=== PATIENT | female | born 1980 | race Caucasian/White ===

== ENCOUNTER 2019-04-04 22:35 | Emergency (ER) | payer OTHER, MEDICAID, SELFPAY ==
[2019-04-04 22:46] VITALS: BP 138/78; PULSE 83; RESP 15; TEMP 36.5; O2SAT 98; BMI 31.1
--- NOTE | 2019-04-04 23:52 | ED_ITS ---
HPI - Abdominal Pain <Ashlyn Escobedo DO - Last Filed: 04/05/19 06:51> General Chief Complaint: Abdominal Pain Stated Complaint: upper stomach issues, hot and cold flashes Time Seen by Provider: 04/04/19 23:39 Source: patient Mode of arrival: ambulatory Limitations: no limitations History of Present Illness HPI narrative: 38-year-old female comes to the emergency department with complaint of abdominal pain. Patient has complaint of epigastric discomfort she states that she has had symptoms on off for a while. It has been worse recently. She was I could feel hospital and states that they do anything and did not find anything. Patient has a history of hiatal hernia repair which then required replaced in of the mesh has not had a reaction patient states that this feels like it might be something similar. She has had hot and cold flashes but no subjective fevers. Some nausea but no vomiting. She little bit of urinary frequency urgency but no dysuria. No vaginal bleeding or discharge. Nose any issues with bowel movements and normal stools with no black or blood or diarrhea constipation. Little bit of flank pain at times. She states that the flank pain and urinary symptoms have just been for the last day. She denies any other medical issues. Related Data Previous Rx's Medication Instructions Recorded ondansetron [Zofran ODT] 4 mg SUBLINGUAL Q6HP PRN #20 odt 07/11/16 oxycodone-acetaminophen [Percocet] 1 tab PO Q4HP PRN #40 07/11/16 hydromorphone [Dilaudid] 2 mg PO Q4HP PRN #20 tab 07/14/16 sucralfate [Carafate] 10 ml PO QID #420 ml 04/05/19 Allergies Allergy/AdvReac Type Severity Reaction Status Date / Time metronidazole [From Flagyl] Allergy Verified 04/04/19 22:53 Review of Systems <Ashlyn Escobedo DO - Last Filed: 04/05/19 06:51> Review of Systems ROS Unobtainable: All systems reviewed & are unremarkable except as noted in HPI and below PFSH <Ashlyn Escobedo DO - Last Filed: 04/05/19 06:51> Social History (Updated 04/04/19 @ 23:56 by Ashlyn Escobedo DO) Smoking Status: Never smoker substance use type: does not use Social History (Updated 04/04/19 @ 23:56 by Ashlyn Escobedo DO) Smoking Status: Never smoker substance use type: does not use Exam <Ashlyn Escobedo DO - Last Filed: 04/05/19 06:51> Narrative Exam Narrative: GENERAL: Alert and oriented x three, well-nourished, well- appearing female who is tearful I walk into the room but is very calm during our discussion and no longer tearful HEENT: Head normocephalic, atraumatic, EOMI, pupils reactive, face symmetric, moist mucous membranes NECK: Supple, full range of motion CARDIOVASCULAR: Regular rate and rhythm without murmurs, rubs or gallops. RESPIRATORY: Breath sounds equal bilaterally, no wheezes rales or rhonchi. ABDOMEN: Soft, moderate epigastric tenderness, mild generalized abdominal t enderness. Normoactive bowel sounds all 4 quadrants. No guarding or rebound, rigidity, no mass : No CVA tenderness EXTREMITIES: Normal range of motion, no clubbing or edema. Neurovascularly intact NEUROLOGICAL: Cranial nerves II through XII grossly intact. Moving all extremities SKIN: Warm, dry, no petechiae, no rashes or lesions. Initial Vital Signs Initial Vital Signs: Vital Signs Temperature 97.7 F 04/04/19 22:46 Pulse Rate 83 04/04/19 22:46 Respiratory Rate 15 04/04/19 22:46 Blood Pressure 138/78 04/04/19 22:46 Pulse Oximetry 98 04/04/19 22:46 <Phoenix Hope DO - Last Filed: 04/05/19 11:51> Initial Vital Signs Initial Vital Signs: Vital Signs Temperature 97.7 F 04/04/19 22:46 Pulse Rate 83 04/04/19 22:46 Respiratory Rate 15 04/04/19 22:46 Blood Pressure 138/78 04/04/19 22:46 Pulse Oximetry 98 04/04/19 22:46 Course <Ashlyn Escobedo DO - Last Filed: 04/05/19 06:51> Orders Ordered: ED Orders 04/05/19 07:07 Consult to Survey Cad Technician Stat Discontinued Medications Sodium Chloride (Normal Saline 0.9%) 1,000 mls @ 1,000 mls/hr IV BOLUS ONE Stop: 04/05/19 00:51 Last Infusion: 04/05/19 02:00 Dose: 0 mls/hr Documented by: Admin: 04/05/19 00:31 Dose: 1,000 mls/hr Documented by: KATLIN Sodium Chloride (Normal Saline 0.9%) 1,000 mls @ 150 mls/hr IV CONT MARIEL Last Admin: 04/05/19 03:10 Dose: Not Given Documented by: KATLIN Lorazepam (Ativan) 1 mg PO NOW ONE Stop: 04/05/19 02:55 Last Admin: 04/05/19 03:03 Dose: 1 mg Documented by: KATLIN Ondansetron HCl (Zofran) 4 mg IV NOW ONE Stop: 04/04/19 23:53 Last Admin: 04/05/19 00:32 Dose: 4 mg Documented by: KATLIN Ondansetron HCl (Zofran Odt) 4 mg SL NOW ONE Stop: 04/05/19 06:14 Last Admin: 04/05/19 06:21 Dose: 4 mg Documented by: BERENICE Ondansetron HCl (Zofran Odt) 4 mg SL NOW ONE Stop: 04/05/19 09:25 Last Admin: 04/05/19 09:31 Dose: 4 mg Documented by: MOOKIE Pantoprazole Sodium (Protonix) 40 mg IV NOW ONE Stop: 04/04/19 23:53 Last Admin: 04/05/19 00:32 Dose: 40 mg Documented by: KATLIN Vital Signs Vital signs: Vital Signs - 8 hr 04/05/19 05:27 04/05/19 07:35 Temperature 98.0 F Pulse Rate 85 73 Respiratory Rate 16 18 Blood Pressure [Right Arm] 112/64 122/80 Pulse Oximetry 98 96 <Phoenix Hope DO - Last Filed: 04/05/19 11:51> Orders Ordered: ED Orders 04/05/19 07:07 Consult to Survey Cad Technician Stat Discontinued Medications Sodium Chloride (Normal Saline 0.9%) 1,000 mls @ 1,000 mls/hr IV BOLUS ONE Stop: 04/05/19 00:51 Last Infusion: 04/05/19 02:00 Dose: 0 mls/hr Documented by: Admin: 04/05/19 00:31 Dose: 1,000 mls/hr Documented by: KATLIN Sodium Chloride (Normal Saline 0.9%) 1,000 mls @ 150 mls/hr IV CONT MARIEL Last Admin: 04/05/19 03:10 Dose: Not Given Documented by: KATLIN Lorazepam (Ativan) 1 mg PO NOW ONE Stop: 04/05/19 02:55 Last Admin: 04/05/19 03:03 Dose: 1 mg Documented by: KATLIN Ondansetron HCl (Zofran) 4 mg IV NOW ONE Stop: 04/04/19 23:53 Last Admin: 04/05/19 00:32 Dose: 4 mg Documented by: KATLIN Ondansetron HCl (Zofran Odt) 4 mg SL NOW ONE Stop: 04/05/19 06:14 Last Admin: 04/05/19 06:21 Dose: 4 mg Documented by: BERENICE Ondansetron HCl (Zofran Odt) 4 mg SL NOW ONE Stop: 04/05/19 09:25 Last Admin: 04/05/19 09:31 Dose: 4 mg Documented by: MOOKIE Pantoprazole Sodium (Protonix) 40 mg IV NOW ONE Stop: 04/04/19 23:53 Last Admin: 04/05/19 00:32 Dose: 40 mg Documented by: KATLIN Vital Signs Vital signs: Vital Signs - 8 hr 04/05/19 05:27 04/05/19 07:35 Temperature 98.0 F Pulse Rate 85 73 Respiratory Rate 16 18 Blood Pressure [Right Arm] 112/64 122/80 Pulse Oximetry 98 96 MDM - Abdominal Pain <Ashlyn Escobedo DO - Last Filed: 04/05/19 06:51> Lab Data Attestation: I reviewed the patient's lab results. Result diagrams: 04/05/19 00:26 04/05/19 00:26 Labs: Lab Results 04/05/19 04/05/19 04/05/19 Range/Units 00:05 00:05 00:26 WBC 8.0 (4.5-11.0) X10^3/uL RBC 4.49 (4.0-5.2) X10^6/uL Hgb 13.5 (12.0-16.0) g/dL Hct 39.3 (36-46) % MCV 87.5 (80-100) fL MCH 30.1 (26-34) PG MCHC 34.4 (30-36) % RDW 13.5 (11.6-14.8) % Plt Count 246 (150-400) X10^3/uL Neut % (Auto) 74.0 (50-75) % Lymph % (Auto) 18.3 L (25-40) % Stoddard % (Auto) 6.3 (3-14) % Eos % (Auto) 0.8 L (2-4) % Baso % (Auto) 0.6 (0-2) % Neut # (Auto) 5900 (4169-5108) /uL Lymph # (Auto) 1500 (2088-6524) /uL Stoddard # (Auto) 500 (0-900) /uL Eos # (Auto) 100 (0-450) /uL Baso # (Auto) 0 (0-100) /uL Sodium (137-145) mmol/L Potassium (3.4-5.1) mmol/L Chloride (98-107) mmol/L Carbon Dioxide (22-32) mmol/L BUN (7-17) mg/dL Creatinine (0.52-1.04) mg/dL Estimated GFR (>60) mL/min BUN/Creatinine Ratio (6-22) Glucose (70-100) mg/dL Calcium (8.4-10.2) mg/dL Total Bilirubin (0.2-1.3) mg/dL AST (14-36) IU/L ALT (9-52) IU/L Alkaline Phosphatase (38-126) U/L Total Protein (6.3-8.2) g/dL Albumin (3.5-5.0) g/dL Globulin (1.7-4.1) g/dL Albumin/Globulin Ratio (1.0-2.8) Lipase (23-300) U/L TSH (0.47-4.68) uIU/mL Urine RBC None seen (0-5/HPF) Urine WBC None seen (0-5/HPF) Ur Squamous Epith Cells 1-5 /hpf (0-5/HPF) Urine Bacteria Few (2-10) H (None) Ur Culture Indicated? Cult not indicated Urine Opiates Screen Negative (Negative) Ur Oxycodone Screen Negative (Negative) Urine Methadone Screen Negative (Negative) Ur Barbiturates Screen Negative (Negative) U Tricyclic Antidepress Negative (Negative) Ur Phencyclidine Scrn Negative (Negative) Ur Amphetamines Screen Negative (Negative) U Methamphetamines Scrn Negative (Negative) Ur MDMA Scrn (Ecstasy) Negative (Negative) U Benzodiazepines Scrn Negative (Negative) Urine Cocaine Screen Negative (Negative) U Marijuana (THC) Screen Positive H (Negative) 04/05/19 04/05/19 Range/Units 00:26 00:26 WBC (4.5-11.0) X10^3/uL RBC (4.0-5.2) X10^6/uL Hgb (12.0-16.0) g/dL Hct (36-46) % MCV (80-100) fL MCH (26-34) PG MCHC (30-36) % RDW (11.6-14.8) % Plt Count (150-400) X10^3/uL Neut % (Auto) (50-75) % Lymph % (Auto) (25-40) % Stoddard % (Auto) (3-14) % Eos % (Auto) (2-4) % Baso % (Auto) (0-2) % Neut # (Auto) (0961-2887) /uL Lymph # (Auto) (1858-3906) /uL Stoddard # (Auto) (0-900) /uL Eos # (Auto) (0-450) /uL Baso # (Auto) (0-100) /uL Sodium 138 (137-145) mmol/L Potassium 3.4 (3.4-5.1) mmol/L Chloride 109 H (98-107) mmol/L Carbon Dioxide 23 (22-32) mmol/L BUN 10 (7-17) mg/dL Creatinine 0.50 L (0.52-1.04) mg/dL Estimated GFR > 60.0 (>60) mL/min BUN/Creatinine Ratio 20.0 (6-22) Glucose 104 H (70-100) mg/dL Calcium 9.1 (8.4-10.2) mg/dL Total Bilirubin 0.4 (0.2-1.3) mg/dL AST 15 (14-36) IU/L ALT 16 (9-52) IU/L Alkaline Phosphatase 73 (38-126) U/L Total Protein 7.0 (6.3-8.2) g/dL Albumin 4.2 (3.5-5.0) g/dL Globulin 2.8 (1.7-4.1) g/dL Albumin/Globulin Ratio 1.5 (1.0-2.8) Lipase 32 (23-300) U/L TSH 1.65 (0.47-4.68) uIU/mL Urine RBC (0-5/HPF) Urine WBC (0-5/HPF) Ur Squamous Epith Cells (0-5/HPF) Urine Bacteria (None) Ur Culture Indicated? Urine Opiates Screen (Negative) Ur Oxycodone Screen (Negative) Urine Methadone Screen (Negative) Ur Barbiturates Screen (Negative) U Tricyclic Antidepress (Negative) Ur Phencyclidine Scrn (Negative) Ur Amphetamines Screen (Negative) U Methamphetamines Scrn (Negative) Ur MDMA Scrn (Ecstasy) (Negative) U Benzodiazepines Scrn (Negative) Urine Cocaine Screen (Negative) U Marijuana (THC) Screen (Negative) Point of care testing: Point of Care Testing Test Results Negative Urine Dip Bedside Urine Glucose Negative Bedside Urine Bilirubin - Negative Bedside Urine Ketone + 15 Urine Specific Wright 1.015 Bedside Urine Occult Blood +/- Bedside Urine pH 5.5 Bedside Urine Protein - Negative Bedside Urine Urobilinogen - Negative Bedside Urine Nitrite - Negative Bedside Urine Leukocytes - Negative Esterase Imaging Data CT scan - abdomen: Radiologist's impression: No significant abnormalities. No free fluid or adenopathy noted in the pelvis. MDM Narrative Medical decision making narrative: Patient's labs do not show any acute abnormalities, urine did not show any signs of infection there is a few bacteria but no symptomatology or changes that would recommend urine culture at this time. Patient's imaging shows no acute changes discussed starting a PPI which patient has not been found very helpful. She has been on Dexilant recently. Discussed potentially adding Carafate and following up with her recreational therapist and primary care. We also discussed having her return to follow-up with Dr. Steven as she had similar symptoms and they did her mesh revision at that time. She states that her primary has not been giving her referral and we discussed trying to set up referral today. Patient's medication this evening was not helpful, she defers anything additional. She is quite tearful and upset that we do not have an exact answer for her. We discussed chest is earlier with out any changes in lab work or CT there is still a couple potential causes of her abdominal pain such as a gastritis, ulcers or other changes that would be best seen on EGD. As well as seeing her general surgeon. Patient patient expressed to nursing and myself that she is feeling quite h opeless and states she does not know what she would do if she goes home. When asked if she has a plan to kill herself she states, doesn't everybody and states she could think of something. She cannot state that she would feel safe at home either, denies firearms in the household. We discussed trying some medication, continuing to monitor her in the department and re-evaluate after she get some sleep. Patient would like to stay here in the department. We discussed various options to keep the patient safe. She has a family friend at bedside who has been here throughout her stay. Offered po ativan to see if this would help which she accepted. Patient had some retching, she states she has is every single morning was offered a dose of p.o. Zofran which she accepted. She states that it is not helpful normally and she has it at home but did take it. She is no longer vomiting or having any retching. Discussed with patient how she is feeling, she states she has not had any improvement. She still feels like she wants to hurt or kill herself. She is interested in voluntary placement at this time we discussed that is a sometimes very prolonged process but will go ahead and start that process. I did add on a TSH in UDS for medical clearance. Patient signed out to Dr. Hope while waiting final disposition. <Phoenix Hope, DO - Last Filed: 04/05/19 11:51> Lab Data Labs: Lab Results 04/05/19 04/05/19 04/05/19 Range/Units 00:05 00:05 00:26 WBC 8.0 (4.5-11.0) X10^3/uL RBC 4.49 (4.0-5.2) X10^6/uL Hgb 13.5 (12.0-16.0) g/dL Hct 39.3 (36-46) % MCV 87.5 (80-100) fL MCH 30.1 (26-34) PG MCHC 34.4 (30-36) % RDW 13.5 (11.6-14.8) % Plt Count 246 (150-400) X10^3/uL Neut % (Auto) 74.0 (50-75) % Lymph % (Auto) 18.3 L (25-40) % Stoddard % (Auto) 6.3 (3-14) % Eos % (Auto) 0.8 L (2-4) % Baso % (Auto) 0.6 (0-2) % Neut # (Auto) 5900 (4737-7700) /uL Lymph # (Auto) 1500 (2703-7566) /uL Stoddard # (Auto) 500 (0-900) /uL Eos # (Auto) 100 (0-450) /uL Baso # (Auto) 0 (0-100) /uL Sodium (137-145) mmol/L Potassium (3.4-5.1) mmol/L Chloride (98-107) mmol/L Carbon Dioxide (22-32) mmol/L BUN (7-17) mg/dL Creatinine (0.52-1.04) mg/dL Estimated GFR (>60) mL/min BUN/Creatinine Ratio (6-22) Glucose (70-100) mg/dL Calcium (8.4-10.2) mg/dL Total Bilirubin (0.2-1.3) mg/dL AST (14-36) IU/L ALT (9-52) IU/L Alkaline Phosphatase (38-126) U/L Total Protein (6.3-8.2) g/dL Albumin (3.5-5.0) g/dL Globulin (1.7-4.1) g/dL Albumin/Globulin Ratio (1.0-2.8) Lipase (23-300) U/L TSH (0.47-4.68) uIU/mL Urine RBC None seen (0-5/HPF) Urine WBC None seen (0-5/HPF) Ur Squamous Epith Cells 1-5 /hpf (0-5/HPF) Urine Bacteria Few (2-10) H (None) Ur Culture Indicated? Cult not indicated Urine Opiates Screen Negative (Negative) Ur Oxycodone Screen Negative (Negative) Urine Methadone Screen Negative (Negative) Ur Barbiturates Screen Negative (Negative) U Tricyclic Antidepress Negative (Negative) Ur Phencyclidine Scrn Negative (Negative) Ur Amphetamines Screen Negative (Negative) U Methamphetamines Scrn Negative (Negative) Ur MDMA Scrn (Ecstasy) Negative (Negative) U Benzodiazepines Scrn Negative (Negative) Urine Cocaine Screen Negative (Negative) U Marijuana (THC) Screen Positive H (Negative) 04/05/19 04/05/19 Range/Units 00:26 00:26 WBC (4.5-11.0) X10^3/uL RBC (4.0-5.2) X10^6/uL Hgb (12.0-16.0) g/dL Hct (36-46) % MCV (80-100) fL MCH (26-34) PG MCHC (30-36) % RDW (11.6-14.8) % Plt Count (150-400) X10^3/uL Neut % (Auto) (50-75) % Lymph % (Auto) (25-40) % Stoddard % (Auto) (3-14) % Eos % (Auto) (2-4) % Baso % (Auto) (0-2) % Neut # (Auto) (2574-2346) /uL Lymph # (Auto) (9262-8388) /uL Stoddard # (Auto) (0-900) /uL Eos # (Auto) (0-450) /uL Baso # (Auto) (0-100) /uL Sodium 138 (137-145) mmol/L Potassium 3.4 (3.4-5.1) mmol/L Chloride 109 H (98-107) mmol/L Carbon Dioxide 23 (22-32) mmol/L BUN 10 (7-17) mg/dL Creatinine 0.50 L (0.52-1.04) mg/dL Estimated GFR > 60.0 (>60) mL/min BUN/Creatinine Ratio 20.0 (6-22) Glucose 104 H (70-100) mg/dL Calcium 9.1 (8.4-10.2) mg/dL Total Bilirubin 0.4 (0.2-1.3) mg/dL AST 15 (14-36) IU/L ALT 16 (9-52) IU/L Alkaline Phosphatase 73 (38-126) U/L Total Protein 7.0 (6.3-8.2) g/dL Albumin 4.2 (3.5-5.0) g/dL Globulin 2.8 (1.7-4.1) g/dL Albumin/Globulin Ratio 1.5 (1.0-2.8) Lipase 32 (23-300) U/L TSH 1.65 (0.47-4.68) uIU/mL Urine RBC (0-5/HPF) Urine WBC (0-5/HPF) Ur Squamous Epith Cells (0-5/HPF) Urine Bacteria (None) Ur Culture Indicated? Urine Opiates Screen (Negative) Ur Oxycodone Screen (Negative) Urine Methadone Screen (Negative) Ur Barbiturates Screen (Negative) U Tricyclic Antidepress (Negative) Ur Phencyclidine Scrn (Negative) Ur Amphetamines Screen (Negative) U Methamphetamines Scrn (Negative) Ur MDMA Scrn (Ecstasy) (Negative) U Benzodiazepines Scrn (Negative) Urine Cocaine Screen (Negative) U Marijuana (THC) Screen (Negative) Point of care testing: Point of Care Testing Test Results Negative Urine Dip Bedside Urine Glucose Negative Bedside Urine Bilirubin - Negative Bedside Urine Ketone + 15 Urine Specific Wright 1.015 Bedside Urine Occult Blood +/- Bedside Urine pH 5.5 Bedside Urine Protein - Negative Bedside Urine Urobilinogen - Negative Bedside Urine Nitrite - Negative Bedside Urine Leukocytes - Negative Esterase MDM Narrative Medical decision making narrative: Dr Hope: Received turned over from Dr escobedo who is the overnight physician. Reviewed patient's history and physical and labs. Perform my own independent exam. There is no emergent condition found for her presenting symptoms which was her abdominal complaints. She does have an EGD scheduled for Saturday of this week. She was asking for referral to go back and see her surgeon however has been a year and a half and she states that she needs referral. Informed the patient that she needs to get this from her primary doctor. Patient was evaluated by social work here in the emergency department. Patient does not meet criteria for involuntary admission. Plan is to provide the patient resources for crisis intervention. She was informed that she can return to the emergency department at any time. She was tolerating oral intake. She did state she felt comfortable going home. Discharge Plan Departure Patient Disposition: Home Clinical Impression: Abdominal pain, Suicidal ideation Instructions: DI for Epigastric Pain Activity Restrictions/Additional Instructions: Follow up with your primary care and recreational therapist's in the next week for your EGD. You also need to received the referral to see the surgeon by your primary doctor Call Dr. Steven's office for follow up. Below is referral, here new office number is [phone] at [address] [facility] [place] Start carafate today, you may take once before meals three times daily and prior to sleep. Return to the emergency department for fevers greater 100.4 F, persistent vomiting, lightheadedness, passing out, black or bloody stools, rapidly worsening symptoms, new weakness numbness or other new or concerning symptoms. Prescriptions: New sucralfate [Carafate] 100 mg/mL suspension 10 ml PO QID Qty: 420 RF: 0 No Action oxycodone-acetaminophen [Percocet] 7.5 MG/325 MG tablet 1 tab PO Q4HP PRNQty: 40 RF: 0 ondansetron [Zofran ODT] 4 MG tablet,disintegrating 4 mg Sublingual Q6HP PRNQty: 20 RF: 0 hydromorphone [Dilaudid] 2 MG tablet 2 mg PO Q4HP PRNQty: 20 RF: 0 Referrals: Berenice Steven MD [Non-Staff] - Ruddy Cutler PA-C [Primary Care Provider] -
--- NOTE | 2019-04-04 23:53 | DI.CT.S_ITS ---
PROCEDURE: CT ABDOMEN PELVIS W CON INDICATIONS: epigatric pain, hx of hernia repair with mesh replaced. TECHNIQUE: After the administration of intravenous contrast, 5 mm thick sections acquired from the diaphragm to the symphysis. 5 mm coronal and sagittal reformats were acquired. For radiation dose reduction, the following was used: automated exposure control, adjustment of mA and/or kV according to patient size. COMPARISON: [facility], CT, ABDOMEN/PELVIS WITH CONTRAST, 11/29/2015, 12:45. [facility], CR, ABDOMEN ACUTE SERIES, 04/20/2016, 11:24. [facility], CR, ABDOMEN ACUTE SERIES, 11/29/2015, 10:44. [facility], US, ABDOMEN COMPLETE, 09/09/2015, 17:15. FINDINGS: Image quality: Excellent. ABDOMEN: Lung bases: Lung bases are clear. Heart size is normal. Solid organs: Liver is normal in size and enhancement. Gallbladder wall is not thickened. Biliary system is non dilated. Pancreas enhances normally. Spleen is normal in size and enhancement. No adrenal nodules. Kidneys demonstrate normal size and enhancement, without hydronephrosis. Peritoneum and bowel: Bowel loops demonstrate normal wall thickness and caliber. No free fluid or air. Incidental note is made of a normal-appearing appendix. Nodes and vessels: No retroperitoneal or mesenteric adenopathy by size criteria. Aorta and inferior vena cava are normal in size. Miscellaneous: There is a trace or umbilical hernia. No recurrent hernias are seen. Anterior abdominal wall mesh is not definitely seen. PELVIS: Genitourinary: Bladder wall thickness is normal. Miscellaneous: No inguinal hernias or adenopathy. Bones: No suspicious bony lesions. No vertebral body compression fractures. IMPRESSION: Trace periumbilical hernia, without additional anterior abdominal wall hernia. Note: No significant discrepancy from the preliminary report. Dictated by: Luis Angel Chow M.D. on 04/05/2019 at 7:14 Approved by: Luis Angel Chow M.D. on 04/05/2019 at 7:15
[2019-04-05] VITALS (7 sets, daily range): BP systolic 110–129; BP diastolic 56–86; PULSE 68–90; RESP 15–19; TEMP 36.7–36.8; O2SAT 95–98
[2019-04-05 00:14] LABS: RBC Urine None Seen (0-5/HPF); WBC Urine None Seen (0-5/HPF)
[2019-04-05 00:25] LABS: Bacteria Urine Few (2-10); Culture Indicated Urine Cult Not Indicated; Squamous Epithelial Cell Urine 1-5 /HPF (0-5/HPF)
[2019-04-05] MEDS: SODIUM CHLORIDE 0.9% 1,000 ML 1000 ML IV (00:31)
[2019-04-05] MEDS: PANTOPRAZOLE 40 MG VIAL IV (00:32)
[2019-04-05] MEDS: ONDANSETRON 4 MG/2 ML INJ IV (00:32)
[2019-04-05 00:43] LABS: Add Manual Diff / Slide Review NO; Basophils Absolute Auto 0 /uL (0-100); Basophils Percent Auto 0.6 % (0-2); Eosinophils Absolute Auto 100 /uL (0-450); Eosinophils Percent Auto 0.8 % (2-4); Hematocrit 39.3 % (36-46); Hemoglobin 13.5 g/dL (12.0-16.0); Lymphocytes Absolute Auto 1500 /uL (1100-4500); Lymphocytes Percent Auto 18.3 % (25-40); Mean Corpuscular HGB Conc 34.4 % (30-36); Mean Corpuscular Hemoglobin 30.1 PG (26-34); Mean Corpuscular Volume 87.5 fL (80-100); Monocytes Absolute Auto 500 /uL (0-900); Monocytes Percent Auto 6.3 % (3-14); Neutrophils Absolute Auto 5900 /uL (1500-7000); Platelet Count 246 X10^3/uL (150-400); Red Blood Cell Count 4.49 X10^6/uL (4.0-5.2); Red Cell Distribution Width 13.5 % (11.6-14.8)
[2019-04-05 00:50] LABS: Alanine Aminotransferase 16 IU/L (9-52); Albumin 4.2 g/dL (3.5-5.0); Albumin Globulin Ratio 1.5 (1.0-2.8); Alkaline Phosphatase 73 U/L (38-126); Aspartate Aminotransferase 15 IU/L (14-36); Bilirubin Total 0.4 mg/dL (0.2-1.3); Blood Urea Nitrogen 10 mg/dL (7-17); Calcium 9.1 mg/dL (8.4-10.2); Carbon Dioxide 23 mmol/L (22-32); Chloride 109 mmol/L (98-107); Estimated Glomerular Filt Rate > 60.0 mL/min (>60); Globulin 2.8 g/dL (1.7-4.1); Glucose 104 mg/dL (70-100); HEMOLYSIS < 15 (0-50); Lipase 32 U/L (23-300); Potassium 3.4 mmol/L (3.4-5.1); Sodium 138 mmol/L (137-145)
[2019-04-05] MEDS: LORazepam 0.5 MG TABLET 1 MG PO (03:03)
--- NOTE | 2019-04-05 04:06 | PC.NURSE ---
Late Entry 214 As pt was walking to the bathroom, she stopped me and asked to speak with me. She told me that she often wakes in the morning feeling hopeless and that she frequently has thoughts that she would be better off . Pt denies specific plan to commit suicide.
--- NOTE | 2019-04-05 04:11 | PC.NURSE ---
When preparing to discharge the patient, she told me how frustrated she was that we found no explaination for her pain. She said, I don't think I'm safe to go home anymore. Pt indicated that she was feeling suicidal and didn't trust herself at home. When asked if she has a plan, she stated, No, but with my mind going like it is I'm sure I could think of something. Dr Diego notified and spoke with pt at the bedside. Pt agreed to try some ativan for her anxiety, stay and sleep for a few hours, and then reevaluate. Pt's friend remains at bedside.
--- NOTE | 2019-04-05 05:25 | PC.NURSE ---
Late Entry 0335 Pt verbally contracted for safety. She agrees not to harm herself while she is in the ED. Family friend at bedside is also agreeable.
[2019-04-05] MEDS: ONDANSETRON 4 MG ODT SL ×2 (06:21→09:31)
[2019-04-05 06:40] LABS: Urine Amphetamines Negative (Negative); Urine Barbiturates Negative (Negative); Urine Benzodiazepines Negative (Negative); Urine Cocaine Negative (Negative); Urine MDMA Negative (Negative); Urine Methadone Negative (Negative); Urine Methamphetamines Negative (Negative); Urine Morphine/Opi cutoff 2000 Negative (Negative); Urine Oxycodone Negative (Negative); Urine Phencyclidine Negative (Negative); Urine Tetrahydrocannabinol Positive (Negative); Urine Tricyclic Antidepressant Negative (Negative)
[2019-04-05 07:42] LABS: Thyroid Stimulating Hormone 1.65 uIU/mL (0.47-4.68)
--- NOTE | 2019-04-05 08:49 | PC.NURSE ---
Addendum entered by Jessica Mcintosh CNA 04/05/19 10:09: Pt now visting with son. Sitting up on stretcher, chatting calmly. DARA Original Note: Pt ambulated independently to restroom. Pt provided urine sample. Pt now resting calmly on stretcher. Pt's father and family friend are in room with pt. DARA
--- NOTE | 2019-04-05 13:10 | CM.SWNOTE ---
Social Work Consult: HPI narrative: 38-year-old female comes to the emergency department with complaint of abdominal pain. Patient has complaint of epigastric discomfort she states that she has had symptoms on off for a while. It has been worse recently. MDM Narrative: Patient was evaluated by social work here in the emergency department. Patient does not meet criteria for involuntary admission. Plan is to provide the patient resources for crisis intervention. She was informed that she can return to the emergency department at any time. She was tolerating oral intake. She did state she felt comfortable going home. This ANALYTICAL LABORATORY TECHNICIAN requested to see Heather after stating she felt overwhelmed and endorsed thoughts of suicide. Met w/ Heather at bedside, explained SW role. Heather lives w/children 20, 14 and 8 yo. She admits to years long of struggling w/abd pain and h/o multiple abd surgeries. She feels exhausted and in pain everyday and states I understand now why people jump off the bridge. Heather denies current thoughts of self harm or harm to others, she denies a plan to harm herself. She denies any h/o SI/SA, denies psychiatric history or treatment. Heather admits to not feeling myself and feeling hopeless about her medical situation and ongoing abd pain. Educated Heather about the connection between depression/anxiety and abd. issues and encouraged her to seek professional input from a counselor and prescriber about managing her symptoms of both anxiety and depression. Offered assist in placement in a voluntary inpt MH unit and Heather said she didn't want to miss her teenager's first day of HS this week and didn't want to miss her EGD this Saturday. Heather does not meet criteria for detainment and she was able to safety plan w/this ANALYTICAL LABORATORY TECHNICIAN. Haether had friends take her home and was planning on seeking as much peace/calm w/her family this evening as possible. This ANALYTICAL LABORATORY TECHNICIAN called [facility] w/Heather's permission and arranged a chk in call for this evening, they can discuss next day counseling appts. available to Heather.Provided the following resources to Heather before her [place] home: [facility], Outpatient: [facility] ([facility])? They are calling this evening to check in with you. Do not wait until they call if you need immediate assistance to discuss thoughts of self harm, and/or feelings of hopelessness , feeling ?not normal? or feeling overwhelmed. Medicaid Providers: [facility], P# [phone] [facility], P# [phone] [facility], P# [phone] PRINCESS Healy
== END 2019-04-05 12:25 | disposition home or self-care (01) ==
PROVIDERS: Emergency Medicine; Emergency Provider Emergency Medicine; PCP Physician Assistant
DX: R10.9 Unspecified abdominal pain (principal); R45.851 Suicidal ideations
CPT/HCPCS: 36591; 74177; 80053; 80305; 81003; 81015; 81025; 83690; 84443; 85025; 96361; 96374; 96375; 99285; C9113; J2405; Q9967

== ENCOUNTER 2020-09-13 10:43 | Emergency (ER) | payer OTHER, MEDICAID, SELFPAY ==
[2020-09-13 10:48] VITALS: BP 127/81; PULSE 94; RESP 16; TEMP 36.8; O2SAT 97; BMI 30.9
--- NOTE | 2020-09-13 11:13 | ED_ITS ---
HPI - URI/Sore Throat <WILMER Espana - Last Filed: 09/13/20 15:13> General Chief Complaint: Upper Respiratory Symptoms Stated Complaint: breathing issues/sent by doctor Time Seen by Provider: 09/13/20 10:51 Source: patient Mode of arrival: Ambulatory Limitations: no limitations History of Present Illness HPI Narrative: 40yo female presents to the ED for a COVID test. She states she was seen and evaluated at [facility] last evening, she presents with her ED papers which states she was evaluated for cardiac issues, infection, blood clots, and electrolyte abnormalities, etc. she was prescribed dexamethasone and albuterol inhaler which she has not filled or taken. She states it was late at night so she went home to sleep. She called her primary care provider to schedule a follow-up appointment and was told to come to the emergency department to get a COVID test. Patient states she is feeling slightly better this morning without taking medication but she did developed a dry cough which she did not have last evening. She denies any fevers, chills, vomiting, abdominal pain, chest pain, shortness of breath, or any other concerns. 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 Related Data Previous Rx's Medication Instructions Recorded ondansetron [Zofran ODT] 4 mg SUBLINGUAL Q6HP PRN #20 odt 07/11/16 oxycodone-acetaminophen [Percocet] 1 tab PO Q4HP PRN #40 07/11/16 hydromorphone [Dilaudid] 2 mg PO Q4HP PRN #20 tab 07/14/16 sucralfate [Carafate] 10 ml PO QID #420 ml 04/05/19 Allergies Allergy/AdvReac Type Severity Reaction Status Date / Time metronidazole [From Flagyl] Allergy Verified 09/13/20 10:52 nitrofurantoin Allergy Verified 09/13/20 10:52 [From Macrobid] Review of Systems <WILMER Espana - Last Filed: 09/13/20 15:13> Review of Systems Narrative: REVIEW OF SYSTEMS: GENERAL: Denies fevers. HENT: No head trauma or hearing loss. EYES: No loss of vision, double vision, eye pain, irritation or discharge. CARDIOVASCULAR: No chest pain or syncope. RESPIRATORY: Reports cough, see HPI. GASTROINTESTINAL: No nausea, vomiting, diarrhea, or constipation. MUSCULOSKELETAL: No weakness or injury. INTEGUMENTARY: No rash, lesions, or pruritus. NEURO: No memory loss, or confusion. Patient History <WILMER Espana - Last Filed: 09/13/20 15:13> Medical History No significant medical problems Social History Smoking Status: Never smoker substance use type: does not use Smoking Status: Never smoker alcohol intake frequency: holidays/special occasions only Substance Use Type: does not use Exam <WILMER Espana - Last Filed: 09/13/20 15:13> Initial Vital Signs Initial Vital Signs: Vital Signs Temperature 98.3 F 09/13/20 10:48 Pulse Rate 94 H 09/13/20 10:48 Respiratory Rate 16 09/13/20 10:48 Blood Pressure 127/81 09/13/20 10:48 Pulse Oximetry 97 09/13/20 10:48 PHYSICAL EXAMINATION: GENERAL: Awake and alert. HENT: Normocephalic, atraumatic. Ear canals patent. EYES: Conjunctiva pink, sclera white, no periorbital swelling. No discharge. CHEST: Normal to inspection and without deformities. CARDIOVASCULAR: S1 and S2 sounds normal. Regular rate and rhythm, no murmurs, clicks, or bruits. RESPIRATORY: Normal respiratory rate, trachea midline, airway patent. No stridor, nasal flaring or accessory muscle use. Able to speak in full sentences. Lungs are clear in all irvin without wheeze, rhonchi, or crackles. Occasional dry cough observed. MUSCULOSKELETAL: Normal gait and coordination. Equal tone and mass bilaterally. EXTREMITIES: Moves all extremities. SKIN: Warm, dry, soft, appropriate color for ethnicity. No lesions, rashes, or wounds to visualized areas. NEURO: Alert and Oriented X 3. Good coordination. No ataxia or cognitive issues. PSYCH: Appropriate affect and mood. <Ashlyn Diego DO - Last Filed: 09/14/20 08:30> Initial Vital Signs Initial Vital Signs: Vital Signs Temperature 98.3 F 09/13/20 10:48 Pulse Rate 94 H 09/13/20 10:48 Respiratory Rate 16 09/13/20 10:48 Blood Pressure 127/81 09/13/20 10:48 Pulse Oximetry 97 09/13/20 10:48 Scores <Shaunna WILMER June - Last Filed: 09/13/20 15:13> Wells' Criteria for PE Clinical signs and symptoms of DVT: No PE is #1 Dx or equally likely: No Heart rate > 100: No Immobilization at least 3 days or surg in previous 4 weeks: No History of PE or DVT: No Hemoptysis: No Malignancy w/Treatment within 6 months or palliative: No Wells' PE Score total: 0 Course <WILEMR Espana - Last Filed: 09/13/20 15:13> Orders Ordered: ED Orders 09/13/20 11:12 COVID19 Stat Vital Signs Vital signs: Vital Signs - 8 hr 09/13/20 10:48 09/13/20 11:55 Temperature 98.3 F Pulse Rate 94 H 84 Respiratory Rate 16 Blood Pressure 127/81 110/58 L Pulse Oximetry 97 100 <Ashlyn Diego DO - Last Filed: 09/14/20 08:30> Orders Ordered: ED Orders 09/13/20 11:12 COVID19 Stat Vital Signs Vital signs: Vital Signs - 8 hr 09/13/20 10:48 09/13/20 11:55 Temperature 98.3 F Pulse Rate 94 H 84 Respiratory Rate 16 Blood Pressure 127/81 110/58 L Pulse Oximetry 97 100 MDM - URI/Sore Throat <ShaunnaWILMER Case - Last Filed: 09/13/20 15:13> Medical Records Attestation: I reviewed the patient's medical records. Lab Data Attestation: I reviewed the patient's lab results. Labs: Lab Results 09/13/20 Range/Units 11:12 SARS-CoV-2 (PCR) Negative (Negative) MDM Narrative Medical decision making narrative: History and examination reveal a healthy appearing, hemodynamically stable, 40-year-old female here for a COVID test. Patient was significantly evaluated note would be for her shortness of breath and cough. It appeared she had laboratory work drawn, chest x-ray, and was prescribed albuterol and dexamethasone which she has not taken this time. She was told to come get COVID tested by her primary care provider as she was schedule an appointment. No distress, oxygen saturation within normal limits, no tachycardia. Return precautions given for new or worsening symptoms. She was encouraged to fill her scripts and follow-up with her PCP. <Ashlyn Diego, - Last Filed: 09/14/20 08:30> Lab Data Labs: Lab Results 09/13/20 Range/Units 11:12 SARS-CoV-2 (PCR) Negative (Negative) Discharge Plan Departure Patient Disposition: Home Clinical Impression: Encounter for laboratory testing for COVID-19 virus Activity Restrictions/Additional Instructions: Thank you for entrusting me with your care today. As discussed, your COVID-19 test is negative today. Please fill the prescriptions that were given to you last night, start taking them as soon as possible. Call your primary care provider to follow up in the next few days. Return emergency department for any new or worsening symptoms. Prescriptions: No Action oxycodone-acetaminophen [Percocet] 7.5 MG/325 MG tablet 1 tab PO Q4HP PRNQty: 40 RF: 0 ondansetron [Zofran ODT] 4 MG tablet,disintegrating 4 mg Sublingual Q6HP PRNQty: 20 RF: 0 hydromorphone [Dilaudid] 2 MG tablet 2 mg PO Q4HP PRNQty: 20 RF: 0 sucralfate [Carafate] 100 mg/mL suspension 10 ml PO QID Qty: 420 RF: 0 Referrals: Klaudia Quick ARNP [Primary Care Provider] - <Ashlyn Diego, - Last Filed: 09/14/20 08:30> Cosign ED Attending Astridature Attestation: I was immediately available in the department for consultation. Documentation has been reviewed.
[2020-09-13 11:35] LABS: COVID19 -Nasal RAPID Negative (Negative)
[2020-09-13 11:55] VITALS: BP 110/58; PULSE 84; O2SAT 100
== END 2020-09-13 11:56 | disposition home or self-care (01) ==
PROVIDERS: Emergency Provider Nurse Practitioner; PCP Nurse Practitioner Family
DX: Z20.822 Contact with and (suspected) exposure to COVID-19 (principal)
CPT/HCPCS: 87635; 99281; 99282; C9803

== ENCOUNTER 2021-03-18 21:26 | Emergency (ER) | payer OTHER, MEDICAID, SELFPAY ==
[2021-03-18 22:05] VITALS: BP 154/78; PULSE 75; RESP 18; TEMP 36.6; O2SAT 97
[2021-03-18 22:38] LABS: COVID19 -Nasal RAPID Negative (Negative)
--- NOTE | 2021-03-18 23:25 | ED.HA ---
HPI - Headache General Chief Complaint: Headache Stated Complaint: wants covid test, headache, diarrhea, congestion Time Seen by Provider: 03/18/21 23:09 Mode of arrival: Ambulatory Limitations: no limitations History of Present Illness HPI Narrative: Patient is a 40-year-old female with history of migraine headaches un vaccinated for COVID presenting with 3 days of headache nasal congestion sore throat. She has mild cough as well no fevers no neck pain. She has taken her Imitrex multiple times her headache is not going away. Mostly concern for COVID. Headache is mild just persistent. No nausea or vomiting Related Data Previous Rx's Medication Instructions Recorded ondansetron 4 mg disintegrating 4 mg SUBLINGUAL Q6HP PRN #20 odt 07/11/16 tablet (Zofran ODT) oxycodone-acetaminophen 7.5 mg-325 1 tab PO Q4HP PRN #40 07/11/16 mg tablet (Percocet) hydromorphone 2 mg tablet 2 mg PO Q4HP PRN #20 tab 07/14/16 (Dilaudid) sucralfate 100 mg/mL oral 10 ml PO QID #420 ml 04/05/19 suspension (Carafate) Allergies Allergy/AdvReac Type Severity Reaction Status Date / Time metronidazole [From Flagyl] Allergy Verified 09/13/20 10:52 nitrofurantoin Allergy Verified 09/13/20 10:52 [From Macrobid] Review of Systems Review of Systems ROS Unobtainable: All systems reviewed & are unremarkable except as noted in HPI and below Constitutional Constitutional: Reports as per HPI, Reports body ache(s), Reports fatigue, Denies fever(s), Denies headache(s) and Denies weakness Eyes Eyes: Denies blurry vision ENT Ears, Nose, Mouth, and Throat: Reports as per HPI, Denies vertigo, Denies dizziness and Denies headache(s) Cardiovascular Cardiovascular: Denies chest pain, Denies lightheadedness and Denies dyspnea Respiratory Respiratory: Denies cough and Denies dyspnea Gastrointestinal Gastrointestinal: Denies abdominal pain, Denies nausea and Denies vomiting Musculoskeletal Musculoskeletal: Denies tingling Neurologic Neurologic: Denies confusion, Denies vertigo, Denies dizziness, Denies headache(s), Denies tingling and Denies weakness Psychiatric Psychiatric: Denies confusion Endocrine Endocrine: Reports fatigue Patient History Medical History No significant medical problems Social History Smoking Status: Never smoker substance use type: does not use Smoking Status: Never smoker alcohol intake frequency: holidays/special occasions only Substance Use Type: does not use Exam Initial Vital Signs Initial Vital Signs: Vital Signs Temperature 97.9 F 03/18/21 22:05 Pulse Rate 75 03/18/21 22:05 Respiratory Rate 18 03/18/21 22:05 Blood Pressure 154/78 H 03/18/21 22:05 Pulse Oximetry 97 03/18/21 22:05 GENERAL: Well-appearing, well-nourished and in no acute distress. HEENT: Head atraumatic,EOMI, pupils reactive, face symmetric, moist mucous membranes NECK: Supple no meningeal signs CARDIOVASCULAR: Regular rate and rhythm without murmurs, rubs or gallops. RESPIRATORY: Breath sounds equal bilaterally, no wheezes rales or rhonchi. EXTREMITIES: Normal range of motion, no clubbing or edema. Neurovascularly intact NEUROLOGICAL: Alert and oriented x4.Normal gait and speech. Cranial nerves II through XII grossly intact. SKIN: Warm, dry, no laceration, no petechiae, no rashes or lesions. Course Orders Ordered: ED Orders 03/18/21 22:15 COVID19 -Nasal swab/Pre-Proc Stat Discontinued Medications Ketorolac Tromethamine (Ketorolac 30 Mg/Ml Vial) 30 mg IM NOW ONE Stop: 03/18/21 23:18 Last Admin: 03/18/21 23:34 Dose: 30 mg Documented by: SUSAN Vital Signs Vital signs: Vital Signs - 8 hr 03/18/21 22:05 03/18/21 23:39 Temperature 97.9 F Pulse Rate 75 65 Respiratory Rate 18 18 Blood Pressure 154/78 H 114/57 L Pulse Oximetry 97 99 MDM - Headache Lab Data Labs: Lab Results 03/18/21 Range/Units 22:15 SARS-CoV-2 (PCR) Negative (Negative) MDM Narrative Medical decision making narrative: Patient initial concern for COVID she works at the [email or web address] and says that there is a lot of people being diagnosed with it. She is interested now in getting the COVID vaccine. I did discuss with her she probably needs to be retested thing is she has only had symptoms for about 3 days. She is overall feeling much better after Toradol. She is afebrile. I do not suspect any meningitis. She has upper respiratory like symptoms. At this time COVID test is negative. Discharge Plan Departure Patient Disposition: Home Clinical Impression: Upper respiratory infection, Migraine Instructions: Migraine -- Adult, DI for Migraine, DI for Viral Upper Respiratory Infection -- Adult Activity Restrictions/Additional Instructions: *You have been diagnosed with headache and upper respiratory infection *What to do: At this time I still strongly encourage you to get vaccinated for COVID when your infection clears. I also recommend that he get a 2nd COVID test at around day 5 of your symptoms to be sure that you do not have COVID. I believe her headache is caused from your current upper respiratory infection *Continue to take medications as directed *Follow up with your primary care provider in 2-3 days *Return to ER if you should have worsening headache, numbness tingling weakness, increased difficulty breathing or any new, worsening or concerning symptoms Prescriptions: No Action oxycodone-acetaminophen [Percocet] 7.5 MG/325 MG tablet 1 tab PO Q4HP PRNQty: 40 RF: 0 ondansetron [Zofran ODT] 4 MG tablet,disintegrating 4 mg Sublingual Q6HP PRNQty: 20 RF: 0 hydromorphone [Dilaudid] 2 MG tablet 2 mg PO Q4HP PRNQty: 20 RF: 0 sucralfate [Carafate] 100 mg/mL suspension 10 ml PO QID Qty: 420 RF: 0 Referrals: Klaudia Quick ARNP [Primary Care Provider] - Stand Alone Forms: Work Release Note
[2021-03-18] MEDS: KETOROLAC 30 MG/ML VIAL IM (23:34)
[2021-03-18 23:39] VITALS: BP 114/57; PULSE 65; RESP 18; O2SAT 99
== END 2021-03-18 23:45 | disposition home or self-care (01) ==
PROVIDERS: Emergency Provider Emergency Medicine; PCP Nurse Practitioner Family
DX: J06.9 Acute upper respiratory infection, unspecified (principal); G43.909 Migraine, unspecified, not intractable, without status migrainosus; Z20.822 Contact with and (suspected) exposure to COVID-19
CPT/HCPCS: 87635; 96372; 99283; C9803; J1885

== ENCOUNTER 2021-10-31 11:55 | Emergency (ER) | payer OTHER, MEDICAID, SELFPAY ==
[2021-10-31 12:13] VITALS: BP 130/67; PULSE 69; RESP 18; TEMP 36.6; O2SAT 99
--- NOTE | 2021-10-31 12:43 | DI.CT.S_ITS ---
PROCEDURE: CT ABDOMEN PELVIS W CON INDICATIONS: Pancreatic tumor; acute abdomen pain TECHNIQUE: After the administration of oral and IV contrast, axial sections were acquired from the lung bases to the pubic symphysis. Coronal and sagittal reformats were performed. For radiation dose reduction, the following was used: automated exposure control, adjustment of mA and/or kV according to patient size. COMPARISON: [facility], CT, CT ABDOMEN PELVIS WITH CONTRAST, 06/21/2017, 13:04. [facility], CT, CT ABDOMEN PELVIS W CON, 04/05/2019, 1:07. FINDINGS: Image quality: Excellent. Lung bases: Unremarkable. Heart: No significant findings. ABDOMEN: Liver: Unremarkable. Gallbladder: Removed. Biliary ducts: Unremarkable. Pancreas: Within the head of the pancreas, there is a focal hyperenhancing nodule seen, as on series 2, image 24 that measures up to 11 mm. Spleen: Unremarkable. Adrenal Glands: Unremarkable. Kidneys and Ureters: Unremarkable. Stomach and Bowel: Nodular thickening is seen of the colonic wall, which is worst proximally. Minimal surrounding inflammatory change is seen. No dilated loops of small bowel are seen. No significant gastric is seen. Peritoneum: No abnormal intraperitoneal fluid. No free air. Ventral Wall: No hernia. Abdominal Nodes: No retroperitoneal or mesenteric adenopathy by size criteria. Vessels: Aorta and inferior vena cava are normal in size. PELVIS: Pelvic Organs: The cervix demonstrates a somewhat bulbous appearance, yet without a addison mass identified. The uterus is otherwise unremarkable. No adnexal masses are seen on either side. Bladder: Unremarkable. Pelvic Nodes: No enlarged lymph nodes. Miscellaneous: No inguinal hernias are seen. Bones: Unremarkable. IMPRESSION: Moderate generalized colonic wall thickening can be seen, which is worst proximally. Please correlate with potential infectious and inflammatory causes of colitis, including C. difficile colitis. No findings of perforation or abscess can be seen. Bulbous appearance of the uterine cervix. Please correlate with known patient history and physical examination findings. 11 mm hyperenhancing nodule seen within the head of the pancreas. Incidental note is made of: Cholecystectomy Dictated by: Luis Angel Chow M.D. on 10/31/2021 at 12:33 Approved by: Luis Angel Chow M.D. on 10/31/2021 at 12:41
[2021-10-31] MEDS: METOCLOPRAMIDE 10 MG/2 ML INJ IV (12:51)
[2021-10-31] MEDS: MORPHINE 4 MG/ML INJ IV (12:51)
[2021-10-31 12:54] LABS: Add Manual Diff / Slide Review NO; Basophils Absolute Auto 0 /uL (0-100); Basophils Percent Auto 0.5 % (0-2); Eosinophils Absolute Auto 0 /uL (0-450); Eosinophils Percent Auto 0.2 % (2-4); Hematocrit 36.4 % (36-46); Hemoglobin 12.5 g/dL (12.0-16.0); Lymphocytes Absolute Auto 900 /uL (1100-4500); Lymphocytes Percent Auto 15.4 % (25-40); Mean Corpuscular HGB Conc 34.4 % (30-36); Mean Corpuscular Hemoglobin 29.7 PG (26-34); Mean Corpuscular Volume 86.1 fL (80-100); Monocytes Absolute Auto 300 /uL (0-900); Monocytes Percent Auto 5.2 % (3-14); Neutrophils Absolute Auto 4800 /uL (1500-7000); Neutrophils Percent Auto 78.7 % (50-75); Platelet Count 241 X10^3/uL (150-400); Red Blood Cell Count 4.22 X10^6/uL (4.0-5.2); Red Cell Distribution Width 13.5 % (11.6-14.8); White Blood Cell Count 6.1 X10^3/uL (4.5-11.0)
[2021-10-31 13:09] LABS: Lactate (Lactic Acid) 0.8 mmol/L (0.7-2.1)
[2021-10-31 13:10] LABS: Alanine Aminotransferase 15 IU/L (<35); Albumin 4.6 g/dL (3.5-5.0); Albumin Globulin Ratio 1.6 (1.0-2.8); Alkaline Phosphatase 81 U/L (38-126); Aspartate Aminotransferase 20 IU/L (14-36); BUN Creatinine Ratio 16.7 (6-22); Bilirubin Total 0.4 mg/dL (0.2-1.3); Blood Urea Nitrogen 10 mg/dL (7-17); Calcium 8.8 mg/dL (8.4-10.2); Carbon Dioxide 23 mmol/L (22-32); Chloride 108 mmol/L (98-107); Estimated Glomerular Filt Rate > 60.0 mL/min (>60); Globulin 2.8 g/dL (1.7-4.1); Glucose 104 mg/dL (70-100); HEMOLYSIS < 15 (0-50); Potassium 3.9 mmol/L (3.4-5.1); Sodium 140 mmol/L (137-145); Total Protein 7.4 g/dL (6.3-8.2)
[2021-10-31] MEDS: SODIUM CHLORIDE 0.9% 1,000 ML 1000 ML IV (14:36)
--- NOTE | 2021-10-31 16:56 | PC.NURSE ---
Pt unable to give stool sample. Pt will follow up with PCP to get sample at a later time.
[2021-10-31 17:11] VITALS: BP 117/64; PULSE 85; RESP 18; O2SAT 98
--- NOTE | 2021-10-31 19:59 | ED.ABDPAIN ---
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 Patient states she was diagnosed with the neuroendocrine tumor 2 weeks ago, is slated to have surgery for it in November. However patient has epigastric pain and nausea since the diagnosis. Patient was seen at with the yesterday and again this morning and discharged with IV fluids for dehydration and pain control for the abdominal pain. No imaging was done at [facility]. Patient denies fever, chills, chest pain, shortness of breath, vomiting, flank pain, dysuria, hematochezia, melena. Patient was discharged on Vicodin but says that her nausea prevents her from being able to take the medication. Related Data Previous Rx's Medication Instructions Recorded ondansetron 4 mg disintegrating 4 mg SUBLINGUAL Q6HP PRN #20 odt 07/11/16 tablet (Zofran ODT) oxycodone-acetaminophen 7.5 mg-325 1 tab PO Q4HP PRN #40 07/11/16 mg tablet (Percocet) hydromorphone 2 mg tablet 2 mg PO Q4HP PRN #20 tab 07/14/16 (Dilaudid) sucralfate 100 mg/mL oral 10 ml PO QID #420 ml 04/05/19 suspension (Carafate) Allergies Allergy/AdvReac Type Severity Reaction Status Date / Time metronidazole [From Flagyl] Allergy Verified 09/13/20 10:52 nitrofurantoin Allergy Verified 09/13/20 10:52 [From Macrobid] Review of Systems <Silva Barragan PA-C - Last Filed: 10/31/21 20:06> Review of Systems ROS Unobtainable: All systems reviewed & are unremarkable except as noted in HPI and below Constitutional Constitutional: Denies chills, Denies fatigue, Denies fever(s), Denies frequent falls, Denies lethargy and Denies weakness Eyes Eyes: Denies change in vision, Denies eye discharge, Denies irritation and Denies loss of vision ENT Ears, Nose, Mouth, and Throat: Denies change in voice, Denies dizziness, Denies neck pain, Denies sore throat and Denies throat swelling Cardiovascular Cardiovascular: Denies chest pain, Denies irregular heart rhythm, Denies lightheadedness, Denies palpitations, Denies dyspnea, Denies dyspnea on exertion and Denies orthopnea Respiratory Respiratory: Denies cough, Denies dyspnea, Denies dyspnea on exertion and Denies wheezing Gastrointestinal Gastrointestinal: Reports abdominal pain, Denies change in bowel habits, Reports diarrhea, Reports nausea and Denies vomiting Genitourinary Genitourinary: Denies hematuria, Denies flank pain, Denies urinary incontinence and Denies urinary urgency Musculoskeletal Musculoskeletal: Denies back pain, Denies muscle weakness, Denies neck pain, Denies numbness and Denies tingling Integumentary/Breasts Skin/Breast: Denies pruritus, Denies erythema, Denies rash and Denies wounds Neurologic Neurologic: Denies behavioral changes, Denies confusion, Denies dizziness, Denies frequent falls, Denies loss of vision, Denies numbness, Denies tingling and Denies weakness Psychiatric Psychiatric: Denies anxiety, Denies behavioral changes, Denies confusion, Denies depression, Denies homicidal ideation and Denies suicidal ideation Endocrine Endocrine: Denies fatigue, Denies flushing and Denies palpitations Hematologic/Lymphatic Hematologic/Lymphatic: Denies easy bruising Allergic/Immunologic Allergic/Immunologic: Denies urticaria, Denies throat swelling and Denies wheezing Patient History <Silva Barragan PA-C - Last Filed: 10/31/21 20:06> Medical History No significant medical problems Social History Smoking Status: Never smoker substance use type: does not use Smoking Status: Never smoker alcohol intake frequency: holidays/special occasions only Substance Use Type: does not use Exam <Silva Barragan PA-C - Last Filed: 10/31/21 20:06> Initial Vital Signs Initial Vital Signs: Vital Signs Temperature 97.8 F 10/31/21 12:13 Pulse Rate 69 10/31/21 12:13 Respiratory Rate 18 10/31/21 12:13 Blood Pressure 130/67 10/31/21 12:13 Pulse Oximetry 99 10/31/21 12:13 Const General: cooperative, healthy appearing and comfortable [facility] Head: normal to inspection Eyes General: appearance normal, both eyes and all related structures Neck Neck: normal visual inspection Chest Chest: normal inspection of the chest Resp Effort & Inspection: normal respiratory effort Auscultation: clear to auscultation bilaterally Cardio Rate: regular rate Rhythm: regular rhythm GI Other: Tenderness to palpation in the epigastric region. Abdomen is soft, nondistended. General: No CVA tenderness Skin General: no rashes or lesions noted Neuro General: patient alert, patient awake and patient oriented x3 Psych Appearance: grossly normal Mental Status: mental status grossly normal <Phoenix Hope DO - Last Filed: 10/31/21 20:10> Initial Vital Signs Initial Vital Signs: Vital Signs Temperature 97.8 F 10/31/21 12:13 Pulse Rate 69 10/31/21 12:13 Respiratory Rate 18 10/31/21 12:13 Blood Pressure 130/67 10/31/21 12:13 Pulse Oximetry 99 10/31/21 12:13 Course <Silva Barragan PA-C - Last Filed: 10/31/21 20:06> Orders Ordered: ED Orders 10/31/21 12:43 CT abdomen pelvis w con Stat 10/31/21 12:45 CBC Auto Diff [Complete Blood Count AUTO DIFF] Stat CMP [Comprehensive Metabolic Panel] Stat Lactate (Lactic Acid) Stat Discontinued Medications Sodium Chloride (Normal Saline 0.9%) 1,000 mls @ 1,000 mls/hr IV BOLUS ONE Stop: 10/31/21 14:51 Last Infusion: 10/31/21 16:48 Dose: 0 mls/hr Documented by: Admin: 10/31/21 14:36 Dose: 1,000 mls/hr Documented by: SUSAN Metoclopramide HCl (Metoclopramide 10 Mg/2 Ml Inj) 10 mg IV NOW ONE Stop: 10/31/21 12:37 Last Admin: 10/31/21 12:51 Dose: 10 mg Documented by: ALYSON Morphine Sulfate (Morphine 4 Mg/Ml Inj) 4 mg IV NOW ONE Stop: 10/31/21 12:37 Last Admin: 10/31/21 12:51 Dose: 4 mg Documented by: ALYSON Vital Signs Vital signs: Vital Signs - 8 hr 10/31/21 12:13 10/31/21 17:11 Temperature 97.8 F Pulse Rate 69 85 Respiratory Rate 18 18 Blood Pressure 130/67 117/64 Pulse Oximetry 99 98 <Phoenix Hope DO - Last Filed: 10/31/21 20:10> Orders Ordered: ED Orders 10/31/21 12:43 CT abdomen pelvis w con Stat 10/31/21 12:45 CBC Auto Diff [Complete Blood Count AUTO DIFF] Stat CMP [Comprehensive Metabolic Panel] Stat Lactate (Lactic Acid) Stat Discontinued Medications Sodium Chloride (Normal Saline 0.9%) 1,000 mls @ 1,000 mls/hr IV BOLUS ONE Stop: 10/31/21 14:51 Last Infusion: 10/31/21 16:48 Dose: 0 mls/hr Documented by: Admin: 10/31/21 14:36 Dose: 1,000 mls/hr Documented by: SUSAN Metoclopramide HCl (Metoclopramide 10 Mg/2 Ml Inj) 10 mg IV NOW ONE Stop: 10/31/21 12:37 Last Admin: 10/31/21 12:51 Dose: 10 mg Documented by: ALYSON Morphine Sulfate (Morphine 4 Mg/Ml Inj) 4 mg IV NOW ONE Stop: 10/31/21 12:37 Last Admin: 10/31/21 12:51 Dose: 4 mg Documented by: ALYSON Vital Signs Vital signs: Vital Signs - 8 hr 10/31/21 12:13 10/31/21 17:11 Temperature 97.8 F Pulse Rate 69 85 Respiratory Rate 18 18 Blood Pressure 130/67 117/64 Pulse Oximetry 99 98 MDM - Abdominal Pain <Silva Barragan PA-C - Last Filed: 10/31/21 20:06> Medical Records Attestation: I reviewed the patient's medical records. Lab Data Attestation: I reviewed the patient's lab results. Lab results narrative: Labs within normal limits Result diagrams: 10/31/21 12:45 10/31/21 12:45 Labs: Lab Results 10/31/21 10/31/21 10/31/21 Range/Units 12:45 12:45 12:45 WBC 6.1 (4.5-11.0) X10^3/uL RBC 4.22 (4.0-5.2) X10^6/uL Hgb 12.5 (12.0-16.0) g/dL Hct 36.4 (36-46) % MCV 86.1 (80-100) fL MCH 29.7 (26-34) PG MCHC 34.4 (30-36) % RDW 13.5 (11.6-14.8) % Plt Count 241 (150-400) X10^3/uL Neut % (Auto) 78.7 H (50-75) % Lymph % (Auto) 15.4 L (25-40) % [place] % (Auto) 5.2 (3-14) % Eos % (Auto) 0.2 L (2-4) % Baso % (Auto) 0.5 (0-2) % Neut # (Auto) 4800 (3628-8853) /uL Lymph # (Auto) 900 L (3142-2481) /uL [place] # (Auto) 300 (0-900) /uL Eos # (Auto) 0 (0-450) /uL Baso # (Auto) 0 (0-100) /uL Sodium 140 (137-145) mmol/L Potassium 3.9 (3.4-5.1) mmol/L Chloride 108 H (98-107) mmol/L Carbon Dioxide 23 (22-32) mmol/L BUN 10 (7-17) mg/dL Creatinine 0.60 (0.52-1.04) mg/dL Estimated GFR > 60.0 (>60) mL/min BUN/Creatinine Ratio 16.7 (6-22) Glucose 104 H (70-100) mg/dL Lactate 0.8 (0.7-2.1) mmol/L Calcium 8.8 (8.4-10.2) mg/dL Total Bilirubin 0.4 (0.2-1.3) mg/dL AST 20 (14-36) IU/L ALT 15 (<35) IU/L Alkaline Phosphatase 81 (38-126) U/L Total Protein 7.4 (6.3-8.2) g/dL Albumin 4.6 (3.5-5.0) g/dL Globulin 2.8 (1.7-4.1) g/dL Albumin/Globulin Ratio 1.6 (1.0-2.8) Point of care testing: Urine Dip Bedside Urine Glucose Negative Bedside Urine Bilirubin - Negative Bedside Urine Ketone + 15 Urine Specific [place] 1.030 Bedside Urine Occult Blood - Negative Bedside Urine pH 5.5 Bedside Urine Protein - Negative Bedside Urine Urobilinogen - Negative Bedside Urine Nitrite - Negative Bedside Urine Leukocytes - Negative Esterase Imaging Data CT scan - abdomen/pelvis: Radiologist's Impression: PROCEDURE:? CT ABDOMEN PELVIS W CON ? INDICATIONS:? Pancreatic tumor; acute abdomen pain ? TECHNIQUE:? After the administration of oral and IV contrast, axial sections were acquired from the lung bases to the pubic symphysis.? Coronal and sagittal reformats were performed.? For radiation dose reduction, the following was used:? automated exposure control, adjustment of mA and/or kV according to patient size. ? COMPARISON:? [facility], CT, CT ABDOMEN PELVIS WITH CONTRAST, 06/21/2017, 13:04.? [facility], CT, CT ABDOMEN PELVIS W CON, 04/05/2019, 1:07. ? FINDINGS:? Image quality:? Excellent.? ? Lung bases:? Unremarkable.? ? Heart:? No significant findings. ? ? ABDOMEN: Liver:? Unremarkable.? ? Gallbladder:? Removed.? ? Biliary ducts:? Unremarkable.? ? Pancreas:? Within the head of the pancreas, there is a focal hyperenhancing nodule seen, as on series 2, image 24 that measures up to 11 mm. Spleen:? Unremarkable.? ? Adrenal Glands:? Unremarkable.? ? Kidneys and Ureters:? Unremarkable.? ? ? Stomach and Bowel:? Nodular thickening is seen of the colonic wall, which is worst proximally.? Minimal surrounding inflammatory change is seen. No dilated loops of small bowel are seen.? No significant gastric is seen. Peritoneum:? No abnormal intraperitoneal fluid.? No free air.? ? Ventral Wall: ? No hernia.? Abdominal Nodes:? No retroperitoneal or mesenteric adenopathy by size criteria.? Vessels:? Aorta and inferior vena cava are normal in size.? ? PELVIS: Pelvic Organs:? The cervix demonstrates a somewhat bulbous appearance, yet without a addison mass identified.? The uterus is otherwise unremarkable.? No adnexal masses are seen on either side.? Bladder:? Unremarkable.? ? Pelvic Nodes: No enlarged lymph nodes.? Miscellaneous: No inguinal hernias are seen. ? ? ? Bones:? Unremarkable.? IMPRESSION:? ? Moderate generalized colonic wall thickening can be seen, which is worst proximally.? Please correlate with potential infectious and inflammatory causes of colitis, including C. difficile colitis. ? No findings of perforation or abscess can be seen. ? Bulbous appearance of the uterine cervix.? Please correlate with known patient history and physical examination findings. ? 11 mm hyperenhancing nodule seen within the head of the pancreas. ? ? Incidental note is made of: Cholecystectomy ? Dictated by: Luis Angel Chow M.D. on 10/31/2021 at 12:33 ? ? Approved by: Luis Angel Chow M.D. on 10/31/2021 at 12:41 ? 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 Concern for pancreatitis versus tumor related complications versus GERD versus gastroenteritis. Will obtain labs, CT abdomen pelvis. Will will control pain and nausea. Will give IV fluids. Will reassess. Labs within normal limits. CT shows possible colitis due to infectious or inflammatory process. Patient was unable to provide a stool sample in the ED. patient's pain and nausea were well controlled in the ED patient agrees to follow-up with her PCP for a stool test if symptoms do not resolve. ED return precautions discussed with patient. Patient verbalized understanding. <Phoenix Hope, - Last Filed: 10/31/21 20:10> Lab Data Labs: Lab Results 10/31/21 10/31/21 10/31/21 Range/Units 12:45 12:45 12:45 WBC 6.1 (4.5-11.0) X10^3/uL RBC 4.22 (4.0-5.2) X10^6/uL Hgb 12.5 (12.0-16.0) g/dL Hct 36.4 (36-46) % MCV 86.1 (80-100) fL MCH 29.7 (26-34) PG MCHC 34.4 (30-36) % RDW 13.5 (11.6-14.8) % Plt Count 241 (150-400) X10^3/uL Neut % (Auto) 78.7 H (50-75) % Lymph % (Auto) 15.4 L (25-40) % [place] % (Auto) 5.2 (3-14) % Eos % (Auto) 0.2 L (2-4) % Baso % (Auto) 0.5 (0-2) % Neut # (Auto) 4800 (3688-7791) /uL Lymph # (Auto) 900 L (6164-9881) /uL [place] # (Auto) 300 (0-900) /uL Eos # (Auto) 0 (0-450) /uL Baso # (Auto) 0 (0-100) /uL Sodium 140 (137-145) mmol/L Potassium 3.9 (3.4-5.1) mmol/L Chloride 108 H (98-107) mmol/L Carbon Dioxide 23 (22-32) mmol/L BUN 10 (7-17) mg/dL Creatinine 0.60 (0.52-1.04) mg/dL Estimated GFR > 60.0 (>60) mL/min BUN/Creatinine Ratio 16.7 (6-22) Glucose 104 H (70-100) mg/dL Lactate 0.8 (0.7-2.1) mmol/L Calcium 8.8 (8.4-10.2) mg/dL Total Bilirubin 0.4 (0.2-1.3) mg/dL AST 20 (14-36) IU/L ALT 15 (<35) IU/L Alkaline Phosphatase 81 (38-126) U/L Total Protein 7.4 (6.3-8.2) g/dL Albumin 4.6 (3.5-5.0) g/dL Globulin 2.8 (1.7-4.1) g/dL Albumin/Globulin Ratio 1.6 (1.0-2.8) Point of care testing: Urine Dip Bedside Urine Glucose Negative Bedside Urine Bilirubin - Negative Bedside Urine Ketone + 15 Urine Specific [place] 1.030 Bedside Urine Occult Blood - Negative Bedside Urine pH 5.5 Bedside Urine Protein - Negative Bedside Urine Urobilinogen - Negative Bedside Urine Nitrite - Negative Bedside Urine Leukocytes - Negative Esterase Discharge Plan Departure Patient Disposition: Home Clinical Impression: Abdominal pain Instructions: DI for Abdominal Pain-Adult Activity Restrictions/Additional Instructions: You were evaluated in the ED today for abdominal pain, nausea. Your symptoms improved with pain and nausea medication. Your labs were normal. CT of the abdomen pelvis showed possible colitis. You are unable to provide a stool sample in the ED, hence we were unable to test the stool for C difficile or other pathogens. If your symptoms still persist, you may contact your primary care doctor to get a stool test. Return to the ED if your symptoms worsen, you are unable to stop vomiting. Prescriptions: No Action oxycodone-acetaminophen [Percocet] 7.5 MG/325 MG tablet 1 tab PO Q4HP PRNQty: 40 0RF ondansetron [Zofran ODT] 4 MG tablet,disintegrating 4 mg Sublingual Q6HP PRNQty: 20 0RF hydromorphone [Dilaudid] 2 MG tablet 2 mg PO Q4HP PRNQty: 20 0RF sucralfate [Carafate] 100 mg/mL suspension 10 ml PO QID Qty: 420 0RF Rx Instructions: swish in mouth and swallow; use after food/drink Referrals: Klaudia Quick ARNP [Primary Care Provider] - <Phoenix Hope DO - Last Filed: 10/31/21 20:10> Cosign ED Attending Cosignature Attestation: Dr Hope Co-Sign Statement: I was available for consultation during this patient's emergency department visit. This chart is signed by myself for administrative purposes only. I did not have direct contact with this patient during this visit. They were seen independently by the APC.
== END 2021-10-31 17:12 | disposition home or self-care (01) ==
PROVIDERS: Emergency Provider Student in an Organized Health Care Education/Training Program; PCP Nurse Practitioner Family
DX: R10.13 Epigastric pain (principal)
CPT/HCPCS: 36415; 74177; 80053; 81003; 83605; 85025; 96361; 96374; 96375; 99284; J2270; J2765

== ENCOUNTER 2021-11-01 19:16 | Emergency (ER) | payer OTHER, MEDICAID, SELFPAY ==
[2021-11-01 19:21] VITALS: BP 139/63; PULSE 74; RESP 18; TEMP 37.1; O2SAT 97; BMI 29.2
[2021-11-01 20:02] VITALS: BP 137/77; PULSE 66; O2SAT 99
--- NOTE | 2021-11-01 20:07 | PC.NURSE ---
Patient has had loose watery/slimy bowel movements since Saturday. Was seen here at ED Saturday, but was unable to give a stool sample. Subsequent to giving her stool sample today, she was notified that she has C-diff. She denies taking any antibiotics and is unsure how she may have developed C-diff. She endorses severe abdominal pain and copious diarrhea and states she would like help getting rehydrated and get treatment for her C-diff.
[2021-11-01 20:59] VITALS: BP 120/71
[2021-11-01] MEDS: SODIUM CHLORIDE 0.9% 1,000 ML 1000 ML IV (21:00)
[2021-11-01 21:18] LABS: Add Manual Diff / Slide Review NO; Basophils Absolute Auto 0 /uL (0-100); Basophils Percent Auto 0.4 % (0-2); Eosinophils Absolute Auto 0 /uL (0-450); Eosinophils Percent Auto 0.7 % (2-4); Hematocrit 36.9 % (36-46); Hemoglobin 12.6 g/dL (12.0-16.0); Lymphocytes Absolute Auto 1400 /uL (1100-4500); Lymphocytes Percent Auto 19.4 % (25-40); Mean Corpuscular Hemoglobin 29.5 PG (26-34); Mean Corpuscular Volume 86.5 fL (80-100); Monocytes Absolute Auto 500 /uL (0-900); Monocytes Percent Auto 6.9 % (3-14); Neutrophils Absolute Auto 5300 /uL (1500-7000); Neutrophils Percent Auto 72.6 % (50-75); Platelet Count 268 X10^3/uL (150-400); Red Blood Cell Count 4.26 X10^6/uL (4.0-5.2); Red Cell Distribution Width 13.8 % (11.6-14.8); White Blood Cell Count 7.3 X10^3/uL (4.5-11.0)
[2021-11-01 21:32] LABS: Alanine Aminotransferase 16 IU/L (<35); Albumin 4.8 g/dL (3.5-5.0); Albumin Globulin Ratio 1.7 (1.0-2.8); Alkaline Phosphatase 77 U/L (38-126); Aspartate Aminotransferase 24 IU/L (14-36); BUN Creatinine Ratio 15.3 (6-22); Bilirubin Total 0.6 mg/dL (0.2-1.3); Blood Urea Nitrogen 9 mg/dL (7-17); Calcium 9.2 mg/dL (8.4-10.2); Carbon Dioxide 24 mmol/L (22-32); Chloride 106 mmol/L (98-107); Estimated Glomerular Filt Rate > 60.0 mL/min (>60); Globulin 2.8 g/dL (1.7-4.1); Glucose 95 mg/dL (70-100); HEMOLYSIS < 15 (0-50); Potassium 3.7 mmol/L (3.4-5.1); Sodium 140 mmol/L (137-145); Total Protein 7.6 g/dL (6.3-8.2)
--- NOTE | 2021-11-01 22:17 | ED.NAVMDI ---
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 She was seen yesterday with CT scan of the abdomen done showing colitis. Stool sample was obtained this morning that came back positive for C diff. She has oral vancomycin that she started and has taken a single dose already. Her doctor suggested she come to the emergency room because she was still having significant pain. She does not report any bloody stool and she reports no fevers. Nausea is moderately controlled with ODT Zofran but she is worried that she is getting dehydrated and simply not able to care for herself. Related Data Previous Rx's Medication Instructions Recorded ondansetron 4 mg disintegrating 4 mg SUBLINGUAL Q6HP PRN #20 odt 07/11/16 tablet (Zofran ODT) oxycodone-acetaminophen 7.5 mg-325 1 tab PO Q4HP PRN #40 07/11/16 mg tablet (Percocet) hydromorphone 2 mg tablet 2 mg PO Q4HP PRN #20 tab 07/14/16 (Dilaudid) sucralfate 100 mg/mL oral 10 ml PO QID #420 ml 04/05/19 suspension (Carafate) ondansetron 4 mg disintegrating 4 mg PO Q8H PRN #14 tab 11/01/21 tablet Allergies Allergy/AdvReac Type Severity Reaction Status Date / Time metronidazole [From Flagyl] Allergy Verified 09/13/20 10:52 nitrofurantoin Allergy Verified 09/13/20 10:52 [From Macrobid] Review of Systems Review of Systems Narrative: Remainder of complete review of systems is otherwise unremarkable except for that included in the HPI. Patient History Medical History (Updated 11/01/21 @ 22:30 by Fely Grant MD) Clostridium difficile diarrhea No significant medical problems Social History Smoking Status: Never smoker substance use type: does not use Smoking Status: Never smoker alcohol intake frequency: holidays/special occasions only Substance Use Type: does not use Exam Initial Vital Signs Initial Vital Signs: Vital Signs Temperature 98.7 F 11/01/21 19:21 Pulse Rate 74 11/01/21 19:21 Respiratory Rate 18 11/01/21 19:21 Blood Pressure 139/63 11/01/21 19:21 Pulse Oximetry 97 11/01/21 19:21 General: Healthy appearing, in no acute distress. Able to give a complete and coherent history. Well-nourished well-developed HEENT: Moist mucous membranes, normal sclera with reactive pupils, Respiratory: Lungs are clear to auscultation, no wheezing no rales no rhonchi. Full and symmetrical air movement Cardiac: Regular rate and rhythm no murmurs no bruits Abdomen: Soft, mild diffuse tenderness without rebound or guarding, hyperactive bowel tones, no flank pain Skin: Warm and dry, no rashes Neurologic: Grossly neurologically intact with no obvious asymmetries or abnormalities Extremities: No trauma, well perfused Psych: Cooperative, appropriate insight and affect Course Orders Ordered: ED Orders 11/01/21 21:05 Complete Blood Count AUTO DIFF Stat Comprehensive Metabolic Panel Stat Discontinued Medications Sodium Chloride (Normal Saline 0.9%) 1,000 mls @ 1,000 mls/hr IV BOLUS ONE Stop: 11/01/21 21:09 Last Infusion: 11/02/21 00:40 Dose: 0 mls/hr Documented by: Admin: 11/01/21 21:00 Dose: 1,000 mls/hr Documented by: BERENICE Ondansetron HCl (Ondansetron 4 Mg/2 Ml Inj) 4 mg IV NOW ONE Stop: 11/01/21 23:51 Last Admin: 11/02/21 00:11 Dose: 4 mg Documented by: LISA Oxycodone/Acetaminophen (Oxycodone/Apap 5/325 Prepack) 1 bottle MISC SEEINSTR ONE Stop: 11/01/21 22:32 Vital Signs Vital signs: Vital Signs - 8 hr 11/01/21 19:21 11/01/21 20:02 11/01/21 20:59 Temperature 98.7 F Pulse Rate 74 66 Respiratory Rate 18 Blood Pressure 139/63 137/77 120/71 Pulse Oximetry 97 99 11/02/21 00:14 Temperature Pulse Rate 83 Respiratory Rate 18 Blood Pressure 153/77 H Pulse Oximetry 98 MDM - Nausea/Vomiting/Diarrhea Lab Data Result diagrams: 11/01/21 21:05 11/01/21 21:05 Labs: Lab Results 11/01/21 11/01/21 Range/Units 21:05 21:05 WBC 7.3 (4.5-11.0) X10^3/uL RBC 4.26 (4.0-5.2) X10^6/uL Hgb 12.6 (12.0-16.0) g/dL Hct 36.9 (36-46) % MCV 86.5 (80-100) fL MCH 29.5 (26-34) PG MCHC 34.0 (30-36) % RDW 13.8 (11.6-14.8) % Plt Count 268 (150-400) X10^3/uL Neut % (Auto) 72.6 (50-75) % Lymph % (Auto) 19.4 L (25-40) % [place] % (Auto) 6.9 (3-14) % Eos % (Auto) 0.7 L (2-4) % Baso % (Auto) 0.4 (0-2) % Neut # (Auto) 5300 (1309-1059) /uL Lymph # (Auto) 1400 (0948-5307) /uL [place] # (Auto) 500 (0-900) /uL Eos # (Auto) 0 (0-450) /uL Baso # (Auto) 0 (0-100) /uL Sodium 140 (137-145) mmol/L Potassium 3.7 (3.4-5.1) mmol/L Chloride 106 (98-107) mmol/L Carbon Dioxide 24 (22-32) mmol/L BUN 9 (7-17) mg/dL Creatinine 0.59 (0.52-1.04) mg/dL Estimated GFR > 60.0 (>60) mL/min BUN/Creatinine Ratio 15.3 (6-22) Glucose 95 (70-100) mg/dL Calcium 9.2 (8.4-10.2) mg/dL Total Bilirubin 0.6 (0.2-1.3) mg/dL AST 24 (14-36) IU/L ALT 16 (<35) IU/L Alkaline Phosphatase 77 (38-126) U/L Total Protein 7.6 (6.3-8.2) g/dL Albumin 4.8 (3.5-5.0) g/dL Globulin 2.8 (1.7-4.1) g/dL Albumin/Globulin Ratio 1.7 (1.0-2.8) MDM Narrative Medical decision making narrative: 41-year-old woman with laboratory confirmed Clostridium difficile and CT confirmed mild colitis. She is currently able to eat and drink but feels that she is not able to completely keep up with the diarrhea. Nausea is moderately controlled with Zofran she does need some more. There is no blood in the diarrhea she is not having palpitations or syncopal episodes this time. Electrolytes and renal function are reassuring today. She is already started her course of oral vancomycin. She is given a L of fluid in the emergency department, Percocet to help with pain, her Zofran is refilled. We had a nice discussion regarding probiotics and food sources that are rich in probiotics to repopulate her got. At this point she is not toxic, is able to eat and drink and is safe for home discharge. Questions are answered. Discharge Plan Departure Patient Disposition: Home Clinical Impression: Clostridioides difficile diarrhea Instructions: DI for Clostridioides difficile Infection Activity Restrictions/Additional Instructions: Thank you for coming in today You do have Clostridium difficile as a cause of your diarrhea with mild colitis(inflammation of the colon wall). Your kidney function and electrolytes are 100% normal today. This means that even though you feel horrible, your body is keeping up with the volume of diarrhea you are having. You need to complete the entire course of oral vancomycin that you have been prescribed I have given you a couple tablets of Percocet to help with the 1st 24 hours of pain I have given you a refill of your ondansetron to help with nausea. Please make sure that you do a bit of research on probiotics and begin including foods rich in probiotics in your diet daily to help repopulate your colon with healthy bacteria. If you find that your having fevers, bloody diarrhea, increasing abdominal pain or new findings it would be very appropriate to return to the ER Prescriptions: New ondansetron 4 mg tablet,disintegrating 4 mg PO Q8H PRN (Reason: nausea and vomiting) Qty: 14 0RF No Action oxycodone-acetaminophen [Percocet] 7.5 MG/325 MG tablet 1 tab PO Q4HP PRNQty: 40 0RF ondansetron [Zofran ODT] 4 MG tablet,disintegrating 4 mg Sublingual Q6HP PRNQty: 20 0RF hydromorphone [Dilaudid] 2 MG tablet 2 mg PO Q4HP PRNQty: 20 0RF sucralfate [Carafate] 100 mg/mL suspension 10 ml PO QID Qty: 420 0RF Rx Instructions: swish in mouth and swallow; use after food/drink Referrals: Klaudia Quick ARNP [Primary Care Provider] -
[2021-11-02] MEDS: ONDANSETRON 4 MG/2 ML INJ IV (00:11)
[2021-11-02 00:14] VITALS: BP 153/77; PULSE 83; RESP 18; O2SAT 98
[2021-11-02] MEDS: OXYCODONE/APAP 5/325 PREPACK 1 BOTTLE MISC (02:00)
== END 2021-11-02 02:01 | disposition home or self-care (01) ==
PROVIDERS: Emergency Provider Emergency Medicine; PCP Nurse Practitioner Family
DX: A04.72 Enterocolitis due to Clostridium difficile, not specified as recurrent (principal)
CPT/HCPCS: 36415; 80053; 85025; 96361; 96374; 99284; J2405

== ENCOUNTER 2021-11-12 07:22 | Emergency (ER) | payer OTHER, MEDICAID, SELFPAY ==
[2021-11-12 07:44] VITALS: BP 136/60; PULSE 90; RESP 16; TEMP 36.1; O2SAT 98; BMI 27.4
--- NOTE | 2021-11-12 08:04 | ED.ABDPAIN ---
HPI - Abdominal Pain General Chief Complaint: Nausea/Vomiting/Diarrhea Stated Complaint: CDIFF Time Seen by Provider: 11/12/21 07:27 Source: patient Mode of arrival: Family Vehicle History of Present Illness HPI narrative: 41-year-old female nonsmoker with history of pancreatic mass, upcoming Whipple procedure (managed at [facility]) presents with ongoing generalized abdominal cramping and chills at night. She was diagnosed with C diff last week and has finished 10 days of oral vancomycin. She had reached out to her primary care provider and told them that she was not feeling any better and was encouraged to come CS. She states that she is, however starting to develop firm stools. She denies any recent antibiotics, obviously bad food or prior C diff. she was last here on November 01 and had extensive evaluation including labs and imaging noted moderate generalized colonic wall thickening without perforation or abscess. Related Data Previous Rx's Medication Instructions Recorded ondansetron 4 mg disintegrating 4 mg SUBLINGUAL Q6HP PRN #20 odt 07/11/16 tablet (Zofran ODT) oxycodone-acetaminophen 7.5 mg-325 1 tab PO Q4HP PRN #40 07/11/16 mg tablet (Percocet) hydromorphone 2 mg tablet 2 mg PO Q4HP PRN #20 tab 07/14/16 (Dilaudid) sucralfate 100 mg/mL oral 10 ml PO QID #420 ml 04/05/19 suspension (Carafate) ondansetron 4 mg disintegrating 4 mg PO Q8H PRN #14 tab 11/01/21 tablet fidaxomicin 200 mg tablet 200 mg PO BID 10 Days #20 tab 11/12/21 hyoscyamine sulfate 0.125 mg tablet 0.125 mg PO BID-QID PRN #20 tab 11/12/21 ondansetron 4 mg disintegrating 4 mg PO TID-QID PRN #10 tab 11/12/21 tablet Allergies Allergy/AdvReac Type Severity Reaction Status Date / Time metronidazole [From Flagyl] Allergy Verified 11/12/21 07:43 nitrofurantoin Allergy Verified 11/12/21 07:43 [From Macrobid] Review of Systems Review of Systems Narrative: GENERAL: see HPI HEENT: Denies sinus pain, ear pain, sore throat, difficulty swallowing, dizziness. RESPIRATORY: Denies dyspnea, cough, wheezing, hemoptysis, sputum. CARDIOVASCULAR: Denies chest pain, palpitations, orthopnea, edema, GASTROINTESTINAL: See HPI : Denies dysuria, frequency, incontinence, hematuria, urinary retention. MUSCULOSKELETAL: denies weakness, joint pain, or bony pain SKIN: Denies rash, skin lesions, or other NEUROLOGIC: Denies weakness, headache, numbness, change in speech, confusion, seizures, incoordination. PSYCHIATRIC: No concerning psychosocial issues. 12 point review of systems is negative except for those stated above Patient History Medical History Clostridium difficile diarrhea No significant medical problems Social History Smoking Status: Never smoker substance use type: does not use Smoking Status: Never smoker alcohol intake frequency: holidays/special occasions only Substance Use Type: does not use Exam Narrative Exam Narrative: GENERAL: [41] year old patient appears stated age. Well-developed patient, in mild distress. HEAD: Atraumatic. Normocephalic. EYES: Pupils equal round and reactive. Extraocular motions intact. No scleral icterus. No injection or drainage. ENT: Nose without bleeding, purulent drainage. Throat without erythema, tonsillar hypertrophy or exudate. Airway patent. NECK: Trachea midline. Non tender CARDIOVASCULAR: Regular rate and rhythm without murmurs, gallops, or rubs. RESPIRATORY: Clear to auscultation. Breath sounds equal bilaterally. No wheezes, rales, or rhonchi. GASTROINTESTINAL: Abdomen soft, non-tender, nondistended. EXTREMITIES: No edema or joint tenderness. BACK: Nontender without deformity or crepitance. No flank tenderness. NEURO: AOx3. SKIN: No rash or erythema of visible areas Initial Vital Signs Initial Vital Signs: Vital Signs Temperature 96.9 F L 11/12/21 07:44 Pulse Rate 90 11/12/21 07:44 Respiratory Rate 16 11/12/21 07:44 Blood Pressure 136/60 11/12/21 07:44 Pulse Oximetry 98 11/12/21 07:44 Course Orders Ordered: ED Orders 11/12/21 08:15 Blood Culture Stat Complete Blood Count AUTO DIFF Stat Comprehensive Metabolic Panel Stat Lactate (Lactic Acid) Stat Lipase Stat 11/12/21 09:10 Urine Microscopic Stat Discontinued Medications Sodium Chloride (Normal Saline 0.9%) 1,000 mls @ 1,000 mls/hr IV BOLUS ONE Stop: 11/12/21 08:35 Last Admin: 11/12/21 08:20 Dose: 1,000 mls/hr Documented by: LAZARO Pantoprazole Sodium (Pantoprazole 40 Mg Vial) 40 mg IV NOW ONE Stop: 11/12/21 08:45 Last Admin: 11/12/21 08:55 Dose: 40 mg Documented by: BARBRA Vital Signs Vital signs: Vital Signs - 8 hr 11/12/21 07:44 Temperature 96.9 F L Pulse Rate 90 Respiratory Rate 16 Blood Pressure 136/60 Pulse Oximetry 98 MDM - Abdominal Pain Lab Data Result diagrams: 11/12/21 08:15 11/12/21 08:15 Labs: Lab Results 11/12/21 11/12/21 11/12/21 Range/Units 08:15 08:15 08:15 WBC 5.6 (4.5-11.0) X10^3/uL RBC 4.38 (4.0-5.2) X10^6/uL Hgb 12.7 (12.0-16.0) g/dL Hct 37.7 (36-46) % MCV 85.9 (80-100) fL MCH 29.0 (26-34) PG MCHC 33.8 (30-36) % RDW 13.7 (11.6-14.8) % Plt Count 242 (150-400) X10^3/uL Neut % (Auto) 68.2 (50-75) % Lymph % (Auto) 20.6 L (25-40) % [place] % (Auto) 7.8 (3-14) % Eos % (Auto) 2.7 (2-4) % Baso % (Auto) 0.7 (0-2) % Neut # (Auto) 3900 (5813-9729) /uL Lymph # (Auto) 1200 (9097-9303) /uL [place] # (Auto) 400 (0-900) /uL Eos # (Auto) 200 (0-450) /uL Baso # (Auto) 0 (0-100) /uL Sodium 139 (137-145) mmol/L Potassium 4.1 (3.4-5.1) mmol/L Chloride 108 H (98-107) mmol/L Carbon Dioxide 25 (22-32) mmol/L BUN 12 (7-17) mg/dL Creatinine 0.59 (0.52-1.04) mg/dL Estimated GFR > 60.0 (>60) mL/min BUN/Creatinine Ratio 20.3 (6-22) Glucose 109 H (70-100) mg/dL Lactate 0.9 (0.7-2.1) mmol/L Calcium 9.2 (8.4-10.2) mg/dL Total Bilirubin 0.2 (0.2-1.3) mg/dL AST 18 (14-36) IU/L ALT 13 (<35) IU/L Alkaline Phosphatase 68 (38-126) U/L Total Protein 7.2 (6.3-8.2) g/dL Albumin 4.5 (3.5-5.0) g/dL Globulin 2.7 (1.7-4.1) g/dL Albumin/Globulin Ratio 1.7 (1.0-2.8) Lipase 167 (23-300) U/L Point of care testing: Urine Dip Bedside Urine Glucose Negative Bedside Urine Bilirubin - Negative Bedside Urine Ketone - Negative Urine Specific [place] 1.015 Bedside Urine Occult Blood - Negative Bedside Urine pH 7.0 Bedside Urine Protein - Negative Bedside Urine Urobilinogen - Negative Bedside Urine Nitrite - Negative Bedside Urine Leukocytes +/- 15 Esterase MDM Narrative Medical decision making narrative: 41-year-old female reports that she just isn't feeling better after a course of antibiotics for C diff. she has a very reassuring history and physical exam as well as labs. We discussed at length at the bedside that repeat imaging likely would not change the course. We also discussed whether or not another course of vanco or switching to fidamoxocin was most appropriate. Her pain is well controlled, vitals are reassuring, she is tolerating orals. Extensive return precautions discussed and questions answered to her apparent satisfaction Discharge Plan Departure Patient Disposition: Home Clinical Impression: Clostridioides difficile diarrhea Instructions: Clostridium difficile Infection Activity Restrictions/Additional Instructions: *You have been diagnosed with [C diff colitis. As we discussed your history, physical exam and labs are very reassuring and currently there is no indication for repeat imaging. *What to do: *Please continue to take your regular medications as directed. [x ] New medication prescriptions sent to your pharmacy: [[facility] ] [ ] New medication written as a paper prescription [ ] No new medications given *Please follow up with your primary care provider in 2-3 days, call for an appointment. Let them know you were seen in the Emergency Department and that we ask that you be seen in follow up. We will electronically transmit a record of today's note if your PCP is in our system *If you do not have a primary care provider please contact the [facility] Resource line at [phone]. They will ask some questions about your medical history and help get you set up with a doctor in the community. *Return to Emergency Department if you should have any new, worsening or concerning symptoms, such as [fever greater than 101 F, shaking chills, worsening pain, persistent vomiting or other bothersome symptoms] Prescriptions: New hyoscyamine sulfate 0.125 mg tablet 0.125 mg PO BID-QID PRN (Reason: dyspepsia) Qty: 20 0RF ondansetron 4 mg tablet,disintegrating 4 mg PO TID-QID PRN (Reason: nausea and vomiting) Qty: 10 0RF fidaxomicin 200 mg tablet 200 mg PO BID 10 Days Qty: 20 0RF No Action oxycodone-acetaminophen [Percocet] 7.5 MG/325 MG tablet 1 tab PO Q4HP PRNQty: 40 0RF ondansetron [Zofran ODT] 4 MG tablet,disintegrating 4 mg Sublingual Q6HP PRNQty: 20 0RF hydromorphone [Dilaudid] 2 MG tablet 2 mg PO Q4HP PRNQty: 20 0RF ondansetron 4 mg tablet,disintegrating 4 mg PO Q8H PRN (Reason: nausea and vomiting) Qty: 14 0RF sucralfate [Carafate] 100 mg/mL suspension 10 ml PO QID Qty: 420 0RF Rx Instructions: swish in mouth and swallow; use after food/drink Referrals: Ameya Gruber MD [Primary Care Provider] -
[2021-11-12] MEDS: SODIUM CHLORIDE 0.9% 1,000 ML 1000 ML IV (08:20)
[2021-11-12 08:38] LABS: Add Manual Diff / Slide Review NO; Basophils Absolute Auto 0 /uL (0-100); Basophils Percent Auto 0.7 % (0-2); Eosinophils Absolute Auto 200 /uL (0-450); Eosinophils Percent Auto 2.7 % (2-4); Hematocrit 37.7 % (36-46); Hemoglobin 12.7 g/dL (12.0-16.0); Lymphocytes Absolute Auto 1200 /uL (1100-4500); Lymphocytes Percent Auto 20.6 % (25-40); Mean Corpuscular HGB Conc 33.8 % (30-36); Mean Corpuscular Volume 85.9 fL (80-100); Monocytes Absolute Auto 400 /uL (0-900); Monocytes Percent Auto 7.8 % (3-14); Neutrophils Absolute Auto 3900 /uL (1500-7000); Neutrophils Percent Auto 68.2 % (50-75); Platelet Count 242 X10^3/uL (150-400); Red Blood Cell Count 4.38 X10^6/uL (4.0-5.2); Red Cell Distribution Width 13.7 % (11.6-14.8); White Blood Cell Count 5.6 X10^3/uL (4.5-11.0)
[2021-11-12 08:42] LABS: Alanine Aminotransferase 13 IU/L (<35); Albumin 4.5 g/dL (3.5-5.0); Albumin Globulin Ratio 1.7 (1.0-2.8); Alkaline Phosphatase 68 U/L (38-126); Aspartate Aminotransferase 18 IU/L (14-36); BUN Creatinine Ratio 20.3 (6-22); Bilirubin Total 0.2 mg/dL (0.2-1.3); Blood Urea Nitrogen 12 mg/dL (7-17); Calcium 9.2 mg/dL (8.4-10.2); Carbon Dioxide 25 mmol/L (22-32); Chloride 108 mmol/L (98-107); Estimated Glomerular Filt Rate > 60.0 mL/min (>60); Globulin 2.7 g/dL (1.7-4.1); Glucose 109 mg/dL (70-100); HEMOLYSIS < 15 (0-50); Lactate (Lactic Acid) 0.9 mmol/L (0.7-2.1); Lipase 167 U/L (23-300); Potassium 4.1 mmol/L (3.4-5.1); Sodium 139 mmol/L (137-145); Total Protein 7.2 g/dL (6.3-8.2)
[2021-11-12] MEDS: PANTOPRAZOLE 40 MG VIAL IV (08:55)
[2021-11-12 09:30] VITALS: BP 132/62; PULSE 83; RESP 20; O2SAT 99
[2021-11-12 09:53] LABS: Bacteria Urine Moderate (10-30); Culture Indicated Urine Specimen Cultured; RBC Urine None Seen (0-5/HPF); Squamous Epithelial Cell Urine 1-5 /HPF (0-5/HPF); WBC Urine 0-1/HPF (0-5/HPF)
== END 2021-11-12 09:32 | disposition home or self-care (01) ==
PROVIDERS: Emergency Provider Emergency Medicine; PCP Internal Medicine
DX: A04.72 Enterocolitis due to Clostridium difficile, not specified as recurrent (principal)
CPT/HCPCS: 36415; 80053; 81003; 81015; 83605; 83690; 85025; 87040; 87086; 96361; 96374; 99284; C9113

== ENCOUNTER 2022-01-14 14:25 | Emergency (ER) | payer OTHER, MEDICAID, SELFPAY ==
[2022-01-14 14:27] VITALS: BP 109/75; PULSE 94; RESP 18; TEMP 36.4; O2SAT 96
[2022-01-14 14:49] VITALS: PULSE 86; O2SAT 96
[2022-01-14 15:00] VITALS: PULSE 92; O2SAT 96
[2022-01-14 15:18] LABS: Add Manual Diff / Slide Review NO; Basophils Absolute Auto 0 /uL (0-100); Basophils Percent Auto 0.8 % (0-2); Eosinophils Absolute Auto 100 /uL (0-450); Eosinophils Percent Auto 1.6 % (2-4); Hematocrit 32.1 % (36-46); Hemoglobin 10.6 g/dL (12.0-16.0); Lymphocytes Absolute Auto 900 /uL (1100-4500); Lymphocytes Percent Auto 16.7 % (25-40); Mean Corpuscular HGB Conc 32.9 % (30-36); Mean Corpuscular Hemoglobin 27.4 PG (26-34); Mean Corpuscular Volume 83.3 fL (80-100); Monocytes Absolute Auto 400 /uL (0-900); Monocytes Percent Auto 7.6 % (3-14); Neutrophils Absolute Auto 3800 /uL (1500-7000); Neutrophils Percent Auto 73.3 % (50-75); Platelet Count 235 X10^3/uL (150-400); Red Blood Cell Count 3.86 X10^6/uL (4.0-5.2); Red Cell Distribution Width 14.5 % (11.6-14.8); White Blood Cell Count 5.2 X10^3/uL (4.5-11.0)
--- NOTE | 2022-01-14 15:25 | ED.ABDPAIN ---
HPI - Abdominal Pain General Chief Complaint: Abdominal Pain Stated Complaint: Post Procedural Pain, Abd Time Seen by Provider: 01/14/22 15:22 Source: patient Mode of arrival: Ambulatory Limitations: no limitations History of Present Illness HPI narrative: This is a 41-year-old female comes emergency department with complaint of abdominal pain that is been slowly increasing over the past 2 days. Patient had a Whipple for neuroendocrine tumor 30 days ago, patient states she was having improving pain until about 2 days ago and is starting to have increasing pain in various areas in her abdomen. It does not seem to be localized to where her initial discomfort was. She has also had some lower back discomfort as well. She denies fevers or chills. She has had persistent nausea. She never actually vomits but gets very nauseated. No dysuria, urgency or frequency. No black or bloody stools. She has been having normal bowel movements no increased pain with bowel movements. No new vaginal bleeding or discharge. Patient states she is taking Tylenol and oxycodone p.o. with minimal improvement. She denies any other daily medications. She denies any other medical issues. No tobacco, occasional alcohol, no illicit. Her procedure was performed at [facility]. Related Data Previous Rx's Medication Instructions Recorded ondansetron 4 mg disintegrating 4 mg sublingual Q6HP PRN ##20 07/11/16 tablet (Zofran ODT) oxycodone-acetaminophen 7.5 mg-325 1 tab PO Q4HP PRN ##40 07/11/16 mg tablet (Percocet) hydromorphone 2 mg tablet 2 mg PO Q4HP PRN #20 tabs 07/14/16 (Dilaudid) sucralfate 100 mg/mL oral 10 ml PO QID #420 mL 04/05/19 suspension (Carafate) ondansetron 4 mg disintegrating 4 mg PO Q8H PRN nausea and 11/01/21 tablet vomiting #14 tabs hyoscyamine sulfate 0.125 mg tablet 0.125 mg PO BID-QID PRN dyspepsia 11/12/21 #20 tabs ondansetron 4 mg disintegrating 4 mg PO TID-QID PRN nausea and 11/12/21 tablet vomiting #10 tabs oxycodone 5 mg tablet 5 mg PO QID PRN pain #10 tabs 01/14/22 Allergies Allergy/AdvReac Type Severity Reaction Status Date / Time ketorolac [From Toradol] Allergy Verified 01/14/22 14:29 metronidazole [From Flagyl] Allergy Verified 11/12/21 07:43 nitrofurantoin Allergy Verified 11/12/21 07:43 [From Macrobid] Review of Systems Review of Systems ROS Unobtainable: All systems reviewed & are unremarkable except as noted in HPI and below Patient History Medical History Clostridium difficile diarrhea No significant medical problems Social History Smoking Status: Never smoker substance use type: does not use Smoking Status: Never smoker alcohol intake frequency: holidays/special occasions only Substance Use Type: does not use Exam Narrative Exam Narrative: GENERAL: Alert and oriented x three, female in mild distress. HEENT: Head normocephalic, atraumatic, EOMI, pupils reactive, face symmetric, moist mucous membranes NECK: Supple, full range of motion CARDIOVASCULAR: Regular rate and rhythm without murmurs, rubs or gallops. RESPIRATORY: Breath sounds equal bilaterally, no wheezes rales or rhonchi. ABDOMEN: Soft, generalized abdominal tenderness. Normoactive bowel sounds all 4 quadrants. No guarding or rebound, rigidity, no mass. Nondistended. Patient's incisions are clean dry and intact with no erythema or surrounding signs of cellulitis and have fully healed. She has 2 sites were her drains were placed which also appear to be have been healed. She does have a small amount of erythema just central chest just underneath the breast which is slightly erythematous and pruritic. : No CVA tenderness EXTREMITIES: Normal range of motion, no clubbing or edema. Neurovascularly intact NEUROLOGICAL: Cranial nerves II through XII grossly intact. Moving all extremities SKIN: Warm, dry, no petechiae, no rashes or lesions. Initial Vital Signs Initial Vital Signs: Vital Signs Temperature 97.5 F L 01/14/22 14:27 Pulse Rate 94 H 01/14/22 14:27 Respiratory Rate 18 01/14/22 14:27 Blood Pressure 109/75 01/14/22 14:27 Pulse Oximetry 96 01/14/22 14:27 Oxygen Delivery Method 01/14/22 14:27 Course Orders Ordered: Discontinued Medications Sodium Chloride (Normal Saline 0.9%) 1,000 mls @ 1,000 mls/hr IV BOLUS ONE Stop: 01/14/22 16:44 Last Infusion: 01/14/22 17:11 Dose: 0 mls/hr Documented By: Admin: 01/14/22 15:54 Dose: 1,000 mls/hr Documented By: BLAIR Morphine Sulfate (Morphine 4 Mg/Ml Inj) 4 mg IV NOW ONE Stop: 01/14/22 15:44 Last Admin: 01/14/22 15:54 Dose: 4 mg Documented By: BLAIR Ondansetron HCl (Ondansetron 4 Mg/2 Ml Inj) 4 mg IV Q6HR PRN PRN Reason: Nausea And Vomiting Last Admin: 01/14/22 15:54 Dose: 4 mg Documented By: BLAIR Vital Signs Vital signs: Vital Signs - 8 hr 01/14/22 14:27 01/14/22 14:49 01/14/22 15:00 Temperature 97.5 F L Pulse Rate 94 H 86 92 H Respiratory Rate 18 Blood Pressure 109/75 Pulse Oximetry 96 96 96 Oxygen Delivery Method Room Air 01/14/22 15:30 01/14/22 17:17 Temperature Pulse Rate 74 80 Respiratory Rate 18 Blood Pressure 109/70 Pulse Oximetry 98 98 Oxygen Delivery Method MDM - Abdominal Pain Lab Data Result diagrams: 01/14/22 14:47 01/14/22 14:47 Labs: Lab Results 01/14/22 01/14/22 Range/Units 14:47 14:47 WBC 5.2 (4.5-11.0) X10^3/uL RBC 3.86 L (4.0-5.2) X10^6/uL Hgb 10.6 L (12.0-16.0) g/dL Hct 32.1 L (36-46) % MCV 83.3 (80-100) fL MCH 27.4 (26-34) PG MCHC 32.9 (30-36) % RDW 14.5 (11.6-14.8) % Plt Count 235 (150-400) X10^3/uL Neut % (Auto) 73.3 (50-75) % Lymph % (Auto) 16.7 L (25-40) % [place] % (Auto) 7.6 (3-14) % Eos % (Auto) 1.6 L (2-4) % Baso % (Auto) 0.8 (0-2) % Neut # (Auto) 3800 (7520-0774) /uL Lymph # (Auto) 900 L (0717-4229) /uL [place] # (Auto) 400 (0-900) /uL Eos # (Auto) 100 (0-450) /uL Baso # (Auto) 0 (0-100) /uL Sodium 139 (137-145) mmol/L Potassium 3.9 (3.4-5.1) mmol/L Chloride 103 (98-107) mmol/L Carbon Dioxide 23 (22-32) mmol/L BUN 14 (7-17) mg/dL Creatinine 0.47 L (0.52-1.04) mg/dL Estimated GFR > 60 (>60) mL/min BUN/Creatinine Ratio 29.8 H (6-22) Glucose 107 H (70-100) mg/dL Calcium 9.0 (8.4-10.2) mg/dL Total Bilirubin 0.4 (0.2-1.3) mg/dL AST 19 (14-36) IU/L ALT 13 (<35) IU/L Alkaline Phosphatase 94 (38-126) U/L Total Protein 7.0 (6.3-8.2) g/dL Albumin 4.1 (3.5-5.0) g/dL Globulin 2.9 (1.7-4.1) g/dL Albumin/Globulin Ratio 1.4 (1.0-2.8) Lipase 65 (23-300) U/L Point of care testing: Point of Care Testing Test Results Negative Urine Dip Bedside Urine Glucose Negative Bedside Urine Bilirubin - Negative Bedside Urine Ketone +++ 80 Urine Specific [place] 1.010 Bedside Urine Occult Blood - Negative Bedside Urine pH 5.5 Bedside Urine Protein - Negative Bedside Urine Urobilinogen 0.2 Bedside Urine Nitrite - Negative Bedside Urine Leukocytes - Negative Esterase Imaging Data CT scan - abdomen/pelvis: Radiologist's Impression: [address] [address] [address] Scan Report Signed Patient: Heather Ventura MR#: [id number] : 1980 Acct:[id number] Age/Sex: 41 / F Date of Service: 01/14/22 Loc: ED Accession Number: [id number] ?? Procedure: CT abdomen pelvis w con Ordering Provider: Ashlyn Diego D.O. PROCEDURE:? CT ABDOMEN PELVIS W CON ? INDICATIONS:? s/p Whipple for neuroendocrine tumor x 30 days ? TECHNIQUE:? After the administration of IV contrast, axial sections were acquired from the lung bases to the pubic symphysis.? Coronal and sagittal reformats were performed.? For radiation dose reduction, the following was used:? automated exposure control, adjustment of mA and/or kV according to patient size. ? COMPARISON:? [facility], CT, CT ABDOMEN PELVIS W CON, 04/05/2019, 1:07.? [facility], CT, CT ABDOMEN PELVIS W CON, 10/31/2021, 13:05.? [facility], CT, CT ABDOMEN PELVIS WITH CONTRAST, 06/21/2017, 13:04. ? FINDINGS:? Image quality:? Excellent.? ? Lung bases:? Unremarkable.? ? Heart:? No significant findings. ? ? ABDOMEN: Liver:? Unremarkable.? ? Gallbladder:? Removed. Biliary ducts:? Mild biliary gas is seen.? There is a distal common bile duct stent. Pancreas:? Partial pancreatectomy can be seen.? Moderate inflammatory change can be seen within the postoperative bed.? No postoperative abscess is seen. Spleen:? Unremarkable.? ? Adrenal Glands:? Unremarkable.? ? Kidneys and Ureters:? Unremarkable.? ? ? Stomach and Bowel:? Moderate wall thickening is seen involving the ascending colon, with minimal colonic wall thickening seen elsewhere.? No dilated loops of small bowel are seen.? No significant gastric abnormality is seen.? A normal appendix is incidentally noted.? Peritoneum:? No abnormal intraperitoneal fluid.? No free air.? ? Ventral Wall: ? No hernia.? Postoperative change of the anterior abdominal wall is seen. Abdominal Nodes:? No retroperitoneal or mesenteric adenopathy by size criteria.? Vessels:? Aorta and inferior vena cava are normal in size.? ? PELVIS: Pelvic Organs:? The uterus appears normal for age.? No adnexal masses are seen.? Bladder:? Unremarkable.? ? Pelvic Nodes: No enlarged lymph nodes.? Miscellaneous: No inguinal hernias are seen. ? ? Pelvic varices are seen on the left. ? Bones:? Unremarkable.? IMPRESSION:? ? Status post Whipple procedure, with mild inflammatory change seen within the postoperative bed. ? No postoperative abscess is seen. ? A common duct stent is seen, with mild biliary gas. ? Mild wall thickening is seen involving the ascending colon.? This is felt most likely to be reactive to the adjacent surgery.? Differential diagnosis includes focal colitis, yet this is considered to be less likely. ? ? ? Incidental note is made of: Left-sided pelvic varices Normal appendix ? Dictated by: Luis Angel Chow M.D. on 01/14/2022 at 15:05 ? ? Approved by: Luis Angel Chow M.D. on 01/14/2022 at 15:09? MDM Narrative Medical decision making narrative: This is a 41-year-old female who comes with increasing abdominal pain for the past 2 days post Whipple procedure about a month ago for neuroendocrine tumor. Patient has been afebrile, she has had nausea but not active vomiting. She has been having bowel movements middle little bit harder but she has been stooling every couple days. She denies urinary symptoms or vaginal bleeding and no black or bloody stools. Patient has been taking Tylenol oxycodone for pain she has not been taking a stool softener. Her labs today are reassuring, hemoglobin does show a level of 10 today she was 12 in November but she is postoperative, her urine shows some ketones but no signs of infection other than bacteria but no nitrates or leukocyte esterase, it is cultured. She was given some fluids. CT shows some mild inflammatory changes possible colitis versus postoperative changes. She has sort of diffuse pain not clearly localized and no obvious signs of abscess or active infection otherwise. Discussed with patient continue with her current pain management regimen she has been taking 1 tablet of oxycodone every 4-6 we discussed she can do 1-2 but this will make her more constipated. We did discuss adding a stool softener and making sure she is hydrating. She feels comfortable with this plan and will follow-up with her surgeon. She did note a small area of erythema between the breasts suspect mild fungal infection and she has a topical antifungal at home that she can use. Discharge Plan Departure Patient Disposition: Home Clinical Impression: Abdominal pain Instructions: DI for Abdominal Pain-Adult Activity Restrictions/Additional Instructions: Follow up with your surgeon at [facility]. Your imaging today shows some mild inflammatory changes but no other major abnormalities. The area on your skin may have a small amount of fungal infection put topical antifungal twice daily for 1-2 weeks until it has resolved. You can continue your Tylenol up to a 1000 mg every 6 hours as needed. You may increase your oxycodone to 1-2 tablets every 4-6 hours. This medication can make you sleepy do not drive, perform hazardous activities or make any major decisions while taking it. This medication will make you constipated please take a stool softener such as MiraLax once to twice daily until stools are soft and regular. [facility] [place] Please return for fevers, worsening abdominal pain, persistent vomiting, black or bloody stools, difficulty with urination or other new or concerning symptoms. Prescriptions: New oxycodone 5 mg tablet 5 mg PO QID PRN (Reason: pain) Qty: 10 0RF No Action oxycodone-acetaminophen [Percocet] 7.5 MG/325 MG tablet 1 tab PO Q4HP PRNQty: 40 0RF ondansetron [Zofran ODT] 4 MG tablet,disintegrating 4 mg Sublingual Q6HP PRNQty: 20 0RF hydromorphone [Dilaudid] 2 MG tablet 2 mg PO Q4HP PRNQty: 20 0RF ondansetron 4 mg tablet,disintegrating 4 mg PO Q8H PRN (Reason: nausea and vomiting) Qty: 14 0RF sucralfate [Carafate] 100 mg/mL suspension 10 ml PO QID Qty: 420 0RF Rx Instructions: swish in mouth and swallow; use after food/drink hyoscyamine sulfate 0.125 mg tablet 0.125 mg PO BID-QID PRN (Reason: dyspepsia) Qty: 20 0RF ondansetron 4 mg tablet,disintegrating 4 mg PO TID-QID PRN (Reason: nausea and vomiting) Qty: 10 0RF Referrals: Ameya Gruber MD [Primary Care Provider] - Visit Report Forms: Patient Portal/API
[2022-01-14 15:26] LABS: Alanine Aminotransferase 13 IU/L (<35); Albumin 4.1 g/dL (3.5-5.0); Albumin Globulin Ratio 1.4 (1.0-2.8); Alkaline Phosphatase 94 U/L (38-126); Aspartate Aminotransferase 19 IU/L (14-36); BUN Creatinine Ratio 29.8 (6-22); Bilirubin Total 0.4 mg/dL (0.2-1.3); Blood Urea Nitrogen 14 mg/dL (7-17); Carbon Dioxide 23 mmol/L (22-32); Chloride 103 mmol/L (98-107); Estimated Glomerular Filt Rate > 60 mL/min (>60); Globulin 2.9 g/dL (1.7-4.1); Glucose 107 mg/dL (70-100); HEMOLYSIS < 15 (0-50); Lipase 65 U/L (23-300); Potassium 3.9 mmol/L (3.4-5.1); Sodium 139 mmol/L (137-145)
[2022-01-14 15:30] VITALS: PULSE 74; O2SAT 98
--- NOTE | 2022-01-14 15:43 | DI.CT.S_ITS ---
PROCEDURE: CT ABDOMEN PELVIS W CON INDICATIONS: s/p Whipple for neuroendocrine tumor x 30 days TECHNIQUE: After the administration of IV contrast, axial sections were acquired from the lung bases to the pubic symphysis. Coronal and sagittal reformats were performed. For radiation dose reduction, the following was used: automated exposure control, adjustment of mA and/or kV according to patient size. COMPARISON: [facility], CT, CT ABDOMEN PELVIS W CON, 04/05/2019, 1:07. [facility], CT, CT ABDOMEN PELVIS W CON, 10/31/2021, 13:05. Merged With [facility], CT, CT ABDOMEN PELVIS WITH CONTRAST, 06/21/2017, 13:04. FINDINGS: Image quality: Excellent. Lung bases: Unremarkable. Heart: No significant findings. ABDOMEN: Liver: Unremarkable. Gallbladder: Removed. Biliary ducts: Mild biliary gas is seen. There is a distal common bile duct stent. Pancreas: Partial pancreatectomy can be seen. Moderate inflammatory change can be seen within the postoperative bed. No postoperative abscess is seen. Spleen: Unremarkable. Adrenal Glands: Unremarkable. Kidneys and Ureters: Unremarkable. Stomach and Bowel: Moderate wall thickening is seen involving the ascending colon, with minimal colonic wall thickening seen elsewhere. No dilated loops of small bowel are seen. No significant gastric abnormality is seen. A normal appendix is incidentally noted. Peritoneum: No abnormal intraperitoneal fluid. No free air. Ventral Wall: No hernia. Postoperative change of the anterior abdominal wall is seen. Abdominal Nodes: No retroperitoneal or mesenteric adenopathy by size criteria. Vessels: Aorta and inferior vena cava are normal in size. PELVIS: Pelvic Organs: The uterus appears normal for age. No adnexal masses are seen. Bladder: Unremarkable. Pelvic Nodes: No enlarged lymph nodes. Miscellaneous: No inguinal hernias are seen. Pelvic varices are seen on the left. Bones: Unremarkable. IMPRESSION: Status post Whipple procedure, with mild inflammatory change seen within the postoperative bed. No postoperative abscess is seen. A common duct stent is seen, with mild biliary gas. Mild wall thickening is seen involving the ascending colon. This is felt most likely to be reactive to the adjacent surgery. Differential diagnosis includes focal colitis, yet this is considered to be less likely. Incidental note is made of: Left-sided pelvic varices Normal appendix Dictated by: Luis Angel Chow M.D. on 01/14/2022 at 15:05 Approved by: Luis Angel Chow M.D. on 01/14/2022 at 15:09
[2022-01-14] MEDS: ONDANSETRON 4 MG/2 ML INJ IV (15:54)
[2022-01-14] MEDS: SODIUM CHLORIDE 0.9% 1,000 ML 1000 ML IV (15:54)
[2022-01-14] MEDS: MORPHINE 4 MG/ML INJ IV (15:54)
[2022-01-14 17:17] VITALS: BP 109/70; PULSE 80; RESP 18; O2SAT 98
== END 2022-01-14 17:30 | disposition home or self-care (01) ==
PROVIDERS: Emergency Provider Emergency Medicine; PCP Internal Medicine
DX: G89.18 Other acute postprocedural pain (principal); R10.9 Unspecified abdominal pain
CPT/HCPCS: 36415; 74177; 80053; 81003; 81025; 83690; 85025; 96361; 96374; 96375; 99284; J2270; J2405; Q9967

== ENCOUNTER 2022-01-21 00:09 | Emergency (ER) | payer OTHER, MEDICAID, SELFPAY ==
[2022-01-21] VITALS (13 sets, daily range): BP systolic 127–155; BP diastolic 62–105; PULSE 81–109; RESP 16–27; TEMP 36.1; O2SAT 95–98; BMI 24.9
--- NOTE | 2022-01-21 00:31 | DI.RAD.S_ITS ---
PROCEDURE: XR CHEST 1V INDICATIONS: chest pain TECHNIQUE: One view of the chest was acquired. COMPARISON: None. FINDINGS: Surgical changes and devices: None. Lungs and pleura: Lungs are clear. No pleural effusions or pneumothorax. Mediastinum: Mediastinal contours appear normal. Heart size is normal. Bones and chest wall: No suspicious bony lesions. Overlying soft tissues appear unremarkable. IMPRESSION: Normal for age, source of current chest pain symptoms is not seen. Dictated by: Xander Gillespie M.D. on 01/21/2022 at 1:07 Approved by: Xander Gillespie M.D. on 01/21/2022 at 1:07
--- NOTE | 2022-01-21 00:55 | ED_ITS ---
HPI - Chest Pain General Chief Complaint: Chest Pain Stated Complaint: nausea/chest pain/dizzy Time Seen by Provider: 01/21/22 00:30 Source: patient Mode of arrival: Ambulatory Limitations: no limitations History of Present Illness HPI narrative: Patient is a 41-year-old female with recent history of Whipple procedure for neuroendocrine tumor 37 days ago at [facility] presenting today with chest discomfort. She says she was having chest discomfort while in the hospital the monitor did with EKGs and she was given Robaxin. However last couple of days and especially tonight she has worsening pain and the center of her chest. It is on radiating she is currently nauseous. She denies any worsening shortness of breath. 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 Related Data Previous Rx's Medication Instructions Recorded ondansetron 4 mg disintegrating 4 mg sublingual Q6HP PRN ##20 07/11/16 tablet (Zofran ODT) oxycodone-acetaminophen 7.5 mg-325 1 tab PO Q4HP PRN ##40 07/11/16 mg tablet (Percocet) hydromorphone 2 mg tablet 2 mg PO Q4HP PRN #20 tabs 07/14/16 (Dilaudid) sucralfate 100 mg/mL oral 10 ml PO QID #420 mL 04/05/19 suspension (Carafate) ondansetron 4 mg disintegrating 4 mg PO Q8H PRN nausea and 11/01/21 tablet vomiting #14 tabs hyoscyamine sulfate 0.125 mg tablet 0.125 mg PO BID-QID PRN dyspepsia 11/12/21 #20 tabs ondansetron 4 mg disintegrating 4 mg PO TID-QID PRN nausea and 11/12/21 tablet vomiting #10 tabs oxycodone 5 mg tablet 5 mg PO QID PRN pain #10 tabs 01/14/22 hydrocodone 5 mg-acetaminophen 325 1 tab PO Q6H PRN pain #10 tabs 01/21/22 mg tablet ondansetron 4 mg disintegrating 4 mg PO Q8H PRN nausea and 01/21/22 tablet vomiting #10 tabs Allergies Allergy/AdvReac Type Severity Reaction Status Date / Time ketorolac [From Toradol] Allergy Verified 01/14/22 14:29 metronidazole [From Flagyl] Allergy Verified 11/12/21 07:43 nitrofurantoin Allergy Verified 11/12/21 07:43 [From Macrobid] Review of Systems Review of Systems Narrative: GENERAL: Denies chills, fatigue, malaise, fever, sweats, travel HEENT: Denies sinus pain, ear pain, sore throat, difficulty swallowing, neck pain RESPIRATORY: Denies dyspnea, cough, wheezing, hemoptysis, sputum. CARDIOVASCULAR: See HPI GASTROINTESTINAL: Denies nausea, vomiting, abdominal pain, diarrhea, constipation, melena. : Denies dysuria, frequency, incontinence, hematuria, urinary retention, flank pain. MUSCULOSKELETAL: Denies weakness, joint pain, or bony pain SKIN: No rash, no erythema, no pruritus NEUROLOGIC: Denies weakness, dizziness, headache, numbness, change in speech, confusion PSYCHIATRIC: No concerning psychosocial issues. 12 point review of systems is negative except for those stated above and HPI Patient History Medical History Clostridium difficile diarrhea No significant medical problems Social History Smoking Status: Never smoker substance use type: does not use Smoking Status: Never smoker alcohol intake frequency: holidays/special occasions only Substance Use Type: does not use Exam Initial Vital Signs Initial Vital Signs: Vital Signs Temperature 97.0 F L 01/21/22 00:15 Pulse Rate 100 H 01/21/22 00:15 Respiratory Rate 17 01/21/22 00:15 Blood Pressure 147/80 H 01/21/22 00:15 Pulse Oximetry 97 01/21/22 00:15 Oxygen Delivery Method 01/21/22 00:15 GENERAL: Alert well-appearing 41-year-old female and in no acute distress. HEENT: Head atraumatic,EOMI, pupils reactive, face symmetric, moist mucous membranes CARDIOVASCULAR: Regular rate and rhythm without murmurs, rubs or gallops. RESPIRATORY: Breath sounds equal bilaterally, no wheezes rales or rhonchi. ABDOMEN: Soft, nontender. Normoactive bowel sounds all 4 quadrants. No guarding or rebound. Multiple incision sites now seem to be healing. EXTREMITIES: Normal range of motion, no clubbing or edema. Neurovascularly intact NEUROLOGICAL: Alert and oriented x4.Normal gait and speech. SKIN: Warm, dry, no laceration, no petechiae, no rashes or lesions. Course Orders Ordered: ED Orders 01/21/22 00:24 EKG-12 Lead Stat 01/21/22 00:31 XR chest 1V Stat 01/21/22 00:42 Complete Blood Count AUTO DIFF Stat Comprehensive Metabolic Panel Stat D Dimer Stat Lipase Stat Troponin & CK Cardiac Panel Stat 01/21/22 00:43 EKG-12 Lead Routine 01/21/22 00:59 CT angio chest PE protocol Stat 01/21/22 03:15 Test Urine Stat Urinalysis and Microscopic Stat 01/21/22 04:25 Trop I [Troponin I] Stat Discontinued Medications Aspirin (Aspirin 81 Mg Chew Tab) 324 mg PO NOW ONE Stop: 01/21/22 00:32 Last Admin: 01/21/22 01:07 Dose: 324 mg Documented By: EDI Morphine Sulfate (Morphine 2 Mg/Ml Inj) 2 mg IV NOW ONE Stop: 01/21/22 04:32 Last Admin: 01/21/22 04:37 Dose: 2 mg Documented By: REENA Nitroglycerin (Nitroglycerin 0.4 Mg Sl Tab) 0.4 mg SL NOW ONE Stop: 01/21/22 01:00 Last Admin: 01/21/22 01:07 Dose: 0.4 mg Documented By: EDI Ondansetron HCl (Ondansetron 4 Mg/2 Ml Inj) 4 mg IV NOW ONE Stop: 01/21/22 04:44 Last Admin: 01/21/22 04:45 Dose: 4 mg Documented By: REENA Pantoprazole Sodium (Pantoprazole 40 Mg Vial) 40 mg IV NOW ONE Stop: 01/21/22 01:00 Last Admin: 01/21/22 01:07 Dose: 40 mg Documented By: EDI Vital Signs Vital signs: Vital Signs - 8 hr 01/21/22 00:15 01/21/22 00:57 01/21/22 00:58 Temperature 97.0 F L Pulse Rate 100 H 81 Respiratory Rate 17 18 Blood Pressure 147/80 H 155/105 H Pulse Oximetry 97 98 Oxygen Delivery Method Room Air 01/21/22 00:58 01/21/22 01:00 01/21/22 01:00 Temperature Pulse Rate 95 H 104 H Respiratory Rate 21 16 Blood Pressure 151/75 H Pulse Oximetry 97 97 Oxygen Delivery Method 01/21/22 01:30 01/21/22 01:30 01/21/22 02:04 Temperature Pulse Rate 95 H 109 H Respiratory Rate 27 H 19 Blood Pressure 132/78 Pulse Oximetry 95 97 Oxygen Delivery Method 01/21/22 02:30 01/21/22 02:55 01/21/22 02:55 Temperature Pulse Rate 88 98 H Respiratory Rate 20 16 Blood Pressure 141/77 H Pulse Oximetry 97 97 Oxygen Delivery Method 01/21/22 03:00 01/21/22 03:00 01/21/22 03:30 Temperature Pulse Rate 90 Respiratory Rate 18 Blood Pressure 127/62 139/83 Pulse Oximetry 96 Oxygen Delivery Method 01/21/22 03:30 01/21/22 04:00 01/21/22 04:00 Temperature Pulse Rate 93 H 99 H Respiratory Rate Blood Pressure 146/88 H Pulse Oximetry 97 96 Oxygen Delivery Method 01/21/22 04:30 01/21/22 04:30 01/21/22 05:00 Temperature Pulse Rate 105 H Respiratory Rate 18 Blood Pressure 148/70 H 140/67 Pulse Oximetry 96 Oxygen Delivery Method 01/21/22 05:00 Temperature Pulse Rate 96 H Respiratory Rate Blood Pressure Pulse Oximetry 97 Oxygen Delivery Method MDM - Chest Pain Lab Data Result diagrams: 01/21/22 00:42 01/21/22 00:42 Labs: Lab Results 01/21/22 01/21/22 01/21/22 Range/Units 00:42 00:42 00:42 WBC 7.6 (4.5-11.0) X10^3/uL RBC 4.17 (4.0-5.2) X10^6/uL Hgb 11.3 L (12.0-16.0) g/dL Hct 34.3 L (36-46) % MCV 82.3 (80-100) fL MCH 27.1 (26-34) PG MCHC 33.0 (30-36) % RDW 14.5 (11.6-14.8) % Plt Count 319 (150-400) X10^3/uL Neut % (Auto) Not Reportable Lymph % (Auto) Not Reportable [place] % (Auto) Not Reportable Eos % (Auto) Not Reportable Baso % (Auto) Not Reportable Lymph # (Auto) Not Reportable [place] # (Auto) Not Reportable Baso # (Auto) Not Reportable Total Counted 100 Seg Neutrophils % 80.0 H (38-70) % Band Neutrophils % 5.0 (3-7) % Lymphocytes % (Manual) 11.0 L (25-45) % Monocytes % (Manual) 1.0 L (2-11) % Eosinophils % (Manual) 3.0 (2-4) % Neutrophils # (Manual) 6460 H (4852-7186) /uL RBC Morphology See below Anisocytosis 1+ H D-Dimer 361 H (<230) ng/mL Sodium 139 (137-145) mmol/L Potassium 3.9 (3.4-5.1) mmol/L Chloride 102 (98-107) mmol/L Carbon Dioxide 21 L (22-32) mmol/L BUN 9 (7-17) mg/dL Creatinine 0.39 L (0.52-1.04) mg/dL Estimated GFR > 60 (>60) mL/min BUN/Creatinine Ratio 23.1 H (6-22) Glucose 140 H (70-100) mg/dL Calcium 9.0 (8.4-10.2) mg/dL Total Bilirubin 0.5 (0.2-1.3) mg/dL AST 18 (14-36) IU/L ALT 12 (<35) IU/L Alkaline Phosphatase 105 (38-126) U/L Total Creatine Kinase 23 L (30-135) U/L CK-MB (CK-2) TNP CK-MB (CK-2) Rel Index TNP Troponin I < 0.012 (0.01-0.034) ng/mL Total Protein 7.3 (6.3-8.2) g/dL Albumin 4.5 (3.5-5.0) g/dL Globulin 2.8 (1.7-4.1) g/dL Albumin/Globulin Ratio 1.6 (1.0-2.8) Lipase 54 (23-300) U/L Urine Color Urine Appearance Urine pH (4.5-8.0) Ur Specific [place] (1.000-1.035) Urine Protein (Negative) Urine Glucose (UA) (Negative) g/dL Urine Ketones (NEGATIVE) Urine Occult Blood (Negative) Urine Nitrate (Negative) Urine Bilirubin (NEGATIVE) Urine Urobilinogen (0.2) E.U./dL Ur Leukocyte Esterase (NEGATIVE) Urine RBC (0-5/HPF) Urine WBC (0-5/HPF) Ur Squamous Epith Cells (0-5/HPF) Urine Bacteria (None) Ur Culture Indicated? Urine Test (Negative) 01/21/22 01/21/22 01/21/22 Range/Units 03:15 03:15 04:25 WBC (4.5-11.0) X10^3/uL RBC (4.0-5.2) X10^6/uL Hgb (12.0-16.0) g/dL Hct (36-46) % MCV (80-100) fL MCH (26-34) PG MCHC (30-36) % RDW (11.6-14.8) % Plt Count (150-400) X10^3/uL Neut % (Auto) Lymph % (Auto) [place] % (Auto) Eos % (Auto) Baso % (Auto) Lymph # (Auto) [place] # (Auto) Baso # (Auto) Total Counted Seg Neutrophils % (38-70) % Band Neutrophils % (3-7) % Lymphocytes % (Manual) (25-45) % Monocytes % (Manual) (2-11) % Eosinophils % (Manual) (2-4) % Neutrophils # (Manual) (7315-0994) /uL RBC Morphology Anisocytosis D-Dimer (<230) ng/mL Sodium (137-145) mmol/L Potassium (3.4-5.1) mmol/L Chloride (98-107) mmol/L Carbon Dioxide (22-32) mmol/L BUN (7-17) mg/dL Creatinine (0.52-1.04) mg/dL Estimated GFR (>60) mL/min BUN/Creatinine Ratio (6-22) Glucose (70-100) mg/dL Calcium (8.4-10.2) mg/dL Total Bilirubin (0.2-1.3) mg/dL AST (14-36) IU/L ALT (<35) IU/L Alkaline Phosphatase (38-126) U/L Total Creatine Kinase (30-135) U/L CK-MB (CK-2) CK-MB (CK-2) Rel Index Troponin I < 0.012 (0.01-0.034) ng/mL Total Protein (6.3-8.2) g/dL Albumin (3.5-5.0) g/dL Globulin (1.7-4.1) g/dL Albumin/Globulin Ratio (1.0-2.8) Lipase (23-300) U/L Urine Color Yellow Urine Appearance Clear Urine pH 5.0 (4.5-8.0) Ur Specific [place] 1.025 (1.000-1.035) Urine Protein 1+ H (Negative) Urine Glucose (UA) Negative (Negative) g/dL Urine Ketones 3+ H (NEGATIVE) Urine Occult Blood Trace-lysed (Negative) Urine Nitrate Negative (Negative) Urine Bilirubin Negative (NEGATIVE) Urine Urobilinogen 0.2 (0.2) E.U./dL Ur Leukocyte Esterase Negative (NEGATIVE) Urine RBC None seen (0-5/HPF) Urine WBC None seen (0-5/HPF) Ur Squamous Epith Cells 0-1 /hpf (0-5/HPF) Urine Bacteria None seen (None) Ur Culture Indicated? Cult not indicated Urine Test Negative (Negative) Imaging Data CT scan - chest: Radiologist's Impression: No CT evidence of PE. Normal caliber thoracic aorta. Clear lungs. ECG Data Interpretation: EKG 1. Normal sinus rhythm rate 82 CO interval 132 QRS 78 QTC 434 T-wave inversions in V1 V2 with ST depression V3 no obvious ST elevations. EKG 2. Persistent T-wave inversions V2 and V3. [facility] Narrative Medical decision making narrative: The patient has complicated history with recent surgery. She has had ongoing chest pain. EKG shows some T-wave inversion and ST depression unclear if this is new or old. She has 2- troponins. Pain is definitely reproducible to palp ation and worse with movement. She has no need for admission to the hospital. Symptoms have been ongoing for some time. Possibly worse today pain is better after morphine. She says nitro did not help much she was also given Protonix and aspirin as well. Unclear what her EKG showed in the hospital. His do recommend outpatient testing. She is actually given a prescription of oxycodone on January 15 she will not be getting any further narcotic prescriptions here in the ER. However she is given a dose of morphine and Zofran here to help make her more comfortable. Discharge Plan Departure Patient Disposition: Home Clinical Impression: Atypical chest pain Instructions: DI for Atypical Chest Pain Activity Restrictions/Additional Instructions: *You have been diagnosed with atypical chest *What to do: At this time there is no evidence of heart attack or complication from surgery. Recommend Tylenol and ibuprofen as needed for pain *Continue to take medications as directed You have oxycodone at home was prescribed January 15. No further narcotic medications will be given from the emergency department. *Follow up with your primary care provider in 2-3 days or call [phone] *Return to ER if you should have severe pain, shortness of breath dizziness palpitations or any new, worsening or concerning symptoms CONTROLLED SUBSTANCE DISCHARGE (Narcotoic/benzodiazepine/Flexeril/Phenergan) 1. You have been prescribed narcotic medications, it does have acetaminophen/Tylenol/paracetamol in it, DO NOT TAKE MORE THAN 4,00mg in 24 hours of Tylenol. TRAMADOL DOES NOT CONTAIN TYLENOL 2. Please understand that we cannot provide further refills of narcotics, benzodiazepines or controlled substances through the ED and her pain management will need to be through your provider. 3. While on these medications you cannot drive or operate heavy machinery. 4. You cannot sign legal documents or perform any duties such as this. 5. As long as you're taking opiate pain medications he should also be taking a stool softener such as Colace, Dulcolax, MiraLAX or prune juice, to help avoid constipation. Prescriptions: New hydrocodone-acetaminophen 5-325 mg tablet 1 tab PO Q6H PRN (Reason: pain) Qty: 10 0RF ondansetron 4 mg tablet,disintegrating 4 mg PO Q8H PRN (Reason: nausea and vomiting) Qty: 10 0RF No Action oxycodone-acetaminophen [Percocet] 7.5 MG/325 MG tablet 1 tab PO Q4HP PRNQty: 40 0RF ondansetron [Zofran ODT] 4 MG tablet,disintegrating 4 mg Sublingual Q6HP PRNQty: 20 0RF hydromorphone [Dilaudid] 2 MG tablet 2 mg PO Q4HP PRNQty: 20 0RF ondansetron 4 mg tablet,disintegrating 4 mg PO Q8H PRN (Reason: nausea and vomiting) Qty: 14 0RF sucralfate [Carafate] 100 mg/mL suspension 10 ml PO QID Qty: 420 0RF Rx Instructions: swish in mouth and swallow; use after food/drink hyoscyamine sulfate 0.125 mg tablet 0.125 mg PO BID-QID PRN (Reason: dyspepsia) Qty: 20 0RF ondansetron 4 mg tablet,disintegrating 4 mg PO TID-QID PRN (Reason: nausea and vomiting) Qty: 10 0RF oxycodone 5 mg tablet 5 mg PO QID PRN (Reason: pain) Qty: 10 0RF Referrals: Ameya Gruber MD [Primary Care Provider] - Visit Report Forms: Patient Portal/API
--- NOTE | 2022-01-21 00:59 | DI.CT.S_ITS ---
PROCEDURE: CT ANGIO CHEST PE PROTOCOL INDICATIONS: chest pain prior upper extremities dvt TECHNIQUE: After the administration of intravenous contrast, 2 mm thick sections acquired from the pulmonary apices to the posterior costophrenic angles. For radiation dose reduction, the following was used: automated exposure control, adjustment of mA and/or kV according to patient size. COMPARISON: None. FINDINGS: Image quality: Excellent. Pulmonary arteries: Pulmonary arteries are normal in size, and demonstrate no intraluminal filling defects to suggest central pulmonary embolism. Lungs and pleura: Lungs are clear. No pleural effusions or pneumothorax. Central and peripheral airways are patent. Mediastinum: Heart size is normal, without pericardial effusion. No mediastinal or hilar adenopathy. Thoracic aorta is normal in caliber and enhancement. Esophagus is normal in caliber, without hiatal hernia. Bones and chest wall: No suspicious bony lesions. Ribs and thoracic spine appear intact throughout. Thyroid gland unremarkable. No axillary or supraclavicular adenopathy. Abdomen: Visualized upper abdominal solid organs appear normal in the early arterial phase of enhancement. IMPRESSION: Normal CT angiogram of the chest without evidence of pulmonary embolism, aortic dissection or aneurysm Note: Final report is concordant with preliminary interpretation by [facility] Approved by: Edgar Flores M.D. on 01/21/2022 at 6:27
[2022-01-21] MEDS: NITROGLYCERIN 0.4 MG SL TAB SL (01:07)
[2022-01-21] MEDS: ASPIRIN 81 MG CHEW TAB 324 MG PO (01:07)
[2022-01-21] MEDS: PANTOPRAZOLE 40 MG VIAL IV (01:07)
[2022-01-21] MEDS: ONDANSETRON 4 MG/2 ML INJ (01:07)
[2022-01-21 01:24] LABS: Hematocrit 34.3 % (36-46); Hemoglobin 11.3 g/dL (12.0-16.0); Mean Corpuscular Hemoglobin 27.1 PG (26-34); Mean Corpuscular Volume 82.3 fL (80-100); Platelet Count 319 X10^3/uL (150-400); Red Blood Cell Count 4.17 X10^6/uL (4.0-5.2); Red Cell Distribution Width 14.5 % (11.6-14.8); White Blood Cell Count 7.6 X10^3/uL (4.5-11.0)
[2022-01-21 01:27] LABS: Add Manual Diff / Slide Review YES
[2022-01-21 01:31] LABS: Alanine Aminotransferase 12 IU/L (<35); Albumin 4.5 g/dL (3.5-5.0); Albumin Globulin Ratio 1.6 (1.0-2.8); Alkaline Phosphatase 105 U/L (38-126); Aspartate Aminotransferase 18 IU/L (14-36); BUN Creatinine Ratio 23.1 (6-22); Bilirubin Total 0.5 mg/dL (0.2-1.3); Blood Urea Nitrogen 9 mg/dL (7-17); Carbon Dioxide 21 mmol/L (22-32); Chloride 102 mmol/L (98-107); Creatine Kinase 23 U/L (30-135); Estimated Glomerular Filt Rate > 60 mL/min (>60); Globulin 2.8 g/dL (1.7-4.1); Glucose 140 mg/dL (70-100); HEMOLYSIS < 15 (0-50); Lipase 54 U/L (23-300); Potassium 3.9 mmol/L (3.4-5.1); Sodium 139 mmol/L (137-145); Total Protein 7.3 g/dL (6.3-8.2)
[2022-01-21 01:43] LABS: Troponin I < 0.012 ng/mL (0.01-0.034)
[2022-01-21 01:54] LABS: D Dimer 361 ng/mL (<230)
[2022-01-21 03:11] LABS: Anisocytosis 1+; Neutrophils Absolute Manual 6460 /uL (3000-5900); Total Cells Counted 100
[2022-01-21 03:21] LABS: Appearance Urine UA CLEAR; Bilirubin Urine UA NEGATIVE (NEGATIVE); Color Urine UA YELLOW; Glucose Urine UA NEGATIVE (Negative); Ketones Urine UA 3+ (NEGATIVE); Leukocyte Esterase Urine UA NEGATIVE (NEGATIVE); Nitrite Urine UA NEGATIVE (Negative); Occult Blood Urine UA TRACE-LYSED (Negative); Protein Urine UA 1+ (Negative); Specific Gravity Urine UA 1.025 (1.000-1.035); Urobilinogen Urine UA 0.2 E.U./dL (0.2)
[2022-01-21 03:58] LABS: Pregnancy Test Urine Negative (Negative)
[2022-01-21 04:08] LABS: Bacteria Urine None Seen; Culture Indicated Urine Cult Not Indicated; RBC Urine None Seen (0-5/HPF); Squamous Epithelial Cell Urine 0-1 /HPF (0-5/HPF); WBC Urine None Seen (0-5/HPF)
[2022-01-21] MEDS: MORPHINE 2 MG/ML INJ IV (04:37)
[2022-01-21] MEDS: ONDANSETRON 4 MG/2 ML INJ IV (04:45)
[2022-01-21 05:06] LABS: Troponin I < 0.012 ng/mL (0.01-0.034)
== END 2022-01-21 05:30 | disposition home or self-care (01) ==
PROVIDERS: Emergency Provider Emergency Medicine; PCP Internal Medicine
DX: R07.89 Other chest pain (principal); R11.0 Nausea; Z79.01 Long term (current) use of anticoagulants
CPT/HCPCS: 36415; 71045; 71275; 80053; 81001; 81025; 82550; 83690; 84484; 85007; 85025; 85379; 93005; 93010; 96374; 96375; 99284; C9113; J2270; J2405; Q9967

== ENCOUNTER 2022-01-23 16:27 | Inpatient (IN) | payer OTHER, MEDICAID, SELFPAY ==
[2022-01-23] VITALS (14 sets, daily range): BP systolic 110–130; BP diastolic 61–76; PULSE 64–80; RESP 14–23; TEMP 36–36.3; O2SAT 94–100; BMI 25.7
--- NOTE | 2022-01-23 16:39 | DI.RAD.S_ITS ---
PROCEDURE: XR CHEST 1V INDICATIONS: chest pain TECHNIQUE: One view of the chest was acquired. COMPARISON: [facility], CR, XR CHEST 1V, 01/21/2022, 0:49. FINDINGS: Surgical changes and devices: None. Lungs and pleura: Lungs are clear. No pleural effusions or pneumothorax. Mediastinum: Mediastinal contours appear normal. Heart size is normal. Bones and chest wall: No suspicious bony lesions. Overlying soft tissues appear unremarkable. IMPRESSION: No acute cardiopulmonary pathology. Dictated by: Rishabh Moreno M.D. on 01/23/2022 at 17:07 Approved by: Rishabh Moreno M.D. on 01/23/2022 at 17:07
--- NOTE | 2022-01-23 16:49 | ED_ITS ---
HPI - Chest Pain <Fely Grant MD - Last Filed: 02/02/22 20:32> General Chief Complaint: Chest Pain Stated Complaint: Chest pain s/p whipple 12/13 Time Seen by Provider: 01/23/22 16:40 History of Present Illness HPI narrative: 41yo woman post whipple procedure at [facility] on 12/22 presents for 2nd time with complaints of epigastric substernal chest pain. She was seen on the with similar complaints, workup at that time did not show significant abnormalities including a CT scan of the chest to rule out pulmonary embolism. Labs were reassuring. She was discharged home with a prescription for tramadol. Since discharge she complains that she has continued to have significant nausea, increasing pain now seems to be slightly lower, more epigastric and centered over her surgical site. She finds that the Zofran has not controlled her nausea she has not been able to eat and has been minimally able to drink liquids due to the nausea and is concerned with the continued persistent pain. She has had no fevers. She notes a small normal bowel movement this morning. No dysuria or flank pain. No palpitations, sweats, headaches. Related Data Previous Rx's Medication Instructions Recorded ondansetron 4 mg disintegrating 4 mg PO Q8H PRN nausea and 11/01/21 tablet vomiting #14 tabs oxycodone 5 mg tablet 5 mg PO QID PRN pain #10 tabs 01/14/22 hydrocodone 5 mg-acetaminophen 325 1 tab PO Q6H PRN pain #10 tabs 01/21/22 mg tablet Allergies Allergy/AdvReac Type Severity Reaction Status Date / Time ketorolac [From Toradol] Allergy Severe Anaphylaxis Verified 01/23/22 21:48 metronidazole [From Flagyl] Allergy Verified 11/12/21 07:43 nitrofurantoin Allergy Verified 11/12/21 07:43 [From Macrobid] Review of Systems <Fely Grant MD - Last Filed: 02/02/22 20:32> Review of Systems Narrative: Remainder of complete review of systems is otherwise unremarkable except for that included in the HPI. Patient History <Fely Grant MD - Last Filed: 02/02/22 20:32> Medical History (Updated 01/29/22 @ 00:01 by ) Clostridium difficile diarrhea Neuroendocrine tumor of pancreas No significant medical problems Surgical History (Updated 01/24/22 @ 02:02 by WILMER Thibodeaux) H/O Whipple procedure History of cholecystectomy Hx of bilateral oophorectomy Hx of umbilical hernia repair Family History (Updated 01/24/22 @ 01:36 by WILMER Thibodeaux) Mother Alcoholism Sister Alive and well Father Medical history unknown Social History household members: children Smoking Status: Never smoker substance use type: does not use Smoking Status: Never smoker alcohol intake frequency: holidays/special occasions only Substance Use Type: does not use Exam <Fely Grant MD - Last Filed: 02/02/22 20:32> Initial Vital Signs Initial Vital Signs: Vital Signs Temperature 96.8 F L 01/23/22 16:33 Respiratory Rate 16 01/23/22 16:33 Blood Pressure 117/69 01/23/22 16:33 Pulse Oximetry 97 01/23/22 16:33 Oxygen Delivery Method 01/23/22 16:33 General: Frail, appears fatigued, deep circles under her eyes but no acute distress. Able to give a complete and coherent history. HEENT: Dry mucous membranes, normal sclera with reactive pupils, Respiratory: Lungs are clear to auscultation, no wheezing no rales no rhonchi. Full and symmetrical air movement Cardiac: Regular rate and rhythm no murmurs no bruits Chest: Palpable tenderness along the xiphoid into the epigastrium. Abdomen: Soft, tender over the upper abdomen. Surgical site appears to have healed nicely. There is no obvious dehiscence, seromas or fluctuance about the site. Good bowel tones, no flank pain Skin: Warm and dry, no rashes Neurologic: Grossly neurologically intact with no obvious asymmetries or abnormalities Extremities: No trauma, well perfused Psych: Cooperative, appropriate insight and affect <Kristen Jackson DO - Last Filed: 01/23/22 23:14> Initial Vital Signs Initial Vital Signs: Vital Signs Temperature 96.8 F L 01/23/22 16:33 Respiratory Rate 16 01/23/22 16:33 Blood Pressure 117/69 01/23/22 16:33 Pulse Oximetry 97 01/23/22 16:33 Oxygen Delivery Method 01/23/22 16:33 Course <Fely Grant MD - Last Filed: 02/02/22 20:32> Orders Ordered: Acetaminophen (Acetaminophen 325 Mg Tablet) 650 mg PO Q6HRWA [facility] Last Admin: 02/02/22 14:52 Dose: Not Given Documented By: Admin: 02/02/22 09:43 Dose: Not Given Documented By: YAFrancine Admin: 02/01/22 20:23 Dose: Not Given Documented By: Admin: 02/01/22 15:05 Dose: Not Given Documented By: Admin: 02/01/22 09:05 Dose: Not Given Documented By: Admin: 01/31/22 20:29 Dose: Not Given Documented By: Admin: 01/31/22 14:52 Dose: Not Given Documented By: Admin: 01/31/22 09:47 Dose: Not Given Documented By: Admin: 01/30/22 20:37 Dose: Not Given Documented By: Admin: 01/30/22 15:00 Dose: Not Given Documented By: Admin: 01/30/22 09:23 Dose: Not Given Documented By: Admin: 01/29/22 21:35 Dose: Not Given Documented By: LARISSA Diphenhydramine HCl (Diphenhydramine 50 Mg/Ml Vial) 25 mg IV Q6HR PRN PRN Reason: Insomnia Heparin Sodium (Porcine) (Heparin 5,000 Unit/Ml Vial) 5,000 unit SUBCUT BID [facility] Last Admin: 02/02/22 09:48 Dose: 5,000 unit Documented By: Admin: 02/01/22 20:20 Dose: 5,000 unit Documented By: Admin: 02/01/22 09:10 Dose: 5,000 unit Documented By: Admin: 01/31/22 20:28 Dose: 5,000 unit Documented By: Admin: 01/31/22 09:47 Dose: 5,000 unit Documented By: Admin: 01/30/22 22:11 Dose: 5,000 unit Documented By: Admin: 01/30/22 08:32 Dose: 5,000 unit Documented By: Admin: 01/29/22 21:39 Dose: 5,000 unit Documented By: Admin: 01/29/22 08:25 Dose: 5,000 unit Documented By: Admin: 01/28/22 20:03 Dose: 5,000 unit Documented By: Admin: 01/28/22 09:46 Dose: 5,000 unit Documented By: Admin: 01/27/22 20:32 Dose: 5,000 unit Documented By: Admin: 01/27/22 08:49 Dose: 5,000 unit Documented By: Admin: 01/26/22 20:46 Dose: 5,000 unit Documented By: Admin: 01/26/22 09:23 Dose: 5,000 unit Documented By: Admin: 01/25/22 21:06 Dose: 5,000 unit Documented By: Admin: 01/25/22 09:07 Dose: 5,000 unit Documented By: Admin: 01/24/22 22:33 Dose: 5,000 unit Documented By: GERDA Dextrose/Sodium Chloride (Dextrose 5%-0.9% Ns) 1,000 mls @ 75 mls/hr IV CONT MARIEL Last Admin: 02/02/22 19:14 Dose: 75 mls/hr Documented By: Infusion: 02/02/22 19:14 Dose: 75 mls/hr Documented By: Infusion: 02/02/22 06:14 Dose: 75 mls/hr Documented By: Admin: 02/02/22 06:14 Dose: 75 mls/hr Documented By: Infusion: 02/02/22 02:21 Dose: 75 mls/hr Documented By: Admin: 02/01/22 13:01 Dose: 75 mls/hr Documented By: Infusion: 02/01/22 13:01 Dose: 75 mls/hr Documented By: Admin: 02/01/22 01:24 Dose: 75 mls/hr Documented By: Infusion: 02/01/22 01:24 Dose: 75 mls/hr Documented By: Admin: 01/31/22 12:46 Dose: 75 mls/hr Documented By: Infusion: 01/31/22 11:32 Dose: 75 mls/hr Documented By: Admin: 01/30/22 22:12 Dose: 75 mls/hr Documented By: Infusion: 01/30/22 21:48 Dose: 75 mls/hr Documented By: Admin: 01/30/22 08:28 Dose: 75 mls/hr Documented By: Infusion: 01/30/22 07:18 Dose: 75 mls/hr Documented By: Admin: 01/29/22 17:58 Dose: 75 mls/hr Documented By: Infusion: 01/29/22 17:58 Dose: 75 mls/hr Documented By: Admin: 01/29/22 06:33 Dose: 75 mls/hr Documented By: Infusion: 01/29/22 06:33 Dose: 75 mls/hr Documented By: Admin: 01/28/22 19:59 Dose: 75 mls/hr Documented By: Infusion: 01/28/22 05:04 Dose: 75 mls/hr Documented By: Admin: 01/27/22 15:44 Dose: 75 mls/hr Documented By: Infusion: 01/27/22 14:18 Dose: 75 mls/hr Documented By: Infusion: 01/27/22 11:07 Dose: 75 mls/hr Documented By: Admin: 01/27/22 05:01 Dose: 125 mls/hr Documented By: Infusion: 01/27/22 04:58 Dose: 125 mls/hr Documented By: Admin: 01/26/22 20:58 Dose: 125 mls/hr Documented By: Infusion: 01/26/22 20:58 Dose: 125 mls/hr Documented By: Admin: 01/26/22 13:16 Dose: 125 mls/hr Documented By: MADAI Morphine Sulfate (Morphine 2 Mg/Ml Inj) 2 mg IV Q4H PRN PRN Reason: Pain, Severe (7-10) Last Admin: 02/02/22 18:16 Dose: 2 mg Documented By: Admin: 02/02/22 10:03 Dose: 2 mg Documented By: Admin: 02/02/22 05:34 Dose: 2 mg Documented By: Admin: 02/02/22 01:34 Dose: 2 mg Documented By: Admin: 02/01/22 21:24 Dose: 2 mg Documented By: Admin: 02/01/22 17:16 Dose: 2 mg Documented By: Admin: 01/30/22 08:19 Dose: 2 mg Documented By: Admin: 01/30/22 02:19 Dose: 2 mg Documented By: Admin: 01/29/22 21:47 Dose: 2 mg Documented By: Admin: 01/28/22 00:27 Dose: 2 mg Documented By: Admin: 01/25/22 12:50 Dose: 2 mg Documented By: Admin: 01/25/22 09:07 Dose: 2 mg Documented By: Admin: 01/25/22 04:30 Dose: 2 mg Documented By: Admin: 01/24/22 20:15 Dose: 2 mg Documented By: GERDA Multivitamins (Multivitamin 1 Tablet) 1 tab PO DAILY MARIEL Last Admin: 02/02/22 09:44 Dose: Not Given Documented By: MADAI Naloxone HCl (Naloxone 0.4 Mg/Ml Vial) 0.2 mg IV Q2MIN PRN PRN Reason: Opiate Reversal Olanzapine (Olanzapine 10 Mg Vial) 5 mg IM DAILY PRN PRN Reason: Nausea And Vomiting Ondansetron HCl (Ondansetron 4 Mg/2 Ml Inj) 4 mg IV Q6HR PRN PRN Reason: Nausea And Vomiting Last Admin: 02/02/22 18:16 Dose: 4 mg Documented By: Admin: 02/01/22 17:07 Dose: 4 mg Documented By: Admin: 01/29/22 21:36 Dose: 4 mg Documented By: Admin: 01/29/22 10:44 Dose: 4 mg Documented By: Admin: 01/28/22 20:00 Dose: 4 mg Documented By: Admin: 01/27/22 23:16 Dose: 4 mg Documented By: Admin: 01/26/22 20:46 Dose: 4 mg Documented By: Admin: 01/24/22 06:59 Dose: 4 mg Documented By: Admin: 01/24/22 00:27 Dose: 4 mg Documented By: LESLIE Oxycodone HCl (Oxycodone Ir 5 Mg Tablet) 5 mg PO Q4HR PRN PRN Reason: Pain, Severe (7-10) Last Admin: 02/01/22 18:50 Dose: 5 mg Documented By: Admin: 02/01/22 12:52 Dose: 5 mg Documented By: Admin: 02/01/22 09:09 Dose: 5 mg Documented By: Admin: 01/31/22 22:07 Dose: 5 mg Documented By: Admin: 01/31/22 16:40 Dose: 5 mg Documented By: Admin: 01/31/22 09:46 Dose: 5 mg Documented By: Admin: 01/31/22 04:04 Dose: 5 mg Documented By: Admin: 01/30/22 22:10 Dose: 5 mg Documented By: Admin: 01/30/22 15:20 Dose: 5 mg Documented By: Admin: 01/30/22 09:18 Dose: 5 mg Documented By: GENIA Pantoprazole Sodium (Pantoprazole Dr 40 Mg Tablet) 40 mg PO 0600 [facility] Last Admin: 02/02/22 05:37 Dose: Not Given Documented By: Admin: 02/01/22 05:49 Dose: 40 mg Documented By: GERDA Promethazine HCl (Promethazine 12.5 Mg Supp) 12.5 mg LA Q6HR PRN PRN Reason: Nausea And Vomiting Last Admin: 02/02/22 01:42 Dose: 12.5 mg Documented By: Admin: 01/24/22 10:23 Dose: 12.5 mg Documented By: CHRISTINE Sennosides (Sennosides 8.6 Mg Tablet) 17.2 mg PO BEDTIME [facility] Last Admin: 02/01/22 20:22 Dose: Not Given Documented By: Admin: 01/31/22 20:28 Dose: Not Given Documented By: Admin: 01/30/22 22:05 Dose: Not Given Documented By: Admin: 01/29/22 21:33 Dose: Not Given Documented By: Admin: 01/28/22 20:14 Dose: Not Given Documented By: Admin: 01/27/22 20:32 Dose: Not Given Documented By: Admin: 01/26/22 20:43 Dose: Not Given Documented By: Admin: 01/25/22 21:29 Dose: Not Given Documented By: Admin: 01/24/22 21:42 Dose: Not Given Documented By: Admin: 01/23/22 22:33 Dose: Not Given Documented By: LCH Sucralfate (Sucralfate 1 Gm Tablet) 1 gm PO Q6HR [facility] Last Admin: 02/02/22 16:51 Dose: Not Given Documented By: Admin: 02/02/22 12:21 Dose: Not Given Documented By: Admin: 02/02/22 05:37 Dose: Not Given Documented By: Admin: 02/01/22 23:59 Dose: Not Given Documented By: Admin: 02/01/22 12:09 Dose: Not Given Documented By: Admin: 02/01/22 12:02 Dose: Not Given Documented By: Admin: 02/01/22 06:07 Dose: Not Given Documented By: Admin: 02/01/22 00:17 Dose: Not Given Documented By: Admin: 01/31/22 18:25 Dose: Not Given Documented By: Admin: 01/31/22 12:39 Dose: Not Given Documented By: Admin: 01/31/22 06:05 Dose: Not Given Documented By: Admin: 01/31/22 00:00 Dose: Not Given Documented By: Admin: 01/30/22 17:09 Dose: Not Given Documented By: Admin: 01/30/22 13:00 Dose: Not Given Documented By: Admin: 01/30/22 05:56 Dose: Not Given Documented By: Admin: 01/30/22 00:00 Dose: Not Given Documented By: Admin: 01/29/22 16:40 Dose: Not Given Documented By: Admin: 01/29/22 12:05 Dose: Not Given Documented By: Admin: 01/29/22 06:14 Dose: Not Given Documented By: Admin: 01/28/22 20:12 Dose: 1 gm Documented By: Admin: 01/28/22 17:04 Dose: Not Given Documented By: Admin: 01/28/22 11:46 Dose: Not Given Documented By: Admin: 01/28/22 06:07 Dose: Not Given Documented By: Admin: 01/27/22 23:17 Dose: Not Given Documented By: Admin: 01/27/22 17:05 Dose: Not Given Documented By: Admin: 01/27/22 11:19 Dose: Not Given Documented By: Admin: 01/26/22 23:06 Dose: Not Given Documented By: Admin: 01/26/22 23:04 Dose: Not Given Documented By: Admin: 01/26/22 17:30 Dose: Not Given Documented By: Admin: 01/26/22 11:11 Dose: Not Given Documented By: Admin: 01/26/22 06:04 Dose: Not Given Documented By: Admin: 01/26/22 05:05 Dose: Not Given Documented By: Admin: 01/25/22 18:26 Dose: Not Given Documented By: Admin: 01/25/22 12:49 Dose: Not Given Documented By: Admin: 01/25/22 05:12 Dose: Not Given Documented By: Admin: 01/25/22 00:00 Dose: Not Given Documented By: Admin: 01/24/22 18:37 Dose: Not Given Documented By: Admin: 01/24/22 13:00 Dose: Not Given Documented By: Admin: 01/24/22 06:59 Dose: 1 gm Documented By: Admin: 01/24/22 00:22 Dose: 1 gm Documented By: LESLIE Thiamine HCl (Thiamine 100 Mg Tablet) 100 mg PO DAILY [facility] Last Admin: 02/02/22 09:44 Dose: Not Given Documented By: MADAI Discontinued Medications Acetaminophen (Acetaminophen 325 Mg Tablet) 650 mg PO Q6HR PRN PRN Reason: Fever/Mild Pain (1-3) Apixaban (Apixaban 5 Mg Tablet) 5 mg PO BID [facility] Last Admin: 01/24/22 21:42 Dose: Not Given Documented By: Admin: 01/24/22 11:24 Dose: Not Given Documented By: HCW Diphenhydramine HCl (Diphenhydramine 50 Mg/Ml Vial) 25 mg IV Q6HR PRN PRN Reason: Itching Docusate Sodium (Docusate 100 Mg Capsule) 100 mg PO BID [facility] Last Admin: 02/02/22 09:44 Dose: Not Given Documented By: Admin: 02/01/22 20:52 Dose: Not Given Documented By: Admin: 02/01/22 09:10 Dose: 100 mg Documented By: Admin: 01/31/22 20:29 Dose: Not Given Documented By: Admin: 01/31/22 09:47 Dose: 100 mg Documented By: Admin: 01/30/22 22:05 Dose: Not Given Documented By: Admin: 01/30/22 09:23 Dose: 100 mg Documented By: Admin: 01/29/22 21:34 Dose: Not Given Documented By: Admin: 01/29/22 07:42 Dose: Not Given Documented By: Admin: 01/28/22 20:14 Dose: Not Given Documented By: Admin: 01/28/22 09:47 Dose: Not Given Documented By: Admin: 01/27/22 20:32 Dose: Not Given Documented By: Admin: 01/27/22 08:46 Dose: Not Given Documented By: Admin: 01/26/22 20:43 Dose: Not Given Documented By: Admin: 01/26/22 09:13 Dose: Not Given Documented By: Admin: 01/25/22 21:29 Dose: Not Given Documented By: Admin: 01/25/22 09:08 Dose: Not Given Documented By: Admin: 01/24/22 21:42 Dose: Not Given Documented By: Admin: 01/24/22 10:07 Dose: Not Given Documented By: Admin: 01/23/22 22:33 Dose: Not Given Documented By: LCH Enoxaparin Sodium (Enoxaparin 40 Mg/0.4 Ml Syringe) 40 mg SUBCUT DAILY [facility]IEL Erythromycin (Erythromycin Base 250 Mg Tablet) 250 mg PO NOW ONE Stop: 01/24/22 15:45 Last Admin: 01/24/22 18:26 Dose: 250 mg Documented By: HCW Hydromorphone HCl (Hydromorphone 1 Mg Inj) 1 mg IV NOW ONE Stop: 01/23/22 17:06 Last Admin: 01/23/22 17:25 Dose: 1 mg Documented By: FLH Hydromorphone HCl (Hydromorphone 0.5 Mg Inj) 0.5 mg IV Q15MIN PRN PRN Reason: Pain, Last Admin: 01/23/22 20:41 Dose: 0.5 mg Documented By: EB Hydromorphone HCl (Hydromorphone 0.5 Mg Inj) 0.5 mg IV Q4H PRN PRN Reason: Breakthrough pain only (8-10) Last Admin: 01/29/22 16:21 Dose: 0.5 mg Documented By: Admin: 01/29/22 10:44 Dose: 0.5 mg Documented By: Admin: 01/29/22 06:27 Dose: 0.5 mg Documented By: Admin: 01/28/22 23:09 Dose: 0.5 mg Documented By: Admin: 01/28/22 18:57 Dose: 0.5 mg Documented By: Admin: 01/28/22 10:04 Dose: 0.5 mg Documented By: Admin: 01/27/22 23:16 Dose: 0.5 mg Documented By: Admin: 01/27/22 17:12 Dose: 0.5 mg Documented By: Admin: 01/27/22 08:50 Dose: 0.5 mg Documented By: Admin: 01/27/22 02:24 Dose: 0.5 mg Documented By: Admin: 01/26/22 20:46 Dose: 0.5 mg Documented By: Admin: 01/26/22 13:46 Dose: 0.5 mg Documented By: Admin: 01/26/22 05:55 Dose: 0.5 mg Documented By: Admin: 01/25/22 21:06 Dose: 0.5 mg Documented By: Admin: 01/25/22 15:23 Dose: 0.5 mg Documented By: Admin: 01/24/22 17:28 Dose: 0.5 mg Documented By: Admin: 01/24/22 12:42 Dose: 0.5 mg Documented By: Admin: 01/24/22 06:59 Dose: 0.5 mg Documented By: Admin: 01/24/22 00:28 Dose: 0.5 mg Documented By: LESLIE Sodium Chloride (Normal Saline 0.9%) 1,000 mls @ 1,000 mls/hr IV BOLUS ONE Stop: 01/23/22 18:04 Last Infusion: 01/23/22 18:39 Dose: 0 mls/hr Documented By: Admin: 01/23/22 17:28 Dose: 1,000 mls/hr Documented By: KALINA Sodium Chloride (Normal Saline 0.9%) 1,000 mls @ 200 mls/hr IV CONT MARIEL Last Admin: 01/26/22 06:05 Dose: 150 mls/hr Documented By: Infusion: 01/26/22 06:05 Dose: 150 mls/hr Documented By: Admin: 01/26/22 00:03 Dose: 150 mls/hr Documented By: Infusion: 01/25/22 22:15 Dose: 150 mls/hr Documented By: Admin: 01/25/22 17:15 Dose: 200 mls/hr Documented By: Infusion: 01/25/22 15:44 Dose: 200 mls/hr Documented By: Admin: 01/25/22 10:44 Dose: 200 mls/hr Documented By: Infusion: 01/25/22 05:53 Dose: 200 mls/hr Documented By: Admin: 01/25/22 00:53 Dose: 200 mls/hr Documented By: Infusion: 01/24/22 18:23 Dose: 100 mls/hr Documented By: Admin: 01/24/22 08:23 Dose: 100 mls/hr Documented By: Infusion: 01/24/22 08:23 Dose: 100 mls/hr Documented By: Admin: 01/23/22 22:32 Dose: 100 mls/hr Documented By: [facility] POTASSIUM CHLORIDE IN WATER (Potassium Cl 10 Meq/100 Ml Meghna) 10 meq in 100 mls @ 100 mls/hr IV Q1H [facility] Stop: 01/24/22 16:29 Last Infusion: 01/25/22 03:34 Dose: 0 mls/hr Documented By: Admin: 01/24/22 22:32 Dose: 50 mls/hr Documented By: Infusion: 01/24/22 22:05 Dose: 50 mls/hr Documented By: Admin: 01/24/22 20:05 Dose: 50 mls/hr Documented By: Infusion: 01/24/22 20:05 Dose: 50 mls/hr Documented By: Admin: 01/24/22 18:34 Dose: 50 mls/hr Documented By: Infusion: 01/24/22 17:47 Dose: 65 mls/hr Documented By: Admin: 01/24/22 16:14 Dose: 65 mls/hr Documented By: Infusion: 01/24/22 15:47 Dose: 65 mls/hr Documented By: Admin: 01/24/22 14:14 Dose: 65 mls/hr Documented By: Infusion: 01/24/22 13:32 Dose: 100 mls/hr Documented By: Admin: 01/24/22 12:32 Dose: 100 mls/hr Documented By: SEFERINO Magnesium Sulfate (Magnesium Sulfate) 2 gm in 50 mls @ 25 mls/hr IV NOW ONE Stop: 01/24/22 13:29 Last Admin: 01/24/22 12:32 Dose: 25 mls/hr Documented By: SEFERINO Co-signed By: CHRISTINE Magnesium Sulfate (Magnesium Sulfate) 2 gm in 50 mls @ 25 mls/hr IV NOW ONE Stop: 01/26/22 07:12 Last Infusion: 01/26/22 13:26 Dose: 0 mls/hr Documented By: MADAI Co-signed By: CLL Admin: 01/26/22 05:34 Dose: 25 mls/hr Documented By: KJ Co-signed By: ASHELY POTASSIUM CHLORIDE IN WATER (Potassium Cl 10 Meq/100 Ml Meghna) 10 meq in 100 mls @ 100 mls/hr IV Q1H [facility] Stop: 01/26/22 15:14 Last Admin: 01/26/22 13:30 Dose: Not Given Documented By: MADAI Magnesium Sulfate (Magnesium Sulfate) 2 gm in 50 mls @ 25 mls/hr IV NOW ONE Stop: 01/29/22 10:59 Last Infusion: 01/29/22 10:50 Dose: 0 mls/hr Documented By: EMMANUEL Co-signed By: MELINDA Admin: 01/29/22 09:01 Dose: 25 mls/hr Documented By: EMMANUEL Co-signed By: MELINDA POTASSIUM CHLORIDE IN WATER (Potassium Cl 10 Meq/100 Ml Meghna) 10 meq in 100 mls @ 100 mls/hr IV Q1H MARIEL Stop: 01/29/22 16:59 Last Infusion: 01/29/22 17:57 Dose: 0 mls/hr Documented By: Admin: 01/29/22 16:21 Dose: 100 mls/hr Documented By: Infusion: 01/29/22 16:21 Dose: 100 mls/hr Documented By: Admin: 01/29/22 15:22 Dose: 100 mls/hr Documented By: Infusion: 01/29/22 15:13 Dose: 100 mls/hr Documented By: Admin: 01/29/22 14:13 Dose: 100 mls/hr Documented By: Infusion: 01/29/22 14:10 Dose: 100 mls/hr Documented By: Admin: 01/29/22 13:10 Dose: 100 mls/hr Documented By: Infusion: 01/29/22 12:59 Dose: 100 mls/hr Documented By: Admin: 01/29/22 11:59 Dose: 100 mls/hr Documented By: Infusion: 01/29/22 11:45 Dose: 100 mls/hr Documented By: Admin: 01/29/22 10:45 Dose: 100 mls/hr Documented By: EMMANUEL Magnesium Sulfate (Magnesium Sulfate) 4 gm in 100 mls @ 150 mls/hr IV NOW ONE Stop: 01/29/22 18:17 Last Admin: 01/29/22 17:57 Dose: Not Given Documented By: EMMANUEL POTASSIUM CHLORIDE IN WATER (Potassium Cl 10 Meq/100 Ml Meghna) 10 meq in 100 mls @ 100 mls/hr IV Q1H MARIEL Stop: 01/30/22 18:14 Last Admin: 01/30/22 19:05 Dose: 100 mls/hr Documented By: Infusion: 01/30/22 19:05 Dose: 100 mls/hr Documented By: Admin: 01/30/22 18:10 Dose: 100 mls/hr Documented By: Infusion: 01/30/22 16:20 Dose: 100 mls/hr Documented By: Admin: 01/30/22 15:20 Dose: 100 mls/hr Documented By: Infusion: 01/30/22 15:15 Dose: 100 mls/hr Documented By: Admin: 01/30/22 14:15 Dose: 100 mls/hr Documented By: GENIA Magnesium Sulfate (Magnesium Sulfate) 2 gm in 50 mls @ 25 mls/hr IV NOW ONE Stop: 02/02/22 11:29 Last Infusion: 02/02/22 12:21 Dose: 0 mls/hr Documented By: MADAI Co-signed By: JOSHUA Admin: 02/02/22 09:48 Dose: 25 mls/hr Documented By: MADAI Co-signed By: JOSHUA Magnesium Sulfate (Magnesium Sulfate) 2 gm in 50 mls @ 25 mls/hr IV NOW ONE Stop: 02/02/22 17:09 Last Admin: 02/02/22 15:32 Dose: Not Given Documented By: MADAI Ketorolac Tromethamine (Ketorolac 30 Mg/Ml Vial) 15 mg IV Q6H PRN PRN Reason: Pain, Mild (1-3) Stop: 01/26/22 21:06 Lorazepam (Lorazepam 2 Mg/Ml Inj) 0.5 mg IV Q6HR PRN PRN Reason: Anxiety Stop: 02/02/22 00:06 Last Admin: 02/01/22 20:17 Dose: 0.5 mg Documented By: Admin: 02/01/22 12:57 Dose: 0.5 mg Documented By: Admin: 02/01/22 01:24 Dose: 0.5 mg Documented By: Admin: 01/31/22 18:24 Dose: 0.5 mg Documented By: Admin: 01/31/22 11:08 Dose: 0.5 mg Documented By: Admin: 01/30/22 15:21 Dose: 0.5 mg Documented By: Admin: 01/30/22 09:17 Dose: 0.5 mg Documented By: Admin: 01/29/22 18:06 Dose: 0.5 mg Documented By: Admin: 01/29/22 11:59 Dose: 0.5 mg Documented By: Admin: 01/28/22 12:23 Dose: 0.5 mg Documented By: Admin: 01/27/22 17:13 Dose: 0.5 mg Documented By: Admin: 01/26/22 23:07 Dose: 0.5 mg Documented By: Admin: 01/26/22 16:25 Dose: 0.5 mg Documented By: Admin: 01/26/22 09:23 Dose: 0.5 mg Documented By: Admin: 01/25/22 21:07 Dose: 0.5 mg Documented By: Admin: 01/25/22 10:44 Dose: 0.5 mg Documented By: Admin: 01/25/22 04:31 Dose: 0.5 mg Documented By: Admin: 01/24/22 20:15 Dose: 0.5 mg Documented By: GERDA Lorazepam (Lorazepam 2 Mg/Ml Inj) 1 mg IV Q4HR PRN PRN Reason: Anxiety Last Admin: 02/02/22 16:20 Dose: 1 mg Documented By: Admin: 02/02/22 06:12 Dose: 1 mg Documented By: KANNAN Magnesium Chloride (Magnesium Chloride 64 Mg Tablet) 128 mg PO NOW ONE Stop: 01/24/22 09:22 Last Admin: 01/24/22 11:24 Dose: Not Given Documented By: CHRISTINE Magnesium Chloride (Magnesium Chloride 64 Mg Tablet) 128 mg PO NOW ONE Stop: 02/01/22 11:00 Last Admin: 02/01/22 11:25 Dose: 128 mg Documented By: MADAI Metoclopramide HCl (Metoclopramide 10 Mg/2 Ml Inj) 10 mg IV NOW ONE Stop: 01/23/22 20:51 Last Admin: 01/23/22 20:54 Dose: 10 mg Documented By: VINEET Metoclopramide HCl (Metoclopramide 10 Mg/2 Ml Inj) 10 mg IV Q6HR PRN PRN Reason: Nausea And Vomiting Last Admin: 02/02/22 10:03 Dose: 10 mg Documented By: Admin: 02/01/22 23:49 Dose: 10 mg Documented By: Admin: 02/01/22 15:09 Dose: 10 mg Documented By: Admin: 02/01/22 09:10 Dose: 10 mg Documented By: Admin: 01/31/22 16:40 Dose: 10 mg Documented By: Admin: 01/31/22 09:47 Dose: 10 mg Documented By: Admin: 01/31/22 04:05 Dose: 10 mg Documented By: Admin: 01/30/22 14:09 Dose: 10 mg Documented By: Admin: 01/30/22 08:28 Dose: 10 mg Documented By: Admin: 01/29/22 17:34 Dose: 10 mg Documented By: Admin: 01/29/22 11:30 Dose: 10 mg Documented By: Admin: 01/29/22 06:31 Dose: 10 mg Documented By: Admin: 01/28/22 23:07 Dose: 10 mg Documented By: Admin: 01/28/22 10:04 Dose: 10 mg Documented By: Admin: 01/28/22 04:04 Dose: 10 mg Documented By: Admin: 01/27/22 09:27 Dose: 10 mg Documented By: Admin: 01/27/22 02:24 Dose: 10 mg Documented By: Admin: 01/24/22 08:21 Dose: 10 mg Documented By: CHRISTINE Pantoprazole Sodium (Pantoprazole 40 Mg Vial) 40 mg IV NOW ONE Stop: 01/23/22 20:31 Last Admin: 01/23/22 20:41 Dose: 40 mg Documented By: CHRISS Pantoprazole Sodium (Pantoprazole 40 Mg Vial) 40 mg IV DAILY [facility] Last Admin: 01/28/22 09:46 Dose: 40 mg Documented By: Admin: 01/27/22 08:50 Dose: 40 mg Documented By: Admin: 01/26/22 09:23 Dose: 40 mg Documented By: Admin: 01/25/22 09:07 Dose: 40 mg Documented By: Admin: 01/24/22 10:21 Dose: 40 mg Documented By: CHRISTINE Pantoprazole Sodium (Pantoprazole Dr 40 Mg Tablet) 40 mg PO 0700 [facility] Last Admin: 01/29/22 08:38 Dose: Not Given Documented By: EMMANUEL Pantoprazole Sodium (Pantoprazole 40 Mg Vial) 40 mg IV DAILY [facility] Last Admin: 01/31/22 09:47 Dose: 40 mg Documented By: Admin: 01/30/22 08:23 Dose: 40 mg Documented By: Admin: 01/29/22 09:00 Dose: 40 mg Documented By: EMMANUEL Potassium Chloride (Potassium Chloride 20 Meq Tab) 40 meq PO Q6H [facility] Stop: 01/24/22 15:31 Last Admin: 01/24/22 11:52 Dose: Not Given Documented By: CHRISTINE Potassium Chloride (Potassium Chloride 20 Meq/15 Ml Udc) 20 meq PO NOW ONE Stop: 01/26/22 13:24 Last Admin: 01/26/22 13:39 Dose: 20 meq Documented By: MADAI Potassium Chloride (Potassium Chloride 20 Meq Tab) 40 meq PO Q6H [facility] Stop: 01/31/22 15:46 Last Admin: 01/31/22 16:39 Dose: 40 meq Documented By: Admin: 01/31/22 10:03 Dose: 40 meq Documented By: JOSHUA Scopolamine (Scopolamine 1 Patch) 1 patch TOP NOW ONE Stop: 02/01/22 18:18 Last Admin: 02/01/22 18:49 Dose: 1 patch Documented By: MADAI Sucralfate (Sucralfate 1 Gm/10 Ml Oral Susp) 1,000 gm PO QID [facility] Last Admin: 01/23/22 23:06 Dose: Not Given Documented By: CN Vital Signs Vital signs: Vital Signs - 8 hr 01/23/22 16:33 01/23/22 16:38 01/23/22 17:00 Temperature 96.8 F L Pulse Rate 80 Respiratory Rate 16 14 Blood Pressure 117/69 126/72 Pulse Oximetry 97 98 Oxygen Delivery Method Room Air 01/23/22 17:00 01/23/22 17:30 01/23/22 18:00 Temperature Pulse Rate 80 75 75 Respiratory Rate 18 19 23 Blood Pressure Pulse Oximetry 97 94 97 Oxygen Delivery Method 01/23/22 18:22 01/23/22 18:22 01/23/22 18:30 Temperature Pulse Rate 77 Respiratory Rate 14 Blood Pressure 130/62 120/61 Pulse Oximetry 99 Oxygen Delivery Method 01/23/22 18:30 01/23/22 19:00 01/23/22 19:00 Temperature Pulse Rate 70 70 Respiratory Rate 21 19 Blood Pressure 111/65 Pulse Oximetry 97 98 Oxygen Delivery Method 01/23/22 19:30 01/23/22 19:30 01/23/22 20:00 Temperature Pulse Rate 75 Respiratory Rate 22 Blood Pressure 118/76 116/68 Pulse Oximetry 99 Oxygen Delivery Method 01/23/22 20:00 01/23/22 20:30 01/23/22 20:30 Temperature Pulse Rate 68 80 Respiratory Rate 21 16 Blood Pressure 110/64 Pulse Oximetry 97 97 Oxygen Delivery Method <Kristen Jackson, DO - Last Filed: 01/23/22 23:14> Orders Ordered: Acetaminophen (Acetaminophen 325 Mg Tablet) 650 mg PO Q6HRWA [facility] Last Admin: 02/02/22 14:52 Dose: Not Given Documented By: Admin: 02/02/22 09:43 Dose: Not Given Documented By: Admin: 02/01/22 20:23 Dose: Not Given Documented By: Admin: 02/01/22 15:05 Dose: Not Given Documented By: Admin: 02/01/22 09:05 Dose: Not Given Documented By: Admin: 01/31/22 20:29 Dose: Not Given Documented By: Admin: 01/31/22 14:52 Dose: Not Given Documented By: Admin: 01/31/22 09:47 Dose: Not Given Documented By: Admin: 01/30/22 20:37 Dose: Not Given Documented By: Admin: 01/30/22 15:00 Dose: Not Given Documented By: Admin: 01/30/22 09:23 Dose: Not Given Documented By: Admin: 01/29/22 21:35 Dose: Not Given Documented By: LARISSA Diphenhydramine HCl (Diphenhydramine 50 Mg/Ml Vial) 25 mg IV Q6HR PRN PRN Reason: Insomnia Heparin Sodium (Porcine) (Heparin 5,000 Unit/Ml Vial) 5,000 unit SUBCUT BID [facility] Last Admin: 02/02/22 09:48 Dose: 5,000 unit Documented By: Admin: 02/01/22 20:20 Dose: 5,000 unit Documented By: Admin: 02/01/22 09:10 Dose: 5,000 unit Documented By: Admin: 01/31/22 20:28 Dose: 5,000 unit Documented By: Admin: 01/31/22 09:47 Dose: 5,000 unit Documented By: Admin: 01/30/22 22:11 Dose: 5,000 unit Documented By: Admin: 01/30/22 08:32 Dose: 5,000 unit Documented By: Admin: 01/29/22 21:39 Dose: 5,000 unit Documented By: Admin: 01/29/22 08:25 Dose: 5,000 unit Documented By: Admin: 01/28/22 20:03 Dose: 5,000 unit Documented By: Admin: 01/28/22 09:46 Dose: 5,000 unit Documented By: Admin: 01/27/22 20:32 Dose: 5,000 unit Documented By: Admin: 01/27/22 08:49 Dose: 5,000 unit Documented By: Admin: 01/26/22 20:46 Dose: 5,000 unit Documented By: Admin: 01/26/22 09:23 Dose: 5,000 unit Documented By: Admin: 01/25/22 21:06 Dose: 5,000 unit Documented By: Admin: 01/25/22 09:07 Dose: 5,000 unit Documented By: Admin: 01/24/22 22:33 Dose: 5,000 unit Documented By: GERDA Dextrose/Sodium Chloride (Dextrose 5%-0.9% Ns) 1,000 mls @ 75 mls/hr IV CONT MARIEL Last Admin: 02/02/22 19:14 Dose: 75 mls/hr Documented By: YAFrancine Infusion: 02/02/22 19:14 Dose: 75 mls/hr Documented By: Infusion: 02/02/22 06:14 Dose: 75 mls/hr Documented By: Admin: 02/02/22 06:14 Dose: 75 mls/hr Documented By: Infusion: 02/02/22 02:21 Dose: 75 mls/hr Documented By: Admin: 02/01/22 13:01 Dose: 75 mls/hr Documented By: YAFrancine Infusion: 02/01/22 13:01 Dose: 75 mls/hr Documented By: Admin: 02/01/22 01:24 Dose: 75 mls/hr Documented By: Infusion: 02/01/22 01:24 Dose: 75 mls/hr Documented By: Admin: 01/31/22 12:46 Dose: 75 mls/hr Documented By: Infusion: 01/31/22 11:32 Dose: 75 mls/hr Documented By: Admin: 01/30/22 22:12 Dose: 75 mls/hr Documented By: Infusion: 01/30/22 21:48 Dose: 75 mls/hr Documented By: Admin: 01/30/22 08:28 Dose: 75 mls/hr Documented By: Infusion: 01/30/22 07:18 Dose: 75 mls/hr Documented By: Admin: 01/29/22 17:58 Dose: 75 mls/hr Documented By: Infusion: 01/29/22 17:58 Dose: 75 mls/hr Documented By: Admin: 01/29/22 06:33 Dose: 75 mls/hr Documented By: Infusion: 01/29/22 06:33 Dose: 75 mls/hr Documented By: Admin: 01/28/22 19:59 Dose: 75 mls/hr Documented By: Infusion: 01/28/22 05:04 Dose: 75 mls/hr Documented By: Admin: 01/27/22 15:44 Dose: 75 mls/hr Documented By: YAFrancine Infusion: 01/27/22 14:18 Dose: 75 mls/hr Documented By: Infusion: 01/27/22 11:07 Dose: 75 mls/hr Documented By: Admin: 01/27/22 05:01 Dose: 125 mls/hr Documented By: Infusion: 01/27/22 04:58 Dose: 125 mls/hr Documented By: Admin: 01/26/22 20:58 Dose: 125 mls/hr Documented By: Infusion: 01/26/22 20:58 Dose: 125 mls/hr Documented By: Admin: 01/26/22 13:16 Dose: 125 mls/hr Documented By: MADAI Morphine Sulfate (Morphine 2 Mg/Ml Inj) 2 mg IV Q4H PRN PRN Reason: Pain, Severe (7-10) Last Admin: 02/02/22 18:16 Dose: 2 mg Documented By: Admin: 02/02/22 10:03 Dose: 2 mg Documented By: Admin: 02/02/22 05:34 Dose: 2 mg Documented By: Admin: 02/02/22 01:34 Dose: 2 mg Documented By: Admin: 02/01/22 21:24 Dose: 2 mg Documented By: Admin: 02/01/22 17:16 Dose: 2 mg Documented By: Admin: 01/30/22 08:19 Dose: 2 mg Documented By: Admin: 01/30/22 02:19 Dose: 2 mg Documented By: Admin: 01/29/22 21:47 Dose: 2 mg Documented By: Admin: 01/28/22 00:27 Dose: 2 mg Documented By: Admin: 01/25/22 12:50 Dose: 2 mg Documented By: Admin: 01/25/22 09:07 Dose: 2 mg Documented By: Admin: 01/25/22 04:30 Dose: 2 mg Documented By: Admin: 01/24/22 20:15 Dose: 2 mg Documented By: GERDA Multivitamins (Multivitamin 1 Tablet) 1 tab PO DAILY [facility] Last Admin: 02/02/22 09:44 Dose: Not Given Documented By: MADAI Naloxone HCl (Naloxone 0.4 Mg/Ml Vial) 0.2 mg IV Q2MIN PRN PRN Reason: Opiate Reversal Olanzapine (Olanzapine 10 Mg Vial) 5 mg IM DAILY PRN PRN Reason: Nausea And Vomiting Ondansetron HCl (Ondansetron 4 Mg/2 Ml Inj) 4 mg IV Q6HR PRN PRN Reason: Nausea And Vomiting Last Admin: 02/02/22 18:16 Dose: 4 mg Documented By: Admin: 02/01/22 17:07 Dose: 4 mg Documented By: Admin: 01/29/22 21:36 Dose: 4 mg Documented By: Admin: 01/29/22 10:44 Dose: 4 mg Documented By: Admin: 01/28/22 20:00 Dose: 4 mg Documented By: Admin: 01/27/22 23:16 Dose: 4 mg Documented By: Admin: 01/26/22 20:46 Dose: 4 mg Documented By: Admin: 01/24/22 06:59 Dose: 4 mg Documented By: Admin: 01/24/22 00:27 Dose: 4 mg Documented By: LESLIE Oxycodone HCl (Oxycodone Ir 5 Mg Tablet) 5 mg PO Q4HR PRN PRN Reason: Pain, Severe (7-10) Last Admin: 02/01/22 18:50 Dose: 5 mg Documented By: Admin: 02/01/22 12:52 Dose: 5 mg Documented By: Admin: 02/01/22 09:09 Dose: 5 mg Documented By: Admin: 01/31/22 22:07 Dose: 5 mg Documented By: Admin: 01/31/22 16:40 Dose: 5 mg Documented By: Admin: 01/31/22 09:46 Dose: 5 mg Documented By: Admin: 01/31/22 04:04 Dose: 5 mg Documented By: Admin: 01/30/22 22:10 Dose: 5 mg Documented By: Admin: 01/30/22 15:20 Dose: 5 mg Documented By: Admin: 01/30/22 09:18 Dose: 5 mg Documented By: GENIA Pantoprazole Sodium (Pantoprazole Dr 40 Mg Tablet) 40 mg PO 0600 [facility] Last Admin: 02/02/22 05:37 Dose: Not Given Documented By: Admin: 02/01/22 05:49 Dose: 40 mg Documented By: GERDA Promethazine HCl (Promethazine 12.5 Mg Supp) 12.5 mg LA Q6HR PRN PRN Reason: Nausea And Vomiting Last Admin: 02/02/22 01:42 Dose: 12.5 mg Documented By: Admin: 01/24/22 10:23 Dose: 12.5 mg Documented By: HCW Sennosides (Sennosides 8.6 Mg Tablet) 17.2 mg PO BEDTIME [facility] Last Admin: 02/01/22 20:22 Dose: Not Given Documented By: Admin: 01/31/22 20:28 Dose: Not Given Documented By: Admin: 01/30/22 22:05 Dose: Not Given Documented By: Admin: 01/29/22 21:33 Dose: Not Given Documented By: Admin: 01/28/22 20:14 Dose: Not Given Documented By: Admin: 01/27/22 20:32 Dose: Not Given Documented By: Admin: 01/26/22 20:43 Dose: Not Given Documented By: Admin: 01/25/22 21:29 Dose: Not Given Documented By: Admin: 01/24/22 21:42 Dose: Not Given Documented By: Admin: 01/23/22 22:33 Dose: Not Given Documented By: LCH Sucralfate (Sucralfate 1 Gm Tablet) 1 gm PO Q6HR [facility] Last Admin: 02/02/22 16:51 Dose: Not Given Documented By: Admin: 02/02/22 12:21 Dose: Not Given Documented By: Admin: 02/02/22 05:37 Dose: Not Given Documented By: Admin: 02/01/22 23:59 Dose: Not Given Documented By: Admin: 02/01/22 12:09 Dose: Not Given Documented By: Admin: 02/01/22 12:02 Dose: Not Given Documented By: Admin: 02/01/22 06:07 Dose: Not Given Documented By: Admin: 02/01/22 00:17 Dose: Not Given Documented By: Admin: 01/31/22 18:25 Dose: Not Given Documented By: Admin: 01/31/22 12:39 Dose: Not Given Documented By: Admin: 01/31/22 06:05 Dose: Not Given Documented By: Admin: 01/31/22 00:00 Dose: Not Given Documented By: Admin: 01/30/22 17:09 Dose: Not Given Documented By: Admin: 01/30/22 13:00 Dose: Not Given Documented By: Admin: 01/30/22 05:56 Dose: Not Given Documented By: Admin: 01/30/22 00:00 Dose: Not Given Documented By: Admin: 01/29/22 16:40 Dose: Not Given Documented By: Admin: 01/29/22 12:05 Dose: Not Given Documented By: Admin: 01/29/22 06:14 Dose: Not Given Documented By: Admin: 01/28/22 20:12 Dose: 1 gm Documented By: Admin: 01/28/22 17:04 Dose: Not Given Documented By: Admin: 01/28/22 11:46 Dose: Not Given Documented By: Admin: 01/28/22 06:07 Dose: Not Given Documented By: Admin: 01/27/22 23:17 Dose: Not Given Documented By: Admin: 01/27/22 17:05 Dose: Not Given Documented By: Admin: 01/27/22 11:19 Dose: Not Given Documented By: Admin: 01/26/22 23:06 Dose: Not Given Documented By: Admin: 01/26/22 23:04 Dose: Not Given Documented By: Admin: 01/26/22 17:30 Dose: Not Given Documented By: Admin: 01/26/22 11:11 Dose: Not Given Documented By: Admin: 01/26/22 06:04 Dose: Not Given Documented By: Admin: 01/26/22 05:05 Dose: Not Given Documented By: Admin: 01/25/22 18:26 Dose: Not Given Documented By: Admin: 01/25/22 12:49 Dose: Not Given Documented By: Admin: 01/25/22 05:12 Dose: Not Given Documented By: Admin: 01/25/22 00:00 Dose: Not Given Documented By: Admin: 01/24/22 18:37 Dose: Not Given Documented By: Admin: 01/24/22 13:00 Dose: Not Given Documented By: Admin: 01/24/22 06:59 Dose: 1 gm Documented By: Admin: 01/24/22 00:22 Dose: 1 gm Documented By: CN Thiamine HCl (Thiamine 100 Mg Tablet) 100 mg PO DAILY [facility] Last Admin: 02/02/22 09:44 Dose: Not Given Documented By: MADAI Discontinued Medications Acetaminophen (Acetaminophen 325 Mg Tablet) 650 mg PO Q6HR PRN PRN Reason: Fever/Mild Pain (1-3) Apixaban (Apixaban 5 Mg Tablet) 5 mg PO BID [facility] Last Admin: 01/24/22 21:42 Dose: Not Given Documented By: Admin: 01/24/22 11:24 Dose: Not Given Documented By: HCW Diphenhydramine HCl (Diphenhydramine 50 Mg/Ml Vial) 25 mg IV Q6HR PRN PRN Reason: Itching Docusate Sodium (Docusate 100 Mg Capsule) 100 mg PO BID [facility] Last Admin: 02/02/22 09:44 Dose: Not Given Documented By: Admin: 02/01/22 20:52 Dose: Not Given Documented By: Admin: 02/01/22 09:10 Dose: 100 mg Documented By: Admin: 01/31/22 20:29 Dose: Not Given Documented By: Admin: 01/31/22 09:47 Dose: 100 mg Documented By: Admin: 01/30/22 22:05 Dose: Not Given Documented By: Admin: 01/30/22 09:23 Dose: 100 mg Documented By: Admin: 01/29/22 21:34 Dose: Not Given Documented By: Admin: 01/29/22 07:42 Dose: Not Given Documented By: Admin: 01/28/22 20:14 Dose: Not Given Documented By: Admin: 01/28/22 09:47 Dose: Not Given Documented By: Admin: 01/27/22 20:32 Dose: Not Given Documented By: Admin: 01/27/22 08:46 Dose: Not Given Documented By: Admin: 01/26/22 20:43 Dose: Not Given Documented By: Admin: 01/26/22 09:13 Dose: Not Given Documented By: Admin: 01/25/22 21:29 Dose: Not Given Documented By: Admin: 01/25/22 09:08 Dose: Not Given Documented By: Admin: 01/24/22 21:42 Dose: Not Given Documented By: Admin: 01/24/22 10:07 Dose: Not Given Documented By: Admin: 01/23/22 22:33 Dose: Not Given Documented By: JENNIFER Enoxaparin Sodium (Enoxaparin 40 Mg/0.4 Ml Syringe) 40 mg SUBCUT DAILY [facility] Erythromycin (Erythromycin Base 250 Mg Tablet) 250 mg PO NOW ONE Stop: 01/24/22 15:45 Last Admin: 01/24/22 18:26 Dose: 250 mg Documented By: HCW Hydromorphone HCl (Hydromorphone 1 Mg Inj) 1 mg IV NOW ONE Stop: 01/23/22 17:06 Last Admin: 01/23/22 17:25 Dose: 1 mg Documented By: FLRustam Hydromorphone HCl (Hydromorphone 0.5 Mg Inj) 0.5 mg IV Q15MIN PRN PRN Reason: Pain, Last Admin: 01/23/22 20:41 Dose: 0.5 mg Documented By: CHRISS Hydromorphone HCl (Hydromorphone 0.5 Mg Inj) 0.5 mg IV Q4H PRN PRN Reason: Breakthrough pain only (8-10) Last Admin: 01/29/22 16:21 Dose: 0.5 mg Documented By: Admin: 01/29/22 10:44 Dose: 0.5 mg Documented By: Admin: 01/29/22 06:27 Dose: 0.5 mg Documented By: Admin: 01/28/22 23:09 Dose: 0.5 mg Documented By: Admin: 01/28/22 18:57 Dose: 0.5 mg Documented By: Admin: 01/28/22 10:04 Dose: 0.5 mg Documented By: Admin: 01/27/22 23:16 Dose: 0.5 mg Documented By: Admin: 01/27/22 17:12 Dose: 0.5 mg Documented By: Admin: 01/27/22 08:50 Dose: 0.5 mg Documented By: Admin: 01/27/22 02:24 Dose: 0.5 mg Documented By: Admin: 01/26/22 20:46 Dose: 0.5 mg Documented By: Admin: 01/26/22 13:46 Dose: 0.5 mg Documented By: Admin: 01/26/22 05:55 Dose: 0.5 mg Documented By: Admin: 01/25/22 21:06 Dose: 0.5 mg Documented By: Admin: 01/25/22 15:23 Dose: 0.5 mg Documented By: Admin: 01/24/22 17:28 Dose: 0.5 mg Documented By: Admin: 01/24/22 12:42 Dose: 0.5 mg Documented By: Admin: 01/24/22 06:59 Dose: 0.5 mg Documented By: Admin: 01/24/22 00:28 Dose: 0.5 mg Documented By: LESLIE Sodium Chloride (Normal Saline 0.9%) 1,000 mls @ 1,000 mls/hr IV BOLUS ONE Stop: 01/23/22 18:04 Last Infusion: 01/23/22 18:39 Dose: 0 mls/hr Documented By: FLRustam Admin: 01/23/22 17:28 Dose: 1,000 mls/hr Documented By: SCRustam Sodium Chloride (Normal Saline 0.9%) 1,000 mls @ 200 mls/hr IV CONT [facility] Last Admin: 01/26/22 06:05 Dose: 150 mls/hr Documented By: Infusion: 01/26/22 06:05 Dose: 150 mls/hr Documented By: Admin: 01/26/22 00:03 Dose: 150 mls/hr Documented By: Infusion: 01/25/22 22:15 Dose: 150 mls/hr Documented By: Admin: 01/25/22 17:15 Dose: 200 mls/hr Documented By: Infusion: 01/25/22 15:44 Dose: 200 mls/hr Documented By: Admin: 01/25/22 10:44 Dose: 200 mls/hr Documented By: Infusion: 01/25/22 05:53 Dose: 200 mls/hr Documented By: Admin: 01/25/22 00:53 Dose: 200 mls/hr Documented By: Infusion: 01/24/22 18:23 Dose: 100 mls/hr Documented By: Admin: 01/24/22 08:23 Dose: 100 mls/hr Documented By: Infusion: 01/24/22 08:23 Dose: 100 mls/hr Documented By: Admin: 01/23/22 22:32 Dose: 100 mls/hr Documented By: JENNIFER POTASSIUM CHLORIDE IN WATER (Potassium Cl 10 Meq/100 Ml Meghna) 10 meq in 100 mls @ 100 mls/hr IV Q1H [facility] Stop: 01/24/22 16:29 Last Infusion: 01/25/22 03:34 Dose: 0 mls/hr Documented By: Admin: 01/24/22 22:32 Dose: 50 mls/hr Documented By: Infusion: 01/24/22 22:05 Dose: 50 mls/hr Documented By: Admin: 01/24/22 20:05 Dose: 50 mls/hr Documented By: Infusion: 01/24/22 20:05 Dose: 50 mls/hr Documented By: Admin: 01/24/22 18:34 Dose: 50 mls/hr Documented By: Infusion: 01/24/22 17:47 Dose: 65 mls/hr Documented By: Admin: 01/24/22 16:14 Dose: 65 mls/hr Documented By: Infusion: 01/24/22 15:47 Dose: 65 mls/hr Documented By: Admin: 01/24/22 14:14 Dose: 65 mls/hr Documented By: Infusion: 01/24/22 13:32 Dose: 100 mls/hr Documented By: Admin: 01/24/22 12:32 Dose: 100 mls/hr Documented By: SEFERINO Magnesium Sulfate (Magnesium Sulfate) 2 gm in 50 mls @ 25 mls/hr IV NOW ONE Stop: 01/24/22 13:29 Last Admin: 01/24/22 12:32 Dose: 25 mls/hr Documented By: SEFERINO Co-signed By: GALEW Magnesium Sulfate (Magnesium Sulfate) 2 gm in 50 mls @ 25 mls/hr IV NOW ONE Stop: 01/26/22 07:12 Last Infusion: 01/26/22 13:26 Dose: 0 mls/hr Documented By: MADAI Co-signed By: BING Admin: 01/26/22 05:34 Dose: 25 mls/hr Documented By: KJ Co-signed By: ASHELY POTASSIUM CHLORIDE IN WATER (Potassium Cl 10 Meq/100 Ml Meghna) 10 meq in 100 mls @ 100 mls/hr IV Q1H [facility] Stop: 01/26/22 15:14 Last Admin: 01/26/22 13:30 Dose: Not Given Documented By: MADAI Magnesium Sulfate (Magnesium Sulfate) 2 gm in 50 mls @ 25 mls/hr IV NOW ONE Stop: 01/29/22 10:59 Last Infusion: 01/29/22 10:50 Dose: 0 mls/hr Documented By: EMMANUEL Co-signed By: MELINDA Admin: 01/29/22 09:01 Dose: 25 mls/hr Documented By: EMMANUEL Co-signed By: MELINDA POTASSIUM CHLORIDE IN WATER (Potassium Cl 10 Meq/100 Ml Meghna) 10 meq in 100 mls @ 100 mls/hr IV Q1H [facility] Stop: 01/29/22 16:59 Last Infusion: 01/29/22 17:57 Dose: 0 mls/hr Documented By: Admin: 01/29/22 16:21 Dose: 100 mls/hr Documented By: Infusion: 01/29/22 16:21 Dose: 100 mls/hr Documented By: Admin: 01/29/22 15:22 Dose: 100 mls/hr Documented By: Infusion: 01/29/22 15:13 Dose: 100 mls/hr Documented By: Admin: 01/29/22 14:13 Dose: 100 mls/hr Documented By: Infusion: 01/29/22 14:10 Dose: 100 mls/hr Documented By: Admin: 01/29/22 13:10 Dose: 100 mls/hr Documented By: Infusion: 01/29/22 12:59 Dose: 100 mls/hr Documented By: Admin: 01/29/22 11:59 Dose: 100 mls/hr Documented By: Infusion: 01/29/22 11:45 Dose: 100 mls/hr Documented By: Admin: 01/29/22 10:45 Dose: 100 mls/hr Documented By: EMMANUEL Magnesium Sulfate (Magnesium Sulfate) 4 gm in 100 mls @ 150 mls/hr IV NOW ONE Stop: 01/29/22 18:17 Last Admin: 01/29/22 17:57 Dose: Not Given Documented By: EMMANUEL POTASSIUM CHLORIDE IN WATER (Potassium Cl 10 Meq/100 Ml Meghna) 10 meq in 100 mls @ 100 mls/hr IV Q1H [facility] Stop: 01/30/22 18:14 Last Admin: 01/30/22 19:05 Dose: 100 mls/hr Documented By: Infusion: 01/30/22 19:05 Dose: 100 mls/hr Documented By: Admin: 01/30/22 18:10 Dose: 100 mls/hr Documented By: Infusion: 01/30/22 16:20 Dose: 100 mls/hr Documented By: Admin: 01/30/22 15:20 Dose: 100 mls/hr Documented By: Infusion: 01/30/22 15:15 Dose: 100 mls/hr Documented By: Admin: 01/30/22 14:15 Dose: 100 mls/hr Documented By: GENIA Magnesium Sulfate (Magnesium Sulfate) 2 gm in 50 mls @ 25 mls/hr IV NOW ONE Stop: 02/02/22 11:29 Last Infusion: 02/02/22 12:21 Dose: 0 mls/hr Documented By: MADAI Co-signed By: JOSHUA Admin: 02/02/22 09:48 Dose: 25 mls/hr Documented By: MADAI Co-signed By: JOSHUA Magnesium Sulfate (Magnesium Sulfate) 2 gm in 50 mls @ 25 mls/hr IV NOW ONE Stop: 02/02/22 17:09 Last Admin: 02/02/22 15:32 Dose: Not Given Documented By: MADAI Ketorolac Tromethamine (Ketorolac 30 Mg/Ml Vial) 15 mg IV Q6H PRN PRN Reason: Pain, Mild (1-3) Stop: 01/26/22 21:06 Lorazepam (Lorazepam 2 Mg/Ml Inj) 0.5 mg IV Q6HR PRN PRN Reason: Anxiety Stop: 02/02/22 00:06 Last Admin: 02/01/22 20:17 Dose: 0.5 mg Documented By: Admin: 02/01/22 12:57 Dose: 0.5 mg Documented By: Admin: 02/01/22 01:24 Dose: 0.5 mg Documented By: Admin: 01/31/22 18:24 Dose: 0.5 mg Documented By: Admin: 01/31/22 11:08 Dose: 0.5 mg Documented By: Admin: 01/30/22 15:21 Dose: 0.5 mg Documented By: Admin: 01/30/22 09:17 Dose: 0.5 mg Documented By: Admin: 01/29/22 18:06 Dose: 0.5 mg Documented By: Admin: 01/29/22 11:59 Dose: 0.5 mg Documented By: Admin: 01/28/22 12:23 Dose: 0.5 mg Documented By: Admin: 01/27/22 17:13 Dose: 0.5 mg Documented By: Admin: 01/26/22 23:07 Dose: 0.5 mg Documented By: Admin: 01/26/22 16:25 Dose: 0.5 mg Documented By: Admin: 01/26/22 09:23 Dose: 0.5 mg Documented By: Admin: 01/25/22 21:07 Dose: 0.5 mg Documented By: Admin: 01/25/22 10:44 Dose: 0.5 mg Documented By: Admin: 01/25/22 04:31 Dose: 0.5 mg Documented By: Admin: 01/24/22 20:15 Dose: 0.5 mg Documented By: GERDA Lorazepam (Lorazepam 2 Mg/Ml Inj) 1 mg IV Q4HR PRN PRN Reason: Anxiety Last Admin: 02/02/22 16:20 Dose: 1 mg Documented By: Admin: 02/02/22 06:12 Dose: 1 mg Documented By: KANNAN Magnesium Chloride (Magnesium Chloride 64 Mg Tablet) 128 mg PO NOW ONE Stop: 01/24/22 09:22 Last Admin: 01/24/22 11:24 Dose: Not Given Documented By: CHRISTINE Magnesium Chloride (Magnesium Chloride 64 Mg Tablet) 128 mg PO NOW ONE Stop: 02/01/22 11:00 Last Admin: 02/01/22 11:25 Dose: 128 mg Documented By: MADAI Metoclopramide HCl (Metoclopramide 10 Mg/2 Ml Inj) 10 mg IV NOW ONE Stop: 01/23/22 20:51 Last Admin: 01/23/22 20:54 Dose: 10 mg Documented By: VINEET Metoclopramide HCl (Metoclopramide 10 Mg/2 Ml Inj) 10 mg IV Q6HR PRN PRN Reason: Nausea And Vomiting Last Admin: 02/02/22 10:03 Dose: 10 mg Documented By: Admin: 02/01/22 23:49 Dose: 10 mg Documented By: Admin: 02/01/22 15:09 Dose: 10 mg Documented By: Admin: 02/01/22 09:10 Dose: 10 mg Documented By: Admin: 01/31/22 16:40 Dose: 10 mg Documented By: Admin: 01/31/22 09:47 Dose: 10 mg Documented By: Admin: 01/31/22 04:05 Dose: 10 mg Documented By: Admin: 01/30/22 14:09 Dose: 10 mg Documented By: Admin: 01/30/22 08:28 Dose: 10 mg Documented By: Admin: 01/29/22 17:34 Dose: 10 mg Documented By: Admin: 01/29/22 11:30 Dose: 10 mg Documented By: Admin: 01/29/22 06:31 Dose: 10 mg Documented By: Admin: 01/28/22 23:07 Dose: 10 mg Documented By: Admin: 01/28/22 10:04 Dose: 10 mg Documented By: Admin: 01/28/22 04:04 Dose: 10 mg Documented By: Admin: 01/27/22 09:27 Dose: 10 mg Documented By: Admin: 01/27/22 02:24 Dose: 10 mg Documented By: Admin: 01/24/22 08:21 Dose: 10 mg Documented By: CHRISTINE Pantoprazole Sodium (Pantoprazole 40 Mg Vial) 40 mg IV NOW ONE Stop: 01/23/22 20:31 Last Admin: 01/23/22 20:41 Dose: 40 mg Documented By: CHRISS Pantoprazole Sodium (Pantoprazole 40 Mg Vial) 40 mg IV DAILY [facility] Last Admin: 01/28/22 09:46 Dose: 40 mg Documented By: Admin: 01/27/22 08:50 Dose: 40 mg Documented By: Admin: 01/26/22 09:23 Dose: 40 mg Documented By: Admin: 01/25/22 09:07 Dose: 40 mg Documented By: Admin: 01/24/22 10:21 Dose: 40 mg Documented By: GALEW Pantoprazole Sodium (Pantoprazole Dr 40 Mg Tablet) 40 mg PO 0700 [facility] Last Admin: 01/29/22 08:38 Dose: Not Given Documented By: EMMANUEL Pantoprazole Sodium (Pantoprazole 40 Mg Vial) 40 mg IV DAILY [facility] Last Admin: 01/31/22 09:47 Dose: 40 mg Documented By: Admin: 01/30/22 08:23 Dose: 40 mg Documented By: Admin: 01/29/22 09:00 Dose: 40 mg Documented By: EMMANUEL Potassium Chloride (Potassium Chloride 20 Meq Tab) 40 meq PO Q6H [facility] Stop: 01/24/22 15:31 Last Admin: 01/24/22 11:52 Dose: Not Given Documented By: CHRISTINE Potassium Chloride (Potassium Chloride 20 Meq/15 Ml Udc) 20 meq PO NOW ONE Stop: 01/26/22 13:24 Last Admin: 01/26/22 13:39 Dose: 20 meq Documented By: MADAI Potassium Chloride (Potassium Chloride 20 Meq Tab) 40 meq PO Q6H [facility] Stop: 01/31/22 15:46 Last Admin: 01/31/22 16:39 Dose: 40 meq Documented By: Admin: 01/31/22 10:03 Dose: 40 meq Documented By: JOSHUA Scopolamine (Scopolamine 1 Patch) 1 patch TOP NOW ONE Stop: 02/01/22 18:18 Last Admin: 02/01/22 18:49 Dose: 1 patch Documented By: MADAI Sucralfate (Sucralfate 1 Gm/10 Ml Oral Susp) 1,000 gm PO QID [facility] Last Admin: 01/23/22 23:06 Dose: Not Given Documented By: LESLIE Vital Signs Vital signs: Vital Signs - 8 hr 01/23/22 16:33 01/23/22 16:38 01/23/22 17:00 Temperature 96.8 F L Pulse Rate 80 Respiratory Rate 16 14 Blood Pressure 117/69 126/72 Pulse Oximetry 97 98 Oxygen Delivery Method Room Air 01/23/22 17:00 01/23/22 17:30 01/23/22 18:00 Temperature Pulse Rate 80 75 75 Respiratory Rate 18 19 23 Blood Pressure Pulse Oximetry 97 94 97 Oxygen Delivery Method 01/23/22 18:22 01/23/22 18:22 01/23/22 18:30 Temperature Pulse Rate 77 Respiratory Rate 14 Blood Pressure 130/62 120/61 Pulse Oximetry 99 Oxygen Delivery Method 01/23/22 18:30 01/23/22 19:00 01/23/22 19:00 Temperature Pulse Rate 70 70 Respiratory Rate 21 19 Blood Pressure 111/65 Pulse Oximetry 97 98 Oxygen Delivery Method 01/23/22 19:30 01/23/22 19:30 01/23/22 20:00 Temperature Pulse Rate 75 Respiratory Rate 22 Blood Pressure 118/76 116/68 Pulse Oximetry 99 Oxygen Delivery Method 01/23/22 20:00 01/23/22 20:30 01/23/22 20:30 Temperature Pulse Rate 68 80 Respiratory Rate 21 16 Blood Pressure 110/64 Pulse Oximetry 97 97 Oxygen Delivery Method MDM - Chest Pain <Fely Grant MD - Last Filed: 02/02/22 20:32> Lab Data Result diagrams: 02/02/22 06:32 02/02/22 06:32 Labs: Lab Results 01/23/22 01/23/22 01/23/22 Range/Units 16:50 17:15 17:15 WBC 6.0 (4.5-11.0) X10^3/uL RBC 4.06 (4.0-5.2) X10^6/uL Hgb 11.1 L (12.0-16.0) g/dL Hct 32.6 L (36-46) % MCV 80.1 (80-100) fL MCH 27.3 (26-34) PG MCHC 34.1 (30-36) % RDW 14.7 (11.6-14.8) % Plt Count 435 H (150-400) X10^3/uL Neut % (Auto) 71.1 (50-75) % Lymph % (Auto) 17.3 L (25-40) % [place] % (Auto) 10.0 (3-14) % Eos % (Auto) 1.0 L (2-4) % Baso % (Auto) 0.6 (0-2) % Neut # (Auto) 4300 (5656-6635) /uL Lymph # (Auto) 1000 L (6191-6630) /uL [place] # (Auto) 600 (0-900) /uL Eos # (Auto) 100 (0-450) /uL Baso # (Auto) 0 (0-100) /uL PT 15.8 H (10.1-12.7) SECONDS INR 1.4 H (0.9-1.3) APTT 32 (26.4-36.2) SECONDS D-Dimer (<230) ng/mL Sodium 135 L (137-145) mmol/L Potassium 3.7 (3.4-5.1) mmol/L Chloride 99 (98-107) mmol/L Carbon Dioxide 22 (22-32) mmol/L BUN 17 (7-17) mg/dL Creatinine 0.41 L (0.52-1.04) mg/dL Estimated GFR > 60 (>60) mL/min BUN/Creatinine Ratio 41.5 H (6-22) Glucose 101 H (70-100) mg/dL Calcium 9.1 (8.4-10.2) mg/dL Magnesium 1.6 (1.6-2.3) mg/dL Total Bilirubin 0.5 (0.2-1.3) mg/dL AST 21 (14-36) IU/L ALT 12 (<35) IU/L Alkaline Phosphatase 82 (38-126) U/L Total Creatine Kinase 21 L (30-135) U/L CK-MB (CK-2) TNP CK-MB (CK-2) Rel Index TNP Troponin I < 0.012 (0.01-0.034) ng/mL Total Protein 6.9 (6.3-8.2) g/dL Albumin 4.4 (3.5-5.0) g/dL Globulin 2.5 (1.7-4.1) g/dL Albumin/Globulin Ratio 1.8 (1.0-2.8) Lipase 62 (23-300) U/L SARS-CoV-2 (PCR) (Negative) 01/23/22 01/23/22 Range/Units 17:15 17:33 WBC (4.5-11.0) X10^3/uL RBC (4.0-5.2) X10^6/uL Hgb (12.0-16.0) g/dL Hct (36-46) % MCV (80-100) fL MCH (26-34) PG MCHC (30-36) % RDW (11.6-14.8) % Plt Count (150-400) X10^3/uL Neut % (Auto) (50-75) % Lymph % (Auto) (25-40) % [place] % (Auto) (3-14) % Eos % (Auto) (2-4) % Baso % (Auto) (0-2) % Neut # (Auto) (6720-7135) /uL Lymph # (Auto) (0912-7702) /uL [place] # (Auto) (0-900) /uL Eos # (Auto) (0-450) /uL Baso # (Auto) (0-100) /uL PT (10.1-12.7) SECONDS INR (0.9-1.3) APTT (26.4-36.2) SECONDS D-Dimer 236 H (<230) ng/mL Sodium (137-145) mmol/L Potassium (3.4-5.1) mmol/L Chloride (98-107) mmol/L Carbon Dioxide (22-32) mmol/L BUN (7-17) mg/dL Creatinine (0.52-1.04) mg/dL Estimated GFR (>60) mL/min BUN/Creatinine Ratio (6-22) Glucose (70-100) mg/dL Calcium (8.4-10.2) mg/dL Magnesium (1.6-2.3) mg/dL Total Bilirubin (0.2-1.3) mg/dL AST (14-36) IU/L ALT (<35) IU/L Alkaline Phosphatase (38-126) U/L Total Creatine Kinase (30-135) U/L CK-MB (CK-2) CK-MB (CK-2) Rel Index Troponin I (0.01-0.034) ng/mL Total Protein (6.3-8.2) g/dL Albumin (3.5-5.0) g/dL Globulin (1.7-4.1) g/dL Albumin/Globulin Ratio (1.0-2.8) Lipase (23-300) U/L SARS-CoV-2 (PCR) Negative (Negative) <Kristen Jackson, DO - Last Filed: 01/23/22 23:14> Lab Data Labs: Lab Results 01/23/22 01/23/22 01/23/22 Range/Units 16:50 17:15 17:15 WBC 6.0 (4.5-11.0) X10^3/uL RBC 4.06 (4.0-5.2) X10^6/uL Hgb 11.1 L (12.0-16.0) g/dL Hct 32.6 L (36-46) % MCV 80.1 (80-100) fL MCH 27.3 (26-34) PG MCHC 34.1 (30-36) % RDW 14.7 (11.6-14.8) % Plt Count 435 H (150-400) X10^3/uL Neut % (Auto) 71.1 (50-75) % Lymph % (Auto) 17.3 L (25-40) % [place] % (Auto) 10.0 (3-14) % Eos % (Auto) 1.0 L (2-4) % Baso % (Auto) 0.6 (0-2) % Neut # (Auto) 4300 (1391-2100) /uL Lymph # (Auto) 1000 L (9910-6889) /uL [place] # (Auto) 600 (0-900) /uL Eos # (Auto) 100 (0-450) /uL Baso # (Auto) 0 (0-100) /uL PT 15.8 H (10.1-12.7) SECONDS INR 1.4 H (0.9-1.3) APTT 32 (26.4-36.2) SECONDS D-Dimer (<230) ng/mL Sodium 135 L (137-145) mmol/L Potassium 3.7 (3.4-5.1) mmol/L Chloride 99 (98-107) mmol/L Carbon Dioxide 22 (22-32) mmol/L BUN 17 (7-17) mg/dL Creatinine 0.41 L (0.52-1.04) mg/dL Estimated GFR > 60 (>60) mL/min BUN/Creatinine Ratio 41.5 H (6-22) Glucose 101 H (70-100) mg/dL Calcium 9.1 (8.4-10.2) mg/dL Magnesium 1.6 (1.6-2.3) mg/dL Total Bilirubin 0.5 (0.2-1.3) mg/dL AST 21 (14-36) IU/L ALT 12 (<35) IU/L Alkaline Phosphatase 82 (38-126) U/L Total Creatine Kinase 21 L (30-135) U/L CK-MB (CK-2) TNP CK-MB (CK-2) Rel Index TNP Troponin I < 0.012 (0.01-0.034) ng/mL Total Protein 6.9 (6.3-8.2) g/dL Albumin 4.4 (3.5-5.0) g/dL Globulin 2.5 (1.7-4.1) g/dL Albumin/Globulin Ratio 1.8 (1.0-2.8) Lipase 62 (23-300) U/L SARS-CoV-2 (PCR) (Negative) 01/23/22 01/23/22 Range/Units 17:15 17:33 WBC (4.5-11.0) X10^3/uL RBC (4.0-5.2) X10^6/uL Hgb (12.0-16.0) g/dL Hct (36-46) % MCV (80-100) fL MCH (26-34) PG MCHC (30-36) % RDW (11.6-14.8) % Plt Count (150-400) X10^3/uL Neut % (Auto) (50-75) % Lymph % (Auto) (25-40) % [place] % (Auto) (3-14) % Eos % (Auto) (2-4) % Baso % (Auto) (0-2) % Neut # (Auto) (6814-6852) /uL Lymph # (Auto) (7088-4289) /uL [place] # (Auto) (0-900) /uL Eos # (Auto) (0-450) /uL Baso # (Auto) (0-100) /uL PT (10.1-12.7) SECONDS INR (0.9-1.3) APTT (26.4-36.2) SECONDS D-Dimer 236 H (<230) ng/mL Sodium (137-145) mmol/L Potassium (3.4-5.1) mmol/L Chloride (98-107) mmol/L Carbon Dioxide (22-32) mmol/L BUN (7-17) mg/dL Creatinine (0.52-1.04) mg/dL Estimated GFR (>60) mL/min BUN/Creatinine Ratio (6-22) Glucose (70-100) mg/dL Calcium (8.4-10.2) mg/dL Magnesium (1.6-2.3) mg/dL Total Bilirubin (0.2-1.3) mg/dL AST (14-36) IU/L ALT (<35) IU/L Alkaline Phosphatase (38-126) U/L Total Creatine Kinase (30-135) U/L CK-MB (CK-2) CK-MB (CK-2) Rel Index Troponin I (0.01-0.034) ng/mL Total Protein (6.3-8.2) g/dL Albumin (3.5-5.0) g/dL Globulin (1.7-4.1) g/dL Albumin/Globulin Ratio (1.0-2.8) Lipase (23-300) U/L SARS-CoV-2 (PCR) Negative (Negative) Imaging Data CT scan - abdomen/pelvis: Radiologist's Impression: CT Scan Report Signed Patient: Heather Ventura MR#: [id number] : 1980 Acct:[id number] Age/Sex: 41 / F Date of Service: 01/23/22 Loc: ED Accession Number: [id number] ?? Procedure: CT abdomen pelvis w con Ordering Provider: Fely Grant MD PROCEDURE:? CT ABDOMEN PELVIS W CON ? INDICATIONS:? 41-year-old female with left-sided abdominal pain status post Whipple surgery 12/13/2021 ? TECHNIQUE:? After the administration of intravenous contrast, axial sections acquired from the lung bases to the pubic symphysis.? Coronal and sagittal reformats were performed.? For radiation dose reduction, the following was used:? automated exposure control, adjustment of mA and/or kV according to patient size.? ? COMPARISON:? [facility], CT, CT ABDOMEN PELVIS W CON, 01/14/2022, 15:56. ? FINDINGS: ? Lower thorax: The lung bases are clear.? Heart size normal.? No hiatal hernia. ? Liver: The liver is diffusely decreased in attenuation without focal mass lesion.? Pneumobilia has resolved in the interval. ? Biliary system:? Cholecystectomy ? Pancreas:? Partial pancreatectomy with anastomosis consistent with Whipple procedure.? Stent noted in the duodenum.? Mild peripancreatic phlegmon noted, similar prior exam ? Spleen:? Normal in size and density. ? Adrenals:? Normal morphology and density. ? Reproductive system:? Prominent periuterine venous vasculature noted. ? Urinary system:? Normal renal size and attenuation. No renal calculi, hydronephrosis, or solid mass present.? Urinary bladder unremarkable. ? Gastrointestinal system:? Partial gastrectomy consistent with Whipple procedure.? Mild right-sided colonic diverticulosis.? There is wall thickening particularly i nvolving the transverse colon and mild right-sided Alyssa colonic edema. ? Appendix:? No findings to suggest acute appendicitis. ? Peritoneal spaces:? No mesenteric or retroperitoneal adenopathy.? No free air.? No free fluid.? ? Vasculature:? The IVC, aorta and iliac vasculature are unremarkable. ? Abdominal wall:? Abdominal wall intact without evidence of ventral or inguinal hernias. ? Musculoskeletal:? Normal bone mineralization.? No acute fractures.? ? IMPRESSION: ? 1. Persistent peripancreatic edema could reflect mild pancreatitis in the proper clinical setting. ? 2. Colonic wall thickening and vazquez of pericolonic inflammatory change of also could reflect colitis, nevertheless improved from the prior.? ? 3. Prominent periuterine venous vasculature.? Pelvic congestion syndrome also considered. ? ? ? Approved by: Edgar Flores M.D. on 01/23/2022 at 17:53? MDM Narrative Medical decision making narrative: Patient signed out to me by Dr. Grant. I have seen evaluated patient myself. I saw her a couple days ago she received [place] prescription and Zofran. She is failing outpatient treatment of pain control nausea control and fluid intake. She overall does not look significantly dehydrated but is not able to tolerate oral fluids. She is requiring multiple pain medications and multiple IV anti nausea medications. CT shows some peripancreatic fluid it was there on January 14 as well. Before admitting to the hospitalist service request to talk to [facility]. 2030 Dr Alvardao, general surgery at [facility] has been updated on patient's symptoms chest results. He says this can be from 1 of for thinks: 1. GERD, ulcers treat with Protonix and Carafate may need an EGD. 2. Delayed gastric emptying syndr ome may need Reglan or erythromycin. 3. Infection and bile leak which is not noted on CT unlikely 4. Pancreatitis, but has normal lipase and also unlikely. No need for transfer at this time At this time this is likely delayed gastric emptying or GERD all. Patient is given Protonix pain medication Heena Mancini accepts. Discharge Plan Departure Patient Disposition: Admitted as Observation Clinical Impression: Intractable abdominal pain Admit Date/Time: 01/23/22 20:40 Admit Provider: Una Mancini
[2022-01-23 16:59] LABS: Add Manual Diff / Slide Review NO; Basophils Absolute Auto 0 /uL (0-100); Basophils Percent Auto 0.6 % (0-2); Eosinophils Absolute Auto 100 /uL (0-450); Hematocrit 32.6 % (36-46); Hemoglobin 11.1 g/dL (12.0-16.0); Lymphocytes Absolute Auto 1000 /uL (1100-4500); Lymphocytes Percent Auto 17.3 % (25-40); Mean Corpuscular HGB Conc 34.1 % (30-36); Mean Corpuscular Hemoglobin 27.3 PG (26-34); Mean Corpuscular Volume 80.1 fL (80-100); Monocytes Absolute Auto 600 /uL (0-900); Neutrophils Absolute Auto 4300 /uL (1500-7000); Neutrophils Percent Auto 71.1 % (50-75); Platelet Count 435 X10^3/uL (150-400); Red Blood Cell Count 4.06 X10^6/uL (4.0-5.2); Red Cell Distribution Width 14.7 % (11.6-14.8)
--- NOTE | 2022-01-23 17:06 | DI.CT.S_ITS ---
PROCEDURE: CT ABDOMEN PELVIS W CON INDICATIONS: 41-year-old female with left-sided abdominal pain status post Whipple surgery 12/13/2021 TECHNIQUE: After the administration of intravenous contrast, axial sections acquired from the lung bases to the pubic symphysis. Coronal and sagittal reformats were performed. For radiation dose reduction, the following was used: automated exposure control, adjustment of mA and/or kV according to patient size. COMPARISON: [facility], CT, CT ABDOMEN PELVIS W CON, 01/14/2022, 15:56. FINDINGS: Lower thorax: The lung bases are clear. Heart size normal. No hiatal hernia. Liver: The liver is diffusely decreased in attenuation without focal mass lesion. Pneumobilia has resolved in the interval. Biliary system: Cholecystectomy Pancreas: Partial pancreatectomy with anastomosis consistent with Whipple procedure. Stent noted in the duodenum. Mild peripancreatic phlegmon noted, similar prior exam Spleen: Normal in size and density. Adrenals: Normal morphology and density. Reproductive system: Prominent periuterine venous vasculature noted. Urinary system: Normal renal size and attenuation. No renal calculi, hydronephrosis, or solid mass present. Urinary bladder unremarkable. Gastrointestinal system: Partial gastrectomy consistent with Whipple procedure. Mild right-sided colonic diverticulosis. There is wall thickening particularly involving the transverse colon and mild right-sided Alyssa colonic edema. Appendix: No findings to suggest acute appendicitis. Peritoneal spaces: No mesenteric or retroperitoneal adenopathy. No free air. No free fluid. Vasculature: The IVC, aorta and iliac vasculature are unremarkable. Abdominal wall: Abdominal wall intact without evidence of ventral or inguinal hernias. Musculoskeletal: Normal bone mineralization. No acute fractures. IMPRESSION: 1. Persistent peripancreatic edema could reflect mild pancreatitis in the proper clinical setting. 2. Colonic wall thickening and vazquez of pericolonic inflammatory change of also could reflect colitis, nevertheless improved from the prior. 3. Prominent periuterine venous vasculature. Pelvic congestion syndrome also considered. Approved by: Edgar Flores M.D. on 01/23/2022 at 17:53
[2022-01-23] MEDS: HYDROMORPHONE 1 MG INJ IV (17:25)
[2022-01-23] MEDS: SODIUM CHLORIDE 0.9% 1,000 ML 1000 ML IV (17:28)
[2022-01-23 17:41] LABS: INR 1.4 (0.9-1.3); Prothrombin Time 15.8 SECONDS (10.1-12.7)
[2022-01-23 17:42] LABS: Alanine Aminotransferase 12 IU/L (<35); Albumin 4.4 g/dL (3.5-5.0); Albumin Globulin Ratio 1.8 (1.0-2.8); Alkaline Phosphatase 82 U/L (38-126); Aspartate Aminotransferase 21 IU/L (14-36); BUN Creatinine Ratio 41.5 (6-22); Bilirubin Total 0.5 mg/dL (0.2-1.3); Blood Urea Nitrogen 17 mg/dL (7-17); Calcium 9.1 mg/dL (8.4-10.2); Carbon Dioxide 22 mmol/L (22-32); Chloride 99 mmol/L (98-107); Creatine Kinase 21 U/L (30-135); Estimated Glomerular Filt Rate > 60 mL/min (>60); Globulin 2.5 g/dL (1.7-4.1); Glucose 101 mg/dL (70-100); HEMOLYSIS 20 (0-50); Lipase 62 U/L (23-300); Magnesium 1.6 mg/dL (1.6-2.3); Potassium 3.7 mmol/L (3.4-5.1); Sodium 135 mmol/L (137-145); Total Protein 6.9 g/dL (6.3-8.2)
[2022-01-23 17:44] LABS: PTT Partial Thromboplastin Tim 32 SECONDS (26.4-36.2)
[2022-01-23 17:53] LABS: Troponin I < 0.012 ng/mL (0.01-0.034)
[2022-01-23 17:54] LABS: D Dimer 236 ng/mL (<230)
[2022-01-23 18:01] LABS: COVID19 -Nasal RAPID Negative (Negative)
[2022-01-23] MEDS: HYDROMORPHONE 0.5 MG INJ IV (20:41)
[2022-01-23] MEDS: PANTOPRAZOLE 40 MG VIAL IV (20:41)
[2022-01-23] MEDS: METOCLOPRAMIDE 10 MG/2 ML INJ IV (20:54)
[2022-01-23] MEDS: SODIUM CHLORIDE 0.9% 1,000 ML 100 ML IV (22:32)
--- NOTE | 2022-01-23 22:33 | P.HP_ITS ---
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 She has been seen in this emergency department 3 times since the surgery and twice at [facility] for similar symptoms of abdominal pain. She describes the pain is intense and is present in the upper bilateral quadrants of her abdomen. Described as pain in her upper abdomen and chest, with nausea and vomiting. She has not eaten in 3 days. Denies dysurea, diarrhea or constipation. Denies numbing or tingling of her upper or lower extremities, or lower extremity swelling. She has a small normal bowel movement this am. There is notation in the ED note that she takes Eliquis w/a history of a DVT. Patient is being followed by an oncologist at [facility] who she sees every [address] of the abdomen/pelvis indicated peripancreatic edema, possible mild pancreatitis colonic wall thickening improved over prior and prominent periuterine venous vasculature, consider pelvic congestion. She is afebrile, blood pressure 100/57, heart rate 74, respiratory rate 18, oxygen saturation 97% on room air she weighs 68 kg with a BMI of 25.7. She is mildly anemic with a hemoglobin and hematocrit of 11.1 and 32.6 respectively, mildly elevated platelet count of 435, sodium 135, creatinine 0.41, glucose 101, lipase is within normal limits and COVID-19 PCR is negative. Patient History Medical History (Updated 01/23/22 @ 23:04 by Kristen Jackson DO) Clostridium difficile diarrhea Neuroendocrine tumor of pancreas No significant medical problems Surgical History (Updated 01/24/22 @ 02:02 by WILMER Thibodeaux) H/O Whipple procedure History of cholecystectomy Hx of bilateral oophorectomy Hx of umbilical hernia repair Family & Social History Family History (Updated 01/24/22 @ 01:36 by WILMER Thibodeaux) Mother Alcoholism Sister Alive and well Father Medical history unknown Social History: household members children Prior Living Arrangements Apartment/Condo Safety & Behavioral: Feels Safe in Current Yes Environment Been Physically Hurt or No Threatened By a Person Tobacco & Substance use: Smoking Status Never smoker alcohol intake frequency holiday/special occasion Substance Use Type does not use Meds Home Medications and Allergies Home Medications Medication Instructions Recorded Confirmed Type ondansetron 4 mg disintegrating 4 mg sublingual Q6HP PRN ##20 07/11/16 Rx tablet (Zofran ODT) oxycodone-acetaminophen 7.5 mg-325 1 tab PO Q4HP PRN ##40 07/11/16 Rx mg tablet (Percocet) hydromorphone 2 mg tablet 2 mg PO Q4HP PRN #20 tabs 07/14/16 Rx (Dilaudid) sucralfate 100 mg/mL oral 10 ml PO QID #420 mL 04/05/19 Rx suspension (Carafate) ondansetron 4 mg disintegrating 4 mg PO Q8H PRN nausea and 11/01/21 Rx tablet vomiting #14 tabs hyoscyamine sulfate 0.125 mg tablet 0.125 mg PO BID-QID PRN dyspepsia 11/12/21 Rx #20 tabs ondansetron 4 mg disintegrating 4 mg PO TID-QID PRN nausea and 11/12/21 Rx tablet vomiting #10 tabs oxycodone 5 mg tablet 5 mg PO QID PRN pain #10 tabs 01/14/22 Rx hydrocodone 5 mg-acetaminophen 325 1 tab PO Q6H PRN pain #10 tabs 01/21/22 Rx mg tablet ondansetron 4 mg disintegrating 4 mg PO Q8H PRN nausea and 01/21/22 Rx tablet vomiting #10 tabs Allergies Allergy/AdvReac Type Severity Reaction Status Date / Time ketorolac [From Toradol] Allergy Severe Anaphylaxis Verified 01/23/22 21:48 metronidazole [From Flagyl] Allergy Verified 11/12/21 07:43 nitrofurantoin Allergy Verified 11/12/21 07:43 [From Macrobid] Review of Systems Review of Systems ROS: Yes All systems reviewed with the patient and are negative except as otherwise documented Exam Vital Signs (past 8 hours): - 01/23/22 16:33 01/23/22 16:38 01/23/22 17:00 Temperature 96.8 F L Pulse Rate 80 Respiratory Rate 16 14 Blood Pressure 117/69 126/72 Pulse Oximetry 97 98 Oxygen Delivery Method Room Air Oxygen Flow Rate 01/23/22 17:00 01/23/22 17:30 01/23/22 18:00 Temperature Pulse Rate 80 75 75 Respiratory Rate 18 19 23 Blood Pressure Pulse Oximetry 97 94 97 Oxygen Delivery Method Oxygen Flow Rate 01/23/22 18:22 01/23/22 18:22 01/23/22 18:30 Temperature Pulse Rate 77 Respiratory Rate 14 Blood Pressure 130/62 120/61 Pulse Oximetry 99 Oxygen Delivery Method Oxygen Flow Rate 01/23/22 18:30 01/23/22 19:00 01/23/22 19:00 Temperature Pulse Rate 70 70 Respiratory Rate 21 19 Blood Pressure 111/65 Pulse Oximetry 97 98 Oxygen Delivery Method Oxygen Flow Rate 01/23/22 19:30 01/23/22 19:30 01/23/22 20:00 Temperature Pulse Rate 75 Respiratory Rate 22 Blood Pressure 118/76 116/68 Pulse Oximetry 99 Oxygen Delivery Method Oxygen Flow Rate 01/23/22 20:00 01/23/22 20:30 01/23/22 20:30 Temperature Pulse Rate 68 80 Respiratory Rate 21 16 Blood Pressure 110/64 Pulse Oximetry 97 97 Oxygen Delivery Method Oxygen Flow Rate 01/23/22 20:45 01/23/22 20:45 01/23/22 21:00 Temperature Pulse Rate 74 Respiratory Rate Blood Pressure 114/66 121/70 Pulse Oximetry 96 Oxygen Delivery Method Oxygen Flow Rate 01/23/22 21:00 01/23/22 22:00 Temperature 97.4 F L Pulse Rate 73 64 Respiratory Rate 18 18 Blood Pressure 112/67 Pulse Oximetry 98 100 Oxygen Delivery Method Oxygen Flow Rate 0 Oxygen Delivery Method Room Air Oxygen Flow Rate 0 Narrative Exam Narrative: Gen: Alert, oriented, well-developed 41 y.o. female, appears uncomfortable HEENT: normocephalic, atraumatic, conjunctiva clear, sclera non-icteric, oral mucosa pink and moist Neck: supple, full ROM, no JVD, trachea is midline Resp: Lungs CTA, non-labored breathing CV: RRR, no murmur or rubs Abd: transverse surgical scar appears to be well healing, soft, diffusely tender, hyperactive BTs Skin: no lesions or rashes, dry and intact Neuro: Alert and oriented X 4 w/no focal deficits. Speech clear and coherent. Extremities: moves all 4 extremities, is ambulatory, negative Elroy?s sign Psyche: normal mood and affect. Objective Labs Result Diagrams: 01/23/22 16:50 01/23/22 17:15 Labs: Laboratory Results - last 24 hr 01/23/22 01/23/22 01/23/22 16:50 17:15 17:15 WBC 6.0 RBC 4.06 Hgb 11.1 L Hct 32.6 L MCV 80.1 MCH 27.3 MCHC 34.1 RDW 14.7 Plt Count 435 H Neut % (Auto) 71.1 Lymph % (Auto) 17.3 L [place] % (Auto) 10.0 Eos % (Auto) 1.0 L Baso % (Auto) 0.6 Neut # (Auto) 4300 Lymph # (Auto) 1000 L [place] # (Auto) 600 Eos # (Auto) 100 Baso # (Auto) 0 PT 15.8 H INR 1.4 H APTT 32 D-Dimer Sodium 135 L Potassium 3.7 Chloride 99 Carbon Dioxide 22 BUN 17 Creatinine 0.41 L Estimated GFR > 60 BUN/Creatinine Ratio 41.5 H Glucose 101 H Calcium 9.1 Magnesium 1.6 Total Bilirubin 0.5 AST 21 ALT 12 Alkaline Phosphatase 82 Total Creatine Kinase 21 L CK-MB (CK-2) TNP CK-MB (CK-2) Rel Index TNP Troponin I < 0.012 Total Protein 6.9 Albumin 4.4 Globulin 2.5 Albumin/Globulin Ratio 1.8 Lipase 62 SARS-CoV-2 (PCR) 01/23/22 01/23/22 17:15 17:33 WBC RBC Hgb Hct MCV MCH MCHC RDW Plt Count Neut % (Auto) Lymph % (Auto) [place] % (Auto) Eos % (Auto) Baso % (Auto) Neut # (Auto) Lymph # (Auto) [place] # (Auto) Eos # (Auto) Baso # (Auto) PT INR APTT D-Dimer 236 H Sodium Potassium Chloride Carbon Dioxide BUN Creatinine Estimated GFR BUN/Creatinine Ratio Glucose Calcium Magnesium Total Bilirubin AST ALT Alkaline Phosphatase Total Creatine Kinase CK-MB (CK-2) CK-MB (CK-2) Rel Index Troponin I Total Protein Albumin Globulin Albumin/Globulin Ratio Lipase SARS-CoV-2 (PCR) Negative Assessment & Plan Assessment & Plan narrative: Heather Ventura is admitted for symptomatic control of persistent abdominal pain, nausea and vomiting likely secondary to post-Whipple pancreatitis 1. Persistent abdominal pain, nausea and vomiting likely secondary to post- Whipple pancreatitis, acute and present on admission * Symptom control with IV ondansatron and metoclopramide * Clears * Pain control w/IV morphine and dilaudid * She is written for Carafate 1 gram q6 hours 2. Post Whipple procedure, December 2021 * ED discussed w/Dr. Ching at [facility] who will review her films * Dr. Mendez was the general surgeon on her case * They recommended symptomatic treatment 3. History of a DVT * She was written for Apixaban 5 mg po bid in December 2021 by Jayy Lazo VTE Prophylaxis: Wells risk score 1.5 Patient is currently anticoagulated on apixaban. Patient is admitted to the inpatient service due to the severity of disease, risks of further disease progression and this stay is expected to exceed 2 midnights. FEN: IV fluids: NS at 100 ml/hour, diet: clears, labs: CBC, C/BMP, liver enzymes, Mag, PT/INR Consultants None care and involvement in the patient?s care is appreciated. Dispo: Unknown at this time Code status: Full Code as discussed with the patient who identifies a friend as her surrogate and POA. X I have utilized all available immediate resources to obtain, update, or review of the patient's current medications COVID-19 COVID-19 status: Negative Result date/Date tested (Pos, Neg/Pending): 01/24/22 Scores Wells' Criteria for PE Clinical signs and symptoms of DVT: No PE is #1 Dx or equally likely: No Heart rate > 100: No Immobilization at least 3 days or surg in previous 4 weeks: No History of PE or DVT: Yes Hemoptysis: No Malignancy w/Treatment within 6 months or palliative: No Wells' PE Score total: 1.5 Quality VTE Deep Vein Thrombosis/Pulmonary Embolism Present on Admission: No MIPS - Admit I confirm the patient?s Advance Care Plan is present, Code status is documented, Surrogate decision maker is in patient?s record [If Yes, STOP here]: Yes MIPS - DC The patient has current or prior documentation of left ventricular ejection fraction (LVEF) less than 40%, or moderate or severely depressed left vent ricular systolic function.: No
[2022-01-24] VITALS (10 sets, daily range): BP systolic 97–128; BP diastolic 56–77; PULSE 62–82; RESP 15–18; TEMP 36.2–36.8; O2SAT 96–99
[2022-01-24] MEDS: SUCRALFATE 1 GM TABLET PO ×2 (00:22→06:59)
[2022-01-24] MEDS: ONDANSETRON 4 MG/2 ML INJ IV ×2 (00:27→06:59)
[2022-01-24] MEDS: HYDROMORPHONE 0.5 MG INJ IV ×4 (00:28→17:28)
[2022-01-24 06:02] LABS: Add Manual Diff / Slide Review NO; Basophils Absolute Auto 0 /uL (0-100); Basophils Percent Auto 0.7 % (0-2); Eosinophils Absolute Auto 100 /uL (0-450); Eosinophils Percent Auto 2.2 % (2-4); Hematocrit 27.6 % (36-46); Hemoglobin 9.3 g/dL (12.0-16.0); Lymphocytes Absolute Auto 1500 /uL (1100-4500); Lymphocytes Percent Auto 33.1 % (25-40); Mean Corpuscular HGB Conc 33.6 % (30-36); Mean Corpuscular Hemoglobin 27.1 PG (26-34); Mean Corpuscular Volume 80.6 fL (80-100); Monocytes Absolute Auto 400 /uL (0-900); Monocytes Percent Auto 9.5 % (3-14); Neutrophils Absolute Auto 2500 /uL (1500-7000); Neutrophils Percent Auto 54.5 % (50-75); Platelet Count 204 X10^3/uL (150-400); Red Blood Cell Count 3.42 X10^6/uL (4.0-5.2); Red Cell Distribution Width 14.5 % (11.6-14.8); White Blood Cell Count 4.6 X10^3/uL (4.5-11.0)
[2022-01-24 06:09] LABS: Alanine Aminotransferase 9 IU/L (<35); Albumin 3.1 g/dL (3.5-5.0); Albumin Globulin Ratio 1.4 (1.0-2.8); Alkaline Phosphatase 60 U/L (38-126); Aspartate Aminotransferase 16 IU/L (14-36); BUN Creatinine Ratio 38.5 (6-22); Bilirubin Total 0.4 mg/dL (0.2-1.3); Bilirubin Unconjugated 0.2 mg/dL (0.0-1.1); Blood Urea Nitrogen 15 mg/dL (7-17); Calcium 8.1 mg/dL (8.4-10.2); Carbon Dioxide 22 mmol/L (22-32); Chloride 104 mmol/L (98-107); Estimated Glomerular Filt Rate > 60 mL/min (>60); Globulin 2.2 g/dL (1.7-4.1); Glucose 88 mg/dL (70-100); HEMOLYSIS < 15 (0-50); Magnesium 1.7 mg/dL (1.6-2.3); Sodium 134 mmol/L (137-145); Total Protein 5.3 g/dL (6.3-8.2)
[2022-01-24] MEDS: METOCLOPRAMIDE 10 MG/2 ML INJ IV (08:21)
[2022-01-24] MEDS: SODIUM CHLORIDE 0.9% 1,000 ML 100 ML IV (08:23)
[2022-01-24] MEDS: PANTOPRAZOLE 40 MG VIAL IV (10:21)
[2022-01-24] MEDS: PROMETHAZINE 12.5 MG SUPP PR (10:23)
[2022-01-24] MEDS: MAGNESIUM SULFATE 2 GM/50 ML PIGGYBACK IV (12:32)
[2022-01-24] MEDS: POTASSIUM CHLORIDE IN WATER 10 MEQ/100 ML PIGGYBACK 100 MEQ IV (12:32)
[2022-01-24 13:52] LABS: C-Reactive Protein Quant 0.6 mg/dL (<1.0)
[2022-01-24 13:56] LABS: Prealbumin 12.3 mg/dL (17.6-36.0)
[2022-01-24] MEDS: POTASSIUM CHLORIDE IN WATER 10 MEQ/100 ML PIGGYBACK 65 MEQ IV ×2 (14:14→16:14)
--- NOTE | 2022-01-24 16:08 | PM.PN.1 ---
Subjective Subjective Date Patient Seen: 01/24/22 Time Patient Seen: 08:00 Interval history: Today she states her symptoms are largely unchanged. She has generalized abdominal pain, burning pain in her chest worse when breathing. She also has persistent nausea and vomiting. Exam Vital Signs (past 8 hours): - 01/24/22 09:00 01/24/22 10:07 01/24/22 12:00 Temperature 97.8 F Pulse Rate 82 Respiratory Rate 15 Blood Pressure 128/77 Pulse Oximetry 97 97 98 Oxygen Delivery Method Room Air Room Air Oxygen Flow Rate 0 Oxygen Delivery Method Room Air Oxygen Flow Rate 0 Narrative Exam Narrative: GEN: appears uncomfortable, dry heaving CV: regular rate and rhythm, no murmurs PULM: clear bilaterally ABD: soft, nontender, decreased bowel sounds Objective Labs Result Diagrams: 01/24/22 05:20 01/24/22 05:20 Labs: Laboratory Results - last 24 hr 01/23/22 01/23/22 01/23/22 16:50 17:15 17:15 WBC 6.0 RBC 4.06 Hgb 11.1 L Hct 32.6 L MCV 80.1 MCH 27.3 MCHC 34.1 RDW 14.7 Plt Count 435 H Neut % (Auto) 71.1 Lymph % (Auto) 17.3 L Billings % (Auto) 10.0 Eos % (Auto) 1.0 L Baso % (Auto) 0.6 Neut # (Auto) 4300 Lymph # (Auto) 1000 L Billings # (Auto) 600 Eos # (Auto) 100 Baso # (Auto) 0 PT 15.8 H INR 1.4 H APTT 32 D-Dimer Sodium 135 L Potassium 3.7 Chloride 99 Carbon Dioxide 22 BUN 17 Creatinine 0.41 L Estimated GFR > 60 BUN/Creatinine Ratio 41.5 H Glucose 101 H Calcium 9.1 Magnesium 1.6 Total Bilirubin 0.5 Conjugated Bilirubin Unconjugated Bilirubin AST 21 ALT 12 Alkaline Phosphatase 82 Total Creatine Kinase 21 L CK-MB (CK-2) TNP CK-MB (CK-2) Rel Index TNP Troponin I < 0.012 C-Reactive Protein Total Protein 6.9 Albumin 4.4 Globulin 2.5 Albumin/Globulin Ratio 1.8 Prealbumin Lipase 62 SARS-CoV-2 (PCR) 01/23/22 01/23/22 01/24/22 17:15 17:33 05:20 WBC 4.6 RBC 3.42 L Hgb 9.3 L Hct 27.6 L MCV 80.6 MCH 27.1 MCHC 33.6 RDW 14.5 Plt Count 204 Neut % (Auto) 54.5 Lymph % (Auto) 33.1 Billings % (Auto) 9.5 Eos % (Auto) 2.2 Baso % (Auto) 0.7 Neut # (Auto) 2500 Lymph # (Auto) 1500 Billings # (Auto) 400 Eos # (Auto) 100 Baso # (Auto) 0 PT INR APTT D-Dimer 236 H Sodium Potassium Chloride Carbon Dioxide BUN Creatinine Estimated GFR BUN/Creatinine Ratio Glucose Calcium Magnesium Total Bilirubin Conjugated Bilirubin Unconjugated Bilirubin AST ALT Alkaline Phosphatase Total Creatine Kinase CK-MB (CK-2) CK-MB (CK-2) Rel Index Troponin I C-Reactive Protein Total Protein Albumin Globulin Albumin/Globulin Ratio Prealbumin Lipase SARS-CoV-2 (PCR) Negative 01/24/22 01/24/22 05:20 05:20 WBC RBC Hgb Hct MCV MCH MCHC RDW Plt Count Neut % (Auto) Lymph % (Auto) Billings % (Auto) Eos % (Auto) Baso % (Auto) Neut # (Auto) Lymph # (Auto) Billings # (Auto) Eos # (Auto) Baso # (Auto) PT INR APTT D-Dimer Sodium 134 L Potassium 3.0 L Chloride 104 Carbon Dioxide 22 BUN 15 Creatinine 0.39 L Estimated GFR > 60 BUN/Creatinine Ratio 38.5 H Glucose 88 Calcium 8.1 L Magnesium 1.7 Total Bilirubin 0.4 Conjugated Bilirubin 0.0 Unconjugated Bilirubin 0.2 AST 16 ALT 9 Alkaline Phosphatase 60 Total Creatine Kinase CK-MB (CK-2) CK-MB (CK-2) Rel Index Troponin I C-Reactive Protein 0.6 Total Protein 5.3 L Albumin 3.1 L Globulin 2.2 Albumin/Globulin Ratio 1.4 Prealbumin 12.3 L Lipase SARS-CoV-2 (PCR) [facility] Medical History (Updated 01/23/22 @ 23:04 by Kristen Jackson DO) Clostridium difficile diarrhea Neuroendocrine tumor of pancreas No significant medical problems Surgical History (Updated 01/24/22 @ 02:02 by WILMER Thibodeaux) H/O Whipple procedure History of cholecystectomy Hx of bilateral oophorectomy Hx of umbilical hernia repair Family History (Updated 01/24/22 @ 01:36 by WILMER Thibodeaux) Mother Alcoholism Sister Alive and well Father Medical history unknown Social History household members: children Smoking Status: Never smoker substance use type: does not use Assessment & Plan Assessment & Plan narrative: 1. Intractable abdominal pain, vomiting -etiology possibly secondary to gastroparesis vs gastritis -lipase normal, unlikely pancreatitis -no leak noted on CT scan -continue with IV pain meds, reglan, protonix -will also try erythromycin -ED consulted with surgical team and [facility] who found no reason to transfer and treat symptomatically 2. History of DVT -continue apixaban 3. History of Whipples -for neuroendocrine tumor -follow up outpatient with surgery team 4. Hypokalemia -secondary to GI losses -continue with IV repletion for now COVID-19 COVID-19 status: Negative Result date/Date tested (Pos, Neg/Pending): 01/24/22 Time Spent With Patient Critical Care time: I spent a total of [] minutes of critical care time on this patient's care today; this time is exclusive of procedural time. Quality VTE Deep Vein Thrombosis/Pulmonary Embolism Present on Admission: No
--- NOTE | 2022-01-24 16:46 | CM.DANOTE ---
DCP/Assessment: Reviewed chart. Patient is a 41yr old female admitted [place] [facility] with [place]. PCP is Ameya Gruber. Primary payor is 1)[facility] 2)Medicaid. Met with patient explained CM/SW role. Patient reports that she resides with her adolescent children [place] Patient under went whipple procedure in December of this year at [facility]. Patient reports since that time having difficulty with abdominal pain. Patient plans to d/c home when stable and reports being completely I in all ADL's. Patient currently NPO and surgery is not expected. Treatment plan unclear at this time, however there was discussion about an EGD if symptoms continue and she is not able to tolerate any food/liquids. P: Home when stable. KJS Discharge Planning/Care Management CM Discharge Assessment Start: 01/24/22 16:44 Freq: Status: Active Protocol: Document 01/24/22 16:44 KJS (Rec: 01/24/22 16:46 KJS [id number]) Discharge Planning Assessment Assigned Optometry Professor PRINCESS Monterroso Contact Information Annamanda Langis (friend) # Advance Directives? No History Provided By Patient,Medical Record Prior Living Arrangements Apartment/Condo Household Members children Type of transporation used prior to Drives own vehicle admit Independent with ADL's Yes Is patient alert and oriented? Yes Caregiver for Another Yes: Patient has children at home. Barriers to Discharge No Discharge Plan Home Transportation Arrangement Patient's friend can provide transport. Referrals Initiated Other Additional Comment None needed at time of inital visit. Whiteboard Updated in Patient Room with Yes name and ext. # of Optometry Professor Review Status In Process Next Review Type Continued Stay Review
[2022-01-24] MEDS: ERYTHROMYCIN BASE 250 MG TABLET PO (18:26)
[2022-01-24] MEDS: POTASSIUM CHLORIDE IN WATER 10 MEQ/100 ML PIGGYBACK 50 MEQ IV ×3 (18:34→22:32)
[2022-01-24] MEDS: LORazepam 2 MG/ML INJ 0.5 MG IV (20:15)
[2022-01-24] MEDS: MORPHINE 2 MG/ML INJ IV (20:15)
[2022-01-24] MEDS: HEPARIN 5,000 UNIT/ML VIAL 5000 UNIT SUBCUT (22:33)
[2022-01-25] VITALS (13 sets, daily range): BP systolic 104–118; BP diastolic 55–70; PULSE 64–82; RESP 14–18; TEMP 36.2–37.1; O2SAT 95–100
[2022-01-25] MEDS: SODIUM CHLORIDE 0.9% 1,000 ML 200 ML IV ×3 (00:53→17:15)
[2022-01-25] MEDS: MORPHINE 2 MG/ML INJ IV ×3 (04:30→12:50)
[2022-01-25] MEDS: LORazepam 2 MG/ML INJ 0.5 MG IV ×3 (04:31→21:07)
[2022-01-25 05:22] LABS: Calcium 8.1 mg/dL (8.4-10.2); Carbon Dioxide 22 mmol/L (22-32); Chloride 103 mmol/L (98-107); Estimated Glomerular Filt Rate > 60 mL/min (>60); Glucose 81 mg/dL (70-100); HEMOLYSIS < 15 (0-50); Hematocrit 28.8 % (36-46); Hemoglobin 9.7 g/dL (12.0-16.0); Magnesium 1.7 mg/dL (1.6-2.3); Mean Corpuscular HGB Conc 33.6 % (30-36); Mean Corpuscular Hemoglobin 27.1 PG (26-34); Mean Corpuscular Volume 80.7 fL (80-100); Platelet Count 192 X10^3/uL (150-400); Potassium 3.5 mmol/L (3.4-5.1); Red Blood Cell Count 3.57 X10^6/uL (4.0-5.2); Red Cell Distribution Width 14.7 % (11.6-14.8); Sodium 136 mmol/L (137-145); White Blood Cell Count 3.8 X10^3/uL (4.5-11.0)
[2022-01-25 05:31] LABS: BUN Creatinine Ratio 5.6 (6-22); Blood Urea Nitrogen 2 mg/dL (7-17)
[2022-01-25] MEDS: PANTOPRAZOLE 40 MG VIAL IV (09:07)
[2022-01-25] MEDS: HEPARIN 5,000 UNIT/ML VIAL 5000 UNIT SUBCUT ×2 (09:07→21:06)
--- NOTE | 2022-01-25 11:39 | DIET.CONS ---
Dietary Consultation Note Admission Date: 01/23/2022 20:40 Assessment: 41y F admitted for nausea and chest pain referred to nutrition for MNA 7. Pt underwent whipple procedure 3mo ago for neuroendocrine tumor where head of pancreas removed. Pt reports weight loss since that time. It is expected for patients to lose 10% body weight following this procedure (pt -12%). Pt currently NPO. When RD visited pt, pt states i'm eithe sleeping or on pain meds when people come in to visit me, I can't really remember things. Pt states she had part of her stomach removed in whipple. CT imaging shows partial pancreatectomy but no significant gastric abnormalities. 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 She eats namibian yogurt for breakfast and no red meat. Ht: 162.56 cm Wt: 68.039 kg (-12% in 3mo, severe) BMI: 25.7 UBW: 77kg Last BM: 01/24/22 (01/24/22 17:20) MNA: 7 Juni Score: 19 Diet: 01/24/22 10:57 NPO Diet Diet Modifications: Ok to have meds and ice chips NPO Type: NPO except for Ice Chips Labs: RBC 3.57 X10^6/uL (4.0-5.2) L 01/25/22 04:55 Hgb 9.7 g/dL (12.0-16.0) L 01/25/22 04:55 Hct 28.8 % (36-46) L 01/25/22 04:55 Creatinine 0.36 mg/dL (0.52-1.04) L 01/25/22 04:55 Nutrition Diagnosis: Severe Acute Protein Calorie Malnutrition r/t recent whipple procedure and post-op nausea aeb -12% unintentional weight loss in 3mo (severe), pt 3mo out from whipple for neuroendocrine tumor on head of pancreas, pt currently NPO secondary to N/V, pt working with RD to help with weight loss however has not stopped losing yet. Interventions: 1. Recc trial dry toast, crackers to assess tolerance to PO. 2. Recc seperating liquids and solids in diet to reduce nausea. 3. Recc pancreatic digestive enzymes with all PO intake besides calorie free beverages. 4. Recc pt f/u c RD regarding hospitalization. EER: 1700kcals (25kcal/kg per overweight PCM), 88-92g PRO (1.3-1.5g/kg per PCM) Monitoring/Evaluations: GI sx, diet advancement, diet tolerance, POs if POs <75% recc Ensure Max daily and namibian yogurt c meals. Electronically Signed by: Lucia Cole 01/25/22 11:39 Clinical Dietitian [address] [id number]
--- NOTE | 2022-01-25 15:05 | P.PN_ITS ---
Subjective Subjective Date Patient Seen: 01/25/22 Time Patient Seen: 08:00 Interval history: Her nausea is improved. She continues to have abdominal pain. She still lacks appetite. Exam Vital Signs (past 8 hours): - 01/25/22 08:59 01/25/22 09:41 01/25/22 11:00 Temperature 98.2 F Pulse Rate 76 Respiratory Rate 16 Blood Pressure 104/65 Pulse Oximetry 97 97 97 Oxygen Delivery Method Room Air Room Air Oxygen Flow Rate 0 0 01/25/22 14:54 Temperature Pulse Rate Respiratory Rate Blood Pressure Pulse Oximetry 97 Oxygen Delivery Method Room Air Oxygen Flow Rate Oxygen Delivery Method Room Air Oxygen Flow Rate 0 Narrative Exam Narrative: GEN: appears in no acute distress CV: regular rate and rhythm, no murmurs PULM: clear bilaterally ABD: soft, nontender, decreased bowel sounds Objective Labs Result Diagrams: 01/25/22 04:55 01/25/22 04:55 Labs: Laboratory Results - last 24 hr 01/25/22 01/25/22 04:55 04:55 WBC 3.8 L RBC 3.57 L Hgb 9.7 L Hct 28.8 L MCV 80.7 MCH 27.1 MCHC 33.6 RDW 14.7 Plt Count 192 Sodium 136 L Potassium 3.5 Chloride 103 Carbon Dioxide 22 BUN 2 L Creatinine 0.36 L Estimated GFR > 60 BUN/Creatinine Ratio 5.6 L Glucose 81 Calcium 8.1 L Magnesium 1.7 PFSH Medical History (Updated 01/23/22 @ 23:04 by Kristen Jackson DO) Clostridium difficile diarrhea Neuroendocrine tumor of pancreas No significant medical problems Surgical History (Updated 01/24/22 @ 02:02 by WILMER Thibodeaux) H/O Whipple procedure History of cholecystectomy Hx of bilateral oophorectomy Hx of umbilical hernia repair Family History (Updated 01/24/22 @ 01:36 by WILMER Thibodeaux) Mother Alcoholism Sister Alive and well Father Medical history unknown Social History household members: children Smoking Status: Never smoker substance use type: does not use Assessment & Plan Assessment & Plan narrative: 1. Intractable abdominal pain, vomiting -etiology possibly secondary to gastroparesis and/or gastritis -CT did note peripancreatic edema but suspect with normal lipase and previous findings on CT that this is postoperative in nature -CT also noted colon wall thickening which was improving from prior, and she is having no diarrhea, doubt infection -no leak noted on CT scan from recent surgery -ED consulted with surgical team at [facility] who found no reason to transfer and rec treat symptomatically -continue with IV pain meds, reglan, protonix -tried erythromycin per surgery recs, did receive one dose on 01/24, minimal symptom change 2. Dilated pelvic vasculature -noted on CT scan -symptoms are more proximal and not consistent with pelvic congestion syndrome 2. History of DVT -continue apixaban 3. History of Whipples -for neuroendocrine tumor -follow up outpatient with surgery team 4. Hypokalemia, improved -secondary to GI losses -continue with IV repletion for now COVID-19 COVID-19 status: Negative Result date/Date tested (Pos, Neg/Pending): 01/24/22 Time Spent With Patient Critical Care time: I spent a total of [] minutes of critical care time on this patient's care today; this time is exclusive of procedural time. Quality VTE Deep Vein Thrombosis/Pulmonary Embolism Present on Admission: No
[2022-01-25] MEDS: HYDROMORPHONE 0.5 MG INJ IV ×2 (15:23→21:06)
[2022-01-26] VITALS (10 sets, daily range): BP systolic 94–110; BP diastolic 55–66; PULSE 68–82; RESP 14–16; TEMP 36.2–37.2; O2SAT 97–100
[2022-01-26] MEDS: SODIUM CHLORIDE 0.9% 1,000 ML 150 ML IV ×2 (00:03→06:05)
[2022-01-26 04:40] LABS: Hematocrit 27.8 % (36-46); Hemoglobin 9.2 g/dL (12.0-16.0); Mean Corpuscular HGB Conc 33.2 % (30-36); Mean Corpuscular Hemoglobin 26.8 PG (26-34); Mean Corpuscular Volume 80.8 fL (80-100); Platelet Count 150 X10^3/uL (150-400); Red Blood Cell Count 3.44 X10^6/uL (4.0-5.2); Red Cell Distribution Width 14.3 % (11.6-14.8); White Blood Cell Count 3.5 X10^3/uL (4.5-11.0)
[2022-01-26 04:50] LABS: Carbon Dioxide 21 mmol/L (22-32); Chloride 104 mmol/L (98-107); Estimated Glomerular Filt Rate > 60 mL/min (>60); Glucose 63 mg/dL (70-100); HEMOLYSIS < 15 (0-50); Magnesium 1.5 mg/dL (1.6-2.3); Potassium 3.3 mmol/L (3.4-5.1); Sodium 135 mmol/L (137-145)
[2022-01-26 04:57] LABS: BUN Creatinine Ratio 5.7 (6-22); Blood Urea Nitrogen < 2 mg/dL (7-17)
[2022-01-26] MEDS: MAGNESIUM SULFATE 2 GM/50 ML PIGGYBACK IV (05:34)
[2022-01-26] MEDS: HYDROMORPHONE 0.5 MG INJ IV ×3 (05:55→20:46)
[2022-01-26] MEDS: LORazepam 2 MG/ML INJ 0.5 MG IV ×3 (09:23→23:07)
[2022-01-26] MEDS: HEPARIN 5,000 UNIT/ML VIAL 5000 UNIT SUBCUT ×2 (09:23→20:46)
[2022-01-26] MEDS: PANTOPRAZOLE 40 MG VIAL IV (09:23)
[2022-01-26] MEDS: DEXTROSE 5%-0.9% NS 1,000 ML 125 ML IV ×2 (13:16→20:58)
--- NOTE | 2022-01-26 13:35 | CM.DPC ---
DCP Cont: Per MD, pt continues with post op nausea and being treated for gastroparesis and anticipate slow progress and eventual slow advancing of her diet. Not medically stable to d/c yet today. Plan: SW to follow for plan of d/c home when stable and any further identified discharge planning needs. PRINCESS Gotti
[2022-01-26] MEDS: POTASSIUM CHLORIDE 20 MEQ/15 ML UDC PO (13:39)
[2022-01-26 15:32] LABS: Carbon Dioxide 21 mmol/L (22-32); Chloride 104 mmol/L (98-107); Estimated Glomerular Filt Rate > 60 mL/min (>60); Glucose 153 mg/dL (70-100); HEMOLYSIS < 15 (0-50); Magnesium 1.7 mg/dL (1.6-2.3); Potassium 3.4 mmol/L (3.4-5.1); Sodium 136 mmol/L (137-145)
[2022-01-26 15:33] LABS: BUN Creatinine Ratio 6.1 (6-22); Blood Urea Nitrogen < 2 mg/dL (7-17)
--- NOTE | 2022-01-26 15:57 | P.PN_ITS ---
Subjective Subjective Date Patient Seen: 01/26/22 Interval history: 41-year-old female with neuroendocrine tumor status post Whipple procedure in December 04 is presently hospital day 3. Admitted with nausea, vomiting, and abdominal pain. Patient has been drinking some Ensure clears and tolerating that fairly well. She states she has not had any vomiting today. She does have some persistent nausea. She also notes that she has not had a regular menstrual cycle since surgery. She has had bilateral fallopian tubes removed and is infertile. She has not had any intercourse in the last month. She would like to trial some clear liquids today. She was noted to have a low magnesium patricia ier this morning which was repleted. Exam Vital Signs (past 8 hours): - 01/26/22 09:30 01/26/22 12:00 01/26/22 15:14 Temperature 98.9 F Pulse Rate 68 Respiratory Rate 14 Blood Pressure 94/60 Pulse Oximetry 98 100 98 Oxygen Delivery Method Room Air Room Air Oxygen Flow Rate 0 Oxygen Delivery Method Room Air Oxygen Flow Rate 0 Narrative Exam Narrative: GEN: Mildly uncomfortable appearing adult female,Alert and oriented x 3 HEENT:NC, Face symmetric CHEST: Respiratory excursions symmetric, CTAB CV: RRR, no M/R/G ABD: Soft, moderately diffusely tender, nondistended, surgical incisions are healing well, BT present in all 4 quadrants, no organomegaly or masses EXTR: warm, well perfused, no C/C/E SKIN: warm and dry, no rash NEURO: Alert and oriented x 3, nonfocal Objective Labs Result Diagrams: 01/26/22 04:20 01/26/22 14:30 Labs: Laboratory Results - last 24 hr 01/26/22 01/26/22 01/26/22 04:20 04:20 14:30 WBC 3.5 L RBC 3.44 L Hgb 9.2 L Hct 27.8 L MCV 80.8 MCH 26.8 MCHC 33.2 RDW 14.3 Plt Count 150 Sodium 135 L 136 L Potassium 3.3 L 3.4 Chloride 104 104 Carbon Dioxide 21 L 21 L BUN < 2 L < 2 L Creatinine 0.35 L 0.33 L Estimated GFR > 60 > 60 BUN/Creatinine Ratio 5.7 L 6.1 Glucose 63 L 153 H Calcium 8.0 L 8.0 L Magnesium 1.5 L 1.7 PFSH Medical History (Updated 01/23/22 @ 23:04 by Kristen Jackson DO) Clostridium difficile diarrhea Neuroendocrine tumor of pancreas No significant medical problems Surgical History (Updated 01/24/22 @ 02:02 by WILMER Thibodeaux) H/O Whipple procedure History of cholecystectomy Hx of bilateral oophorectomy Hx of umbilical hernia repair Family History (Updated 01/24/22 @ 01:36 by WILMER Thibodeaux) Mother Alcoholism Sister Alive and well Father Medical history unknown Social History household members: children Smoking Status: Never smoker substance use type: does not use Assessment & Plan Assessment & Plan narrative: 1. Postoperative nausea/ vomiting /abdominal pain Patient had neuroendocrine tumor which resulted in Whipple procedure which was done December 13, 2021. There has been no evidence of leak or other complications. Previous hospitalist discussed the case with her surgeons at [facility]. At this point in time the concern is for potential gastritis or gastroparesis. She remains on at PPI. Continue Reglan. No vomiting today. Will advance to clear liquids today. 2. Hypomagnesemia This was repleted earlier this morning. Recheck tomorrow 3. Hypokalemia potassium was mildly low at 3.3 this morning. Will replete with oral potassium liquid, as she has previously had difficulty with burning with IV potassium re placement. She does not want to try potassium tablets but feels she may be able to drink the liquid. If this is unsuccessful, will resume IV repletion. 4. Hypoglycemia Will start D5 in her IV fluids. This may help some her nausea. 5. Neuroendocrine tumor status post Whipple procedure Incision is healing well. Will follow-up with her surgeon. 6. Dilated pelvic vasculature Presently asymptomatic. As noted, she has not had return of regular menses since surgery. This is likely a stress-induced phenomenon. No symptoms of pelvic congestion. 7. History of DVT was on apixaban. This is not an active medication at this time. code status full prophylaxis On heparin. disposition Pending Ability to take adequate oral intake of food, fluids, and better pain control. Time Spent With Patient Critical Care time: I spent a total of [] minutes of critical care time on this patient's care today ; this time is exclusive of procedural time. Quality VTE Deep Vein Thrombosis/Pulmonary Embolism Present on Admission: No
[2022-01-26] MEDS: ONDANSETRON 4 MG/2 ML INJ IV (20:46)
[2022-01-27] VITALS (9 sets, daily range): BP systolic 90–116; BP diastolic 42–63; PULSE 67–95; RESP 16–19; TEMP 36.5–37.2; O2SAT 96–98; BMI 25.7
[2022-01-27] MEDS: METOCLOPRAMIDE 10 MG/2 ML INJ IV ×2 (02:24→09:27)
[2022-01-27] MEDS: HYDROMORPHONE 0.5 MG INJ IV ×4 (02:24→23:16)
[2022-01-27] MEDS: DEXTROSE 5%-0.9% NS 1,000 ML 125 ML IV (05:01)
[2022-01-27] MEDS: HEPARIN 5,000 UNIT/ML VIAL 5000 UNIT SUBCUT ×2 (08:49→20:32)
[2022-01-27] MEDS: PANTOPRAZOLE 40 MG VIAL IV (08:50)
[2022-01-27] MEDS: DEXTROSE 5%-0.9% NS 1,000 ML 75 ML IV (15:44)
--- NOTE | 2022-01-27 16:04 | P.PN_ITS ---
Subjective Subjective Date Patient Seen: 01/27/22 Interval history: 41-year-old female with neuroendocrine tumor status post Whipple procedure in December who is presently hospital day 3. Admitted with nausea, vomiting, and abdominal pain.? She has continued to have some persistent nausea but has not had any emesis. She has been tolerating clear liquids. She is passing gas and notes she did have a bowel movement 2 days ago. She expressed that her blood pressure was a bit low but she has not been symptomatic. She was just up to the bathroom and notes she is now feeling slightly nauseated. She is requesting some nausea medication. Exam Vital Signs (past 8 hours): - 01/27/22 08:06 01/27/22 09:12 01/27/22 12:00 Temperature 97.9 F 97.7 F Pulse Rate 67 70 Respiratory Rate 18 18 Blood Pressure 101/49 L 96/51 L Pulse Oximetry 97 98 96 Oxygen Delivery Method Room Air Oxygen Flow Rate 0 0 01/27/22 15:23 Temperature Pulse Rate Respiratory Rate Blood Pressure Pulse Oximetry 98 Oxygen Delivery Method Room Air Oxygen Flow Rate Oxygen Delivery Method Room Air Oxygen Flow Rate 0 Narrative Exam Narrative: GEN: ? Mildly uncomfortable appearing adult female,Alert and oriented x 3, brighter affect today HEENT:NC, Face symmetric CHEST: Respiratory excursions symmetric, CTAB CV: RRR, no M/R/G ABD: Soft, moderately diffusely tender, nondistended, surgical incisions are healing well, BT present in all 4 quadrants, no organomegaly or masses EXTR: warm, well perfused, no C/C/E SKIN: warm and dry, no rash NEURO: Alert and oriented x 3, nonfocal Objective Labs Result Diagrams: 01/26/22 04:20 01/26/22 14:30 [facility] Medical History (Updated 01/23/22 @ 23:04 by Kristen Jackson DO) Clostridium difficile diarrhea Neuroendocrine tumor of pancreas No significant medical problems Surgical History (Updated 01/24/22 @ 02:02 by WILMER Thibodeaux) H/O Whipple procedure History of cholecystectomy Hx of bilateral oophorectomy Hx of umbilical hernia repair Family History (Updated 01/24/22 @ 01:36 by WILMER Thibodeaux) Mother Alcoholism Sister Alive and well Father Medical history unknown Social History household members: children Smoking Status: Never smoker substance use type: does not use Assessment & Plan Assessment & Plan narrative: ?1.? Postoperative nausea/ vomiting /abdominal pain Patient had neuroendocrine tumor which resulted in Whipple procedure which was done December 13, 2021.? There has been no evidence of leak or other complications.? Previous hospitalist discussed the case with her surgeons at [facility].? At this point in time the concern is for potential gastritis or gastroparesis.? She remains on at PPI.? Continue Reglan.? Will continue clear liquids today. If she tolerates that well, will trial full liquids tomorrow. She is quite well hydrated at this time, IV fluid rate will be decreased from 125 cc/hour 75 cc/hour. She is not yet ready to have fluid saline locked. ? 2.? Hypomagnesemia Repleted and resolved on yesterday's labs. ? 3.? Hypokalemia Repleted and resolved after yesterday's labs. ? 4. Hypoglycemia Improved after initiating D5 in her IV fluids. ? 5.? Neuroendocrine tumor status post Whipple procedure Incision is healing well.? Will follow-up with her surgeon. ? 6.? Dilated pelvic vasculature Presently asymptomatic.? As noted, she has not had return of regular menses since surgery.? This is likely a stress-induced phenomenon.? No symptoms of pelvic congestion. ? 7. History of DVT ?was on apixaban.? This is not an active medication at this time. ?code status ?full ?prophylaxis ? On heparin. ?disposition Pending? ability to take adequate oral intake of food, fluids, and better pain control. Time Spent With Patient Critical Care time: I spent a total of [] minutes of critical care time on this patient's care today; this time is exclusive of procedural time. Quality VTE Deep Vein Thrombosis/Pulmonary Embolism Present on Admission: No
[2022-01-27] MEDS: LORazepam 2 MG/ML INJ 0.5 MG IV (17:13)
[2022-01-27] MEDS: ONDANSETRON 4 MG/2 ML INJ IV (23:16)
[2022-01-28] VITALS (7 sets, daily range): BP systolic 101–122; BP diastolic 46–75; PULSE 64–80; RESP 16–18; TEMP 36.6–37.4; O2SAT 95–100
[2022-01-28] MEDS: MORPHINE 2 MG/ML INJ IV (00:27)
[2022-01-28] MEDS: METOCLOPRAMIDE 10 MG/2 ML INJ IV ×3 (04:04→23:07)
[2022-01-28] MEDS: PANTOPRAZOLE 40 MG VIAL IV (09:46)
[2022-01-28] MEDS: HEPARIN 5,000 UNIT/ML VIAL 5000 UNIT SUBCUT ×2 (09:46→20:03)
[2022-01-28] MEDS: HYDROMORPHONE 0.5 MG INJ IV ×3 (10:04→23:09)
[2022-01-28] MEDS: LORazepam 2 MG/ML INJ 0.5 MG IV (12:23)
--- NOTE | 2022-01-28 16:34 | P.PN_ITS ---
Subjective Subjective Interval history: 41-year-old female with neuroendocrine tumor status post Whipple procedure in December who is presently hospital day 3. Admitted with nausea, vomiting, and abdominal pain.? She has continued to have some persistent nausea but has not had any emesis.? She notes she had a difficult night last night with regard to nausea and pain. She was sleeping this morning and did not get up for breakfast. She is willing to trial some cream of wheat today.. Exam Vital Signs (past 8 hours): - 01/28/22 09:57 01/28/22 10:49 01/28/22 12:00 Temperature 97.9 F 99.3 F Pulse Rate 80 Respiratory Rate 18 Blood Pressure 122/47 L Pulse Oximetry 96 97 Oxygen Delivery Method Room Air Oxygen Flow Rate 0 01/28/22 16:10 Temperature Pulse Rate Respiratory Rate Blood Pressure Pulse Oximetry 96 Oxygen Delivery Method Room Air Oxygen Flow Rate Oxygen Delivery Method Room Air Oxygen Flow Rate 0 Narrative Exam Narrative: GEN: ? Mildly uncomfortable appearing adult female,Alert and oriented x 3, although affect is not as bright as yesterday it is improved compared to 2 days ago HEENT:NC, Face symmetric CHEST: Respiratory excursions symmetric, CTAB CV: RRR, no M/R/G ABD: Soft, moderately diffusely tender, nondistended, surgical incisions are healing well, BT present in all 4 quadrants, no organomegaly or masses EXTR: warm, well perfused, no C/C/E SKIN: warm and dry, no rash NEURO: Alert and oriented x 3, nonfocal Objective Labs Result Diagrams: 01/26/22 04:20 01/26/22 14:30 PFS Medical History (Updated 01/23/22 @ 23:04 by Kristen Jackson DO) Clostridium difficile diarrhea Neuroendocrine tumor of pancreas No significant medical problems Surgical History (Updated 01/24/22 @ 02:02 by WILMER Thibodeaux) H/O Whipple procedure History of cholecystectomy Hx of bilateral oophorectomy Hx of umbilical hernia repair Family History (Updated 01/24/22 @ 01:36 by WILMER Thibodeaux) Mother Alcoholism Sister Alive and well Father Medical history unknown Social History household members: children Smoking Status: Never smoker substance use type: does not use Assessment & Plan Assessment & Plan narrative: ?1.? Postoperative nausea/ vomiting /abdominal pain Patient had neuroendocrine tumor which resulted in Whipple procedure which was done December 13, 2021.? There has been no evidence of leak or other complications.? Previous hospitalist discussed the case with her surgeons at [facility].? At this point in time the concern is for potential gastritis or gastroparesis.? She remains on at PPI.? Continue Reglan.? Will transition to full liquids today. IV fluid rate was decreased from 125 mL/hour yesterday to 75 mL/hour. At this time, she is still not taking in enough orally to saline lock her IV. IV access has been challenging. A midline IV placement has been requested. ? 2.? Hypomagnesemia Magnesium was low on January 26. Received repletion. Will follow-up labs tomorrow. ? 3.? Hypokalemia Potassium was low on January 26. Received repletion. Follow-up labs tomorrow. ? 4. Hypoglycemia Improved after initiating D5 in her IV fluids. ? 5.? Neuroendocrine tumor status post Whipple procedure Incision is healing well.? Will follow-up with her surgeon after discharge. ? 6.? Dilated pelvic vasculature Presently asymptomatic.? As noted, she has not had return of regular menses since surgery.? This is likely a stress-induced phenomenon.? No symptoms of pelvic congestion. ? 7. History of DVT ?was on apixaban.? This is not an active medication at this time. ?code status ?full ?prophylaxis ? On heparin. ?Disposition Once patient is able to adequately me her hydration needs and tolerate some caloric intake, she will be able to discharge home. Updated betzaida Juarez today. Time Spent With Patient Critical Care time: I spent a total of [] minutes of critical care time on this patient's care today; this time is exclusive of procedural time. Quality VTE Deep Vein Thrombosis/Pulmonary Embolism Present on Admission: No
[2022-01-28] MEDS: DEXTROSE 5%-0.9% NS 1,000 ML 75 ML IV (19:59)
[2022-01-28] MEDS: ONDANSETRON 4 MG/2 ML INJ IV (20:00)
[2022-01-28] MEDS: SUCRALFATE 1 GM TABLET PO (20:12)
[2022-01-29] VITALS (7 sets, daily range): BP systolic 92–106; BP diastolic 41–60; PULSE 73–77; RESP 16–18; TEMP 36.4–37; O2SAT 95–99
--- NOTE | 2022-01-29 06:17 | PC.NURSE ---
End of shift note. Care of patient from [id number]. AAOX4, slept well during the night. Educated on the purpose of Carafate, pre medicated with zofran, patient took one dose, complained of nausea at 2300 and this am refused to take a dose because she said it makes her feel nauseated. While awake patient complains of upper bilateral abd pain 8/10, relieved with dilaudid 0.5mg IV. Up to BR independent. Refused stool softners, vague about when her last BM was.
[2022-01-29 06:23] LABS: Add Manual Diff / Slide Review NO; Basophils Absolute Auto 0 /uL (0-100); Basophils Percent Auto 0.8 % (0-2); Eosinophils Absolute Auto 200 /uL (0-450); Eosinophils Percent Auto 5.8 % (2-4); Hematocrit 27.5 % (36-46); Hemoglobin 9.3 g/dL (12.0-16.0); Lymphocytes Absolute Auto 1200 /uL (1100-4500); Lymphocytes Percent Auto 33.5 % (25-40); Mean Corpuscular HGB Conc 33.7 % (30-36); Mean Corpuscular Volume 80.1 fL (80-100); Monocytes Absolute Auto 500 /uL (0-900); Monocytes Percent Auto 13.4 % (3-14); Neutrophils Absolute Auto 1600 /uL (1500-7000); Neutrophils Percent Auto 46.5 % (50-75); Platelet Count 159 X10^3/uL (150-400); Red Blood Cell Count 3.43 X10^6/uL (4.0-5.2); Red Cell Distribution Width 14.6 % (11.6-14.8); White Blood Cell Count 3.5 X10^3/uL (4.5-11.0)
[2022-01-29] MEDS: HYDROMORPHONE 0.5 MG INJ IV ×3 (06:27→16:21)
[2022-01-29] MEDS: METOCLOPRAMIDE 10 MG/2 ML INJ IV ×3 (06:31→17:34)
[2022-01-29] MEDS: DEXTROSE 5%-0.9% NS 1,000 ML 75 ML IV ×2 (06:33→17:58)
[2022-01-29 06:45] LABS: Calcium 7.8 mg/dL (8.4-10.2); Carbon Dioxide 33 mmol/L (22-32); Chloride 102 mmol/L (98-107); Estimated Glomerular Filt Rate > 60 mL/min (>60); Glucose 110 mg/dL (70-100); HEMOLYSIS 30 (0-50); Magnesium 1.4 mg/dL (1.6-2.3); Potassium 2.8 mmol/L (3.4-5.1); Sodium 137 mmol/L (137-145)
[2022-01-29 06:48] LABS: BUN Creatinine Ratio 4.7 (6-22); Blood Urea Nitrogen < 2 mg/dL (7-17)
[2022-01-29] MEDS: HEPARIN 5,000 UNIT/ML VIAL 5000 UNIT SUBCUT ×2 (08:25→21:39)
[2022-01-29] MEDS: PANTOPRAZOLE 40 MG VIAL IV (09:00)
[2022-01-29] MEDS: MAGNESIUM SULFATE 2 GM/50 ML PIGGYBACK IV (09:01)
[2022-01-29] MEDS: ONDANSETRON 4 MG/2 ML INJ IV ×2 (10:44→21:36)
[2022-01-29] MEDS: POTASSIUM CHLORIDE IN WATER 10 MEQ/100 ML PIGGYBACK 100 MEQ IV ×6 (10:45→16:21)
[2022-01-29] MEDS: LORazepam 2 MG/ML INJ 0.5 MG IV ×2 (11:59→18:06)
--- NOTE | 2022-01-29 14:22 | CM.DPC ---
DCP Cont: Per MD, pt continues to have ongoing nausea and still needs to advance diet and will likely d/c IV dilaudid and switch to an oral that she would be able to d/c on. Per RN, pt's electrolytes have continued to be off and will likely try a scheduled Reglan to assist with pt's nausea and labs. Per RN, pt has been ambulating in the room and independent. Plan: SW to continue to follow for advancing pt's diet and reduction of nausea towards plan of d/c home when medically stable. Margo Nicholas MSW
--- NOTE | 2022-01-29 17:29 | P.PN_ITS ---
Subjective Subjective Interval history: Hospitalist follow-up visit. 41-year-old female with neuroendocrine tumor status post Whipple procedure in December who is presented to hospital 6 days ago. Admitted with nausea, vomiting, and abdominal pain.? She has continued to have some persistent nausea but has not had any emesis. Difficult night because was nauseous all night. Like smoothies and has a strawberry smoothie on her tray for dinner and would like to try this. Exam Vital Signs (past 8 hours): - 01/29/22 14:10 Temperature 97.6 F Pulse Rate 73 Respiratory Rate 16 Blood Pressure 92/41 L Pulse Oximetry 96 Oxygen Flow Rate 0 Oxygen Delivery Method Room Air Oxygen Flow Rate 0 Objective Labs Result Diagrams: 01/29/22 06:11 01/29/22 06:11 Labs: Laboratory Results - last 24 hr 01/29/22 01/29/22 06:11 06:11 WBC 3.5 L RBC 3.43 L Hgb 9.3 L Hct 27.5 L MCV 80.1 MCH 27.0 MCHC 33.7 RDW 14.6 Plt Count 159 Neut % (Auto) 46.5 L Lymph % (Auto) 33.5 Falls % (Auto) 13.4 Eos % (Auto) 5.8 H Baso % (Auto) 0.8 Neut # (Auto) 1600 Lymph # (Auto) 1200 Falls # (Auto) 500 Eos # (Auto) 200 Baso # (Auto) 0 Sodium 137 Potassium 2.8 L Chloride 102 Carbon Dioxide 33 H BUN < 2 L Creatinine 0.43 L Estimated GFR > 60 BUN/Creatinine Ratio 4.7 L Glucose 110 H Calcium 7.8 L Magnesium 1.4 L PFSH Medical History (Updated 01/29/22 @ 00:01 by ) Clostridium difficile diarrhea Neuroendocrine tumor of pancreas No significant medical problems Surgical History (Updated 01/24/22 @ 02:02 by WILMER Thibodeaux) H/O Whipple procedure History of cholecystectomy Hx of bilateral oophorectomy Hx of umbilical hernia repair Family History (Updated 01/24/22 @ 01:36 by WILMER Thibodeaux) Mother Alcoholism Sister Alive and well Father Medical history unknown Social History household members: children Smoking Status: Never smoker substance use type: does not use Assessment & Plan Assessment & Plan narrative: ?1.? Postoperative nausea/ vomiting /abdominal pain Patient had neuroendocrine tumor which resulted in Whipple procedure which was done December 13, 2021.? No complications. There is concern is for potential ga stritis or gastroparesis.? She remains on at PPI.? Continue Reglan.? On full liquid. IV fluid rate was decreased from 125 mL/hour yesterday to 75 mL/hour.? At this time, she is still not taking in enough orally to saline lock her IV.? IV access has been challenging.? Continue to follow as patient tolerates increase in diet. ? 2.? Hypomagnesemia Magnesium was low on January 26.? Received repletion.? Remains low again today at 1.4. Will do further repletion as needed. Follow magnesium level in the morning after repletion already completed today. ? 3.? Hypokalemia Potassium was low on January 26.? Received repletion.? Follow-up labs tomorrow. Potassium remains low at 2.8 and needs further repletion. Follow potassium in the morning after repletion earlier today. ? 4. Hypoglycemia Improved after initiating D5 in her IV fluids. ? 5.? Neuroendocrine tumor status post Whipple procedure Incision is healing well.? Will follow-up with her surgeon after discharge. ? 6.? Dilated pelvic vasculature Presently asymptomatic.? As noted, she has not had return of regular menses since surgery.? This is likely a stress-induced phenomenon.? No symptoms of pelvic congestion. ? 7. History of DVT ?was on apixaban.? This is not an active medication at this time. ?code status ?full ?prophylaxis ? On heparin. For prophylaxis and history of DVT. ?Disposition Once patient is able to adequately me her hydration needs and tolerate some caloric intake, she will be able to discharge home.? Time Spent With Patient Critical Care time: I spent a total of [] minutes of critical care time on this patient's care today; this time is exclusive of procedural time. Quality VTE Deep Vein Thrombosis/Pulmonary Embolism Present on Admission: No
[2022-01-29] MEDS: MORPHINE 2 MG/ML INJ IV (21:47)
[2022-01-30 02:10] VITALS: BP 101/44; PULSE 80; RESP 18; TEMP 36.9; O2SAT 96
[2022-01-30] MEDS: MORPHINE 2 MG/ML INJ IV ×2 (02:19→08:19)
[2022-01-30 05:48] LABS: Alanine Aminotransferase 34 IU/L (<35); Albumin 2.6 g/dL (3.5-5.0); Albumin Globulin Ratio 1.2 (1.0-2.8); Alkaline Phosphatase 56 U/L (38-126); Aspartate Aminotransferase 37 IU/L (14-36); Bilirubin Total 0.3 mg/dL (0.2-1.3); Calcium 7.6 mg/dL (8.4-10.2); Carbon Dioxide 30 mmol/L (22-32); Chloride 106 mmol/L (98-107); Estimated Glomerular Filt Rate > 60 mL/min (>60); Globulin 2.2 g/dL (1.7-4.1); Glucose 111 mg/dL (70-100); HEMOLYSIS < 15 (0-50); Potassium 3.1 mmol/L (3.4-5.1); Sodium 137 mmol/L (137-145); Total Protein 4.8 g/dL (6.3-8.2)
[2022-01-30 05:49] LABS: Magnesium 1.9 mg/dL (1.6-2.3)
[2022-01-30 05:51] LABS: BUN Creatinine Ratio 4.5 (6-22); Blood Urea Nitrogen < 2 mg/dL (7-17)
--- NOTE | 2022-01-30 06:34 | PC.NURSE ---
End of shift. Care of patient from . AAOX4, good pain control with Morphine 2mg IV X2. Patient refused to take oral medications because they cause her to have nausea. Slept well during the night.
[2022-01-30 08:03] VITALS: RESP 16; O2SAT 96
[2022-01-30] MEDS: PANTOPRAZOLE 40 MG VIAL IV (08:23)
[2022-01-30] MEDS: DEXTROSE 5%-0.9% NS 1,000 ML 75 ML IV ×2 (08:28→22:12)
[2022-01-30] MEDS: METOCLOPRAMIDE 10 MG/2 ML INJ IV ×2 (08:28→14:09)
[2022-01-30] MEDS: HEPARIN 5,000 UNIT/ML VIAL 5000 UNIT SUBCUT ×2 (08:32→22:11)
[2022-01-30] MEDS: LORazepam 2 MG/ML INJ 0.5 MG IV ×2 (09:17→15:21)
[2022-01-30] MEDS: OXYCODONE IR 5 MG TABLET PO ×3 (09:18→22:10)
[2022-01-30] MEDS: DOCUSATE 100 MG CAPSULE PO (09:23)
[2022-01-30 12:00] VITALS: BP 103/60; PULSE 75; RESP 18; TEMP 37; O2SAT 99
--- NOTE | 2022-01-30 12:20 | DIET.CONS2 ---
Addendum entered by Lucia Cole 01/30/22 17:29: Pt had 1/2 oatmeal, liberalizing to general low fat diet for increased flexibility for meal ordering based on what pt tolerates. Pt continuing to lose weight, weight today 62.5kg (-5.5% in 1w, severe). Original Note: Dietary Inpatient Consultation Note Admission Date: 01/23/2022 20:40 Pt not tolerating meaningful PO diet. Had emesis after smoothie yesterday, emesis after PO pills this am and did not eat breakfast. Pt fears she will get home and feel the same without improvement. Pt does have f/u in 4w with [place] Dietitian who is following her. Encouraged pt to call RD for quicker f/u. Changed pts weight, measure to am so she gets weighed daily. Consideration for temporary home TPN secondary to motility disturbance and severe weight loss s/p whipple. Pt trying non-fat milk and oatmeal for lunch today. RD standing by whether pt tolerating lunch. Diet: 01/28/22 Lunch Full Liquid Diet Diet Modifications: Nutrition Percent Meal Consumed 0% 01/29/22 09:00 Percent Meal Consumed 0% 01/28/22 18:00 Percent Meal Consumed 25% 01/28/22 14:06 Electronically Signed by: Lucia Cole 01/30/22 12:20 Clinical Dietitian [address] [address]
[2022-01-30] MEDS: POTASSIUM CHLORIDE IN WATER 10 MEQ/100 ML PIGGYBACK 100 MEQ IV ×4 (14:15→19:05)
--- NOTE | 2022-01-30 14:19 | CM.DPC ---
Discharge planning note: Met with patient briefly. She was admitted to on 01/23/22 for pain and nausea. She is s/p whipple procedure at [facility] on December 13, 2021 per notes. Her voice is soft and she speaks slowly. She is on a full liquid diet and able to eat 1/2 of her oatmeal today. She remains on IV fluids and nausea medications. Ambulating and I in room. She lives in [place] with her adolescent children. P: DCP to follow daily with plan to return home when medically stable. Identify support people in her life. Beatriz Philippe RN/DCP
--- NOTE | 2022-01-30 16:49 | PM.PN.1 ---
Subjective Subjective Interval history: Hospitalist follow-up visit. 41-year-old female with neuroendocrine tumor status post Whipple procedure in December who is presented to hospital 6 days ago. Admitted with nausea, vomiting, and abdominal pain.? She has continued to have some persistent nausea and did have some vomiting last evening. Has progressed to being able to order anything from the menu that she wants. Has tried oatmeal and that has been fine. Discussing with nursing at how to order more things that she thinks she would like. Exam Vital Signs (past 8 hours): - 01/30/22 12:00 Temperature 98.6 F Pulse Rate 75 Respiratory Rate 18 Blood Pressure 103/60 Pulse Oximetry 99 Oxygen Flow Rate 0 Oxygen Delivery Method Room Air Oxygen Flow Rate 0 Narrative Exam Narrative: GEN: ?Resting comfortably in bed in no apparent distress. You to join in conversation. HEENT: Pupils equal reactive to light extraocular movements is normal. Neck is supple. Trachea is midline. CHEST: Clear to auscultation. No wheezes or crackles. CV: Heart sounds S1 and S2 with no extra sounds or murmurs. ABD: Soft, moderately diffusely tender, nondistended, surgical incisions are healing well. Bowel sounds present. EXTR: Warm. Able to move all extremities volitionally. Peripheral pulses equal bilaterally. SKIN: warm and dry, no rash NEURO: Alert and oriented x 3, no localizing signs. Objective Labs Result Diagrams: 01/29/22 06:11 01/30/22 05:30 Labs: Laboratory Results - last 24 hr 01/30/22 01/30/22 05:30 05:30 Sodium 137 Potassium 3.1 L Chloride 106 Carbon Dioxide 30 BUN < 2 L Creatinine 0.44 L Estimated GFR > 60 BUN/Creatinine Ratio 4.5 L Glucose 111 H Calcium 7.6 L Magnesium 1.9 Total Bilirubin 0.3 AST 37 H ALT 34 Alkaline Phosphatase 56 Total Protein 4.8 L Albumin 2.6 L Globulin 2.2 Albumin/Globulin Ratio 1.2 PFSH Medical History (Updated 01/29/22 @ 00:01 by ) Clostridium difficile diarrhea Neuroendocrine tumor of pancreas No significant medical problems Surgical History (Updated 01/24/22 @ 02:02 by WILMER Thibodeaux) H/O Whipple procedure History of cholecystectomy Hx of bilateral oophorectomy Hx of umbilical hernia repair Family History (Updated 01/24/22 @ 01:36 by WILMER Thibodeaux) Mother Alcoholism Sister Alive and well Father Medical history unknown Social History household members: children Smoking Status: Never smoker substance use type: does not use Assessment & Plan Assessment & Plan narrative: ?1.? Postoperative nausea/ vomiting /abdominal pain Patient had neuroendocrine tumor which resulted in Whipple procedure which was done December 13, 2021.? No complications.? There is concern is for potential gastritis or gastroparesis.? She remains on at PPI.? Continue Reglan.? Beginning to walk more food choices. Will monitor nausea vomiting. ? 2.? Hypomagnesemia Magnesium was low on January 26.? Received repletion.? Has improved to normal level of 1.9 measured today. And continued follow-up to ensure stability. ? 3.? Hypokalemia Potassium was low on January 26.? Received repletion.? Follow-up labs today. Potassium still remains low at 3.1. Continue to replace. Continue to follow. ? 4. Hypoglycemia Improved after initiating D5 in her IV fluids. ? 5.? Neuroendocrine tumor status post Whipple procedure Incision is healing well.? Will follow-up with her surgeon after discharge. ? 6.? Dilated pelvic vasculature Presently asymptomatic.? As noted, she has not had return of regular menses since surgery.? This is likely a stress-induced phenomenon.? No symptoms of pelvic congestion. ? 7. History of DVT ?was on apixaban.? This is not an active medication at this time. ?code status ?full ?prophylaxis ? On heparin.? For prophylaxis and history of DVT. ?Disposition Once patient is able to adequately meet her hydration needs and tolerate some caloric intake, she will be able to discharge home Time Spent With Patient Critical Care time: I spent a total of [] minutes of critical care time on this patient's care today; this time is exclusive of procedural time. Quality VTE Deep Vein Thrombosis/Pulmonary Embolism Present on Admission: No
[2022-01-30 18:00] VITALS: BP 127/66; PULSE 75; RESP 17; TEMP 36.9; O2SAT 99
[2022-01-30 19:40] VITALS: BP 101/53; PULSE 74; RESP 18; TEMP 36.6; O2SAT 97
[2022-01-31] MEDS: OXYCODONE IR 5 MG TABLET PO ×4 (04:04→22:07)
[2022-01-31] MEDS: METOCLOPRAMIDE 10 MG/2 ML INJ IV ×3 (04:05→16:40)
[2022-01-31 05:44] LABS: Add Manual Diff / Slide Review NO; Basophils Absolute Auto 0 /uL (0-100); Basophils Percent Auto 0.6 % (0-2); Eosinophils Absolute Auto 200 /uL (0-450); Eosinophils Percent Auto 5.3 % (2-4); Hematocrit 27.2 % (36-46); Lymphocytes Absolute Auto 900 /uL (1100-4500); Mean Corpuscular Hemoglobin 26.8 PG (26-34); Mean Corpuscular Volume 81.3 fL (80-100); Monocytes Absolute Auto 500 /uL (0-900); Monocytes Percent Auto 11.8 % (3-14); Neutrophils Absolute Auto 2300 /uL (1500-7000); Neutrophils Percent Auto 60.3 % (50-75); Platelet Count 121 X10^3/uL (150-400); Red Blood Cell Count 3.34 X10^6/uL (4.0-5.2); Red Cell Distribution Width 14.7 % (11.6-14.8); White Blood Cell Count 3.9 X10^3/uL (4.5-11.0)
[2022-01-31 05:52] LABS: Alanine Aminotransferase 38 IU/L (<35); Albumin 2.7 g/dL (3.5-5.0); Albumin Globulin Ratio 1.2 (1.0-2.8); Alkaline Phosphatase 61 U/L (38-126); Aspartate Aminotransferase 33 IU/L (14-36); Bilirubin Total 0.3 mg/dL (0.2-1.3); Calcium 7.7 mg/dL (8.4-10.2); Carbon Dioxide 28 mmol/L (22-32); Chloride 104 mmol/L (98-107); Estimated Glomerular Filt Rate > 60 mL/min (>60); Globulin 2.3 g/dL (1.7-4.1); Glucose 117 mg/dL (70-100); HEMOLYSIS < 15 (0-50); Magnesium 1.7 mg/dL (1.6-2.3); Phosphorous 3.4 mg/dL (2.5-4.5); Potassium 3.3 mmol/L (3.4-5.1); Sodium 137 mmol/L (137-145)
[2022-01-31 05:53] LABS: BUN Creatinine Ratio 4.5 (6-22); Blood Urea Nitrogen < 2 mg/dL (7-17)
[2022-01-31 06:00] VITALS: BP 95/59; PULSE 71; RESP 18; TEMP 36.4; O2SAT 96
--- NOTE | 2022-01-31 06:29 | PC.NURSE ---
End of shift care. Care of patient 1900-to 0730. AAOX3, Good pain control with oxycodone 5mg po X2, c/o of nausea once, relieved with Reglan. Up to BR independently. Slept will during the night.
[2022-01-31] MEDS: PANTOPRAZOLE 40 MG VIAL IV (09:47)
[2022-01-31] MEDS: DOCUSATE 100 MG CAPSULE PO (09:47)
[2022-01-31] MEDS: HEPARIN 5,000 UNIT/ML VIAL 5000 UNIT SUBCUT ×2 (09:47→20:28)
[2022-01-31] MEDS: POTASSIUM CHLORIDE 20 MEQ TAB 40 MEQ PO ×2 (10:03→16:39)
[2022-01-31] MEDS: LORazepam 2 MG/ML INJ 0.5 MG IV ×2 (11:08→18:24)
[2022-01-31 12:00] VITALS: BP 99/60; PULSE 77; RESP 20; TEMP 36.8; O2SAT 99
[2022-01-31] MEDS: DEXTROSE 5%-0.9% NS 1,000 ML 75 ML IV (12:46)
--- NOTE | 2022-01-31 16:20 | DIET.CONS2 ---
Dietary Inpatient Consultation Note Admission Date: 01/23/2022 20:40 Pt slept through breakfast and lunch, secondary to being given ativan. Pt ordered turkey, mashed potatoes, and carrots for dinner and eggs c hashed browns for breakfast tomorrow. Diet: 01/30/22 Dinner General (Regular) Diet Diet Modifications: low fat Nutrition Percent Meal Consumed 20 01/31/22 12:58 Percent Meal Consumed 0% 01/31/22 10:10 Percent Meal Consumed 75% 01/30/22 18:00 Percent Meal Consumed 25% 01/30/22 12:00 Percent Meal Consumed 50% 01/30/22 10:20 Electronically Signed by: Lucia Cole 01/31/22 16:20 Clinical Dietitian [address] [id number]
[2022-01-31 18:00] VITALS: BP 112/48; PULSE 90; RESP 17; TEMP 36.7; O2SAT 96
--- NOTE | 2022-01-31 18:25 | P.PN_ITS ---
Subjective Subjective Date Patient Seen: 01/31/22 Interval history: Hospitalist follow-up visit. Patient is improving but is very frustrating for based on the length of time that it is taking. Patient is in a very teary removed today just realizing how long this is taking. Has been able to eat a meal last evening with turkey potatoes and vegetables and similar tonight. Has not vomited only been nauseous. Still very frustrated for the patient. Exam Vital Signs (past 8 hours): - 01/31/22 12:00 Temperature 98.2 F Pulse Rate 77 Respiratory Rate 20 Blood Pressure 99/60 Pulse Oximetry 99 Oxygen Flow Rate 0 Oxygen Delivery Method Room Air Oxygen Flow Rate 0 Narrative Exam Narrative: Patient teary but alert and oriented. HEENT: Head normocephalic. Pupils equal reactive to light. Extraocular m ovements normal. Neck is supple. Trachea is midline. Cardiovascular: Heart sounds S1 and S2 with no extra sounds or murmurs. Respiratory: Chest is clear to auscultation. No wheezes or crackles. Gastrointestinal: Mild general tenderness. Noted scars. Musculoskeletal: Able to move all extremities volitionally. No localized drink deficits. Neuro: Normal sensation of all extremities. No localized neurological signs. Objective Labs Result Diagrams: 01/31/22 05:35 01/31/22 05:35 Labs: Laboratory Results - last 24 hr 01/31/22 01/31/22 05:35 05:35 WBC 3.9 L RBC 3.34 L Hgb 9.0 L Hct 27.2 L MCV 81.3 MCH 26.8 MCHC 33.0 RDW 14.7 Plt Count 121 L Neut % (Auto) 60.3 Lymph % (Auto) 22.0 L Esmeralda % (Auto) 11.8 Eos % (Auto) 5.3 H Baso % (Auto) 0.6 Neut # (Auto) 2300 Lymph # (Auto) 900 L Esmeralda # (Auto) 500 Eos # (Auto) 200 Baso # (Auto) 0 Sodium 137 Potassium 3.3 L Chloride 104 Carbon Dioxide 28 BUN < 2 L Creatinine 0.44 L Estimated GFR > 60 BUN/Creatinine Ratio 4.5 L Glucose 117 H Calcium 7.7 L Phosphorus 3.4 Magnesium 1.7 Total Bilirubin 0.3 AST 33 ALT 38 H Alkaline Phosphatase 61 Total Protein 5.0 L Albumin 2.7 L Globulin 2.3 Albumin/Globulin Ratio 1.2 [facility] Medical History (Updated 01/29/22 @ 00:01 by ) Clostridium difficile diarrhea Neuroendocrine tumor of pancreas No significant medical problems Surgical History (Updated 01/24/22 @ 02:02 by WILMER Thibodeaux) H/O Whipple procedure History of cholecystectomy Hx of bilateral oophorectomy Hx of umbilical hernia repair Family History (Updated 01/24/22 @ 01:36 by WILMER Thibodeaux) Mother Alcoholism Sister Alive and well Father Medical history unknown Social History household members: children Smoking Status: Never smoker substance use type: does not use Assessment & Plan Assessment & Plan narrative: ?1.? Postoperative nausea/ vomiting /abdominal pain Patient had neuroendocrine tumor which resulted in Whipple procedure which was done December 13, 2021.? No complications.? There is concern is for potential gastritis or gastroparesis that appears to be improving..? She remains on at PPI.? Continue Reglan.? Beginning to eat more food choices.? Will monitor nausea /vomiting. ? 2.? Hypomagnesemia Magnesium was low on January 26.? Received repletion.? Has improved to normal level of 1.7 measured today.? And continued follow-up to ensure stability. ? 3.? Hypokalemia Potassium was low on January 26.? Received repletion.? Follow-up labs today.? Potassium still remains low at 3.3.? Continue to replace.? Continue to follow. ? 4. Hypoglycemia Improved after initiating D5 in her IV fluids. ? 5.? Neuroendocrine tumor status post Whipple procedure Incision is healing well.? Will follow-up with her surgeon after discharge. ? 6.? Dilated pelvic vasculature Presently asymptomatic.? As noted, she has not had return of regular menses since surgery.? This is likely a stress-induced phenomenon.? No symptoms of pelvic congestion. ? 7. History of DVT ?was on apixaban.? This is not an active medication at this time because anticoagulation is with heparin. ?code status ?full ?prophylaxis ? On heparin.? For prophylaxis and history of DVT. ?Disposition Once patient is able to adequately meet her hydration needs and tolerate some caloric intake, she will be able to discharge home Time Spent With Patient Critical Care time: I spent a total of [] minutes of critical care time on this patient's care to day; this time is exclusive of procedural time. Quality VTE Deep Vein Thrombosis/Pulmonary Embolism Present on Admission: No
[2022-01-31 22:14] VITALS: BP 102/47; PULSE 86; RESP 18; TEMP 36.9; O2SAT 98
[2022-02-01] MEDS: LORazepam 2 MG/ML INJ 0.5 MG IV ×3 (01:24→20:17)
[2022-02-01] MEDS: DEXTROSE 5%-0.9% NS 1,000 ML 75 ML IV ×2 (01:24→13:01)
[2022-02-01] MEDS: PANTOPRAZOLE DR 40 MG TABLET PO (05:49)
[2022-02-01 06:04] LABS: Add Manual Diff / Slide Review NO; Basophils Absolute Auto 0 /uL (0-100); Basophils Percent Auto 1.1 % (0-2); Eosinophils Absolute Auto 200 /uL (0-450); Eosinophils Percent Auto 5.8 % (2-4); Hematocrit 27.2 % (36-46); Lymphocytes Absolute Auto 1000 /uL (1100-4500); Lymphocytes Percent Auto 32.9 % (25-40); Mean Corpuscular Hemoglobin 26.6 PG (26-34); Mean Corpuscular Volume 80.8 fL (80-100); Monocytes Absolute Auto 500 /uL (0-900); Monocytes Percent Auto 15.2 % (3-14); Neutrophils Absolute Auto 1400 /uL (1500-7000); Platelet Count 117 X10^3/uL (150-400); Red Blood Cell Count 3.37 X10^6/uL (4.0-5.2); Red Cell Distribution Width 14.9 % (11.6-14.8); White Blood Cell Count 3.1 X10^3/uL (4.5-11.0)
[2022-02-01 06:19] LABS: Alanine Aminotransferase 32 IU/L (<35); Albumin 2.7 g/dL (3.5-5.0); Albumin Globulin Ratio 1.2 (1.0-2.8); Alkaline Phosphatase 57 U/L (38-126); Aspartate Aminotransferase 27 IU/L (14-36); Bilirubin Total 0.2 mg/dL (0.2-1.3); Calcium 7.9 mg/dL (8.4-10.2); Carbon Dioxide 27 mmol/L (22-32); Chloride 105 mmol/L (98-107); Estimated Glomerular Filt Rate > 60 mL/min (>60); Globulin 2.2 g/dL (1.7-4.1); Glucose 114 mg/dL (70-100); HEMOLYSIS < 15 (0-50); Magnesium 1.6 mg/dL (1.6-2.3); Potassium 3.8 mmol/L (3.4-5.1); Sodium 136 mmol/L (137-145); Total Protein 4.9 g/dL (6.3-8.2)
[2022-02-01 06:30] VITALS: BP 92/38; PULSE 71; RESP 12; TEMP 36.3; O2SAT 96
[2022-02-01 06:52] LABS: Blood Urea Nitrogen < 2 mg/dL (7-17)
[2022-02-01] MEDS: OXYCODONE IR 5 MG TABLET PO ×3 (09:09→18:50)
[2022-02-01] MEDS: HEPARIN 5,000 UNIT/ML VIAL 5000 UNIT SUBCUT ×2 (09:10→20:20)
[2022-02-01] MEDS: METOCLOPRAMIDE 10 MG/2 ML INJ IV ×3 (09:10→23:49)
[2022-02-01] MEDS: DOCUSATE 100 MG CAPSULE PO (09:10)
[2022-02-01] MEDS: MAGNESIUM CHLORIDE 64 MG TABLET 128 MG PO (11:25)
[2022-02-01 12:00] VITALS: BP 103/62; PULSE 73; RESP 18; TEMP 36.7; O2SAT 97
--- NOTE | 2022-02-01 15:13 | PC.NURSE ---
Day shift: Pt states I just threw up my lunch in the bathroom garbage. Given Reglan per MAR at this time.
[2022-02-01] MEDS: ONDANSETRON 4 MG/2 ML INJ IV (17:07)
[2022-02-01] MEDS: MORPHINE 2 MG/ML INJ IV ×2 (17:16→21:24)
[2022-02-01 18:00] VITALS: BP 112/68; PULSE 72; RESP 17; TEMP 36.7; O2SAT 98
--- NOTE | 2022-02-01 18:20 | PM.PN.1 ---
Subjective Subjective Interval history: Hospitalist follow-up visit. Patient has been vomiting multiple times today. Having difficulty keeping down breakfast lunch and dinner. I am in agreement with the nutrition diagnosis of severe acute protein calorie malnutrition. This impacts acute care of this patient in that it is necessary to find ways to limit the patient's nausea and vomiting in order to provide her with baseline nutrition at this time. So far the patient has not had consistent days of management of nausea and vomiting so that adequate nutrition can be achieved. Patient remains frustrated in her lack of progress with controlling nausea and vomiting. Discussed with her today that a trial of a scopolamine patch in conjunction with her current medication will be tried. Patient is in agreement to this. Not complaining of any fever chills diaphoresis. No chest pain or palpitations. Has abdominal discomfort especially prior to vomiting. No problems with movement of any extremities. No neurological symptoms and extremities. No new skin lesions or rashes. Exam Vital Signs (past 8 hours): - 02/01/22 12:00 Temperature 98.1 F Pulse Rate 73 Respiratory Rate 18 Blood Pressure 103/62 Pulse Oximetry 97 Oxygen Flow Rate 0 Oxygen Delivery Method Room Air Oxygen Flow Rate 0 Objective Labs Result Diagrams: 02/01/22 06:00 02/01/22 06:00 Labs: Laboratory Results - last 24 hr 02/01/22 02/01/22 06:00 06:00 WBC 3.1 L RBC 3.37 L Hgb 9.0 L Hct 27.2 L MCV 80.8 MCH 26.6 MCHC 33.0 RDW 14.9 H Plt Count 117 L Neut % (Auto) 45.0 L Lymph % (Auto) 32.9 [place] % (Auto) 15.2 H Eos % (Auto) 5.8 H Baso % (Auto) 1.1 Neut # (Auto) 1400 L Lymph # (Auto) 1000 L [place] # (Auto) 500 Eos # (Auto) 200 Baso # (Auto) 0 Sodium 136 L Potassium 3.8 Chloride 105 Carbon Dioxide 27 BUN < 2 L Creatinine 0.40 L Estimated GFR > 60 BUN/Creatinine Ratio 5.0 L Glucose 114 H Calcium 7.9 L Magnesium 1.6 Total Bilirubin 0.2 AST 27 ALT 32 Alkaline Phosphatase 57 Total Protein 4.9 L Albumin 2.7 L Globulin 2.2 Albumin/Globulin Ratio 1.2 [facility] Medical History (Updated 01/29/22 @ 00:01 by ) Clostridium difficile diarrhea Neuroendocrine tumor of pancreas No significant medical problems Surgical History (Updated 01/24/22 @ 02:02 by WILMER Thibodeaux) H/O Whipple procedure History of cholecystectomy Hx of bilateral oophorectomy Hx of umbilical hernia repair Family History (Updated 01/24/22 @ 01:36 by WILMER Thibodeaux) Mother Alcoholism Sister Alive and well Father Medical history unknown Social History household members: children Smoking Status: Never smoker substance use type: does not use Assessment & Plan Assessment & Plan narrative: ?1.? Postoperative nausea/ vomiting /abdominal pain Patient had neuroendocrine tumor which resulted in Whipple procedure which was done December 13, 2021.? No complications.? There is concern is for potential gastritis or gastroparesis that appears to be improving. Having a setback today with persistent nausea vomiting. She remains on at PPI.? Continue Reglan.? Beginning to eat more food choices.? Will monitor nausea /vomiting. Initiated scopolamine patch and will determine over the next 72 hours if this is effective. ? 2.? Hypomagnesemia Magnesium was low on January 26.? Received repletion.? Has improved to normal level of 1.6 measured today.? And continued follow-up to ensure stability. ? 3.? Hypokalemia Potassium was low on January 26.? Received repletion.? Potassium today normal with 3.8. Continue to replace.? Continue to follow. ? 4. Hypoglycemia Improved after initiating D5 in her IV fluids. ? 5.? Neuroendocrine tumor status post Whipple procedure Incision is healing well.? Will follow-up with her surgeon after discharge. ? 6.? Dilated pelvic vasculature Presently asymptomatic.? As noted, she has not had return of regular menses since surgery.? This is likely a stress-induced phenomenon.? No symptoms of pelvic congestion. ? 7. History of DVT ?was on apixaban.? This is not an active medication at this time because anticoagulation is with heparin. ?code status ?full ?prophylaxis ? On heparin.? For prophylaxis and history of DVT. Patient remains having it when adequate improvement and requires active, continue tenuous management. Is inpatient appropriate. ?Disposition Once patient is able to adequately meet her hydration needs and tolerate some caloric intake, she will be able to discharge home Time Spent With Patient Critical Care time: I spent a total of [] minutes of critical care time on this patient's care today; this time is exclusive of procedural time. Quality VTE Deep Vein Thrombosis/Pulmonary Embolism Present on Admission: No
[2022-02-01] MEDS: SCOPOLAMINE 1 PATCH TOP (18:49)
[2022-02-01 19:39] VITALS: BP 119/78; PULSE 97; RESP 16; TEMP 36.6; O2SAT 98
--- NOTE | 2022-02-02 00:17 | PC.NURSE ---
Patient continue to C/O nausea & abdominal pain. WILMER Santos notified. Lorazepam order changed to 1 mg. every 4 hours. Medicated with Reglan 10 mg. IVP @ 8466. Will monitor.
[2022-02-02] MEDS: MORPHINE 2 MG/ML INJ IV ×5 (01:34→22:13)
[2022-02-02] MEDS: PROMETHAZINE 12.5 MG SUPP PR (01:42)
[2022-02-02 01:45] VITALS: BP 139/88; PULSE 87; RESP 16; TEMP 37.1; O2SAT 96
[2022-02-02] MEDS: LORazepam 2 MG/ML INJ 1 MG IV ×2 (06:12→16:20)
[2022-02-02] MEDS: DEXTROSE 5%-0.9% NS 1,000 ML 75 ML IV ×2 (06:14→19:14)
[2022-02-02 07:07] LABS: Add Manual Diff / Slide Review NO; Basophils Absolute Auto 0 /uL (0-100); Basophils Percent Auto 0.5 % (0-2); Eosinophils Absolute Auto 0 /uL (0-450); Eosinophils Percent Auto 0.7 % (2-4); Hematocrit 32.4 % (36-46); Hemoglobin 10.8 g/dL (12.0-16.0); Lymphocytes Absolute Auto 800 /uL (1100-4500); Lymphocytes Percent Auto 20.6 % (25-40); Mean Corpuscular HGB Conc 33.4 % (30-36); Mean Corpuscular Hemoglobin 26.8 PG (26-34); Mean Corpuscular Volume 80.3 fL (80-100); Monocytes Absolute Auto 600 /uL (0-900); Monocytes Percent Auto 14.9 % (3-14); Neutrophils Absolute Auto 2500 /uL (1500-7000); Neutrophils Percent Auto 63.3 % (50-75); Platelet Count 148 X10^3/uL (150-400); Red Blood Cell Count 4.03 X10^6/uL (4.0-5.2); Red Cell Distribution Width 14.9 % (11.6-14.8); White Blood Cell Count 3.9 X10^3/uL (4.5-11.0)
[2022-02-02 07:19] LABS: Alanine Aminotransferase 33 IU/L (<35); Albumin 3.5 g/dL (3.5-5.0); Albumin Globulin Ratio 1.5 (1.0-2.8); Alkaline Phosphatase 76 U/L (38-126); Aspartate Aminotransferase 22 IU/L (14-36); Bilirubin Total 0.4 mg/dL (0.2-1.3); Calcium 8.6 mg/dL (8.4-10.2); Carbon Dioxide 27 mmol/L (22-32); Chloride 102 mmol/L (98-107); Estimated Glomerular Filt Rate > 60 mL/min (>60); Globulin 2.4 g/dL (1.7-4.1); Glucose 132 mg/dL (70-100); HEMOLYSIS < 15 (0-50); Sodium 136 mmol/L (137-145); Total Protein 5.9 g/dL (6.3-8.2)
[2022-02-02 07:20] LABS: Magnesium 1.7 mg/dL (1.6-2.3)
[2022-02-02 07:23] LABS: BUN Creatinine Ratio 4.9 (6-22); Blood Urea Nitrogen < 2 mg/dL (7-17)
[2022-02-02 07:34] LABS: C-Reactive Protein Quant < 0.5 mg/dL (<1.0)
[2022-02-02] MEDS: HEPARIN 5,000 UNIT/ML VIAL 5000 UNIT SUBCUT ×2 (09:48→21:00)
[2022-02-02] MEDS: MAGNESIUM SULFATE 2 GM/50 ML PIGGYBACK IV (09:48)
[2022-02-02] MEDS: METOCLOPRAMIDE 10 MG/2 ML INJ IV (10:03)
--- NOTE | 2022-02-02 11:22 | DIET.CONS2 ---
Dietary Inpatient Consultation Note Admission Date: 01/23/2022 20:40 Pt continues to have poor POs and poorly controlled N/V despite [address] and kitchen have worked closely c pt to optimize her diet, however sx remain. Recc gastric emptying study, medical management of gastroparesis if found with supportive nutrition therapy or even temporary [place] or TPN nutrition support in this patient with severe acute weight loss and ongoing N/V since whipple procedure 6w ago. Diet: 01/30/22 Dinner General (Regular) Diet Diet Modifications: low fat Nutrition Percent Meal Consumed refused breakfast 02/02/22 10:18 Percent Meal Consumed refused meal 02/01/22 18:00 Percent Meal Consumed 50% 02/01/22 14:00 Percent Meal Consumed 50% 02/01/22 09:02 Percent Meal Consumed 50% 01/31/22 18:00 Percent Meal Consumed 20 01/31/22 12:58 Electronically Signed by: Lucia Cole 02/02/22 11:22 Clinical Dietitian [address] [address]
--- NOTE | 2022-02-02 15:06 | PM.PN.1 ---
Subjective Subjective Interval history: Hospitalist follow-up visit. Patient notes ongoing nausea, but was able to tolerate slight po intake today. Exam Vital Signs (past 8 hours): Oxygen Delivery Method Room Air Oxygen Flow Rate 0 Narrative Exam Narrative: Patient alert and oriented. HEENT: Head normocephalic. Pupils equal reactive to light. Extraocular movements normal. Neck is supple. Trachea is midline. Cardiovascular: Heart sounds S1 and S2 with no extra sounds or murmurs. Respiratory: Chest is clear to auscultation. No wheezes or crackles. Gastrointestinal: Mild general tenderness. Noted scars. Musculoskeletal: Able to move all extremities volitionally. Neuro: Normal sensation of all extremities. No localized neurological signs. Objective Labs Result Diagrams: 02/02/22 06:32 02/02/22 06:32 Labs: Laboratory Results - last 24 hr 02/02/22 02/02/22 02/02/22 06:32 06:32 06:32 WBC 3.9 L RBC 4.03 Hgb 10.8 L Hct 32.4 L MCV 80.3 MCH 26.8 MCHC 33.4 RDW 14.9 H Plt Count 148 L Neut % (Auto) 63.3 Lymph % (Auto) 20.6 L [place] % (Auto) 14.9 H Eos % (Auto) 0.7 L Baso % (Auto) 0.5 Neut # (Auto) 2500 Lymph # (Auto) 800 L [place] # (Auto) 600 Eos # (Auto) 0 Baso # (Auto) 0 Sodium 136 L Potassium 4.0 Chloride 102 Carbon Dioxide 27 BUN < 2 L Creatinine 0.41 L Estimated GFR > 60 BUN/Creatinine Ratio 4.9 L Glucose 132 H Calcium 8.6 Magnesium 1.7 Total Bilirubin 0.4 AST 22 ALT 33 Alkaline Phosphatase 76 C-Reactive Protein < 0.5 Total Protein 5.9 L Albumin 3.5 Globulin 2.4 Albumin/Globulin Ratio 1.5 PFSH Medical History Clostridium difficile diarrhea Neuroendocrine tumor of pancreas No significant medical problems Surgical History H/O Whipple procedure History of cholecystectomy Hx of bilateral oophorectomy Hx of umbilical hernia repair Family History Mother Alcoholism Sister Alive and well Father Medical history unknown Social History household members: children Smoking Status: Never smoker substance use type: does not use Assessment & Plan Assessment & Plan narrative: ?1.? Postoperative nausea/ vomiting /abdominal pain Patient had neuroendocrine tumor s/p Whipple procedure which was done December 13, 2021.? No complications.? There is concern is for potential gastritis or gastroparesis that appears to be improving. Continues to have persistent NV. She remains on at PPI.? Zofran inffective, reglan modestly effective. Will trial zyprexa for ongoing nausea. If still with NV, may consider barium swallow with small bowel follow through vs EGD to assess for obstruction. ? 2.? Hypomagnesemia -Mag low at 1.7, replete and monitor ? 3.? Hypokalemia -Replete and monitor ? 4. Hypoglycemia Improved after initiating D5 in her IV fluids. ? 5.? Neuroendocrine tumor status post Whipple procedure Incision is healing well.? Will follow-up with her surgeon after discharge. ? 6.? Dilated pelvic vasculature Presently asymptomatic.? As noted, she has not had return of regular menses since surgery.? This is likely a stress-induced phenomenon.? No symptoms of pelvic congestion. ? 7. History of DVT ?was on apixaban.? This is not an active medication at this time because anticoagulation is with heparin. ?code status ?full ?prophylaxis ? On heparin.? For prophylaxis and history of DVT. Patient remains having it when adequate improvement and requires active, continue tenuous management. Is inpatient appropriate. ?Disposition Once patient is able to adequately meet her hydration needs and tolerate some caloric intake, she will be able to discharge home with f/u at surgery. Time Spent With Patient Critical Care time: I spent a total of [] minutes of critical care time on this patient's care today; this time is exclusive of procedural time. Quality VTE Deep Vein Thrombosis/Pulmonary Embolism Present on Admission: No
[2022-02-02 18:00] VITALS: BP 102/63; PULSE 72; RESP 18; TEMP 36.7; O2SAT 98
[2022-02-02] MEDS: ONDANSETRON 4 MG/2 ML INJ IV (18:16)
[2022-02-02] MEDS: diphenhydrAMINE 50 MG/ML VIAL 25 MG IV (21:02)
[2022-02-03] VITALS: BP 109/63; PULSE 92; RESP 19; TEMP 37.3; O2SAT 96
[2022-02-03] MEDS: MORPHINE 2 MG/ML INJ IV ×3 (03:56→13:40)
[2022-02-03] MEDS: ONDANSETRON 4 MG/2 ML INJ IV ×3 (04:04→22:01)
[2022-02-03 06:00] VITALS: BP 114/65; PULSE 81; RESP 18; TEMP 36.8; O2SAT 96
--- NOTE | 2022-02-03 08:01 | PM.PN.1 ---
Subjective Subjective Interval history: Hospitalist follow-up visit. Patient having increased pain and persistent nausea. She is frustrated with lack of progress which is understandable. Exam Vital Signs (past 8 hours): - 02/03/22 06:00 Temperature 98.2 F Pulse Rate 81 Respiratory Rate 18 Blood Pressure 114/65 Pulse Oximetry 96 Oxygen Delivery Method Room Air Oxygen Flow Rate 0 Narrative Exam Narrative: Patient alert and oriented. Tearful today. HEENT: Head normocephalic. Pupils equal reactive to light. Extraocular movements normal. Neck is supple. Trachea is midline. Cardiovascular: Heart sounds S1 and S2 with no extra sounds or murmurs. Respiratory: Chest is clear to auscultation. No wheezes or crackles. Gastrointestinal: Epigastric pain to palpation as well as right upper quadrant pain. Noted incisions of upper abdomen which are intact without dehiscence. Musculoskeletal: Able to move all extremities volitionally. Neuro: Normal sensation of all extremities. No localized neurological signs. Objective Labs Result Diagrams: 02/02/22 06:32 02/03/22 15:14 [facility] Medical History Clostridium difficile diarrhea Neuroendocrine tumor of pancreas No significant medical problems Surgical History H/O Whipple procedure History of cholecystectomy Hx of bilateral oophorectomy Hx of umbilical hernia repair Family History Mother Alcoholism Sister Alive and well Father Medical history unknown Social History household members: children Smoking Status: Never smoker substance use type: does not use Assessment & Plan Assessment & Plan narrative: ?1.? Postoperative nausea/ vomiting /abdominal pain Patient had neuroendocrine tumor s/p Whipple procedure which was done December 13, 2021.? No complications immediately postop the patient was doing well for some time but then developed epigastric abdominal pain with persistent nausea and vomiting. -trial of PPI and multiple antiemetics not helping nausea and vomiting, patient throwing up at least 1 meal per day and otherwise not eating -call made to [facility] general surgery and spoke with Dr. Mancia colleague of Dr. Mendez who performed her Whipple -[facility] general surgery recommended starting TPN, PPI IV b.i.d., CMP, albumin and pre-albumin and performing EGD to look for anastomotic ulcer versus stricture -PICC ordered -NPO at midnight for EGD tomorrow -Switch morphine to dilaudid for better pain control ? 2.? Hypomagnesemia -Mag low at 1.7, replete and monitor ? 3.? Hypokalemia -Replete and monitor ? 4. Hypoglycemia Improved after initiating D5 in her IV fluids. ? 5.? Neuroendocrine tumor status post Whipple procedure Incision is healing well.? Will follow-up with her surgeon after discharge. ? 6.? Dilated pelvic vasculature Presently asymptomatic.? As noted, she has not had return of regular menses since surgery.? This is likely a stress-induced phenomenon.? No symptoms of pelvic congestion. ? 7. History of DVT ?was on apixaban.? This is not an active medication at this time because anticoagulation is with heparin. ?code status ?full ?prophylaxis ? On heparin.? For prophylaxis and history of DVT. Patient remains having it when adequate improvement and requires active, continue tenuous management. Is inpatient appropriate. ?Disposition Once patient is able to adequately meet her hydration needs and tolerate some caloric intake, she will be able to discharge home with f/u at surgery. Time Spent With Patient Critical Care time: I spent a total of [] minutes of critical care time on this patient's care today; this time is exclusive of procedural time. Quality VTE Deep Vein Thrombosis/Pulmonary Embolism Present on Admission: No
[2022-02-03] MEDS: PROMETHAZINE 12.5 MG SUPP PR (08:56)
[2022-02-03] MEDS: HEPARIN 5,000 UNIT/ML VIAL 5000 UNIT SUBCUT ×2 (08:56→20:36)
[2022-02-03] MEDS: DEXTROSE 5%-0.9% NS 1,000 ML 75 ML IV ×2 (09:05→22:56)
[2022-02-03 11:06] VITALS: BP 104/62; PULSE 65; RESP 16; TEMP 36.7; O2SAT 97
--- NOTE | 2022-02-03 12:10 | CM.DPC ---
DCP Cont: Per MD, pt continues to have n/v and not tolerating PO and therefore not stable for d/c to home yet. MD plans to consult with pt's initial Surgeon who completed the Whipple Procedure at [facility] as pt has not stabilized since her admission on 01/23/22. MD may also consider further imaging to determine any other source of n/v. Plan: SW to follow closely to determine etiology of pt's ongoing n/v and if pt stabilizes can likely return home with family. PRINCESS Gotti
[2022-02-03] MEDS: OLANZapine 10 MG VIAL 5 MG IM (13:56)
[2022-02-03] MEDS: PANTOPRAZOLE 40 MG VIAL IV ×2 (15:21→20:36)
[2022-02-03 15:33] LABS: Alanine Aminotransferase 33 IU/L (<35); Albumin 3.5 g/dL (3.5-5.0); Albumin Globulin Ratio 1.4 (1.0-2.8); Alkaline Phosphatase 82 U/L (38-126); Aspartate Aminotransferase 33 IU/L (14-36); Bilirubin Total 0.3 mg/dL (0.2-1.3); Calcium 8.5 mg/dL (8.4-10.2); Carbon Dioxide 29 mmol/L (22-32); Chloride 103 mmol/L (98-107); Estimated Glomerular Filt Rate > 60 mL/min (>60); Globulin 2.5 g/dL (1.7-4.1); Glucose 125 mg/dL (70-100); HEMOLYSIS < 15 (0-50); Potassium 3.7 mmol/L (3.4-5.1); Sodium 137 mmol/L (137-145)
[2022-02-03 15:40] LABS: BUN Creatinine Ratio 3.9 (6-22); Blood Urea Nitrogen 2 mg/dL (7-17); Prealbumin 17.4 mg/dL (17.6-36.0)
--- NOTE | 2022-02-03 16:51 | PC.NURSE ---
Day Shift Note Patient reports pain to abdomen continues as well as nausea, near constant. Reports morphine minimally effective as well as promethazine suppository and zofran. Reports nothing really works. Zyprexa given IM with no effect per pt. No PO intake. Plan for TPN tonight for nutrition after PICC line placement per MD orders. Up independently to bathroom, steady on feet. Call light within reach, using appropriately to make needs known.
[2022-02-03] MEDS: HYDROMORPHONE 2 MG INJ 1 MG IV ×2 (17:24→22:01)
[2022-02-03 17:55] VITALS: BP 138/81; PULSE 82; RESP 17; TEMP 36.7; O2SAT 97
--- NOTE | 2022-02-03 18:55 | DI.RAD.S_ITS ---
PROCEDURE: XR CHEST FOR PICC 1V INDICATIONS: picc verify please COMPARISON: [facility], , XR CHEST 1V, 01/23/2022, 16:39. FINDINGS: PICC was placed by the intravenous therapy team from the right side. Fluoroscopic spot film demonstrates the tip of PICC projecting to the area of SVC. IMPRESSION: Tip of PICC projects to the area of SVC. Dictated by: Rishabh Moreno M.D. on 02/03/2022 at 19:24 Approved by: Rishabh Moreno M.D. on 02/03/2022 at 19:24
[2022-02-03 20:00] VITALS: BP 138/91; PULSE 87; RESP 16; TEMP 36.2; O2SAT 97
[2022-02-03] MEDS: AA 5 %/CALCIUM/LYTES/DEXT 20 % 1,000 ML with MULTIVITAMIN 10 ML, TRACE ELEMENTS 1 ML 21 ML IV (20:37)
[2022-02-03 23:11] VITALS: BP 115/77; PULSE 85; RESP 16; TEMP 36.9; O2SAT 97
[2022-02-04] MEDS: HYDROMORPHONE 2 MG INJ 1 MG IV ×5 (04:55→22:21)
[2022-02-04 05:02] VITALS: BP 92/55; PULSE 57; RESP 16; TEMP 37.1; O2SAT 98
[2022-02-04 05:08] LABS: Alanine Aminotransferase 27 IU/L (<35); Albumin 2.8 g/dL (3.5-5.0); Albumin Globulin Ratio 1.3 (1.0-2.8); Alkaline Phosphatase 56 U/L (38-126); Aspartate Aminotransferase 29 IU/L (14-36); BUN Creatinine Ratio 8.3 (6-22); Bilirubin Total 0.3 mg/dL (0.2-1.3); Blood Urea Nitrogen 4 mg/dL (7-17); Calcium 7.9 mg/dL (8.4-10.2); Carbon Dioxide 30 mmol/L (22-32); Chloride 103 mmol/L (98-107); Estimated Glomerular Filt Rate > 60 mL/min (>60); Globulin 2.2 g/dL (1.7-4.1); Glucose 126 mg/dL (70-100); HEMOLYSIS < 15 (0-50); Magnesium 1.9 mg/dL (1.6-2.3); Phosphorous 4.2 mg/dL (2.5-4.5); Potassium 3.6 mmol/L (3.4-5.1); Sodium 137 mmol/L (137-145); Triglycerides 131 mg/dL (35-150)
[2022-02-04] MEDS: PANTOPRAZOLE 40 MG VIAL IV ×2 (09:28→20:15)
--- NOTE | 2022-02-04 09:29 | PM.PN.1 ---
Subjective Subjective Interval history: Hospitalist follow-up visit. Feeling better today, able to tolerate some of her lunch. Otherwise no complaints. Exam Vital Signs (past 8 hours): - 02/04/22 05:02 Temperature 98.7 F Pulse Rate 57 L Respiratory Rate 16 Blood Pressure 92/55 L Pulse Oximetry 98 Oxygen Flow Rate 0 Oxygen Delivery Method Room Air Oxygen Flow Rate 0 Narrative Exam Narrative: Patient alert and oriented. Tearful today. HEENT: Head normocephalic. Pupils equal reactive to light. Extraocular movements normal. Neck is supple. Trachea is midline. Cardiovascular: Heart sounds S1 and S2 with no extra sounds or murmurs. Respiratory: Chest is clear to auscultation. No wheezes or crackles. Gastrointestinal: Epigastric pain to palpation as well as right upper quadrant pain. Noted incisions of upper abdomen which are intact without dehiscence. Musculoskeletal: Able to move all extremities volitionally. Neuro: Normal sensation of all extremities. No localized neurological signs. Objective Labs Result Diagrams: 02/02/22 06:32 02/04/22 16:00 Labs: Laboratory Results - last 24 hr 02/03/22 02/04/22 15:14 04:40 Sodium 137 137 Potassium 3.7 3.6 Chloride 103 103 Carbon Dioxide 29 30 BUN 2 L 4 L Creatinine 0.51 L 0.48 L Estimated GFR > 60 > 60 BUN/Creatinine Ratio 3.9 L 8.3 Glucose 125 H 126 H Calcium 8.5 7.9 L Phosphorus 4.2 Magnesium 1.9 Total Bilirubin 0.3 0.3 AST 33 29 ALT 33 27 Alkaline Phosphatase 82 56 Total Protein 6.0 L 5.0 L Albumin 3.5 2.8 L Globulin 2.5 2.2 Albumin/Globulin Ratio 1.4 1.3 Prealbumin 17.4 L Triglycerides 131 PFSH Medical History Clostridium difficile diarrhea Neuroendocrine tumor of pancreas No significant medical problems Surgical History H/O Whipple procedure History of cholecystectomy Hx of bilateral oophorectomy Hx of umbilical hernia repair Family History Mother Alcoholism Sister Alive and well Father Medical history unknown Social History household members: children Smoking Status: Never smoker substance use type: does not use Assessment & Plan Assessment & Plan narrative: ?1.? Postoperative nausea/ vomiting /abdominal pain Patient had neuroendocrine tumor s/p Whipple procedure which was done December 13, 2021.? No complications immediately postop the patient was doing well for some time but then developed epigastric abdominal pain with persistent nausea and vomiting. -trial of PPI and multiple antiemetics not helping nausea and vomiting, patient throwing up at least 1 meal per day and otherwise not eating -call made to [facility] surgery and spoke with Dr. Mancia colleague of Dr. Mendez who performed her Whipple -[facility] surgery recommended starting TPN, PPI IV b.i.d., CMP, albumin and pre-albumin and performing EGD to look for anastomotic ulcer versus stricture -NPO at midnight for EGD 02/05 -Switch morphine to dilaudid for better pain control ? 2.? Malnutrition with risk of refeeding syndrome -[facility] suggested starting TPN -PICC placed and TPN started -Monitor for refeeding syndrome ? 3.? Hypokalemia and hypomagnesemia -Replete and monitor ? 4. Hypoglycemia Improved after initiating D5 in her IV fluids. ? 5.? Neuroendocrine tumor status post Whipple procedure Incision is healing well.? Will follow-up with her surgeon after discharge. ? 6.? Dilated pelvic vasculature Presently asymptomatic.? As noted, she has not had return of regular menses since surgery.? This is likely a stress-induced phenomenon.? No symptoms of pelvic congestion. ? 7. History of DVT ?was on apixaban.? This is not an active medication at this time because anticoagulation is with heparin. ?code status ?full ?prophylaxis ? On heparin.? For prophylaxis and history of DVT. Patient remains having it when adequate improvement and requires active, continue tenuous management. Is inpatient appropriate. ?Disposition Once patient is able to adequately meet her hydration needs and tolerate some caloric intake, she will be able to discharge home with f/u at surgery. Time Spent With Patient Critical Care time: I spent a total of [] minutes of critical care time on this patient's care today; this time is exclusive of procedural time. Quality VTE Deep Vein Thrombosis/Pulmonary Embolism Present on Admission: No
[2022-02-04] MEDS: ONDANSETRON 4 MG/2 ML INJ IV ×2 (09:30→14:16)
[2022-02-04] MEDS: DEXTROSE 5%-0.9% NS 1,000 ML 75 ML IV (10:59)
[2022-02-04] MEDS: HEPARIN 5,000 UNIT/ML VIAL 5000 UNIT SUBCUT ×2 (11:00→20:15)
--- NOTE | 2022-02-04 12:25 | DIET.CONS2 ---
Dietary Inpatient Consultation Note Admission Date: 01/23/2022 20:40 Pt started on TPN via PICC last evening per request of pts surgeon at [facility], pt may transfer. Pt currently tolerating TPN running at 21mL/h with IVFE as pt high risk for refeeding due to 10d poor PO intake, and Severe Acute PCM after whipple procedure. Pts morning labs WNL, however, TPN only started 1999 last night because of issues c PICC line. Recc afternoon refeeding labs (K+, Mg, Phos) and if stable, recc increasing rate to 42mL/h when new bag is hung at 1800. Continue to monitor for refeeding. Pt is on general diet, getting some nourishment via PO secondary to N/V but unable to meet >25% of needs. Pts TPN goal is 1.5L Clinimix E c 250mL IVFE three times per week (M, W, F) providing 1534kcals (82% EER) and 75g PRO (88%). Nutrition Diagnosis: Severe Acute Protein Calorie Malnutrition r/t recent whipple procedure and post-op nausea aeb -12% unintentional weight loss in 3mo (severe), pt 3mo out from whipple for neuroendocrine tumor on head of pancreas, TPN initiated. Interventions: 1. Recc refeeding labs prior to increasing TPN rate each day. Do not advance rate if pt showing signs of refeeding. 2. If refeeding labs WNL, recc TPN progression as follows: Day 2: 1L Clinimix E running at 42mL/h no lipids Day 3: Goal 1.5 L Clinimix E running at 62mL/h c lipids EER: 1875 kcals (30kcal/kg per PCM), 80-90g PRO (1.3-1.5g/kg per PCM) Monitoring/Evaluation: RD following daily Electronically Signed by: Lucia Cole 02/04/22 12:[address] [address]
[2022-02-04] MEDS: METOCLOPRAMIDE 10 MG/2 ML INJ IV ×2 (13:05→22:08)
--- NOTE | 2022-02-04 13:20 | PC.NURSE ---
AM shift Pt is NPO this AM, EGD cancelled, normal diet until midnight tonight, plan for EGD in am. Nausea, improved, but remains, ZOfran and Reglan given. TPN infusing @ 21 mls/hr. PICC x1 Midline x1. BT hypoactive, dilaudid effective for pain.
[2022-02-04 14:00] VITALS: BP 110/63; PULSE 58; RESP 18; TEMP 36.6; O2SAT 98
--- NOTE | 2022-02-04 14:04 | PC.NURSE ---
Addendum entered by Sissy Alarcon R.N. 02/04/22 17:56: 1750 - Pt continues to c/o nausea. RX per order. TPN infusing. Original Note: 1400 - Pt reports nausea improved following Rx. Offered shower. Pt reports maybe later this evening.
[2022-02-04 16:45] LABS: BUN Creatinine Ratio 13.7 (6-22); Blood Urea Nitrogen 7 mg/dL (7-17); Calcium 7.6 mg/dL (8.4-10.2); Carbon Dioxide 30 mmol/L (22-32); Chloride 106 mmol/L (98-107); Estimated Glomerular Filt Rate > 60 mL/min (>60); Glucose 141 mg/dL (70-100); HEMOLYSIS < 15 (0-50); Magnesium 1.8 mg/dL (1.6-2.3); Phosphorous 3.7 mg/dL (2.5-4.5); Potassium 3.5 mmol/L (3.4-5.1); Sodium 138 mmol/L (137-145)
[2022-02-04] MEDS: AA 5 %/CALCIUM/LYTES/DEXT 20 % 1,000 ML with MULTIVITAMIN 10 ML, TRACE ELEMENTS 1 ML 42.125 ML IV (17:42)
[2022-02-04] MEDS: PROMETHAZINE 12.5 MG SUPP PR (17:50)
[2022-02-04] MEDS: diphenhydrAMINE 50 MG/ML VIAL 25 MG IV (20:26)
[2022-02-05] VITALS (14 sets, daily range): BP systolic 100–128; BP diastolic 58–83; PULSE 67–92; RESP 15–20; TEMP 36.3–37.4; O2SAT 93–98
--- NOTE | 2022-02-05 | PATH_ITS ---
[facility] Accession Number: [id number] . 01 Material submitted: . gastrointestinal site - GASTRIC MUCOSA . 01 Clinical history: . CHEST PAIN S/P WHIPPLE 5-11 . 01 Diagnosis: Stomach, Biopsy: Antral and body-type mucosa with no significant diagnostic abnormality. No evidence of Helicobacter on H/E stain. Negative for intestinal metaplasia. Negative for dysplasia and malignancy. MRV 02/08/2022 1410 Local . 01 Electronically signed: . Cristiana Rothman MD, Pathologist NPI- [id number] . 01 Gross description: . GASTRIC MUCOSA: Received in formalin are 4 fragment(s) of borjas, soft tissue measuring 0.1 x 0.1 x 0.1 cm to 0.3 x 0.2 x 0.2 cm submitted entirely in 1 cassette(s) /LIS 02/06/2022 2231 Local . 01 Pathologist provided ICD-10: R10.9 . 01 CPT . 744998 Specimen Comment: A courtesy copy of this report has been sent to [phone] Performed at: 01 [facility] [address] [place] [address], [place], [place] [id number] MD Arik Parks MD Phone: [phone]
[2022-02-05] MEDS: DEXTROSE 5%-0.9% NS 1,000 ML 75 ML IV (00:41)
[2022-02-05] MEDS: HYDROMORPHONE 2 MG INJ 1 MG IV ×4 (04:32→18:23)
[2022-02-05 06:11] LABS: Alanine Aminotransferase 46 IU/L (<35); Albumin 2.6 g/dL (3.5-5.0); Albumin Globulin Ratio 1.2 (1.0-2.8); Alkaline Phosphatase 66 U/L (38-126); Aspartate Aminotransferase 62 IU/L (14-36); BUN Creatinine Ratio 21.6 (6-22); Bilirubin Total 0.3 mg/dL (0.2-1.3); Blood Urea Nitrogen 8 mg/dL (7-17); Calcium 7.4 mg/dL (8.4-10.2); Carbon Dioxide 29 mmol/L (22-32); Chloride 105 mmol/L (98-107); Estimated Glomerular Filt Rate > 60 mL/min (>60); Globulin 2.2 g/dL (1.7-4.1); Glucose 115 mg/dL (70-100); HEMOLYSIS < 15 (0-50); Magnesium 1.7 mg/dL (1.6-2.3); Phosphorous 3.9 mg/dL (2.5-4.5); Potassium 3.6 mmol/L (3.4-5.1); Sodium 136 mmol/L (137-145); Total Protein 4.8 g/dL (6.3-8.2)
--- NOTE | 2022-02-05 08:35 | PM.PN.1 ---
Subjective Subjective Date Patient Seen: 02/05/22 Time Patient Seen: 14:50 Interval history: Patient tolerated lunch and dinner yesterday without vomiting. Having some abd pain and nausea this morning but has an appetite. Exam Vital Signs (past 8 hours): - 02/05/22 06:00 Temperature 98.3 F Pulse Rate 67 Respiratory Rate 19 Blood Pressure 106/67 Pulse Oximetry 96 Oxygen Delivery Method Room Air Oxygen Flow Rate 0 Narrative Exam Narrative: Patient alert and oriented. No distress. HEENT: Head normocephalic. Pupils equal reactive to light. Extraocular movements normal. Neck is supple. Trachea is midline. Cardiovascular: Heart sounds S1 and S2 with no extra sounds or murmurs. Respiratory: Chest is clear to auscultation. No wheezes or crackles. Gastrointestinal: Epigastric pain to palpation as well as right upper quadrant pain. Noted incisions of upper abdomen which are intact without dehiscence. Musculoskeletal: Able to move all extremities volitionally. Neuro: Normal sensation of all extremities. No localized neurological signs. Objective Labs Result Diagrams: 02/02/22 06:32 02/05/22 05:45 Labs: Laboratory Results - last 24 hr 02/04/22 02/05/22 16:00 05:45 Sodium 138 136 L Potassium 3.5 3.6 Chloride 106 105 Carbon Dioxide 30 29 BUN 7 8 Creatinine 0.51 L 0.37 L Estimated GFR > 60 > 60 BUN/Creatinine Ratio 13.7 21.6 Glucose 141 H 115 H Calcium 7.6 L 7.4 L Phosphorus 3.7 3.9 Magnesium 1.8 1.7 Total Bilirubin 0.3 AST 62 H ALT 46 H Alkaline Phosphatase 66 Total Protein 4.8 L Albumin 2.6 L Globulin 2.2 Albumin/Globulin Ratio 1.2 PFSH Medical History Clostridium difficile diarrhea Neuroendocrine tumor of pancreas No significant medical problems Surgical History H/O Whipple procedure History of cholecystectomy Hx of bilateral oophorectomy Hx of umbilical hernia repair Family History Mother Alcoholism Sister Alive and well Father Medical history unknown Social History household members: children Smoking Status: Never smoker substance use type: does not use Assessment & Plan Assessment & Plan narrative: ?1.? Postoperative nausea/ vomiting /abdominal pain Patient had neuroendocrine tumor s/p Whipple procedure which was done December 13, 2021.? No complications immediately postop the patient was doing well for some time but then developed epigastric abdominal pain with persistent nausea and vomiting. -trial of PPI and multiple antiemetics not helping nausea and vomiting, patient throwing up at least 1 meal per day and otherwise not eating -call made to [facility] general surgery and spoke with Dr. Mancia colleague of Dr. Mendez who performed her Whipple -[facility] surgery recommended starting TPN, PPI IV b.i.d., CMP, albumin and pre-albumin and performing EGD -EGD on 02/05 was normal, will pass on to [facility] surgeons for next steps -Switched morphine to dilaudid for better pain control ? 2.? Malnutrition with risk of refeeding syndrome -[facility] surgery suggested starting TPN -PICC placed and TPN started -Monitor for refeeding syndrome ? 3.? Hypokalemia and hypomagnesemia -Replete and monitor ? 4. Hypoglycemia Improved after initiating D5 in her IV fluids. ? 5.? Neuroendocrine tumor status post Whipple procedure Incision is healing well.? Will follow-up with her surgeon after discharge. ? 6.? Dilated pelvic vasculature Presently asymptomatic.? As noted, she has not had return of regular menses since surgery.? This is likely a stress-induced phenomenon.? No symptoms of pelvic congestion. ? 7. History of DVT ?was on apixaban.? This is not an active medication at this time because anticoagulation is with heparin. ?code status ?full ?prophylaxis ? On heparin.? For prophylaxis and history of DVT. Patient remains having it when adequate improvement and requires active, continue tenuous management. Is inpatient appropriate. ?Disposition Once patient is able to adequately meet her hydration needs and tolerate some caloric intake, she will be able to discharge home with f/u at surgery. Time Spent With Patient Critical Care time: I spent a total of [] minutes of critical care time on this patient's care today; this time is exclusive of procedural time. Quality VTE Deep Vein Thrombosis/Pulmonary Embolism Present on Admission: No
--- NOTE | 2022-02-05 08:40 | DIET.CONS2 ---
Dietary Inpatient Consultation Note Admission Date: 01/23/2022 20:40 Discussed TPN tolerance c pharmacy. Pt refeeding labs WNL last evening, bumped TPN to 42mL/h, pt tolerating well. Morning refeeding labs WNL, plan to increase TPN to goal at 1800 today. If pt on TPN >5d recc adjusting to HS cyclic feed. Pts LFTs elevated yesterday, pt reports feeling itchy and asking nursing for Benedryl. Pt currently NPO for EGD this morning, resuming general diet for as tolerated POs this afternoon. Electronically Signed by: Lucia Cole 02/05/22 08:40 Clinical Dietitian [address] [address]
--- NOTE | 2022-02-05 09:08 | PC.NURSE ---
Patient asleep this morning upon my arrival, awakened, pleasant, denies complaint. Up to void in bathroom. Picked up for procedure.
[2022-02-05] MEDS: LACTATED RINGERS 1,000 ML 42 ML IV (09:11)
--- NOTE | 2022-02-05 09:11 | P.CONS_ITS ---
History of Present Illness Consult details Date Patient Seen: 02/05/22 Time Patient Seen: 09:11 Chief complaint: Chest pain s/p whipple 12/13 Narrative: Heather is a 41-year-old woman who had a Whipple procedure in December at [facility] for a benign neuroendocrine tumor. She was feeling fine for the first few weeks and even had her postop visit. Subsequently she developed abdominal pain and intractable nausea and vomiting of unclear etiology. She has been adm itted to the hospital here for 2 weeks and has been started on parental nutrition. Dr. Barillas has been in contact with her surgeons at [facility] who recommended an EGD to rule out an anastomotic ulcer or stricture. Meds Home Medications and Allergies Home Medications Medication Instructions Recorded Confirmed Type ondansetron 4 mg disintegrating 4 mg PO Q8H PRN nausea and 11/01/21 01/26/22 Rx tablet vomiting #14 tabs oxycodone 5 mg tablet 5 mg PO QID PRN pain #10 tabs 01/14/22 01/24/22 Rx hydrocodone 5 mg-acetaminophen 325 1 tab PO Q6H PRN pain #10 tabs 01/21/22 01/26/22 Rx mg tablet Allergies Allergy/AdvReac Type Severity Reaction Status Date / Time ketorolac [From Toradol] Allergy Severe Anaphylaxis Verified 02/05/22 08:52 metronidazole [From Flagyl] Allergy Verified 02/05/22 08:52 nitrofurantoin Allergy Verified 02/05/22 08:52 [From Macrobid] Exam Vital Signs (past 8 hours): - 02/05/22 06:00 02/05/22 08:59 Temperature 98.3 F 98.2 F Pulse Rate 67 73 Respiratory Rate 19 16 Blood Pressure 106/67 116/69 Pulse Oximetry 96 97 Oxygen Delivery Method Room Air Oxygen Delivery Method Room Air Oxygen Flow Rate 0 Const General: No acute distress Resp Effort & Inspection: normal respiratory effort Objective Labs Result Diagrams: 02/02/22 06:32 02/05/22 05:45 Labs: Laboratory Results - last 24 hr 02/04/22 02/05/22 16:00 05:45 Sodium 138 136 L Potassium 3.5 3.6 Chloride 106 105 Carbon Dioxide 30 29 BUN 7 8 Creatinine 0.51 L 0.37 L Estimated GFR > 60 > 60 BUN/Creatinine Ratio 13.7 21.6 Glucose 141 H 115 H Calcium 7.6 L 7.4 L Phosphorus 3.7 3.9 Magnesium 1.8 1.7 Total Bilirubin 0.3 AST 62 H ALT 46 H Alkaline Phosphatase 66 Total Protein 4.8 L Albumin 2.6 L Globulin 2.2 Albumin/Globulin Ratio 1.2 PFSH Medical History Clostridium difficile diarrhea Neuroendocrine tumor of pancreas No significant medical problems Surgical History H/O Whipple procedure History of cholecystectomy Hx of bilateral oophorectomy Hx of umbilical hernia repair Family History Mother Alcoholism Sister Alive and well Father Medical history unknown Social History household members: children Tobacco & Substance Use Smoking Status: Never smoker substance use type: does not use Assessment & Plan Assessment and plan (1) Intractable abdominal pain: Status: Acute (2) H/O Whipple procedure: Problem details: 12/24 Status: Acute Plan We reviewed the risks and benefits of EGD to rule out anastomotic stricture or ulcer. If none are found I would recommend she transfer to [facility] for further workup. Time Spent With Patient Critical Care time: I spent a total of [] minutes of critical care time on this patient's care today; this time is exclusive of procedural time.
--- NOTE | 2022-02-05 09:42 | PM.OP.EGD ---
Operative Date/Time/Diagnoses Date of procedure: 02/05/22 Time of procedure: 09:42 Pre-op diagnosis: Intractable nausea and vomiting post Whipple Post-op diagnosis: same Procedure & Clinicians Study performed: Esophagogastroduodenoscopy Same procedure as scheduled: Yes Surgeon: Nav Rivas Procedure Notes Procedure in detail: Surgeon: Nav Rivas MD A timeout was performed. Topical lidocaine was administered to the posterior oropharynx. A bite blocked was placed. The patient was positioned in the supine position. Anesthesia was administered by Dr. Wills. The endoscope was inserted through the bite block and passed through the esophagus and stomach. The anastomosis was visualized and there was no obvious stricture or ulceration. There was some mild erythema of the gastric mucosa near the anastomosis which is felt to be the expected findings after a recent Whipple procedure. The 2 limbs of small bowel or explored beyond the anastomosis and were normal. The scope was withdrawn into the stomach and some random biopsies were taken from the gastric mucosa proximal to the anastomosis. The scope was retroflexed and no hiatal hernia was noted and no other abnormalities were visualized stomach. The scope was withdrawn into the esophagus and no abnormalities were noted. The remainder of the esophagus was normal. The scope was withdrawn. The patient was awakened and brought to recovery. Findings: No ulcers or stricture of the anastomosis. Post-procedure Recommendations: Other recommendation(s) (Follow-up with surgeons at [facility].) Disposition: PACU
--- NOTE | 2022-02-05 09:56 | SUR.PHASEI ---
Addendum entered by Estella Hallman R.N. 02/05/22 09:58: All outcomes met for transition to acute care floor. Unable to document as not on worklist. Original Note: 0955: Report given to MARJORIE Vale using SBAR with time allowed for questions. Pt belongings remain in room, transferred to room.
[2022-02-05] MEDS: METOCLOPRAMIDE 10 MG/2 ML INJ IV ×2 (10:36→18:16)
[2022-02-05] MEDS: HEPARIN 5,000 UNIT/ML VIAL 5000 UNIT SUBCUT ×2 (10:52→21:02)
[2022-02-05] MEDS: PANTOPRAZOLE 40 MG VIAL IV ×2 (10:53→21:02)
[2022-02-05] MEDS: ONDANSETRON 4 MG/2 ML INJ IV ×2 (15:12→21:15)
[2022-02-05] MEDS: FAT EMULSIONS 50 GM/250 ML EMULSION IV (18:02)
[2022-02-05] MEDS: AA 5 %/CALCIUM/LYTES/DEXT 20 % 1,500 ML with MULTIVITAMIN 10 ML, TRACE ELEMENTS 1 ML 62.958 ML IV (18:02)
[2022-02-05] MEDS: diphenhydrAMINE 50 MG/ML VIAL 25 MG IV (21:06)
[2022-02-06] MEDS: HYDROMORPHONE 2 MG INJ 1 MG IV ×5 (00:27→18:57)
[2022-02-06 02:32] VITALS: BP 100/63; PULSE 74; RESP 18; TEMP 36.8; O2SAT 96
[2022-02-06] MEDS: METOCLOPRAMIDE 10 MG/2 ML INJ IV ×2 (02:40→08:38)
[2022-02-06 05:52] LABS: Alanine Aminotransferase 48 IU/L (<35); Albumin 2.7 g/dL (3.5-5.0); Albumin Globulin Ratio 1.2 (1.0-2.8); Alkaline Phosphatase 67 U/L (38-126); Aspartate Aminotransferase 38 IU/L (14-36); BUN Creatinine Ratio 25.6 (6-22); Bilirubin Total 0.2 mg/dL (0.2-1.3); Blood Urea Nitrogen 10 mg/dL (7-17); Calcium 7.6 mg/dL (8.4-10.2); Carbon Dioxide 30 mmol/L (22-32); Chloride 101 mmol/L (98-107); Estimated Glomerular Filt Rate > 60 mL/min (>60); Globulin 2.2 g/dL (1.7-4.1); Glucose 166 mg/dL (70-100); HEMOLYSIS < 15 (0-50); Magnesium 1.9 mg/dL (1.6-2.3); Phosphorous 3.9 mg/dL (2.5-4.5); Potassium 3.8 mmol/L (3.4-5.1); Sodium 134 mmol/L (137-145); Total Protein 4.9 g/dL (6.3-8.2)
--- NOTE | 2022-02-06 07:19 | PM.PN.1 ---
Subjective Subjective Date Patient Seen: 02/06/22 Time Patient Seen: 16:45 Interval history: Patient notes ongoing epigastric abd pain. Able to tolerate some lunch but having intermittent nausea. Exam Vital Signs (past 8 hours): - 02/06/22 02:32 Temperature 98.3 F Pulse Rate 74 Respiratory Rate 18 Blood Pressure 100/63 Pulse Oximetry 96 Oxygen Flow Rate 0 Oxygen Delivery Method Room Air Oxygen Flow Rate 0 Narrative Exam Narrative: Patient alert and oriented. Appears uncomfortable. HEENT: Head normocephalic. Pupils equal reactive to light. Extraocular movements normal. Neck is supple. Trachea is midline. Cardiovascular: Heart sounds S1 and S2 with no extra sounds or murmurs. Respiratory: Chest is clear to auscultation. No wheezes or crackles. Gastrointestinal: Epigastric pain to palpation as well as right upper quadrant pain. Noted incisions of upper abdomen which are intact without dehiscence. Musculoskeletal: Able to move all extremities volitionally. Neuro: Normal sensation of all extremities. No localized neurological signs. Objective Labs Result Diagrams: 02/02/22 06:32 02/06/22 05:30 Labs: Laboratory Results - last 24 hr 02/06/22 05:30 Sodium 134 L Potassium 3.8 Chloride 101 Carbon Dioxide 30 BUN 10 Creatinine 0.39 L Estimated GFR > 60 BUN/Creatinine Ratio 25.6 H Glucose 166 H Calcium 7.6 L Phosphorus 3.9 Magnesium 1.9 Total Bilirubin 0.2 AST 38 H ALT 48 H Alkaline Phosphatase 67 Total Protein 4.9 L Albumin 2.7 L Globulin 2.2 Albumin/Globulin Ratio 1.2 PFSH Medical History Clostridium difficile diarrhea Neuroendocrine tumor of pancreas No significant medical problems Surgical History H/O Whipple procedure History of cholecystectomy Hx of bilateral oophorectomy Hx of umbilical hernia repair Family History Mother Alcoholism Sister Alive and well Father Medical history unknown Social History household members: children Smoking Status: Never smoker substance use type: does not use Assessment & Plan Assessment & Plan narrative: ?1.? Postoperative nausea/ vomiting /abdominal pain Patient had neuroendocrine tumor s/p Whipple procedure which was done December 13, 2021.? No complications immediately postop the patient was doing well for some time but then developed epigastric abdominal pain with persistent nausea and vomiting. -trial of PPI and multiple antiemetics only modestly effective -call made to [facility] surgery and spoke with Dr. Mancia, colleague of Dr. Mendez who performed her Whipple -[facility] surgery recommended starting TPN, PPI IV b.i.d., and EGD -EGD 02/05 normal, Dr. Mancia recommended ativan for anxiety related to eating causing nausea. Then following up with outpatient [facility] surgery. -Now on TPN with plans for up to 2mo of at home TPN -Plan to send home with HH, TPN and meds for nausea/pain hopefully on 02/07 ? 2.? Malnutrition with risk of refeeding syndrome -[facility] suggested starting TPN -Now on TPN and home infusions ordered for home TPN for up to 2mo ? 3.? Hypokalemia and hypomagnesemia -Replete and monitor ? 4. Hypoglycemia, resolved ? 5.? Neuroendocrine tumor status post Whipple procedure Incision is healing well.? Will follow-up with her surgeon after discharge. ? 6.? Dilated pelvic vasculature Presently asymptomatic.? As noted, she has not had return of regular menses since surgery.? This is likely a stress-induced phenomenon.? No symptoms of pelvic congestion. ? 7. History of DVT ?was on apixaban.? This is not an active medication at this time because anticoagulation is with heparin. ?code status ?full ?prophylaxis ? On heparin.? For prophylaxis and history of DVT. Patient remains having it when adequate improvement and requires active, continue tenuous management. Is inpatient appropriate. ?Disposition Discharge home with f/u at surgery. Time Spent With Patient Critical Care time: I spent a total of [] minutes of critical care time on this patient's care today; this time is exclusive of procedural time. Quality VTE Deep Vein Thrombosis/Pulmonary Embolism Present on Admission: No
[2022-02-06 08:00] VITALS: BP 109/59; PULSE 82; RESP 16; TEMP 36.1; O2SAT 95
--- NOTE | 2022-02-06 08:45 | PC.NURSE ---
08:[address] Barillas in person notified that pt blood pressure 109/59, pain 8/10 and nausea, pt requesting Dilaudid for pain. Per Dr. Barillas ok to give Dilaudid.
[2022-02-06] MEDS: HEPARIN 5,000 UNIT/ML VIAL 5000 UNIT SUBCUT ×2 (10:21→21:27)
[2022-02-06] MEDS: PANTOPRAZOLE 40 MG VIAL IV ×2 (10:21→21:25)
[2022-02-06 11:57] VITALS: BP 105/64; PULSE 69; RESP 18; TEMP 36.1; O2SAT 97
[2022-02-06] MEDS: PROMETHAZINE 12.5 MG SUPP PR (11:59)
--- NOTE | 2022-02-06 14:27 | DIET.CONS2 ---
Dietary Inpatient Consultation Note Admission Date: 01/23/2022 20:40 Pt tolerating goal rate TPN, this note is to prepare pt to transition to cyclic home TPN. Pt to be followed by [facility] which can provide compounding of TPN to meet pts specific nutrient needs. Pts TPN goal is 1.5L Clinimix E c 250mL IVFE three times per week (M, W, F) providing 1534kcals (82% EER) and 75g PRO (88%). Recommend 16h cyclic TPN overnight running at 93mL/h. Nutrition Diagnosis: Severe Acute Protein Calorie Malnutrition r/t recent whipple procedure and post-op nausea aeb -12% unintentional weight loss in 3mo (severe), pt 3mo out from whipple for neuroendocrine tumor on head of pancreas, TPN initiated. Interventions: 1. Once d/c'd recc cyclic TPN running for 16h HS to reduce stress on liver. 1.5L Clinimix E 5/20 running at 93mL/h c 250mL IVFE three times per week. 2. [facility] to adjust TPN for home use. 3. Recc pt have f/u c her [place] [address] next week. EER: 1875 kcals (30kcal/kg per PCM), 80-90g PRO (1.3-1.5g/kg per PCM) Diet: 02/04/22 Lunch General (Regular) Diet Diet Modifications: Nutrition Percent Meal Consumed 50% 02/04/22 18:00 Electronically Signed by: Lucia Cole 02/06/22 14:27 Clinical Dietitian [address] [id number]
[2022-02-06] MEDS: LORazepam 0.5 MG TABLET PO (15:36)
[2022-02-06] MEDS: AA 5 %/CALCIUM/LYTES/DEXT 20 % 1,500 ML with MULTIVITAMIN 10 ML, TRACE ELEMENTS 1 ML 62.958 ML IV (17:51)
[2022-02-06 20:35] VITALS: BP 105/66; RESP 18; TEMP 36.4; O2SAT 97
[2022-02-06] MEDS: diphenhydrAMINE 50 MG/ML VIAL 25 MG IV (21:21)
[2022-02-07] MEDS: HYDROMORPHONE 2 MG INJ 1 MG IV ×2 (02:15→06:34)
[2022-02-07 02:16] VITALS: BP 116/66; PULSE 85; RESP 18; TEMP 37.4; O2SAT 98
[2022-02-07 06:44] LABS: Add Manual Diff / Slide Review NO; Basophils Absolute Auto 0 /uL (0-100); Basophils Percent Auto 0.5 % (0-2); Eosinophils Absolute Auto 200 /uL (0-450); Eosinophils Percent Auto 3.4 % (2-4); Hematocrit 26.6 % (36-46); Hemoglobin 8.9 g/dL (12.0-16.0); Lymphocytes Absolute Auto 1100 /uL (1100-4500); Lymphocytes Percent Auto 22.2 % (25-40); Mean Corpuscular HGB Conc 33.4 % (30-36); Mean Corpuscular Hemoglobin 26.9 PG (26-34); Mean Corpuscular Volume 80.6 fL (80-100); Monocytes Absolute Auto 500 /uL (0-900); Monocytes Percent Auto 10.9 % (3-14); Neutrophils Absolute Auto 3000 /uL (1500-7000); Platelet Count 102 X10^3/uL (150-400); Red Cell Distribution Width 15.1 % (11.6-14.8); White Blood Cell Count 4.8 X10^3/uL (4.5-11.0)
[2022-02-07 06:52] LABS: Alanine Aminotransferase 36 IU/L (<35); Albumin 2.8 g/dL (3.5-5.0); Albumin Globulin Ratio 1.2 (1.0-2.8); Alkaline Phosphatase 73 U/L (38-126); Aspartate Aminotransferase 23 IU/L (14-36); BUN Creatinine Ratio 37.1 (6-22); Bilirubin Total 0.2 mg/dL (0.2-1.3); Blood Urea Nitrogen 13 mg/dL (7-17); Calcium 7.8 mg/dL (8.4-10.2); Carbon Dioxide 30 mmol/L (22-32); Chloride 102 mmol/L (98-107); Estimated Glomerular Filt Rate > 60 mL/min (>60); Globulin 2.3 g/dL (1.7-4.1); Glucose 173 mg/dL (70-100); HEMOLYSIS < 15 (0-50); Potassium 3.9 mmol/L (3.4-5.1); Sodium 134 mmol/L (137-145); Total Protein 5.1 g/dL (6.3-8.2)
[2022-02-07] MEDS: HEPARIN 5,000 UNIT/ML VIAL 5000 UNIT SUBCUT ×2 (09:10→21:33)
[2022-02-07] MEDS: PANTOPRAZOLE 40 MG VIAL IV ×2 (09:10→21:33)
[2022-02-07] MEDS: ONDANSETRON 4 MG/2 ML INJ IV (09:34)
[2022-02-07 10:00] VITALS: BP 110/68; PULSE 74; RESP 18; TEMP 36.2; O2SAT 97
[2022-02-07 10:28] LABS: Magnesium 1.9 mg/dL (1.6-2.3); Phosphorous 3.7 mg/dL (2.5-4.5)
[2022-02-07] MEDS: fentaNYL 25 MCG/PATCH TOP (10:56)
--- NOTE | 2022-02-07 12:54 | P.PN_ITS ---
Subjective Subjective Date Patient Seen: 02/07/22 Interval history: Continues to have significant abdominal pain and nausea, started on TPN. Working on home infusion, but will need improved pain and nausea control prior to discharge home. Started fentanyl patch today and converted many medications to orals to make sure she Exam Vital Signs (past 8 hours): - 02/07/22 10:00 Temperature 97.2 F L Pulse Rate 74 Respiratory Rate 18 Blood Pressure 110/68 Pulse Oximetry 97 Oxygen Flow Rate 0 Oxygen Delivery Method Room Air Oxygen Flow Rate 0 Narrative Exam Narrative: Patient alert and oriented. Appears uncomfortable. HEENT: Head normocephalic. Pupils equal reactive to light. Extraocular movements normal. Neck is supple. Trachea is midline. Cardiovascular: Heart sounds S1 and S2 with no extra sounds or murmurs. Respiratory: Chest is clear to auscultation. No wheezes or crackles. Gastrointestinal: Epigastric pain to palpation as well as right upper quadrant pain. Noted incisions of upper abdomen which are intact without dehiscence. Musculoskeletal: Able to move all extremities volitionally. Neuro: Normal sensation of all extremities. No localized neurological signs. Objective Labs Result Diagrams: 02/07/22 06:24 02/07/22 06:24 Labs: Laboratory Results - last 24 hr 02/07/22 02/07/22 02/07/22 06:24 06:24 06:24 WBC 4.8 RBC 3.30 L Hgb 8.9 L Hct 26.6 L MCV 80.6 MCH 26.9 MCHC 33.4 RDW 15.1 H Plt Count 102 L Neut % (Auto) 63.0 Lymph % (Auto) 22.2 L [place] % (Auto) 10.9 Eos % (Auto) 3.4 Baso % (Auto) 0.5 Neut # (Auto) 3000 Lymph # (Auto) 1100 [place] # (Auto) 500 Eos # (Auto) 200 Baso # (Auto) 0 Sodium 134 L Potassium 3.9 Chloride 102 Carbon Dioxide 30 BUN 13 Creatinine 0.35 L Estimated GFR > 60 BUN/Creatinine Ratio 37.1 H Glucose 173 H Calcium 7.8 L Phosphorus 3.7 Magnesium 1.9 Total Bilirubin 0.2 AST 23 ALT 36 H Alkaline Phosphatase 73 Total Protein 5.1 L Albumin 2.8 L Globulin 2.3 Albumin/Globulin Ratio 1.2 [facility] Medical History Clostridium difficile diarrhea Neuroendocrine tumor of pancreas No significant medical problems Surgical History H/O Whipple procedure History of cholecystectomy Hx of bilateral oophorectomy Hx of umbilical hernia repair Family History Mother Alcoholism Sister Alive and well Father Medical history unknown Social History household members: children Smoking Status: Never smoker substance use type: does not use Assessment & Plan Assessment & Plan narrative: ?1.? Postoperative nausea/ vomiting /abdominal pain Patient had neuroendocrine tumor s/p Whipple procedure which was done December 13, 2021.? No complications immediately postop the patient was doing well for some time but then developed epigastric abdominal pain with persistent nausea and vomiting. -trial of PPI and multiple antiemetics only modestly effective -call made to [facility] general surgery and spoke with Dr. Mancia, colleague of Dr. Mendez who performed her Whipple -[facility] general surgery recommended starting TPN, PPI IV b.i.d., and EGD -EGD 02/05 normal, Dr. Mancia recommended ativan for anxiety related to eating causing nausea. Then following up with outpatient [facility] surgery. -Now on TPN with plans for up to 2mo of at home TPN -Plan to send home with HH, TPN and meds for nausea/pain hopefully in the next few days. -increased ativan today to 1 mg prn, added fentanyl patch today, continue prn relief. IV ordered for breakthrough only. Try to withold all IV medications as a home trial today. ? 2.? Malnutrition with risk of refeeding syndrome -[facility] surgery suggested starting TPN -Now on TPN and home infusions ordered for home TPN for up to 2mo ? 3.? Hypokalemia and hypomagnesemia -Replete and monitor ? 4. Hypoglycemia, resolved ? 5.? Neuroendocrine tumor status post Whipple procedure Incision is healing well.? Will follow-up with her surgeon after discharge. ? 6.? Dilated pelvic vasculature Presently asymptomatic.? As noted, she has not had return of regular menses since surgery.? This is likely a stress-induced phenomenon.? No symptoms of pelvic congestion. ? 7. History of DVT ?was on apixaban.? This is not an active medication at this time because anticoagulation is with heparin. ?code status ?full ?prophylaxis ? On heparin.? For prophylaxis and history of DVT. Patient remains having it when adequate improvement and requires active, continue tenuous management. Is inpatient appropriate. ?Disposition Discharge home with f/u at surgery. Time Spent With Patient Critical Care time: I spent a total of [] minutes of critical care time on this patient's care today; this time is exclusive of procedural time. Quality VTE Deep Vein Thrombosis/Pulmonary Embolism Present on Admission: No
[2022-02-07] MEDS: METOCLOPRAMIDE HCL 10 MG TABLET PO ×2 (13:32→21:33)
[2022-02-07] MEDS: OXYCODONE IR 5 MG TABLET 10 MG PO ×3 (13:33→21:33)
[2022-02-07 14:00] VITALS: BP 112/64; PULSE 86; RESP 20; TEMP 36.1; O2SAT 97
--- NOTE | 2022-02-07 15:08 | CM.DPNOTE ---
Addendum entered by PRINCESS Healy 02/08/22 15:53: ADD: Outpatient/home TPN confirmed by [facility] today. One week supply has now been mixed for patient and can be stored for 10 days. Patient expected to DC home w/this TPN over the next 24 hrs, home w/family. RN from [facility] available to provide teaching at vs patient's home. Will plan to keep [facility] updated re DC date [facility] Original Note: DCP Note Patient requiring 2 mo TPN; met w/patient to discuss. Patient aware of the need and agreeable to plan. Patient with blunted, flat affect. Provided MCR choice list and patient states she thinks [facility] will work okay Discussed referral w/[facility] and [facility]. Faxed referral. [facility] anticipates referral will be reviewed today and TPN can be mixed . RN teaching (?) According to Dr Oliveira, patient is not medically ready for DC today, suspect tomorrow Following closely for coordination of DCP, home w/family and home TPN, close outpatient f/u [facility]
[2022-02-07] MEDS: LORazepam 0.5 MG TABLET 1 MG PO ×2 (16:58→21:34)
[2022-02-07] MEDS: FAT EMULSIONS 50 GM/250 ML EMULSION IV (18:11)
[2022-02-07] MEDS: AA 5 %/CALCIUM/LYTES/DEXT 20 % 1,500 ML with MULTIVITAMIN 10 ML, TRACE ELEMENTS 1 ML 62.958 ML IV (18:11)
[2022-02-07 20:16] VITALS: BP 111/67; PULSE 85; RESP 16; TEMP 37.1; O2SAT 95
[2022-02-08 05:12] VITALS: BP 96/56; PULSE 82; RESP 16; TEMP 36.2; O2SAT 95
[2022-02-08 08:40] VITALS: BP 95/60; PULSE 94; RESP 16; TEMP 36.7; O2SAT 97
[2022-02-08] MEDS: PANTOPRAZOLE 40 MG VIAL IV ×2 (08:49→20:17)
[2022-02-08] MEDS: HEPARIN 5,000 UNIT/ML VIAL 5000 UNIT SUBCUT ×2 (08:49→20:17)
[2022-02-08] MEDS: OXYCODONE IR 5 MG TABLET 10 MG PO ×3 (09:24→20:23)
[2022-02-08] MEDS: METOCLOPRAMIDE HCL 10 MG TABLET PO (09:24)
[2022-02-08] MEDS: PROMETHAZINE 25 MG TABLET 12.5 MG PO (10:42)
[2022-02-08 13:35] VITALS: BP 110/72; PULSE 79; RESP 16; TEMP 35.9; O2SAT 97
--- NOTE | 2022-02-08 15:46 | PM.PN.1 ---
Subjective Subjective Date Patient Seen: 02/08/22 Interval history: Pain improved today but continues to have significant nausea. Tolerated half a sandwich over the past day. Working on home infusion for TPN, but will need improved pain and nausea control prior to discharge home. Started fentanyl patch and converted many medications to orals but nausea is not controlled enough to discharge home yet. Exam Vital Signs (past 8 hours): - 02/08/22 08:40 02/08/22 13:35 Temperature 98.1 F 96.6 F L Pulse Rate 94 H 79 Respiratory Rate 16 16 Blood Pressure 95/60 110/72 Pulse Oximetry 97 97 Oxygen Flow Rate 0 0 Oxygen Delivery Method Room Air Oxygen Flow Rate 0 Narrative Exam Narrative: Patient alert and oriented. Appears uncomfortable. HEENT: Head normocephalic. Pupils equal reactive to light. Extraocular movements normal. Neck is supple. Trachea is midline. Cardiovascular: Heart sounds S1 and S2 with no extra sounds or murmurs. Respiratory: Chest is clear to auscultation. No wheezes or crackles. Gastrointestinal: Epigastric pain to palpation as well as right upper quadrant pain. Noted incisions of upper abdomen which are intact without dehiscence. Musculoskeletal: Able to move all extremities volitionally. Neuro: Normal sensation of all extremities. No localized neurological signs. Objective Labs Result Diagrams: 02/07/22 06:24 02/07/22 06:24 [facility] Medical History Clostridium difficile diarrhea Neuroendocrine tumor of pancreas No significant medical problems Surgical History H/O Whipple procedure History of cholecystectomy Hx of bilateral oophorectomy Hx of umbilical hernia repair Family History Mother Alcoholism Sister Alive and well Father Medical history unknown Social History household members: children Smoking Status: Never smoker substance use type: does not use Assessment & Plan Assessment & Plan narrative: ?1.? Postoperative nausea/ vomiting /abdominal pain Patient had neuroendocrine tumor s/p Whipple procedure which was done December 13, 2021.? No complications immediately postop the patient was doing well for some time but then developed epigastric abdominal pain with persistent nausea and vomiting. -trial of PPI and multiple antiemetics only modestly effective -call made to [facility] general surgery and spoke with Dr. Mancia, colleague of Dr. Mendez who performed her Whipple -[facility] general surgery recommended starting TPN, PPI IV b.i.d., and EGD -EGD 02/05 normal, Dr. Mancia recommended ativan for anxiety related to eating causing nausea. Then following up with outpatient [facility] surgery. -Now on TPN with plans for up to 2mo of at home TPN -Plan to send home with HH, TPN and meds for nausea/pain hopefully in the next few days. -increased ativan to 1 mg prn, added fentanyl patch, continue prn relief. IV ordered for breakthrough only. Try to withold all IV medications. Phenergan increased to 25 mg. zofran with minimal relief. ? 2.? Malnutrition with risk of refeeding syndrome -[facility] surgery suggested starting TPN -Now on TPN and home infusions ordered for home TPN for up to 2mo ? 3.? Hypokalemia and hypomagnesemia -Replete and monitor ? 4. Hypoglycemia, resolved ? 5.? Neuroendocrine tumor status post Whipple procedure Incision is healing well.? Will follow-up with her surgeon after discharge. ? 6.? Dilated pelvic vasculature Presently asymptomatic.? As noted, she has not had return of regular menses since surgery.? This is likely a stress-induced phenomenon.? No symptoms of pelvic congestion. ? 7. History of DVT ?was on apixaban.? This is not an active medication at this time because anticoagulation is with heparin. ?code status ?full ?prophylaxis ? On heparin.? For prophylaxis and history of DVT. Patient remains having it when adequate improvement and requires active, continue tenuous management. Is inpatient appropriate. ?Disposition Discharge home with f/u at surgery. Time Spent With Patient Critical Care time: I spent a total of [] minutes of critical care time on this patient's care today; this time is exclusive of procedural time. Quality VTE Deep Vein Thrombosis/Pulmonary Embolism Present on Admission: No
[2022-02-08] MEDS: PROMETHAZINE 25 MG TABLET PO ×2 (16:04→20:23)
[2022-02-08 18:00] VITALS: BP 119/72; PULSE 88; RESP 16; TEMP 36.7; O2SAT 98
[2022-02-08] MEDS: AA 5 %/CALCIUM/LYTES/DEXT 20 % 1,500 ML with MULTIVITAMIN 10 ML, TRACE ELEMENTS 1 ML, I... 62.963 ML IV (18:18)
[2022-02-09] VITALS: BP 104/67; PULSE 88; RESP 17; TEMP 36; O2SAT 97
[2022-02-09] MEDS: OXYCODONE IR 5 MG TABLET 10 MG PO ×4 (00:07→13:45)
[2022-02-09] MEDS: PROMETHAZINE 25 MG TABLET PO ×4 (00:34→13:45)
[2022-02-09 05:41] VITALS: BP 120/66; PULSE 85; RESP 18; TEMP 36.3; O2SAT 97
[2022-02-09] MEDS: HEPARIN 5,000 UNIT/ML VIAL 5000 UNIT SUBCUT (08:24)
[2022-02-09] MEDS: PANTOPRAZOLE 40 MG VIAL IV (08:24)
[2022-02-09] MEDS: LORazepam 1 MG TABLET PO (09:13)
[2022-02-09 09:20] VITALS: BP 121/69; PULSE 85; RESP 16; TEMP 36; O2SAT 98
--- NOTE | 2022-02-09 11:40 | P.DS_ITS ---
History of Present Illness History of Present Illness Date Patient Seen: 02/09/22 Chief complaint: Chest pain s/p whipple 12/13 Narrative: [place]: Heather Ventura is a 41-year-old female recovering from a benign neuroendocrine tumor of the pancreas status post Whipple procedure on December 22, 2021 at [facility] presented to the emergency department with abdominal pain. She has been seen in this emergency department 3 times since the surgery and twice at [facility] for similar symptoms of abdominal pain. She describes the pain is intense and is present in the upper bilateral quadrants of her abdomen. Described as pain in her upper abdomen and chest, with nausea and vomiting. She has not eaten in 3 days. Denies dysurea, diarrhea or constipation. Denies numbing or tingling of her upper or lower extremities, or lower extremity swelling. She has a small normal bowel movement this am. There is notation in the ED note that she takes Eliquis w/a history of a DVT. Patient is being followed by an oncologist at [facility] who she sees every [address] of the abdomen/pelvis indicated peripancreatic edema, possible mild p ancreatitis colonic wall thickening improved over prior and prominent periuterine venous vasculature, consider pelvic congestion. She is afebrile, blood pressure 100/57, heart rate 74, respiratory rate 18, oxygen saturation 97% on room air she weighs 68 kg with a BMI of 25.7. She is mildly anemic with a hemoglobin and hematocrit of 11.1 and 32.6 respectively, mildly elevated platelet count of 435, sodium 135, creatinine 0.41, glucose 101, lipase is within normal limits and COVID-19 PCR is negative. Discharge Providers Provider Date of admission: 01/23/22 20:40 Discharge Date: 02/09/22 Primary care physician: Ameya Gruber MD Consults: 01/23/22 22:22 Consult to Dietitian, Adult Routine Comment: Reason For Exam: Recent GI surgery, weight loss 30lbs 3 months Consult to Pastoral Services Routine Comment: Pt requested 02/03/22 15:03 Consult to General Surgery Routine Comment: Consulting Provider: Nav Rivas Reason for consultation: EGD Has provider been notified: No Discharge provider: Vince Oliveira DO Summary Hospital Course Hospital Course: 1.? Postoperative nausea/ vomiting /abdominal pain Patient had neuroendocrine tumor s/p Whipple procedure which was done December 13, 2021.? No complications immediately postop the patient was doing well for some time but then developed epigastric abdominal pain with persistent nausea and vomiting. -trial of PPI and multiple antiemetics only modestly effective -call was made to [facility] general surgery and spoke with Dr. Mancia, colleague of Dr. Mendez who performed her Whipple. -[facility] general surgery recommended starting TPN, PPI IV b.i.d., and EGD -EGD 02/05? normal, Dr. Mancia recommended ativan for anxiety related to eating causing nausea. Then following up with outpatient [facility] surgery. -Now on TPN with plans for up to 2mo of at home TPN. Thought was this may be due to a post operative pancreatitis. -It took quite some time to get sufficient pain relief and nausea relief prior to the ability to discharge home. -was discharged home with fentanyl patch, oxycodone, and reglan and ativan for nausea. Ativan seemed to work the best. ? 2.? Malnutrition with risk of refeeding syndrome -[facility] surgery suggested starting TPN. Home infusions ordered for home TPN for up to 2mo ? 3.? Hypokalemia and hypomagnesemia -Repleted here and has been stable on current diet and supplemental TPN. ? 4. Hypoglycemia, resolved ? 5.? Neuroendocrine tumor status post Whipple procedure Incision is healing well.? Will follow-up with her surgeon after discharge. ? 6.? Dilated pelvic vasculature Presently asymptomatic.? As noted, she has not had return of regular menses since surgery.? This is likely a stress-induced phenomenon.? No symptoms of pelvic congestion. ? 7. History of DVT ?was on apixaban.? This is not an active medication at this time because anticoagulation is with heparin. Time Spent with Patient Time spent: Greater than 30 minutes Exam Vital Signs (past 8 hours): - 02/09/22 05:41 02/09/22 09:20 Temperature 97.3 F L 96.8 F L Pulse Rate 85 85 Respiratory Rate 18 16 Blood Pressure 120/66 121/69 Pulse Oximetry 97 98 Oxygen Flow Rate 0 0 Oxygen Delivery Method Room Air Oxygen Flow Rate 0 Narrative Exam Narrative: Patient alert and oriented. Appears uncomfortable. HEENT: Head normocephalic. Pupils equal reactive to light. Extraocular movements normal. Neck is supple. Trachea is midline. Cardiovascular: Heart sounds S1 and S2 with no extra sounds or murmurs. Respiratory: Chest is clear to auscultation. No wheezes or crackles. Gastrointestinal: Epigastric pain to palpation as well as right upper quadrant pain. Noted incisions of upper abdomen which are intact without dehiscence. Musculoskeletal: Able to move all extremities volitionally. Neuro: Normal sensation of all extremities. No localized neurological signs. Objective Labs Result Diagrams: 02/07/22 06:24 02/07/22 06:24 [facility] Medical History Clostridium difficile diarrhea Neuroendocrine tumor of pancreas No significant medical problems Surgical History H/O Whipple procedure History of cholecystectomy Hx of bilateral oophorectomy Hx of umbilical hernia repair Family History Mother Alcoholism Sister Alive and well Father Medical history unknown Social History household members: children Smoking Status: Never smoker substance use type: does not use Discharge Plan Discharge Plan Patient Disposition: Home Provider Discharge Comment: You were admitted to the hospital with abdominal pain and nausea. This is possibly due to pancreatitis after your surgery. You are being discharged home with TPN per recommendations from your surgeon's office. You also have pain control and nausea medications. Please follow up with your PCP as soon as possible and keep in touch with your surgeons about the next phases of care. Due to prescription limits, oxycodone was sent to [facility] and fentanyl patch was sent to [facility]. Discharge orders & Medications Prescriptions: New Clinolipid 20 % Emulsion 50 gm IV [id number] Qty: 1500 0RF lorazepam 1 mg tablet 1 mg PO Q4HR PRN (Reason: Anxiety) 7 Days Qty: 40 0RF promethazine 25 mg Tablet 25 mg PO Q4HR PRN (Reason: Nausea) 30 Days Qty: 90 0RF metoclopramide HCl 10 mg Tablet 10 mg PO Q6HR PRN (Reason: Nausea And Vomiting) 30 Days Qty: 90 0RF oxycodone 5 mg tablet 5 - 10 mg PO Q6H PRN (Reason: pain) 7 Days Qty: 40 0RF fentanyl 25 mcg/hr patch 72 hour 1 patch transdermal Q72H 15 Days Qty: 5 0RF Discontinued ondansetron 4 mg tablet,disintegrating 4 mg PO Q8H PRN (Reason: nausea and vomiting) Qty: 14 0RF hydrocodone-acetaminophen 5-325 mg tablet 1 tab PO Q6H PRN (Reason: pain) Qty: 10 0RF oxycodone 5 mg tablet 5 mg PO QID PRN (Reason: pain) Qty: 10 0RF Follow up/Referrals: Ameya Gruber MD [Primary Care Provider] - Diet/Activity/Treatments Diet: Diet as Tolerated and Low-fat Diet comment: Continue low fat diet as home as tolerated Activity: No restrictions other than those after your surgery Visit Report/Discharge Packet Instructions: DI for Pancreatitis, DI for Abdominal Pain-Adult, DI for Nausea -- Adult, DI for Prescription Opioid Use Discharge Data Primary Care Provider: Ameya Gruber Quality VTE Deep Vein Thrombosis/Pulmonary Embolism Present on Admission: No
--- NOTE | 2022-02-09 14:50 | CM.DPC ---
DCP Cont: P: Pt to discharge home this afternoon. [facility] to meet pt at her house around 1530 today for a teach session. Pt and RN aware. Pt to discharge home via personal POV. Leah Betancourt RN/BRENTP
--- NOTE | 2022-02-09 14:54 | PC.NURSE ---
Day shift: Paperwork signed and all questions answered. PICC line remains patent. VS WNL. RA 99%. Steady on feet. Has been voiding well and reports a BM recently also. Disconnected from TPN per Dr Oliveira for car ride home and was given the TPN bag from here. [facility] is going to Pt's house today at 1530. PT stated I'm really excited to see my kids today. Left AC unit via WC at approx 1500. Pt's Dad is driving her home. Also explained to Pt where to sisal picker new MD scripts.
== END 2022-02-09 14:57 | disposition home or self-care (01) | DRG 254 ==
LOC: ED 18:26 → AC 20:43
PROVIDERS: Emergency Medicine; Family Medicine; Internal Medicine; Neuromusculoskeletal Medicine, Sports Medicine; Student in an Organized Health Care Education/Training Program; Surgery; Admitting Provider Nurse Practitioner Family; Emergency Provider Emergency Medicine; PCP Internal Medicine; Visit Provider Nurse Practitioner Family
PROC: 0DJ08ZZ Inspection of Upper Intestinal Tract, Via Natural or Artificial Opening Endoscopic (ICD-10-PCS; CPT 43235; principal; 2022-02-05 09:00)
DX: K31.84 Gastroparesis (principal); E87.6 Hypokalemia; K29.70 Gastritis, unspecified, without bleeding; E83.42 Hypomagnesemia; Z68.23 Body mass index [BMI] 23.0-23.9, adult; E43 Unspecified severe protein-calorie malnutrition; E16.2 Hypoglycemia, unspecified; K85.90 Acute pancreatitis without necrosis or infection, unspecified; Z79.01 Long term (current) use of anticoagulants; Z20.822 Contact with and (suspected) exposure to COVID-19; Z98.890 Other specified postprocedural states; Z86.718 Personal history of other venous thrombosis and embolism
CPT/HCPCS: 36415; 36569; 36592; 43235; 71045; 74177; 80048; 80053; 80076; 82550; 82962; 83690; 83735; 84100; 84134; 84478; 84484; 85025; 85027; 85379; 85610; 85730; 86140; 87635; 94760; 96361; 96374; 96375; 96376; 99232; 99284; C9803; A9270; B4185; B4189; C9113; J1170; J1200; J1642; J1644; J2060; J2250; J2270; J2405; J2704; J2765; J3010; J3475; S0166

== ENCOUNTER → 2022-04-10 14:24 | Outpatient (ROUT) | payer OTHER, MEDICAID, SELFPAY ==
[2022-01-27 12:18] VITALS: BMI 25.7
[2022-04-10 14:46] LABS: Add Manual Diff / Slide Review NO; Basophils Absolute Auto 0 /uL (0-100); Basophils Percent Auto 0.2 % (0-2); Eosinophils Absolute Auto 100 /uL (0-450); Eosinophils Percent Auto 1.4 % (2-4); Hematocrit 35.1 % (36-46); Hemoglobin 11.5 g/dL (12.0-16.0); Lymphocytes Absolute Auto 1100 /uL (1100-4500); Lymphocytes Percent Auto 22.2 % (25-40); Mean Corpuscular HGB Conc 32.8 % (30-36); Mean Corpuscular Hemoglobin 27.5 PG (26-34); Mean Corpuscular Volume 83.9 fL (80-100); Monocytes Absolute Auto 300 /uL (0-900); Monocytes Percent Auto 5.4 % (3-14); Neutrophils Absolute Auto 3500 /uL (1500-7000); Neutrophils Percent Auto 70.8 % (50-75); Platelet Count 88 X10^3/uL (150-400); Red Blood Cell Count 4.19 X10^6/uL (4.0-5.2); White Blood Cell Count 4.9 X10^3/uL (4.5-11.0)
[2022-04-10 14:59] LABS: Alanine Aminotransferase 16 IU/L (<35); Albumin 3.7 g/dL (3.5-5.0); Albumin Globulin Ratio 1.5 (1.0-2.8); Alkaline Phosphatase 64 U/L (38-126); Aspartate Aminotransferase 20 IU/L (14-36); Bilirubin Total 0.3 mg/dL (0.2-1.3); Blood Urea Nitrogen 18 mg/dL (7-17); C-Reactive Protein Quant 0.8 mg/dL (<1.0); Calcium 8.4 mg/dL (8.4-10.2); Carbon Dioxide 25 mmol/L (22-32); Chloride 108 mmol/L (98-107); Estimated Glomerular Filt Rate > 60 mL/min (>60); Globulin 2.5 g/dL (1.7-4.1); Glucose 127 mg/dL (70-100); HEMOLYSIS 31 (0-50); Phosphorous 3.6 mg/dL (2.5-4.5); Potassium 4.5 mmol/L (3.4-5.1); Sodium 136 mmol/L (137-145); Total Protein 6.2 g/dL (6.3-8.2); Triglycerides 112 mg/dL (35-150)
[2022-04-10 15:04] LABS: Prealbumin 25.6 mg/dL (17.6-36.0)
[2022-04-10 15:07] LABS: Anisocytosis 2+
== END ==
PROVIDERS: PCP Internal Medicine; Visit Provider Surgery Surgical Oncology
DX: K91.0 Vomiting following gastrointestinal surgery (principal); E46 Unspecified protein-calorie malnutrition; Z79.899 Other long term (current) drug therapy
CPT/HCPCS: 80053; 83735; 84100; 84134; 84478; 85025; 86140

== ENCOUNTER → 2022-04-23 14:20 | Outpatient (ROUT) | payer OTHER, MEDICAID, SELFPAY ==
[2022-01-27 12:18] VITALS: BMI 25.7
[2022-04-23 14:28] LABS: Basophils Absolute Auto 0 /uL (0-100); Basophils Percent Auto 0.8 % (0-2); Eosinophils Absolute Auto 100 /uL (0-450); Hematocrit 34.2 % (36-46); Hemoglobin 11.4 g/dL (12.0-16.0); Lymphocytes Absolute Auto 1000 /uL (1100-4500); Lymphocytes Percent Auto 26.4 % (25-40); Mean Corpuscular HGB Conc 33.4 % (30-36); Mean Corpuscular Hemoglobin 27.8 PG (26-34); Mean Corpuscular Volume 83.3 fL (80-100); Monocytes Absolute Auto 200 /uL (0-900); Monocytes Percent Auto 6.3 % (3-14); Neutrophils Absolute Auto 2500 /uL (1500-7000); Neutrophils Percent Auto 64.5 % (50-75); Platelet Count 177 X10^3/uL (150-400); Red Blood Cell Count 4.11 X10^6/uL (4.0-5.2); Red Cell Distribution Width 20.4 % (11.6-14.8); White Blood Cell Count 3.9 X10^3/uL (4.5-11.0)
[2022-04-23 14:29] LABS: Add Manual Diff / Slide Review SLIDE REVIEW
[2022-04-23 14:36] LABS: Alanine Aminotransferase 17 IU/L (<35); Albumin 3.7 g/dL (3.5-5.0); Albumin Globulin Ratio 1.5 (1.0-2.8); Alkaline Phosphatase 74 U/L (38-126); Aspartate Aminotransferase 19 IU/L (14-36); BUN Creatinine Ratio 35.8 (6-22); Bilirubin Total 0.2 mg/dL (0.2-1.3); Blood Urea Nitrogen 19 mg/dL (7-17); Calcium 8.4 mg/dL (8.4-10.2); Carbon Dioxide 23 mmol/L (22-32); Chloride 106 mmol/L (98-107); Estimated Glomerular Filt Rate > 60 mL/min (>60); Globulin 2.4 g/dL (1.7-4.1); Glucose 107 mg/dL (70-100); HEMOLYSIS < 15 (0-50); Magnesium 1.8 mg/dL (1.6-2.3); Phosphorous 3.3 mg/dL (2.5-4.5); Potassium 4.3 mmol/L (3.4-5.1); Sodium 139 mmol/L (137-145); Total Protein 6.1 g/dL (6.3-8.2)
[2022-04-23 15:30] LABS: Microcytosis 1+
== END ==
PROVIDERS: PCP Internal Medicine; Visit Provider Surgery Surgical Oncology
DX: K91.0 Vomiting following gastrointestinal surgery (principal); E46 Unspecified protein-calorie malnutrition; Z79.899 Other long term (current) drug therapy
CPT/HCPCS: 80053; 83735; 84100; 85025

== ENCOUNTER 2022-06-18 17:25 | Emergency (ER) | payer OTHER, MEDICAID, SELFPAY ==
[2022-01-27 12:18] VITALS: BMI 25.7
[2022-06-18] VITALS (15 sets, daily range): BP systolic 118–171; BP diastolic 60–89; PULSE 57–105; RESP 12–35; TEMP 36.7; O2SAT 97–99
[2022-06-18 18:23] LABS: Add Manual Diff / Slide Review NO; Basophils Absolute Auto 0 /uL (0-100); Basophils Percent Auto 0.2 % (0-2); Eosinophils Absolute Auto 0 /uL (0-450); Hematocrit 37.4 % (36-46); Hemoglobin 12.6 g/dL (12.0-16.0); Lymphocytes Absolute Auto 600 /uL (1100-4500); Lymphocytes Percent Auto 4.4 % (25-40); Mean Corpuscular HGB Conc 33.7 % (30-36); Mean Corpuscular Hemoglobin 28.9 PG (26-34); Mean Corpuscular Volume 85.7 fL (80-100); Monocytes Absolute Auto 300 /uL (0-900); Monocytes Percent Auto 2.3 % (3-14); Neutrophils Absolute Auto 11900 /uL (1500-7000); Neutrophils Percent Auto 93.1 % (50-75); Platelet Count 258 X10^3/uL (150-400); Red Blood Cell Count 4.37 X10^6/uL (4.0-5.2); Red Cell Distribution Width 14.7 % (11.6-14.8); White Blood Cell Count 12.8 X10^3/uL (4.5-11.0)
[2022-06-18 18:24] LABS: Alanine Aminotransferase 17 IU/L (<35); Albumin 4.8 g/dL (3.5-5.0); Albumin Globulin Ratio 1.7 (1.0-2.8); Alkaline Phosphatase 86 U/L (38-126); Aspartate Aminotransferase 16 IU/L (14-36); BUN Creatinine Ratio 15.4 (6-22); Bilirubin Total 0.4 mg/dL (0.2-1.3); Blood Urea Nitrogen 8 mg/dL (7-17); Calcium 8.8 mg/dL (8.4-10.2); Carbon Dioxide 16 mmol/L (22-32); Chloride 105 mmol/L (98-107); Estimated Glomerular Filt Rate > 60 mL/min (>60); Globulin 2.8 g/dL (1.7-4.1); Glucose 158 mg/dL (70-100); HEMOLYSIS < 15 (0-50); Lipase 14 U/L (23-300); Potassium 3.9 mmol/L (3.4-5.1); Sodium 140 mmol/L (137-145); Total Protein 7.6 g/dL (6.3-8.2)
[2022-06-18] MEDS: SODIUM CHLORIDE 0.9% 1,000 ML 1000 ML IV ×2 (19:38→22:10)
[2022-06-18] MEDS: ONDANSETRON 4 MG/2 ML INJ IV (19:38)
--- NOTE | 2022-06-18 19:43 | ED_ITS ---
HPI - General Adult General Chief complaint: Abdominal Pain Stated complaint: ABD. PAIN/POST COLONOSCOPY 06/18 Time Seen by Provider: 06/18/22 19:22 Source: patient Mode of arrival: Wheelchair Limitations: no limitations History of Present Illness HPI narrative: Patient is a 42-year-old female. 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 Earlier in the day had a colonoscopy and also an upper endoscopy for evaluation of continued abdominal pain. Was discharged home after the procedure. She comes emergency department today with complaints of abdominal pain and vomiting and nausea and chest discomfort. She has multiple nausea medications at home that she is tried without any improvement. She was in another facility earlier today prior to this visit for evaluation of the same symptoms but left Against Medical Advice. She states she did call the provider who performed the procedure and was told to come to the emergency department. Related Data Previous Rx's Medication Instructions Recorded hydrocodone 5 mg-acetaminophen 325 1 tab PO Q6H PRN pain #10 tabs 01/21/22 mg tablet fat emulsion-olive oil-soybean 50 gm IV MoWeFr@1800 #1,500 mL 02/09/22 oil-egg phospholipid 20 % intravenous (Clinolipid) Allergies Allergy/AdvReac Type Severity Reaction Status Date / Time ketorolac [From Toradol] Allergy Severe Anaphylaxis Verified 02/05/22 08:52 metronidazole [From Flagyl] Allergy Verified 02/05/22 08:52 nitrofurantoin Allergy Verified 02/05/22 08:52 [From Macrobid] Review of Systems Constitutional Constitutional: Reports system reviewed and no additional complaints, except as documented Respiratory Respiratory: Reports system reviewed and no additional complaints, except as documented Gastrointestinal Gastrointestinal: Reports system reviewed and no additional complaints, except as documented Genitourinary Genitourinary: Reports system reviewed and no additional complaints, except as documented Musculoskeletal Musculoskeletal: Reports system reviewed and no additional complaints, except as documented Integumentary/Breasts Skin/Breast: Reports system reviewed and no additional complaints, except as documented Patient History Medical History Clostridium difficile diarrhea Neuroendocrine tumor of pancreas No significant medical problems Surgical History H/O Whipple procedure History of cholecystectomy Hx of bilateral oophorectomy Hx of umbilical hernia repair Family History Mother Alcoholism Sister Alive and well Father Medical history unknown Social History household members: children Smoking Status: Never smoker substance use type: does not use Smoking Status: Never smoker alcohol intake frequency: holidays/special occasions only Substance Use Type: does not use Exam Initial Vital Signs Initial Vital Signs: Vital Signs Temperature 98.1 F 06/18/22 17:46 Pulse Rate 72 06/18/22 17:46 Respiratory Rate 22 06/18/22 17:46 Blood Pressure 165/75 H 06/18/22 17:46 Pulse Oximetry 97 06/18/22 17:46 Oxygen Delivery Method 06/18/22 17:46 Const General: cooperative, anxious and No ill appearing HENMT Head: normal to inspection and normocephalic Resp Effort & Inspection: normal respiratory effort Auscultation: clear to auscultation bilaterally Cardio Rate: regular rate Rhythm: regular rhythm GI Inspection: normal to inspection and non-distended Palpation: tender Skin General: no rashes or lesions noted Neuro General: patient alert, patient awake and moves all extremities Extrem General: normal to inspection and capillary refill normal Course Orders Ordered: ED Orders 06/18/22 17:50 EKG-12 Lead Stat 06/18/22 17:56 Complete Blood Count AUTO DIFF Stat Comprehensive Metabolic Panel Stat Lipase Stat Test Serum,Qual Stat 06/18/22 19:44 CT abdomen pelvis w con Stat XR chest 1V Stat 06/18/22 21:40 Urine Culture Stat Urine Microscopic Stat Discontinued Medications Acetaminophen (Acetaminophen 325 Mg Tablet) 975 mg PO NOW ONE Stop: 06/18/22 21:47 Last Admin: 06/18/22 21:50 Dose: 975 mg Documented By: RB Hydromorphone HCl (Hydromorphone 1 Mg Inj) 1 mg IV NOW ONE Stop: 06/18/22 19:44 Last Admin: 06/18/22 20:01 Dose: 1 mg Documented By: SB Sodium Chloride (Normal Saline 0.9%) 1,000 mls @ 1,000 mls/hr IV BOLUS ONE Stop: 06/18/22 20:21 Last Infusion: 06/18/22 22:10 Dose: 0 mls/hr Documented By: Admin: 06/18/22 19:38 Dose: 1,000 mls/hr Documented By: MAURICIO Sodium Chloride (Normal Saline 0.9%) 1,000 mls @ 1,000 mls/hr IV BOLUS ONE Stop: 06/18/22 22:05 Last Infusion: 06/18/22 23:30 Dose: 0 mls/hr Documented By: Admin: 06/18/22 22:10 Dose: 1,000 mls/hr Documented By: EVELINE Metoclopramide HCl (Metoclopramide 10 Mg/2 Ml Inj) 10 mg IV NOW ONE Stop: 06/18/22 22:37 Last Admin: 06/18/22 22:45 Dose: 10 mg Documented By: RB Ondansetron HCl (Ondansetron 4 Mg/2 Ml Inj) 4 mg IV NOW ONE Stop: 06/18/22 19:23 Last Admin: 06/18/22 19:38 Dose: 4 mg Documented By: MAURICIO Vital Signs Vital signs: Vital Signs - 8 hr 06/18/22 20:27 06/18/22 18:58 06/18/22 20:25 Temperature 98.1 F Pulse Rate 65 65 Respiratory Rate 16 18 Blood Pressure 155/89 H 154/81 H 155/89 H Pulse Oximetry 98 97 Oxygen Delivery Method Room Air Room Air 06/18/22 20:30 06/18/22 20:33 06/18/22 20:35 Temperature Pulse Rate 57 L Respiratory Rate Blood Pressure 171/70 H 132/62 Pulse Oximetry 98 Oxygen Delivery Method 06/18/22 20:35 06/18/22 21:00 06/18/22 21:00 Temperature Pulse Rate 65 74 Respiratory Rate 19 35 H Blood Pressure 146/68 H Pulse Oximetry 98 98 Oxygen Delivery Method 06/18/22 21:58 06/18/22 22:00 06/18/22 22:08 Temperature Pulse Rate 97 H 68 Respiratory Rate 30 H 12 Blood Pressure 162/79 H Pulse Oximetry 99 Oxygen Delivery Method 06/18/22 22:30 06/18/22 23:00 06/18/22 23:30 Temperature Pulse Rate 105 H 99 H 89 Respiratory Rate 18 35 H 28 H Blood Pressure Pulse Oximetry 98 98 98 Oxygen Delivery Method 06/18/22 23:31 06/18/22 23:31 06/19/22 00:07 Temperature Pulse Rate 94 H 81 Respiratory Rate 23 16 Blood Pressure 118/60 126/63 Pulse Oximetry 98 98 Oxygen Delivery Method Room Air Medical Decision Making Lab Data Lab results reviewed: Yes I reviewed the patient's lab results. Result diagrams: 06/18/22 17:56 06/18/22 17:56 Labs: Lab Results 06/18/22 06/18/22 06/18/22 Range/Units 17:56 17:56 17:56 WBC 12.8 H (4.5-11.0) X10^3/uL RBC 4.37 (4.0-5.2) X10^6/uL Hgb 12.6 (12.0-16.0) g/dL Hct 37.4 (36-46) % MCV 85.7 (80-100) fL MCH 28.9 (26-34) PG MCHC 33.7 (30-36) % RDW 14.7 (11.6-14.8) % Plt Count 258 (150-400) X10^3/uL Neut % (Auto) 93.1 H (50-75) % Lymph % (Auto) 4.4 L (25-40) % [place] % (Auto) 2.3 L (3-14) % Eos % (Auto) 0.0 L (2-4) % Baso % (Auto) 0.2 (0-2) % Neut # (Auto) 61348 H (8013-0239) /uL Lymph # (Auto) 600 L (7047-2577) /uL [place] # (Auto) 300 (0-900) /uL Eos # (Auto) 0 (0-450) /uL Baso # (Auto) 0 (0-100) /uL Sodium 140 (137-145) mmol/L Potassium 3.9 (3.4-5.1) mmol/L Chloride 105 (98-107) mmol/L Carbon Dioxide 16 L (22-32) mmol/L BUN 8 (7-17) mg/dL Creatinine 0.52 (0.52-1.04) mg/dL Estimated GFR > 60 (>60) mL/min BUN/Creatinine Ratio 15.4 (6-22) Glucose 158 H (70-100) mg/dL Calcium 8.8 (8.4-10.2) mg/dL Total Bilirubin 0.4 (0.2-1.3) mg/dL AST 16 (14-36) IU/L ALT 17 (<35) IU/L Alkaline Phosphatase 86 (38-126) U/L Total Protein 7.6 (6.3-8.2) g/dL Albumin 4.8 (3.5-5.0) g/dL Globulin 2.8 (1.7-4.1) g/dL Albumin/Globulin Ratio 1.7 (1.0-2.8) Lipase 14 L (23-300) U/L Serum , Qual Negative (Negative) Urine RBC (0-5/HPF) Urine WBC (0-5/HPF) Ur Squamous Epith Cells (0-5/HPF) Urine Bacteria (None) 06/18/22 Range/Units 21:40 WBC (4.5-11.0) X10^3/uL RBC (4.0-5.2) X10^6/uL Hgb (12.0-16.0) g/dL Hct (36-46) % MCV (80-100) fL MCH (26-34) PG MCHC (30-36) % RDW (11.6-14.8) % Plt Count (150-400) X10^3/uL Neut % (Auto) (50-75) % Lymph % (Auto) (25-40) % [place] % (Auto) (3-14) % Eos % (Auto) (2-4) % Baso % (Auto) (0-2) % Neut # (Auto) (3792-4025) /uL Lymph # (Auto) (4534-8305) /uL [place] # (Auto) (0-900) /uL Eos # (Auto) (0-450) /uL Baso # (Auto) (0-100) /uL Sodium (137-145) mmol/L Potassium (3.4-5.1) mmol/L Chloride (98-107) mmol/L Carbon Dioxide (22-32) mmol/L BUN (7-17) mg/dL Creatinine (0.52-1.04) mg/dL Estimated GFR (>60) mL/min BUN/Creatinine Ratio (6-22) Glucose (70-100) mg/dL Calcium (8.4-10.2) mg/dL Total Bilirubin (0.2-1.3) mg/dL AST (14-36) IU/L ALT (<35) IU/L Alkaline Phosphatase (38-126) U/L Total Protein (6.3-8.2) g/dL Albumin (3.5-5.0) g/dL Globulin (1.7-4.1) g/dL Albumin/Globulin Ratio (1.0-2.8) Lipase (23-300) U/L Serum , Qual (Negative) Urine RBC None seen (0-5/HPF) Urine WBC 1-5/hpf (0-5/HPF) Ur Squamous Epith Cells 5-10 /hpf H (0-5/HPF) Urine Bacteria Moderate (10-30) H (None) Point of Care Testing Test Results Negative Urine Dip Bedside Urine Glucose Negative Bedside Urine Bilirubin - Negative Bedside Urine Ketone +++ 80 Urine Specific [place] 1.025 Bedside Urine Occult Blood +/- Bedside Urine pH 5.5 Bedside Urine Protein - Negative Bedside Urine Urobilinogen - Negative Bedside Urine Nitrite - Negative Bedside Urine Leukocytes - Negative Esterase Point of care testing: Point of Care Testing Test Results Negative Urine Dip Bedside Urine Glucose Negative Bedside Urine Bilirubin - Negative Bedside Urine Ketone +++ 80 Urine Specific [place] 1.025 Bedside Urine Occult Blood +/- Bedside Urine pH 5.5 Bedside Urine Protein - Negative Bedside Urine Urobilinogen - Negative Bedside Urine Nitrite - Negative Bedside Urine Leukocytes - Negative Esterase Imaging Data CT scan - abdomen/pelvis: Radiologist's Impression: [place] [address] CT Scan Report Signed Patient: Heather Ventura MR#: [id number] : 1980 Acct:[id number] Age/Sex: 42 / F Date of Service: 06/18/22 Loc: ED Accession Number: [id number] ?? Procedure: CT abdomen pelvis w con Ordering Provider: Phoenix Hope D.O. PROCEDURE:? CT ABDOMEN PELVIS W CON ? INDICATIONS:? Generalized abdominal pain after colonoscopy today ? TECHNIQUE:? After the administration of oral and IV contrast, axial sections were acquired from the lung bases to the pubic symphysis.? Coronal and sagittal reformats were performed.? For radiation dose reduction, the following was used:? automated exposure control, adjustment of mA and/or kV according to patient size. ? COMPARISON:? [facility], CT, CT ABDOMEN PELVIS W CON, 10/31/2021, 13:05.? [facility], CT, CT ABDOMEN PELVIS W CON, 01/23/2022, 17:19. ? FINDINGS:? Image quality:? Excellent.? ? Lung bases:? No pleural effusion.? ? Heart:? No significant findings. ? ? ABDOMEN: Liver:? No focal lesion. Gallbladder:? Absent. Biliary ducts:? Biliary stent extending from the left intrahepatic bile duct into the CBD.? The stent is located more superior compared to prior CT.? There is trace left pneumobilia.? Pancreas:? Post Whipple procedure.? No fluid collection.? No pancreatic ductal dilatation is seen. Spleen:? No splenomegaly. Adrenal Glands:? No nodule. Kidneys and Ureters:? No hydronephrosis. ? Stomach and Bowel:? No small bowel obstruction.? Normal appendix.? A few colonic diverticuli. Peritoneum:? No abnormal intraperitoneal fluid.? No free air.? ? Ventral Wall: ? Tiny fat containing umbilical hernia.? Scarring above the umbilicus. Abdominal Nodes:? No retroperitoneal or mesenteric adenopathy by size criteria.? Vessels:? Aorta and inferior vena cava are normal in size.? No filling defect in the portal vein or SMV.? ? PELVIS: Pelvic Organs:? Small left ovarian cyst.? Anteverted uterus.? No free fluid.? ? Bladder:? No stones. Pelvic Nodes: No enlarged lymph nodes.? Miscellaneous: No inguinal hernias are seen. ? ? ? Bones:? No aggressive appearing lesion.? Sclerosis at the left SI joint is unchanged. ? ? IMPRESSION:? 1. No pneumoperitoneum.? No free fluid.? ? 2. No small bowel obstruction. ? 3. Post Whipple procedure.? Left intrahepatic/CBD stent.? Trace pneumobilia.? ? ? Dictated by: Jim Brasher M.D. on 06/18/2022 at 20:30 ? ? Approved by: iJm Brasher M.D. on 06/18/2022 at 20:40 Chest x-ray: Radiologist's Impression: [address] [address] XRay Report Signed Patient: Heather Ventura MR#: [id number] : 1980 Acct:[id number] Age/Sex: 42 / F Date of Service: 06/18/22 Loc: ED Accession Number: [id number] ?? Procedure: XR chest 1V Ordering Provider: Phoenix Hope D.O. PROCEDURE:? XR CHEST 1V ? INDICATIONS:? Chest pain after upper endoscopy today ? TECHNIQUE:? One view of the chest was acquired.? ? COMPARISON:? [facility], CR, XR CHEST FOR PICC 1V, 02/03/2022, 18:56. ? FINDINGS:? ? Surgical changes and devices:? None.? ? Lungs and pleura:? Lungs are clear.? No pleural effusions or pneumothorax.? ? Mediastinum:? Mediastinal contours appear normal.? No definite evidence of pneumomediastinum compared to the prior study.? Heart size is normal.? ? Bones and chest wall:? No suspicious bony lesions.? Overlying soft tissues appear unremarkable.? No evidence of pneumoperitoneum within the visualized upper abdomen.? ? IMPRESSION:? ? 1. No acute cardiopulmonary disease. ? 2. No evidence of pneumoperitoneum. ? 3. No definite evidence of pneumomediastinum.? ? ? Dictated by: Arik Rose M.D. on 06/18/2022 at 21:54 ? ? Approved by: Arki Rose M.D. on 06/18/2022 at 21:55 ECG Data Attestation: I personally reviewed and interpreted this ECG as follows: Interpretation: Sinus bradycardia Ventricular rate of 54 Sinus arrhythmia Normal QRS Normal QTC No ST T wave changes MDM Narrative Medical decision making narrative: CT scan of the abdomen and pelvis and chest x-ray showed no signs of an acute pathology. Her labs are unremarkable. Does have a leukocytosis however the patient has been vomiting and she had a procedure earlier today and I suspect that this is a stress reaction and not an acute infection. Received nausea medication. It appears that the Reglan seemed to help better than the other medications. I did discuss the lack of definitive diagnosis on the radiologic studies in the labs. Her increase in discomfort today could very well just be related to the procedures that she had today. Will discharge home. She has medications at home that she can take if needed. She was instructed to follow all of the postoperative procedures given to her by the provider who did the procedures and also contact them tomorrow for a follow-up. She was given return precautions. She expressed understanding and agreement. Discharge Plan Departure Patient Disposition: Home Clinical Impression: Abdominal pain, Vomiting Instructions: DI for Abdominal Pain-Adult Activity Restrictions/Additional Instructions: I recommend that you contact the providers who performed the procedures today to discuss follow-up. Continue to take all of your medications as directed. Prescriptions: No Action Clinolipid 20 % Emulsion 50 gm IV MoWeFr@1800 Qty: 1500 0RF Referrals: Ameya Gruber MD [Primary Care Provider] - Visit Report Forms: Patient Portal/API
--- NOTE | 2022-06-18 19:44 | DI.RAD.S_ITS ---
PROCEDURE: XR CHEST 1V INDICATIONS: Chest pain after upper endoscopy today TECHNIQUE: One view of the chest was acquired. COMPARISON: [facility], CR, XR CHEST FOR PICC 1V, 02/03/2022, 18:56. FINDINGS: Surgical changes and devices: None. Lungs and pleura: Lungs are clear. No pleural effusions or pneumothorax. Mediastinum: Mediastinal contours appear normal. No definite evidence of pneumomediastinum compared to the prior study. Heart size is normal. Bones and chest wall: No suspicious bony lesions. Overlying soft tissues appear unremarkable. No evidence of pneumoperitoneum within the visualized upper abdomen. IMPRESSION: 1. No acute cardiopulmonary disease. 2. No evidence of pneumoperitoneum. 3. No definite evidence of pneumomediastinum. Dictated by: Arik Rose M.D. on 06/18/2022 at 21:54 Approved by: Arik Rose M.D. on 06/18/2022 at 21:55
--- NOTE | 2022-06-18 19:44 | DI.CT.S_ITS ---
PROCEDURE: CT ABDOMEN PELVIS W CON INDICATIONS: Generalized abdominal pain after colonoscopy today TECHNIQUE: After the administration of oral and IV contrast, axial sections were acquired from the lung bases to the pubic symphysis. Coronal and sagittal reformats were performed. For radiation dose reduction, the following was used: automated exposure control, adjustment of mA and/or kV according to patient size. COMPARISON: [facility], CT, CT ABDOMEN PELVIS W CON, 10/31/2021, 13:05. [facility], CT, CT ABDOMEN PELVIS W CON, 01/23/2022, 17:19. FINDINGS: Image quality: Excellent. Lung bases: No pleural effusion. Heart: No significant findings. ABDOMEN: Liver: No focal lesion. Gallbladder: Absent. Biliary ducts: Biliary stent extending from the left intrahepatic bile duct into the CBD. The stent is located more superior compared to prior CT. There is trace left pneumobilia. Pancreas: Post Whipple procedure. No fluid collection. No pancreatic ductal dilatation is seen. Spleen: No splenomegaly. Adrenal Glands: No nodule. Kidneys and Ureters: No hydronephrosis. Stomach and Bowel: No small bowel obstruction. Normal appendix. A few colonic diverticuli. Peritoneum: No abnormal intraperitoneal fluid. No free air. Ventral Wall: Tiny fat containing umbilical hernia. Scarring above the umbilicus. Abdominal Nodes: No retroperitoneal or mesenteric adenopathy by size criteria. Vessels: Aorta and inferior vena cava are normal in size. No filling defect in the portal vein or SMV. PELVIS: Pelvic Organs: Small left ovarian cyst. Anteverted uterus. No free fluid. Bladder: No stones. Pelvic Nodes: No enlarged lymph nodes. Miscellaneous: No inguinal hernias are seen. Bones: No aggressive appearing lesion. Sclerosis at the left SI joint is unchanged. IMPRESSION: 1. No pneumoperitoneum. No free fluid. 2. No small bowel obstruction. 3. Post Whipple procedure. Left intrahepatic/CBD stent. Trace pneumobilia. Dictated by: Jim Brasher M.D. on 06/18/2022 at 20:30 Approved by: Jim Brasher M.D. on 06/18/2022 at 20:40
[2022-06-18 19:54] LABS: Pregnancy Test Serum,Qual Negative (Negative)
[2022-06-18] MEDS: HYDROMORPHONE 1 MG INJ IV (20:01)
[2022-06-18] MEDS: ACETAMINOPHEN 325 MG TABLET 975 MG PO (21:50)
[2022-06-18 22:32] LABS: RBC Urine None Seen (0-5/HPF); WBC Urine 1-5/HPF (0-5/HPF)
[2022-06-18 22:33] LABS: Bacteria Urine Moderate (10-30); Squamous Epithelial Cell Urine 5-10 /HPF (0-5/HPF)
[2022-06-18] MEDS: METOCLOPRAMIDE 10 MG/2 ML INJ IV (22:45)
[2022-06-19 00:07] VITALS: BP 126/63; PULSE 81; RESP 16; O2SAT 98
== END 2022-06-19 00:08 | disposition home or self-care (01) ==
PROVIDERS: Emergency Medicine; Emergency Provider Emergency Medicine; PCP Internal Medicine
DX: R10.84 Generalized abdominal pain (principal); R07.9 Chest pain, unspecified; R11.2 Nausea with vomiting, unspecified
CPT/HCPCS: 36415; 71045; 74177; 80053; 81003; 81015; 81025; 83690; 84703; 85025; 87086; 93005; 93010; 96361; 96374; 96375; 99285; J1170; J2405; J2765; Q9967